=== PATIENT | male | born 1980 | race Caucasian/White ===

== ENCOUNTER 2024-10-19 21:30 | Emergency (ER) | payer MEDICAID, SELFPAY ==
[2024-10-19 21:37] VITALS: BP 158/98; PULSE 104; O2SAT 99
[2024-10-19 21:48] VITALS: BP 138/67; PULSE 105; RESP 17; TEMP 37.3; O2SAT 97
[2024-10-19 21:50] VITALS: BMI 42.7
--- NOTE | 2024-10-19 22:14 | ED.SKABFB ---
HPI - Skin/Abscess/Foreign Bdy General Chief complaint: Skin/Abscess/Foreign Body Stated complaint: POSSIBLE INFECTION S/P OPERATION PER EMS Time Seen by Provider: 10/19/24 21:46 Source: patient Mode of arrival: EMS Limitations: no limitations History of Present Illness ED Provider: HPI narrative: Patient is diabetic with peripheral vascular disease status post left leg vascular surgery on 09/23 today was seen in the clinic and they removed the guerline when he came home was sitting in the toilet and the wound in the calf area opened up Related Data Previous Rx's ?Medication ?Instructions ?Recorded cephalexin 500 mg capsule 500 mg PO QID 10 days #40 caps 10/19/24 doxycycline hyclate 100 mg tablet 100 mg PO BID #20 tabs 10/19/24 Allergies Allergy/AdvReac Type Severity Reaction Status Date / Time No Known Allergies Allergy Verified 10/19/24 21:58 Review of Systems Review of Systems: Yes all other systems are reviewed and are negative [facility] Past Medical History Medical History Peripheral vascular disease Hyperlipidemia Diabetic neuropathy Hypertension Diabetes mellitus type 2 in obese Physical Exam Vital Signs: Vital Signs: Last Vital Signs Temp 99.2 F 10/19/24 21:48 Pulse 105 H 10/19/24 21:48 Resp 17 10/19/24 21:48 BP 138/67 10/19/24 21:48 Pulse Ox 97 10/19/24 21:48 O2 Del Method Room Air 10/19/24 21:48 BMI result Body Mass Index 42.7 Appearance: Alert. Oriented X3. No acute distress. ENT: Pharynx normal. Oral Mucosa moist Neck: Normal inspection. Neck supple. CVS: Normal heart rate and rhythm. Pulses normal. Respiratory: No respiratory distress. Equal air entry bilateral, no wheezing/rales/rhonchi Skin: Skin warm and dry. Normal skin color. Normal skin turgor. Extremities: No lower extremity edema left leg with surgical scar for thrombectomy left leg wound in the calf area opened up with purulent base Neuro: Oriented X 3. Medical Decision Making Medical Decision Making MDM Narrative: Patient with infected surgical wound in the left leg which was cleaned using peroxide Steri-Strips over the applied will give doxycycline and cephalexin advised to follow with wound clinic Discharge Plan Discharge Clinical Impression: Infected surgical wound Patient Disposition: Home, Self-Care Instructions: Wound Infection (ED) Additional Instructions: Local care as advised Take antibiotics as prescribed Follow up with wound clinic Prescriptions: New cephalexin 500 mg capsule 500 mg PO QID 10 Days Qty: 40 0RF doxycycline hyclate 100 mg tablet 100 mg PO BID Qty: 20 0RF Referrals: Jonah Quintanilla MD [Physician] - 3 days
[2024-10-19] MEDS: Doxycycline Monohydrate 100 MG CAPSULE PO (22:40)
[2024-10-19] MEDS: cephALEXin 500 MG CAPSULE PO (22:40)
[2024-10-19 22:50] VITALS: BP 144/86; PULSE 97; RESP 18; TEMP 36.8; O2SAT 97
== END 2024-10-19 23:00 | disposition home or self-care (01) ==
PROVIDERS: Emergency Provider Internal Medicine
DX: L03.116 Cellulitis of left lower limb (principal)
CPT/HCPCS: 99283

== ENCOUNTER 2025-02-25 13:42 | Emergency (ER) | payer MEDICAID, SELFPAY ==
[2025-02-25 13:55] VITALS: BP 168/58; PULSE 86; RESP 16; TEMP 36.4; O2SAT 95; BMI 46.1
--- NOTE | 2025-02-25 13:57 | ED.GENADULT ---
HPI - General Adult General Chief complaint: Recheck/Abnormal Lab/Rx Stated complaint: Blood infect? DR said Time Seen by Provider: 02/25/25 14:41 History of Present Illness ED Provider: Pilar GORDON narrative: The patient is a 45-year-old male with a history of type 2 diabetes. He recently moved to this area from [place], [place]. Six months ago he had vascular surgery on his left leg at [facility] in [place]. On 09/23/2024 he had a left fem-pop bypass. He subsequently developed Dehiscence from the surgical site on the upper portion of his medial left prince which has been very slow in healing. He was hospitalized for a wound infection at [facility] in [place] 3 or 4 weeks ago. he was admitted on January 27 and discharged on February 03. At discharge he was prescribed 6 days of additional antibiotics. Since then he has relocated to this area so he can stay with his sister who was helping care for him. He had had a primary care doctor in [place] but has no local primary care doctor. Yesterday he had an appointment with the drill bit sharpener at [facility]. At the office he was found to have a blood sugar of 620. He says that the drill bit sharpener called an ambulance and he was sent to the emergency room at [facility] but after a 9 hour wait in the emergency room he left and had a sister pick him up. He comes to the hospital here today because of ongoing high blood sugars although his blood sugars are not so high today. The patient says that the wound has been doing reasonably well. He has been getting assistance from the [facility] visiting nurses. They come 3 times a week. The visiting nurses came this morning. They applied Silvadene and a dressing as that usually do. They did not seem to think that there was any worsening of the wound. The patient has had no fevers, sweats, chills. The patient had also had a postoperative DVT for which he completed 6 months of anticoagulation. Related Data Previous Rx's ?Medication ?Instructions ?Recorded cephalexin 500 mg capsule 500 mg PO QID 10 days #40 caps 10/19/24 doxycycline hyclate 100 mg tablet 100 mg PO BID #20 tabs 10/19/24 Allergies Allergy/AdvReac Type Severity Reaction Status Date / Time No Known Allergies Allergy Verified 05/02/25 14:04 Review of Systems Review of Systems: Yes all other systems are reviewed and are negative [facility] Past Medical History Medical History Peripheral vascular disease Hyperlipidemia Diabetic neuropathy Hypertension Diabetes mellitus type 2 in obese Social History Social History Smoked in Last 30 Days: No Advance Directives: Yes Advance Directives Information Provided: Yes Advance Directives on File: No Physical Exam ED Vital Signs: Vital Signs - 24 hr 02/25/25 13:55 02/25/25 18:19 Temperature 97.5 F 98.2 F Pulse Rate 86 87 Respiratory Rate 16 16 Blood Pressure 168/58 H 149/77 H Pulse Oximetry 95 98 Oxygen Delivery Method Room Air Room Air BMI result Body Mass Index 46.1 Const Other: the patient is a an obese 45-year-old male who looks somewhat chronically ill but not obviously acutely ill. He does not seem in pain or respiratory distress. He does not seem toxic. He is pleasant and cooperative. HENMT Other: Face is symmetrical, mucous membranes moist. Eyes General: appearance normal, both eyes and all related structures Neck Neck: Yes normal visual inspection and Yes full ROM Resp Effort & Inspection: normal respiratory effort Auscultation: clear to auscultation bilaterally Cardio Rate: regular rate Rhythm: regular rhythm Heart sounds: S1 normal heart sound present and S2 normal heart sound present GI Other: The abdomen is soft nontender Skin Other: the patient has a large wound on the medial aspect of the proximal left lower leg. Please see the picture in the extremity portion. There is no erythema at the wound edges. There seems to be granulation tissue. Otherwise the skin is unremarkable. Neuro Other: The patient is awake and alert with normal mental status. Normal cranial nerves. Moves extremities normally. He has a cane. He walks steadily with a cane. Extrem Other: The patient has a wound on the medial aspect of the proximal left lower leg. The patient has the dorsalis P is pulse on the left foot. There is no ankle swelling. There is no calf swelling or tenderness. He moves the joints of the leg well. No purulence at the wound. Course Course Course Narrative: This is an RME performed by Artemio Casanova CNP: Additional HPI, ROS, PE not included below will be deferred to primary provider. Patient is a 45-year-old male who presents emergency department for evaluation. He recently resided in [place], after a surgery in September he moved to the local area with a his sister. He had a routine follow-up appointment with his drill bit sharpener yesterday in [place]. Evidently his point of care glucose in office was 620. He was transported by EMS to [facility] ER, evidently had blood work done in triage but ultimately waited for 9 hours and left without being seen due to the wait time. He ended up going home. Today he received a call from his drill bit sharpener who advised him that he should go back to the emergency department as there was concern that he may have a ? Blood infection , causing the hyperglycemia. He admits to a recent surgical procedure of the left lower extremity in September of 2024 due to a clot in the leg, and was hospitalized at [facility] 3 weeks ago due to an infection in the left leg/genitalia. Currently not on antibiotics, no PICC line. Plan: Serum labs, will attempt to obtain records from [facility] Medications Administered Discontinued Medications Generic Name Dose Route Start Last Admin Trade Name Freq PRN Reason Stop Dose Admin Lactated Ringer's 1,000 mls @ 999 mls/hr 02/25/25 15:00 02/25/25 17:22 Lr IV 02/25/25 16:00 Infused .Q1H1M MAURICIO Infusion Sodium Chloride 1,000 mls @ 999 mls/hr 02/25/25 17:45 02/25/25 17:50 Ns IV 02/25/25 18:45 999 mls/hr .Q1H1M MAURICIO Administration Insulin Human Lispro 10 unit 02/25/25 17:50 02/25/25 17:54 Insulin Lispro 100 Unit/Ml 3 Ml Vial SUBCUT 02/25/25 17:51 10 unit ONCE ONE Administration Silver Sulfadiazine 1 appl 02/25/25 15:00 02/25/25 15:05 Silver Sulfadiazine 1 % Cream 20 Gm Tube TOPICAL 02/25/25 15:01 1 appl ONCE ONE Administration Medical Decision Making Medical Decision Making [facility] Narrative: The patient is a 45-year-old male who is a type 2 diabetic who is 6 months status post femoral popliteal bypass surgery of the left leg which was complicated by wound dehiscence and infection in the proximal portion of the left lower leg. He has been off antibiotics for about 2 weeks. He has had no fevers. Yesterday he had a very high blood sugar of 620 when he was at an drill bit sharpener appointment in [place], [place]. He was sent to the emergency room by ambulance yesterday but left the waiting room after a 9 hour wait. Today his blood sugars in the 400. the patient does not seem to feel ill are inked described symptoms of infection. He was given IV fluids. His blood sugar came down to the 300s. His labs are unremarkable including a normal white count and normal differential. Patient has Treligy, lispro and Lantus at home. He says he has also been prescribed a new medication for his diabetes he says which she can olive picker at the pharmacy tomorrow. I do not think the patient looks ill enough that he requires hospitalization and I do not think his hyperglycemia is indicative of a new infection. I think he may be discharged to continue to manage his diabetes at home. He needs to get a local doctor if he is relocating to this area. He was given contact information for local PCP offices. Lab Data 02/25/25 14:36 02/25/25 14:36 Labs: Lab Results 02/25/25 02/25/25 02/25/25 Range/Units 14:35 14:36 14:41 WBC 9.9 (4.8-10.8) X10*3/uL RBC 4.73 (4.60-5.80) X10*6/uL Hgb 13.2 L (14.0-18.0) g/dl Hct 39.0 L (42.0-52.0) % MCV 82.5 (80.0-98.0) fL MCH 27.9 (27.0-33.0) pg MCHC 33.8 (31.0-36.0) g/dl RDW 14.2 (11.0-16.0) % Plt Count 296 (160-400) X10*3/uL MPV 9.8 (9.4-12.4) fL Immature Gran % (Auto) 1.0 H (0.0-0.4) % Neut % (Auto) 64.0 (45-73) % Lymph % (Auto) 25.4 (20-40) % Ashe % (Auto) 5.1 (2-11) % Eos % (Auto) 3.8 (0-4) % Baso % (Auto) 0.7 (0-2) % Lymph # (Auto) 2.5 (1.2-4.9) X10*3/uL Ashe # (Auto) 0.5 (0.1-1.2) X10*3/uL Eos # (Auto) 0.4 (0.0-0.4) X10*3/uL Baso # (Auto) 0.1 (0.0-0.2) X10*3/uL Abs Immat Gran (auto) 0.10 H (0.00-0.03) X10*3/uL Absolute Neuts (auto) 6.3 (2.0-8.3) x10*3/uL Absolute Nucleated RBC 0.000 (0.0-0.012) X10*3/uL Nucleated RBC % (auto) 0.0 (0.0-0.2) /100WBC VBG pH 7.35 (7.32-7.43) VBG pCO2 60 mmHg VBG pO2 35 mmHg VBG HCO3 33 H (22-26) mmol/L VBG O2 Saturation 57.0 % VBG Base Excess 6.3 mmol/L Sodium 135 (135-145) mmol/L Potassium 4.8 (3.3-5.1) mmol/L Chloride 98 (96-108) mmol/L Carbon Dioxide 29 (22-29) mmol/L Anion Gap 13 (12-20) BUN 37 H (9-16) mg/dL Creatinine 1.39 (0.5-1.4) mg/dL Estim Creat Clear Calc 82.7 Estimated GFR 55 POC Glucose (60-115) mg/dL Random Glucose 423 H* (60-115) mg/dL Lactic Acid 1.7 (0.5-2.0) mmol/L Calcium 9.4 (8.4-10.2) mg/dL Magnesium 2.4 (1.6-2.6) mg/dL Total Bilirubin 0.3 (0.0-1.0) mg/dL AST 26 (5-37) U/L ALT 21 (0-40) U/L Alkaline Phosphatase 133 H (39-117) U/L Total Protein 7.7 (6.5-8.0) g/dL Albumin 3.6 (3.5-5.0) g/dL Lipase 41 (8-78) U/L Beta-Hydroxybutyrate 0.18 (0.02-0.27) mmol/L Urine Color Urine Appearance Urine pH (5.0-9.0) Ur Specific Macclenny (1.005-1.025) Urine Protein (Neg-Trace) mg/dL Urine Glucose (UA) (Negative) mg/dL Urine Ketones (Negative) mg/dL Urine Blood (Negative) Urine Nitrite (Negative) Ur Leukocyte Esterase (Negative) Urine RBC (0-2) /HPF Urine WBC (0-5) /HPF Ur Squamous Epith Cells (0-2) /HPF Urine Bacteria (None Seen) Hyaline Casts (0-2) /LPF 02/25/25 02/25/25 02/25/25 Range/Units 17:23 18:33 19:40 WBC (4.8-10.8) X10*3/uL RBC (4.60-5.80) X10*6/uL Hgb (14.0-18.0) g/dl Hct (42.0-52.0) % MCV (80.0-98.0) fL MCH (27.0-33.0) pg MCHC (31.0-36.0) g/dl RDW (11.0-16.0) % Plt Count (160-400) X10*3/uL MPV (9.4-12.4) fL Immature Gran % (Auto) (0.0-0.4) % Neut % (Auto) (45-73) % Lymph % (Auto) (20-40) % Ashe % (Auto) (2-11) % Eos % (Auto) (0-4) % Baso % (Auto) (0-2) % Lymph # (Auto) (1.2-4.9) X10*3/uL Ashe # (Auto) (0.1-1.2) X10*3/uL Eos # (Auto) (0.0-0.4) X10*3/uL Baso # (Auto) (0.0-0.2) X10*3/uL Abs Immat Gran (auto) (0.00-0.03) X10*3/uL Absolute Neuts (auto) (2.0-8.3) x10*3/uL Absolute Nucleated RBC (0.0-0.012) X10*3/uL Nucleated RBC % (auto) (0.0-0.2) /100WBC VBG pH (7.32-7.43) VBG pCO2 mmHg VBG pO2 mmHg VBG HCO3 (22-26) mmol/L VBG O2 Saturation % VBG Base Excess mmol/L Sodium (135-145) mmol/L Potassium (3.3-5.1) mmol/L Chloride (96-108) mmol/L Carbon Dioxide (22-29) mmol/L Anion Gap (12-20) BUN (9-16) mg/dL Creatinine (0.5-1.4) mg/dL Estim Creat Clear Calc Estimated GFR POC Glucose 321 H 351 H* (60-115) mg/dL Random Glucose (60-115) mg/dL Lactic Acid (0.5-2.0) mmol/L Calcium (8.4-10.2) mg/dL Magnesium (1.6-2.6) mg/dL Total Bilirubin (0.0-1.0) mg/dL AST (5-37) U/L ALT (0-40) U/L Alkaline Phosphatase (39-117) U/L Total Protein (6.5-8.0) g/dL Albumin (3.5-5.0) g/dL Lipase (8-78) U/L Beta-Hydroxybutyrate (0.02-0.27) mmol/L Urine Color Yellow Urine Appearance Clear Urine pH 6.5 (5.0-9.0) Ur Specific Macclenny 1.015 (1.005-1.025) Urine Protein 300 (3+) H (Neg-Trace) mg/dL Urine Glucose (UA) >=1000 H (Negative) mg/dL Urine Ketones Negative (Negative) mg/dL Urine Blood Trace H (Negative) Urine Nitrite Negative (Negative) Ur Leukocyte Esterase Negative (Negative) Urine RBC 0-2 (0-2) /HPF Urine WBC 0-5 (0-5) /HPF Ur Squamous Epith Cells 0-2 (0-2) /HPF Urine Bacteria None Seen (None Seen) Hyaline Casts 0-2 (0-2) /LPF Discharge Plan Discharge Clinical Impression: Hyperglycemia, Type 2 diabetes mellitus Patient Disposition: Home, Self-Care Additional Instructions: Please continue your current medications and start the new medications your regular doctor prescribed for you when you pick it up from the pharmacy tomorrow. If you are going to be living in his area you should try to get a new primary care doctor. I have given you the contact information for to local primary care practices which may be taking new patients. Please call these offices on Friday. In the meantime please stay in touch with your drill bit sharpener at [facility]. Return to the emergency room if you feel significantly worse. Prescriptions: No Action cephalexin 500 mg capsule 500 mg PO QID 10 Days Qty: 40 0RF doxycycline hyclate 100 mg tablet 100 mg PO BID Qty: 20 0RF Referrals: [facility] Primary Care, [place] [Provider Group] Mel Vick MD [Physician] - Discharge Date/Time: 02/25/25 20:00 Print Language: Tunisian
[2025-02-25 14:41] LABS: MANUAL DIFF FLAG NO
--- OUTSIDE RECORDS SUMMARY | 2025-02-25 14:42 | XMS_ITS | Encounter Summary ---
Author Organization [facility] Address [address] [place] [address] Care Team Providers Care [employer] Name Role Phone Geovanna Abbasi MAC DEVELOPER Primary Care Provider [phone] Reason for Visit * Reason Onset Date Comments PAC Appt Request - New 01/26/2025 Encounter Details Date Type Department Care Team (Late st Contact Info) Description 01/26/2025 Telephone [facility] Plastic Cosmetic Surgery [address], [place] [id number] Dry Wall Finisher: Maribell Hazel PAC Appt Request - New Social History Tobacco Use Types Packs/Day Years Used Date Smoking Tobacco: Former Cigarettes Smokeless Tobacco: Never Comments:QUIT DAY OF SURGERY Alcohol Use Standard Drinks/Week Comments Never 0 (1 standard drink = 0.6 oz pur e alcohol) [facility] Utilities Answer Date Recorded In the past 12 months has e electric, gas, oil, or water company threatened to shut off services in your home? No 11/26/2024 Hunger Vital Sign Answer Date Recorded Within the past 12 months, y ou worried that your food would run out before you got the money to buy more. Never true 11/26/19 25 Within the past 12 months, t he food you bought just didn't last and you didn't have money to get more. Never true 11/26/2024 Transportation Answer Date Recorded In the past 12 months, has l ack of reliable transportation kept you from medical appointments, meetings, work or from getting things needed for daily living? No 11/26/2024 Housing Answer Date Recorded Housing Risk Low 2 11/26/2024 Housing Risk Medium Not on file 11/26/2024 Housing Risk High Not on file 11/26/2024 What is your living situation today? [facility]AD[facility] 11/26/2024 Sex and Gender Information Value Date Recorded Sex Assigned at Male 03/08/2024 11:09 AM EDT Legal Sex Male 5:33 PM EST Gender Identity Not on file Sexual Orientation Not on file documented as of this encounter Miscellaneous Notes * Telephone Encounter - Maribell Levi - 01/26/2025 7:49 AM EDT New patient Referred by vascular to Dr Wakefield Dx:skin graft consult/ wound leg Pls call sister [phone] documented in this encounter Plan of Treatment Upcoming Encounters Date Type Department Care Team (Late st Contact Info) Description 02/28/2025 10:00 AM EDT Nutrition [facility] [address] [place] [id number] [place] [phone] 03/24/2025 1:40 PM EDT Office Visit [facility] [address] [facility] [address] [place] [address] Geovanna Abbasi NP [address] [place] [address] 04/07/2025 8:00 AM EDT Office Visit [facility] [address] [place] [id number] Dry Wall Finisher: ChrystalTatiana Hernandez NP [address] [place] [address] 04/26/2025 10:40 AM EDT Follow-Up [facility] [address] [place] [address] Dry Wall Finisher: Kojo Tracey MD [address] [place] [address] 05/05/2025 2:30 PM EDT Office Visit [facility] [address] [place] [address] Dry Wall Finisher: Tatiana Phillip NP [address] [place] [phone] 05/19/2025 1:30 PM EDT Office Visit [facility] [address] [facility] [address] [place] [address] DiGHenrique gusman, PharmD [address] [place] [address] 07/15/2025 1:00 PM EDT Appointment [facility] [address] [place] [id number] 07/15/2025 1:45 PM EDT Appointment [facility] [address] [place] [address] 07/15/2025 3:00 PM EDT Follow-Up [facility] Vascular Surgery [address] [place] [phone] Dry Wall Finisher: Mitul Starr NP [address] [place] [phone] documented as of this encounter Visit Diagnoses Not on filedocumented in this encounter Care Teams [employer] Relationship Specialty Start Date End Date Geovanna Abbasi NP [address] [place] [id number] PCP - General 11/09/20 documented as of this encounter
--- OUTSIDE RECORDS SUMMARY | 2025-02-25 14:42 | XMS_ITS | Encounter Summary ---
Author Organization [facility] Address [address] [place] [address] Care Team Providers Care Instructional Supervisor Name Role Phone Geovanna Abbasi EARTHMOVING PLANT OPERATOR Primary Care Provider [phone] Encounter Details Date Type Department Care Team (Late st Contact Info) Description 02/21/2025 11:30 AM EDT Follow-Up [facility] [address] [place] [address] Litigation Legal Secretary: Akash Delgado PA [address] [place] [address] [phone] Leg wound, left, initial encounter (Primary Dx) Social History Tobacco Use Types Packs/Day Years Used Date Smoking Tobacco: Former Cigarettes Smokeless Tobacco: Never Tobacco Cessation:Counseling Given: Not Answered Comments:QUIT DAY OF SURGERY Alcohol Use Standard Drinks/Week Comments Never 0 (1 standard drink = 0.6 oz pur e alcohol) [facility] Utilities Answer Date Recorded In the [...] on file documented as of this encounter Progress Notes * REECE Ambriz - 02/21/2025 11:30 AM EDT Images from the original note were not included. [facility] [address] [place] [phone] NAME:Miguel Foley DATE OF :1980 DATE OF SERVICE:02/21/25 ATTENDING: Dr. Alfredo Wakefield DATE OF SURGERY: left femoral popliteal bypass with ipsilateral Great Saphenous Vein (iGSV), 09/23/2024, Dr. Lewis CHIEF COMPLAINT: wound vac HISTORY OF PRESENT ILLNESS: Miguel Foley is a 45 y.o. male with history of left femoral popliteal bypass with ipsilateral Great Saphenous Vein (iGSV) on 09/23/[address] Lewis followed by left medial calf Incision and drainage with negative pressure vac placement on 11/27/[address] Miller comes to clinic for a wound check. Patient has VNA 3x a week changing wound vac on left calf with i mprovement. He was hospitalized for left lower extremity cellulitis/sepsis from 01/27/2025 to 02/03/2025, which has improved with IV antibiotics. Pain is under control. Current treatment is negative pressure wound vac. VNA changes wound vac 3 time a week. He notes slight irritation around wound due to the tape. He has been eating more red meats and eggs for wound healing. He does note that his left knee is more stiff, but he also says that he does not move it for long periods of time. Diabetes is well controlled, patient states he is doinghis best with managing diabetes but it is difficult. The patient has no other complaints. The patient denies fevers, chills, chest pain, shortness of breath, nausea, vomiting, lightheadedness. Is currently on Eliquis. Smokes marijuana. With . Translation services used: [place], [id number] Past Medical History: Diagnosis Date Acquired absence of other organs 01/17/2021 Acute deep vein thrombosis (DVT) of lower extremity ([facility]) 08/27/2024 Seen ed 08/03 Claudication of both lower extremities ([facility]) 01/11/2021 Hypertension Type 2 diabetes mellitus ([facility]) Current Outpatient Medications Medication Sig Dispense Refill acetaminophen (TYLENOL) 325 mg tablet Take 650 mg by mouth every 6 hours as needed for pain. alcohol swabs (Alcohol Prep Pads) pads, medicated Use prior to checking blood sugar 100 each 11 amLODIPine (NORVASC) 5 mg tablet Take 1 tablet (5 mg total) by mouth once a day. 90 tablet 1 aspirin 81 mg EC tablet Take 1 tablet (81 mg total) by mouth once a day. blood glucose diagnostic (FreeStyle Precision Ethan Strips) test strip Use to test 3 times daily. 50 strip 2 blood pressure test kit-medium kit For blood pressure monitoring 1-2 times weekly 1 each 0 blood-glucose sensor (FreeStyle Geo 3 Plus Sensor) device Change sensor every 15 days. 2 each 3 dulaglutide (TRULICITY) 1.5 mg/0.5 mL injection dose Inject 0.5 mL (1.5 mg total) under the skin every 7 days. 6 mL 0 ergocalciferol (VITAMIN D2) 1,250 mcg (50,000 unit) capsule Take 1 capsule (50,000 Units total) by mouth every 7 days. 4 capsule 0 flash glucose sensor (FreeStyle Geo 2 Sensor) kit Change sensor every 14 days. 1 kit 2 furosemide (LASIX) 20 mg tablet Take 2 tablets (40 mg total) by mouth once a day. 60 tablet 2 gabapentin (NEURONTIN) 300 mg capsule TAKE 1 CAPSULE(300 MG) BY MOUTH TWICE DAILY 60 capsule 0 hydrOXYzine HCL (ATARAX) 25 mg tablet Take 1-2 pills by mouth at night for anxiety and insomnia. 90tablet 1 insulin glargine (LANTUS SOLOSTAR) 100 unit/mL insulin pen Inject 38 Units under the skin nightly. 30 mL 1 insulin lispro injection 100 units/mL vial Inject 2-10 Units under the skin 3 times a day with meals. insulin lispro injection 100 units/mL vial Inject 2-10 Units under the skin nightly. insulin lispro injection 100 units/mL vial Inject 10 Units under the skin 3 times a day with meals.9 mL 2 lisinopriL (PRINIVIL,ZESTRIL) 30 mg tablet Take 1 tablet (30 mg total) by mouth once a day. 90 tablet 3 rosuvastatin (CRESTOR) 20 mg tablet Take 20 mg by mouth once a day. tamsulosin (FLOMAX) 0.4 mg capsule Take 1 capsule (0.4 mg total) by mouth once a day. 30 capsule 11 No current facility-administered medications for this visit. No Known Allergies REVIEW OF SYSTEMS: Denies any fever, sweats, chills, nausea, vomiting or shortness of breath OBJECTIVE: GENERAL: Alert and oriented x 3, pleasant mood and affect HEENT: Mucous membranes moist, extra occular movements intact RESPIRATORY: normal respiratory effort SKIN: Location/measurements: Wound located on the left calf measures 8.5 cm x 2 cm x 0.3 cm. Erythema: There are no signs of infection. Odor: There is no odor appreciated. Drainage: Drainage is moderate and clear in color. Appearance: The wound base has red granulation tissue. Edema: Edema is non-existant. Debridement: Debridement was not required today. The dressings will autolytically debride the wound. Stage: Full thickness EXTREMITY: Well perfused ASSESSMENT AND PLAN: ICD-9-CM ICD-10-CM 1. Leg wound, left, initial encounter 894.0 S81.802A This is a 45 y.o. year old male with history of left femoral popliteal bypass with ipsilateral Great Saphenous Vein (iGSV) on 09/23/[address] Lewis followed by left medial calf Incision and drainage with negative pressure vac placement on 11/27/[address] Miller. Here for wound check. Vascular note mentioned possible skin graft, so case was discussed with Bella Alan PA-C. Discussed with patient the risks and benefits of skin graft, as well as possible timeline of healing graft. Decision was made to discontinue wound vac and start simple silvadene dressings. He has used Silvadene previously for a burn and denies any negative reaction. Stand up showers are OK, as longas wound are last area cleansed. Advised that wounds are still too deep to leave to air. Wound care instructions sent to [facility]. Sent Silvadene prescription. Follow up in 1 week. Wound care: Daily cleanse with soap and water, pat dry. Apply Silvadene to gauze, then apply to wound. Secure with gauze roll. Plan 1. Continue wound care instructions as above. 2. Follow up in 1 week 3. Return to clinic or ED if new or worsening symptoms. Patient in agreement with plan. Akash Marley PA-C Portions of this note were done using voice recognition software and may contain inadvertent errors. documented in this encounter Plan of Treatment Upcoming Encounters Date Type Department Care Team (Late st Contact Info) Description 02/28/2025 10:00 AM EDT Nutrition [facility] Nutrition Clinic [address] [place] [address] [place] [phone] 03/24/2025 1:40 PM EDT Office Visit [facility] [address] [address] [place] [address] Geovanna Abbasi NP [address] [place] [address] 04/07/2025 8:00 AM EDT Office Visit [facility] Diabetes Clinic [address] [place] [address] Litigation Legal Secretary: Tatiana Phillip NP [address] [place] [address] 04/26/2025 10:40 AM EDT Follow-Up [facility] Renal [address] [place] [address] Litigation Legal Secretary: Kojo Tracey MD [address] [place] [address] 05/05/2025 2:30 PM EDT Office Visit [facility] Diabetes Clinic [address] [place] [address] Litigation Legal Secretary: Tatiana Phillip NP [address] [place] [address] 05/19/2025 1:30 PM EDT Office Visit [facility] [address] [facility] [address] [place] [address] Henrique Banegas, PharmD [address] [place] [address] 07/15/2025 1:00 PM EDT Appointment [facility] Vascular Lab [address] [place] [address] 07/15/2025 1:45 PM EDT Appointment [facility] Vascular Lab [address] [place] [address] 07/15/2025 3:00 PM EDT Follow-Up [facility] Vascular Surgery [address] [place] [address] Litigation Legal Secretary: Mitul Starr NP [address] [place] [address] documented as of this encounter Visit Diagnoses Diagnosis Leg wound, left, initial encounter- Primary documented in this encounter Care Teams Instructional Supervisor Relationship Specialty Start Date End Date Geovanna Abbasi NP [address] [place] [address] PCP - General 11/09/20 documented as of this encounter
--- OUTSIDE RECORDS SUMMARY | 2025-02-25 14:42 | XMS_ITS | Encounter Summary ---
Author Organization [facility] Address [address] [place] [address] Care Team Providers Care Instructor Trainer Canine Service Name Role Phone Geovanna Abbasi BAKERY WORKER CONVEYOR LINE Primary Care Provider [phone] Encounter Details Date Type Department Care Team (Late st Contact Info) Description 02/25/2025 Orders Only [facility] Endocrinology Clinic [address] [place] [address] Photo Tech: Catherine Cha MD [address] [place] [address] Social History Tobacco Use Types Packs/Day Years Used Date Smoking Tobacco: Former Cigarettes Smokeless Tobacco: Never Comments:QUIT DAY OF SURGERY Alcohol Use Standard Drinks/Week Comments Never 0 (1 standard drink = 0.6 oz pur e alcohol) [facility] Utilities Answer Date Recorded In the [...] on file documented as of this encounter Plan of Treatment Upcoming Encounters Date Type Department Care Team (Late st Contact Info) Description 02/28/2025 10:00 AM EDT Nutrition [facility] Nutrition Clinic [address] [place] [address] [place] [phone] 03/24/2025 1:40 PM EDT Office Visit [address] [facility] [address] [place] [address] Geovanna Abbasi NP [address] [place] [address] 04/07/2025 8:00 AM EDT Office Visit [facility] ACC Building Diabetes Clinic [address] [place] [address] Photo Tech: Tatiaan Phillip NP [address] [place] [address] 04/26/2025 10:40 AM EDT Follow-Up [facility] Renal [address] [place] [address] Photo Tech: Kojo Tracey MD [address] [place] [address] 05/05/2025 2:30 PM EDT Office Visit [facility] Diabetes Clinic [address] [place] [address] Photo Tech: Tatiana Phillip NP [address] [place] [address] 05/19/2025 1:30 PM EDT Office Visit [facility] [address] [facility] [address] [place] [address] DiGeroHenrique lewis, PharmD [address] [place] [address] 07/15/2025 1:00 PM EDT Appointment [facility] ACC Vascular Lab [address] [place] [address] 07/15/2025 1:45 PM EDT Appointment [facility] Vascular Lab [address] [place] [address] 07/15/2025 3:00 PM EDT Follow-Up [facility] Vascular Surgery [address] [place] [address] Photo Tech: Mitul Starr NP [address] [place] [address] documented as of this encounter Visit Diagnoses Not on filedocumented in this encounter Care Teams Instructor Trainer Canine Service Relationship Specialty Start Date End Date Geovanna Abbasi NP [address] [place] [address] PCP - General 11/09/20 documented as of this encounter
--- OUTSIDE RECORDS SUMMARY | 2025-02-25 14:42 | XMS_ITS | Encounter Summary ---
Author Organization [facility] Address [address] [place] [address] Care Team Providers Care Plastic And Reconstructive Surgeon Name Role Phone Ayleen Geovanna DIE CUTTER DIAMOND Primary Care Provider [phone] Reason for Visit * Reason Onset Date Comments Prior Authorization 02/25/2025 (MSOT) - OZE MPIC (1MG/DOSE)4MG/3ML PEN-INJ.#01/21 Encounter Details Date Type Department Care Team (Late st Contact Info) Description 02/25/2025 Telephone [facility] Endocrinology Clinic [address] [place] [address] [phone] Upper Tier: Titus Parikh Prior Authorization ((MSOT) - OZEMPIC (1MG/DOSE)4MG/3ML PEN-INJ.#01/21) Social History Tobacco Use Types Packs/Day Years Used Date Smoking Tobacco: Former Cigarettes Smokeless Tobacco: Never Comments:QUIT DAY OF SURGERY Alcohol Use Standard Drinks/Week Comments Never 0 (1 standard drink = 0.6 oz pur e alcohol) [facility] Utilities Answer Date Recorded In the past [...] encounter Miscellaneous Notes * Telephone Encounter - Titus Levy - 02/25/2025 1:59 PM EDT Filled out [email or web address] PA form for Ozempic (1mg/dose)4mg/3ml pen-inj., faxed it to plan fax #[phone] for PA determination. documented in this encounter Plan of Treatment Upcoming Encounters Date Type Department Care Team (Late st Contact Info) Description 02/28/2025 10:00 AM EDT Nutrition [facility] Nutrition Clinic [address] [place] [address] [place] [phone] 03/24/2025 1:40 PM EDT Office Visit [facility] [address] [facility] [address] [place] [address] Geovanna Abbasi NP [address] [place] [address] 04/07/2025 8:00 AM EDT Office Visit [facility] Diabetes Clinic [address] [place] [address] Upper Tier: Tatiana Phillip NP [address] [place] [address] 04/26/2025 10:40 AM EDT Follow-Up [facility] Renal [address] [place] [address] Upper Tier: Kojo Tracey MD [address] [place] [address] 05/05/2025 2:30 PM EDT Office Visit [facility] Diabetes Clinic [address] [place] [address] Upper Tier: Tatiana Phillip NP [address] [place] [address] 05/19/2025 1:30 PM EDT Office Visit [facility] [address] [facility] [address] [place] [address] DiGHenrique gusman, PharmD [address] [place] [address] 07/15/2025 1:00 PM EDT Appointment [facility] ACC Vascular Lab [address] [place] [address] 07/15/2025 1:45 PM EDT Appointment [facility] ACC Vascular Lab [address] [place] [address] 07/15/2025 3:00 PM EDT Follow-Up [facility] Vascular Surgery [address] [place] [address] Upper Tier: Mitul Starr NP [address] [place] [address] documented as of this encounter Visit Diagnoses Not on filedocumented in this encounter Care Teams Plastic And Reconstructive Surgeon Relationship Specialty Start Date End Date Geovanna Abbasi NP [address] [place] [address] PCP - General 11/09/20 documented as of this encounter
--- OUTSIDE RECORDS SUMMARY | 2025-02-25 14:42 | XMS_ITS | Encounter Summary ---
Author Organization [facility] Address [address] [place] [address] Care Team Providers Care Wire Communications Engineer Name Role Phone Geovanna Abbasi CONTROL DIRECTOR Primary Care Provider [phone] Encounter Details Date Type Department Care Team (Late st Contact Info) Description 01/03/2023 Orders Only [facility] [address] [facility] [address] [place], [place] [phone] Geovanna Abbasi NP [address] [place], [place] [phone] Social History Tobacco Use Types Packs/Day Years Used Date Smoking Tobacco: Every Day Cigarettes Smokeless Tobacco: Never Alcohol Use Standard Drinks/Week Comments Never 0 (1 standard drink = 0.6 oz pur e alcohol) Sex and Gender Information Value Date Recorded Sex Assigned at Male 03/08/2024 11:09 AM EDT Legal Sex Male 5:33 PM EST Gender Identity Not on file Sexual Orientation Not on file documented as of this encounter Plan of Treatment Upcoming Encounters Date Type Department Care Team (Late st Contact Info) Description 02/28/2025 10:00 AM EDT Nutrition [facility] Nutrition Clinic [address] [place] [address] [phone] Raysa Mnedez, RD [address] [place] [phone] 03/24/2025 1:40 PM EDT Office Visit [facility] [address] [facility] [address] [place] [address] Geovanna Abbasi NP [address] [place] [address] 04/07/2025 8:00 AM EDT Office Visit [facility] Diabetes Clinic [address] [place] [address] Soil Science Teacher: Tatiana Phillip NP [address] [place] [address] 04/26/2025 10:40 AM EDT Follow-Up [facility] Renal [address] [place] [address] Soil Science Teacher: Kojo Tracey MD [address] [place] [address] 05/05/2025 2:30 PM EDT Office Visit [facility] Diabetes Clinic [address] [place] [address] Soil Science Teacher: Tatiana Phillip NP [address] [place] [address] 05/19/2025 1:30 PM EDT Office Visit [place] [address] [facility] [address] [place] [address] DiGeroHenrique lewis, PharmD [address] [place] [address] 07/15/2025 1:00 PM EDT Appointment [facility] ACC Vascular Lab [address] [place] [address] 07/15/2025 1:45 PM EDT Appointment [facility] ACC Vascular Lab [address] [place] [address] 07/15/2025 3:00 PM EDT Follow-Up [facility] ACC Building Vascular Surgery [address] [place] [address] Soil Science Teacher: Mitul Starr NP [address] [place] [address] documented as of this encounter Visit Diagnoses Not on filedocumented in this encounter Additional Health Concerns Infection Onset Date Last Indicated Resolved Time R/O Respiratory Virus Infection 09/23/2024 09/23/2024 3:28 AM EST R/O Influenza 09/23/2024 09/23/2024 09/23/2024 3:2 8 AM EST COVID-19 - Suspected infection 09/23/2024 09/23/2024 09/23/2024 3:28 AM EST documented as of this encounter Care Teams Wire Communications Engineer Relationship Specialty Start Date End Date Geovanna Abbasi NP [address] [place] [address] PCP - General 11/09/20 documented as of this encounter
--- OUTSIDE RECORDS SUMMARY | 2025-02-25 14:43 | XMS_ITS | Encounter Summary ---
Author Organization [facility] Address [address] [place] [address] Care Team Providers Care Manager Of Revenue Name Role Phone Geovanna Abbasi BATTERY CHARGER CONVEYOR LINE Primary Care Provider [phone] Encounter Details Date Type Department Care Team (Late st Contact Info) Description 02/25/2025 Orders Only [facility] Endocrinology Clinic [address] [place] [address] Hand Ornament Maker: Catherine Cha MD [address] [place] [address] Social History Tobacco Use Types Packs/Day Years Used Date Smoking Tobacco: Former Cigarettes Smokeless Tobacco: Never Comments:QUIT DAY OF SURGERY Alcohol Use Standard Drinks/Week Comments Never 0 (1 standard drink = 0.6 oz pur e alcohol) [facility] Utilities Answer Date Recorded In the past [...] as of this encounter Progress Notes * Catherine Dinh MD - 02/25/2025 12:28 PM EDT Ozempic [address] of Mounjaro 5 mg weekly since not covered. documented in this encounter Plan of Treatment Upcoming Encounters Date Type Department Care Team (Late st Contact Info) Description 02/28/2025 10:00 AM EDT Nutrition [facility] Nutrition Clinic [address] [place] [address] [place] [phone] 03/24/2025 1:40 PM EDT Office Visit [facility] [address] [facility] [address] [place] [address] Geovanna Abbasi NP [address] [place] [address] 04/07/2025 8:00 AM EDT Office Visit [facility] Diabetes Clinic [address] [place] [address] Hand Ornament Maker: Tatiana Phillip NP [address] [place] [address] 04/26/2025 10:40 AM EDT Follow-Up [facility] Renal [address] [place] [address] Hand Ornament Maker: Kojo Tracey MD [address] [place] [address] 05/05/2025 2:30 PM EDT Office Visit [facility] Diabetes Clinic [address] [place] [address] Hand Ornament Maker: Tatiana Phillip NP [address] [place] [address] 05/19/2025 1:30 PM EDT Office Visit [facility] [address] [facility] [address] [place] [address] Henrique Banegas, PharmD [address] [place] [address] 07/15/2025 1:00 PM EDT Appointment [facility] ACC Vascular Lab [address] [place] [address] 07/15/2025 1:45 PM EDT Appointment [facility] ACC Vascular Lab [address] [place] [address] 07/15/2025 3:00 PM EDT Follow-Up [facility] Vascular Surgery [address] [place] [address] Hand Ornament Maker: Mitul Starr NP [address] [place] [address] documented as of this encounter Visit Diagnoses Not on filedocumented in this encounter Care Teams Manager Of Revenue Relationship Specialty Start Date End Date Geovanna Abbasi NP [address] [place] [address] PCP - General 11/09/20 documented as of this encounter
--- OUTSIDE RECORDS SUMMARY | 2025-02-25 14:43 | XMS_ITS | Clinical Summary ---
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 10/01/20 24 Active blood glucose diagnostic (FreeStyle Precision Ethan Strips) test strip Use to test 3 times daily. 50 strip 2 10/29/19 25 Active amLODIPine (NORVASC) 5 mg tablet Take 1 tablet (5 mg total) by mouth once a day. 90 tablet 1 11/09/19 25 2024 Active ergocalciferol (VITAMIN D2) 1,250 mcg (50,000 unit) capsule Take 1 capsule (50,000 Units total) by mouth every 7 days. 4 capsule 11/10/19 25 Active blood pressure test kit-medium kit For blood pressure monitoring 1-2 times weekly 1 each 11/10/19 25 Active tamsulosin (FLOMAX) 0.4 mg capsule Take 1 capsule (0.4 mg total) by mouth once a day. 30 capsule 11 11/26/19 25 Active hydrOXYzine HCL (ATARAX) 25 mg tablet Take 1-2 pills by mouth at night for anxiety and insomnia. 90 tablet 1 12/17/19 25 Active furosemide (LASIX) 20 mg tablet Take 2 tablets (40 mg total) by mouth once a day. 60 tablet 2 12/22/19 25 2024 Active rosuvastatin (CRESTOR) 20 mg tablet Take 20 mg by mouth once a day. Active acetaminophen (TYLENOL) 325 mg tablet Take 650 mg by mouth every 6 hours as needed for pain. Active gabapentin (NEURONTIN) 300 mg capsule TAKE 1 CAPSULE(300 MG) BY MOUTH TWICE DAILY 60 capsule 01/26/20 25 Active silver sulfadiazine (SILVADENE) 1% creamIndications :Leg wound, left, initial encounter Apply topically to the affected area once a day. 50 g 2 02/22/20 25 Active cholecalciferol (VITAMIN D3) 1,250 mcg (50,000 unit) capsule Take 1 capsule (50,000 Units total) by mouth once a week for 8 doses. 8 capsule 02/29/20 25 2024 Active lisinopriL (PRINIVIL,ZESTRI L) 10 mg tablet Take 4 tablets (40 mg total) by mouth once a day. 120 tablet 2 02/24/20 25 2024 Active alcohol swabs (Alcohol Pads) pads, medicated Use up to 8 times daily with meter checks 200 each 02/25/20 25 Active insulin lispro 100 unit/mL insulin pen Inject 10 Units under the skin 3 times a day with meals. Adjust as instructed, MDD 60. 15 mL 02/25/20 25 Active blood-glucose sensor (FreeStyle Merly 3 Plus Sensor) device Change sensor every 15 days. 2 each 3 02/25/20 25 Active insulin glargine (LANTUS SOLOSTAR) 100 unit/mL insulin pen Inject 38 Units under the skin nightly. 30 mL 5 02/25/20 25 Active pen needle (BD Ultra-Fine Lizbeth) 4 mm x 32 g Use 4 times daily with insulin 200 each 02/25/20 25 Active Freestyle lancets 28 gauge Use to test 4 times daily.E11.9(T 2) 200 each 02/26/20 25 Active Freestyle Lite test strips Use to test 4 times daily.E11.9(T 2) 200 strip 11 02/26/20 Active FreeStyle Lite Meter meter Use to test blood sugars as directed.E11. 9(T2) 1 each 02/26/20 Active semaglutide (Ozempic) 1 mg/dose (4 mg/3 mL) pen injector Inject 0.75 mL (1 mg total) under the skin every 7 days. 3 mL 11 02/26/20 Active insulin lispro injection 100 units/mL vial Inject 2-10 Units under the skin 3 times a day with meals. 10/02/20 24 2024 Discontinued insulin lispro injection 100 units/mL vial Inject 2-10 Units under the skin nightly. 10/01/20 24 2024 Discontinued apixaban (ELIQUIS) 5 mg tablet Take 1 tablet (5 mg total) by mouth every 12 hours. 180 tablet 11/17/19 25 2024 Discontinued(S top Taking at Discharge) clotrimazole-bet amethasone (LOTRISONE) cream Apply topically to the affected area 2 times a day. 45 g 1 11/26/19 25 2024 Discontinued(S top Taking at Discharge) insulin lispro injection 100 units/mL vial Inject 10 Units under the skin 3 times a day with meals. 9 mL 2 12/17/19 25 2024 Discontinued lisinopriL (PRINIVIL,ZESTRI L) 20 mg tablet Take 20 mg by mouth once a day. Taking with 30 mg. tablet 2024 Discontinued(S top Taking at Discharge) ibuprofen (MOTRIN) 200 mg tablet Take 200 mg by mouth every 6 hours as needed for pain. 2024 Discontinued(S top Taking at Discharge) dulaglutide (TRULICITY) 1.5 mg/0.5 mL injection dose Inject 0.5 mL (1.5 mg total) under the skin every 7 days. 6 mL 01/08/20 25 2024 Discontinued flash glucose sensor (FreeStyle Merly 2 Sensor) kitIndications:U ncontrolled type 2 diabetes mellitus with hyperglycemia (HCC) Change sensor every 14 days. 1 kit 2 01/08/20 25 2024 Discontinued lisinopriL (PRINIVIL,ZESTRI L) 30 mg tablet Take 1 tablet (30 mg total) by mouth once a day. 90 tablet 3 02/24/20 25 2024 Discontinued tirzepatide (Mounjaro) 5 mg/0.5 mL pen injector Inject 0.5 mL (5 mg total) under the skin every 7 days. After completing 2.5 mg weekly x 4 weeks 2 mL 11 02/25/20 25 2024 Discontinued FreeStyle Lite Meter meter Use to test blood sugars as directed.E11. 9(T2) 1 each 02/26/20 25 2024 Discontinued Hospital, Clinic, or Other Facility Administered Medication Ordered Dose Route Frequency Start Date End Date Status insulin lispro (ADMELOG/HumaLOG - 100 units/mL) injection 20 Units 20 Units subcutaneo Once 02/24/2025 02/24/2025 Ended Active Problems Problem Noted Date Diagnosed Date Leg wound, left, initial encounter 02/21/2025 Aftercare following surgery of the circulatory s ystem 02/11/2025 Insulin dependent type 2 diabetes mellitus 01/27 Assessment & Plan (02/02/2025 11:04 AM EDT): Home medications: Trulicity 1.5 mg weekly, gabapentin 300 mg twice daily, glargine 38 units nightly, lispro medium dose sliding scale Patient presented with blood sugar in the 400s, which down-trended. Likely elevated in setting of infection and patient having missed some home doses of insulin as he had not been feeling well. Diabetes consulted, appreciate recs Increased home glargine 40 units nightly Insulin lispro 8 units with breakfast, 10 units with lunch, and 10 units with dinner - hold if not eating MDRYAN ACHS Carb consistent diet HOLDING home Trulicity Permanently discontinue Jardiance Reduce home gabapentin dose to 300 nightly iso CHELA Assessment & Plan (02/01/2025 2:31 PM EDT): Home medications: Trulicity 1.5 mg weekly, gabapentin 300 mg twice daily, glargine 38 units nightly, lispro medium dose sliding scale Patient presented with blood sugar in the 400s, which down-trended. Likely elevated in setting of infection and patient having missed some home doses of insulin as he had not been feeling well. Diabetes consulted, appreciate recs Increased home glargine 40 units nightly Insulin lispro 8 units with breakfast, 10 units with lunch, and 10 units with dinner - hold if not eating LISBET ACHS Carb consistent diet HOLDING home Trulicity Permanently discontinue Jardiance Reduce home gabapentin dose to 300 nightly iso CHELA Assessment & Plan (01/31/2025 5:08 PM EDT): Home medications: Trulicity 1.5 mg weekly, gabapentin 300 mg twice daily, glargine 38 units nightly, lispro medium dose sliding scale Patient presented with blood sugar in the 400s, which down-trended. Likely elevated in setting of infection and patient having missed some home doses of insulin as he had not been feeling well. Diabetes consulted, appreciate recs Increased home glargine 40 units nightly Lispro medium dose sliding scale Increased lispro 8 unit(s) at meals Carb consistent diet HOLDING home Trulicity Reduce home gabapentin dose to 300 nightly iso CHELA Assessment & Plan (01/30/2025 10:35 PM EDT): Home medications: Trulicity 1.5 mg weekly, gabapentin 300 mg twice daily, glargine 38 units nightly, lispro medium dose sliding scale Patient presented with blood sugar in the 400s, now downtrending. Likely elevated in setting of infection and patient having missed some home doses of insulin as he has not been feeling well. - Diabetes consulted 01/28 - Increase home glargine 40 units nightly - Lispro medium dose sliding scale - Continue lispro 6 unit(s) at meals per diabetes recs - Carb consistent diet - Reduce home gabapentin dose to 300 nightly iso CHELA - Do not administer Trulicity Assessment & Plan (01/29/2025 9:16 AM EDT): Home medications: Trulicity 1.5 mg weekly, gabapentin 300 mg twice daily, glargine 38 units nightly, lispro medium dose sliding scale Patient presented with blood sugar in the 400s, now downtrending. Likely elevated in setting of infection and patient having missed some home doses of insulin as he has not been feeling well. - Diabetes consulted 01/28 - Increase home glargine 40 units nightly - Lispro medium dose sliding scale - Added lispro 6 unit(s) at meals per diabetes recs - Carb consistent diet - Reduce home gabapentin dose to 300 nightly iso CHELA - Do not administer Trulicity Assessment & Plan (01/28/2025 4:21 PM EDT): Home medications: Trulicity 1.5 mg weekly, gabapentin 300 mg twice daily, glargine 38 units nightly, lispro medium dose sliding scale Patient presented with blood sugar in the 400s, now downtrending. Likely elevated in setting of infection and patient having missed some home doses of insulin as he has not been feeling well. - Diabetes consulted 01/28 - Increase home glargine 40 units nightly - Lispro medium dose sliding scale - Added lispro 6 unit(s) at meals per diabetes recs - Carb consistent diet - Reduce home gabapentin dose to 300 nightly iso CHELA - Do not administer Trulicity Assessment & Plan (01/27/2025 6:39 PM EDT): Home medications: Trulicity 1.5 mg weekly, gabapentin 300 mg twice daily, glargine 38 units nightly, lispro medium dose sliding scale Patient presented with blood sugar in the 400s, now downtrending. Likely elevated in setting of infection and patient having missed some home doses of insulin as he has not been feeling well. -Continue home glargine 38 units nightly - Lispro medium dose sliding scale - Carb consistent diet - Reduce home gabapentin dose to 300 nightly iso CHELA - Do not administer Trulicity History of DVT (deep vein thrombosis) 01/27/2025 Assessment & Plan (02/02/2025 11:04 AM EDT): Home medication: Eliquis 5 mg twice daily Per vascular surgery, he completed his treatment for DVT and no longer needs Eliquis. Discontinued 01/28. Assessment & Plan (02/01/2025 7:41 AM EDT): Home medication: Eliquis 5 mg twice daily Per vascular surgery, he completed his treatment for DVT and no longer needs Eliquis. Discontinued 01/28. Assessment & Plan (01/31/2025 5:08 PM EDT): Home medication: Eliquis 5 mg twice daily Per vascular surgery, he completed his treatment for DVT and no longer needs Eliquis. Discontinued 01/28. Assessment & Plan (01/30/2025 10:35 PM EDT): Home medication: Eliquis 5 mg twice daily Per vascular surgery, he completed his treatment for DVT and no longer needs Eliquis. Discontinued 01/28. - Continue DVT ppx with heparin subcutaneous Assessment & Plan (01/29/2025 9:16 AM EDT): Home medication: Eliquis 5 mg twice daily Per vascular surgery, he completed his treatment for DVT and no longer needs Eliquis. Discontinued 01/28. Assessment & Plan (01/28/2025 4:21 PM EDT): Home medication: Eliquis 5 mg twice daily Per vascular surgery, he completed his treatment for DVT and no longer needs Eliquis. Discontinued 01/28. Assessment & Plan (01/27/2025 6:38 PM EDT): Home medication: Eliquis 5 mg twice daily - Continue home medication as no surgical interventions planned BPH (benign prostatic hyperplasia) 01/27/2025 Assessment & Plan (02/02/2025 11:04 AM EDT): Home med: Flomax 0.4 mg daily. Continue home Flomax Assessment & Plan (02/01/2025 7:41 AM EDT): Home med: Flomax 0.4 mg daily. Continue home Flomax Assessment & Plan (01/31/2025 5:08 PM EDT): Home med: Flomax 0.4 mg daily. Continue home Flomax Assessment & Plan (01/30/2025 10:35 PM EDT): Continue home Flomax 0.4 mg daily. Assessment & Plan (01/29/2025 9:16 AM EDT): Continue home Flomax 0.4 mg daily. Assessment & Plan (01/28/2025 10:17 AM EDT): Continue home Flomax 0.4 mg daily. Assessment & Plan (01/27/2025 6:40 PM EDT): Continue home Flomax 0.4 mg daily. Left leg pain 01/25/2025 Wound dehiscence 11/26/2024 Surgical wound infection 11/26/2024 Primary insomnia 10/29/2024 Assessment & Plan (02/02/2025 11:04 AM EDT): Nightly Trazodone 50mg Melatonin 6mg nightly PRN Assessment & Plan (02/01/2025 7:41 AM EDT): Nightly Trazodone 50mg Melatonin 6mg nightly PRN Assessment & Plan (01/31/2025 5:08 PM EDT): Nightly Trazodone 50mg Melatonin 6mg nightly PRN Assessment & Plan (12/17/2024 3:38 PM EST): Pt reports improvements with hydroxyzine 25mg -50mg nightly prn anxiety and insomnia. In regards to medications we reviewed SSRIs. He declines at this time but agrees to let me know if he changes his mind. Pt denies SI or self harm. He agrees to seek emergency services if those thoughts occur. All quetsions answered to pt satisfaction. He is in agreement with POC. Assessment & Plan (10/29/2024 9:00 PM EST): Pt reports difficulty managing anxiety, depression and insomnia sx since hospital stay. Emotional support provided, reinforced positive coping mechanisms. Reviewed tx options including therapy and or medications. He is very intersted in therapy. Provided list from qunb from therapist in [place] as pt is living there with his sister. In regards to medications we reviewed SSRIs. He declines at this time but is interested in medication for sleep. Add hydroxyzine 25-50mg nightly for insomnia and anxiety. Reviewed SE including drowsiness. Pt denies SI or self harm. He agrees to seek emergency services if those thoughts occur. All quetsions answered to pt satisfaction. He is in agreement with POC. Anxiety 10/29/2024 Assessment & Plan (02/02/2025 11:04 AM EDT): Home med: hydroxyzine 25 mg BID PRN. Continue home hydroxyzine Assessment & Plan (02/01/2025 7:41 AM EDT): Home med: hydroxyzine 25 mg BID PRN. Continue home hydroxyzine Assessment & Plan (01/31/2025 5:08 PM EDT): Home med: hydroxyzine 25 mg BID PRN. Continue home hydroxyzine Assessment & Plan (01/30/2025 10:35 PM EDT): Continue home hydroxyzine 25 mg BID PRN. Assessment & Plan (01/29/2025 9:16 AM EDT): Continue home hydroxyzine 25 mg BID PRN. Assessment & Plan (01/28/2025 10:17 AM EDT): Continue home hydroxyzine 25 mg BID PRN. Assessment & Plan (01/27/2025 6:42 PM EDT): Continue home hydroxyzine 25 mg BID PRN. Assessment & Plan (01/07/2025 10:19 PM EDT): PHQ-9: 3 JASON-7: 4 Emotional support provided, reinforced positive coping mechanisms Pt is engaged in outside therapy with improvements On hydroxyzine prn for panic and sleep, continue. He is not interested in preventative medication such as SSRI but agrees to let me know if he changes his mind. Ischemia of left lower extremity 09/23/2024 Assessment & Plan (02/02/2025 11:04 AM EDT): Home med: Aspirin 81 mg Continue Aspirin Assessment & Plan (02/01/2025 7:41 AM EDT): Home med: Aspirin 81 mg Continue Aspirin Assessment & Plan (01/31/2025 5:08 PM EDT): Home med: Aspirin 81 mg Continue Aspirin Assessment & Plan (01/30/2025 10:35 PM EDT): Home med: Aspirin 81 mg - Continue Aspirin Assessment & Plan (01/29/2025 9:16 AM EDT): Home med: Aspirin 81 mg - Continue Aspirin Assessment & Plan (01/28/2025 10:17 AM EDT): Home med: Aspirin 81 mg - Continue Aspirin Assessment & Plan (01/27/2025 6:40 PM EDT): Home med: Aspirin 81 mg - Continue Aspirin Thrombosis of left femoral artery 09/23/2024 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 PAD ?intermittent claudication Risk factors include tobacco dependence. Counseling below Referred to vascular as well Tobacco dependence 08/10/2024 Assessment & Plan (08/10/2024 5:15 PM EDT): We have spent 4 minutes today discussing the health risks of tobacco use and the health benefits of quitting. I have strongly advised tobacco cessation. We have discussed a variety of strategies to help with quitting. After discussion, our plan for today is prescription for varenicline (Chantix) and continue with current efforts to cut down on tobacco use. Discussed medication MOA and SE. Pt denies depression or anxiety sx. He agrees to RTC if those sx occur. Diabetic ulcer of toe associ ated with type 2 diabetes mellitus 03/08/2024 Tobacco dependence due to cigarettes 02/06/2024 Severe obesity (BMI >= 40) 09/03/2023 Assessment & Plan (01/07/2025 10:18 PM EDT): -The [place] Department of Health and Human Services recommends that adults 18 years or older engage in at least 150 minutes of moderate-intensity or 75 minutes of vigorous-intensity aerobic physical activity per week in addition to engaging in strengthening activities at least twice per week. -Dietary counseling to promote a healthy diet focuses on increasing consumption of fruits, vegetables, whole grains, fat-free or low-fat dairy, lean proteins, and oils and decreasing consumption of foods with high sodium levels, saturated or trans fats, and added sugars, as recommended by the [place] Department of Agriculture and the [place] Food and Drug Administration Assessment & Plan (09/03/2023 9:51 AM EST): -The [place] Department of Health and Human Services recommends that adults 18 years or older engage in at least 150 minutes of moderate-intensity or 75 minutes of vigorous-intensity aerobic physical activity per week in addition to engaging in strengthening activities at least twice per week. -Dietary counseling to promote a healthy diet focuses on increasing consumption of fruits, vegetables, whole grains, fat-free or low-fat dairy, lean proteins, and oils and decreasing consumption of foods with high sodium levels, saturated or trans fats, and added sugars, as recommended by the [place] Department of Agriculture and the [place] Food and Drug Administration Pt has been considering bariatric surgery, missed appts. He wants to think about it. He has number to call if he changes his mind. Uncontrolled type 2 diabetes mellitus with hyper glycemia 09/02/2023 Assessment & Plan (01/07/2025 10:18 PM EDT): Uncontrolled. A1C 9.3% on 11/29/24; did improve from 13.0% 08/10/24. Reviewed importance to control T2DM and risk of uncontrolled T2DM including diabetic neuropathy, diabetic retinopathy, diabetic nephropathy, increased risk of stroke, MD and even . Pt expressed understanding PLAN- Continue lantus 38 units nightly, lispro 10 units 3 times a day, jardiance 25mg daily, increase to Trulicity 1.5mg subcutaneous weekly Reinforced diabetic diet, provided severe examples. Reinforced importance of glycemic control especially for wound healing On ACEi, on statin Eye exam- severe diabetic retinopathy. Follows with Elan Encouraged to inspect feet daily for cuts and s/s of infection Pt believes he has endocrine appt next week @ [facility], goal for endocrine to manage uncontrolled T2DM. Follow up 4 weeks insulin titration if he is not able to follow up with endocrine Pt in agreement with POC. Questions answered to pt satisfaction Assessment & Plan (12/17/2024 3:36 PM EST): Uncontrolled. A1C 9.3% on 11/29/24; did improve from 13.0% 08/10/24. Reviewed importance to control T2DM and risk of uncontrolled T2DM including diabetic neuropathy, diabetic retinopathy, diabetic nephropathy, increased risk of stroke, MD and even . Pt expressed understanding .Pt reports adherence with lantus 38 units nightly, lispro 10 units 3 times a day with meals jardiance 10mg and Trulicity 0.75mg subcutaneous weekly has had 2 doses of Trulicity. Fasting 115-135mg/dL 2 hr post prandial 150mg/dL PLAN- Continue lantus 38 units nightly, lispro 10 units 3 times a day, Trulicity 0.75mg subcutaneous weekly, increase Jardiance to 25mg daily. Reinforced diabetic diet, provided severe examples. Reinforced importance of glycemic control especially for wound healing On ACEi, on statin Eye exam- severe diabetic retinopathy. Follows with Elan Encouraged to inspect feet daily for cuts and s/s of infection Pt requesting endocrine referral @ [facility]. Referral placed Follow up 4 weeks insulin titration if he is not able to follow up with endocrine Pt in agreement with POC. Questions answered to pt satisfaction Assessment & Plan (12/03/2024 9:50 PM EST): Uncontrolled. A1C 9.3% on 11/29/24; did improve from 13.0% 08/10/24. Reviewed importance to control T2DM and risk of uncontrolled T2DM including diabetic neuropathy, diabetic retinopathy, diabetic nephropathy, increased risk of stroke, MD and even . Pt expressed understanding .Pt reports adherence with lantus 38 units nightly, lispro 10 units 3 times a day with meals. Just started Trulicity 0.75mg subcutaneous Friday. He has rx to continue outpatient. Fasting is above goal however he just added Trulicity Continue this regimen Reinforced diabetic diet, provided severe examples. Reinforced importance of glycemic control especially for wound healing Diabetes clinic follow up 02/24/25. He was supposed to see endocrine on 10/06 foor T2DM it says it was canceled d/t provider emergency/illness. He is not rescheduled to see them until 02/24/25. Our staff called endocrine office and they called pt but he did not answer.provided pt with number to call and schedule On ACEi, on statin Eye exam- severe diabetic retinopathy. Follows with Elan Encouraged to inspect feet daily for cuts and s/s of infection Follow up 2 weeks for further titration Pt will also bring FMLA forms to office, agreed to complete. Assessment & Plan (11/19/2024 10:30 PM EST): Uncontrolled. A1C 13.0% 08/10/24. Reviewed importance to control T2DM and risk of uncontrolled T2DM including diabetic neuropathy, diabetic retinopathy, diabetic nephropathy, increased risk of stroke, MD and even . Pt expressed understanding FSBS: 107 today, 2hr post prandial 180mg/dL. Pt reports adherence with lantus 38 units nightly, lispro 10 units 3 times a day with meals. Continue this regimen Reinforced diabetic diet, provided severe examples. Reinforced importance of glycemic control especially for wound healing Diabetes clinic follow up 02/24/25. He was supposed to see endocrine on 10/06 foor T2DM it says it was canceled d/t provider emergency/illness. He is not rescheduled to see them until 02/24/25. Our staff called endocrine office and they called pt but he did not answer.provided pt with number to call and schedule On ACEi, on statin Eye exam- severe diabetic retinopathy. Follows with Elan Encouraged to inspect feet daily for cuts and s/s of infection Assessment & Plan (11/12/2024 12:59 PM EST): Uncontrolled. A1C 13.0% 08/10/24. Reviewed importance to control T2DM and risk of uncontrolled T2DM including diabetic neuropathy, diabetic retinopathy, diabetic nephropathy, increased risk of stroke, MD and even . Pt expressed understanding FSBS: fasting >200 per pt Meds: Increase lantus to 38 units nightly. Continue lispro 10 units 3 times a day with meals Reinforced diabetic diet, provided severe examples. Reinforced importance of glycemic control especially for wound healing Sent another message to case management for assistance. Diabetes clinic follow up 02/24/25. He was supposed to see endocrine on 10/06 foor T2DM it says it was canceled d/t provider emergency/illness. He is not rescheduled to see them until 02/24/25. Hoping case management can assist with a sooner appt as well. On ACEi, on statin Eye exam- severe diabetic retinopathy. Follows with Elan Encouraged to inspect feet daily for cuts and s/s of infection Follow up telehealth for insulin titration 11/16 pt is able to teach back information Questions answered to pt satisfaction. He is in agreement with POC. Assessment & Plan (11/09/2024 10:15 PM EST): Uncontrolled. A1C 13.0% 08/10/24. Reviewed importance to control T2DM and risk of uncontrolled T2DM including diabetic neuropathy, diabetic retinopathy, diabetic nephropathy, increased risk of stroke, MD and even . Pt expressed understanding FSBS: fasting >200 per pt Meds: Increase lantus to 38 units nightly. Continue lispro 10 units 3 times a day with meals Reinforced diabetic diet, provided severe examples. Reinforced importance of glycemic control especially for wound healing Sent another message to case management for assistance. Diabetes clinic follow up 02/24/25. He was supposed to see endocrine on 10/06 foor T2DM it says it was canceled d/t provider emergency/illness. He is not rescheduled to see them until 02/24/25. Hoping case management can assist with a sooner appt as well. On ACEi, on statin Eye exam- severe diabetic retinopathy. Follows with Elan Encouraged to inspect feet daily for cuts and s/s of infection Follow up telehealth for insulin titration 11/12 @ 9AM. Pt agrees. Questions answered to pt satisfaction. He is in agreement with POC. Assessment & Plan (10/29/2024 8:57 PM EST): Uncontrolled. A1C 13.0% today 08/10/24. Long discussion about uncontrolled T2DM, Reviewed importance to control T2DM and risk of uncontrolled T2DM including diabetic neuropathy, diabetic retinopathy, diabetic nephropathy, increased risk of stroke, MD and even . Pt expressed understanding Meds: Pt reports he is taking insulin glargine 20 units daily (discharge paperwork notes 35 units) and lispro 8 units with meals. He unfortunately is not checking his blood sugar, states his glucometer broke in recent move. Reinforced importance of glycemic control especially for wound healing and I am unable to titrate insulin without blood sugar readings. Resent glucometer. Sent message to case management for assistance. Diabetes clinic follow up 02/24/25. He was supposed to see endocrine on 10/06 foor T2DM it says it was canceled d/t provider emergency/illness. He is not rescheduled to see them until 02/24/25. Hoping case management can assist with a sooner appt as well. On ACEi, on statin Eye exam- severe diabetic retinopathy. Follows with Elan Encouraged to inspect feet daily for cuts and s/s of infection Plan to follow up within 1 week via telehealth and pt has glucometer for insulin titration. Reinforced diabetic diet. Assessment & Plan (08/10/2024 5:14 PM EDT): Uncontrolled. A1C 13.0% today 08/10/24. Long discussion about uncontrolled T2DM, Reviewed importance to control T2DM and risk of uncontrolled T2DM including diabetic neuropathy, diabetic retinopathy, diabetic nephropathy, increased risk of stroke, MD and even . Pt expressed understanding Meds:Continue Lantus 20units nighty, rapid acting insulin per sliding scale and metformin. Sent message to clinical pharmacist for assistance. Referred to endocrine, missed apt 07/26. Provided number to call and r/s Glucometer: CGM reorered per pt never got Reviewed lifestyle modifications, nutrition recommendations at length. Recommended nutrition appt, he declines. On ACEi, on statin Eye exam- severe diabetic retinopathy. Follows with Elan Encouraged to inspect feet daily for cuts and s/s of infection Pt does report difficulty maintaining appts d/t work scheduled. Agreed to complete FMLA for intermittent leave or appts. Pt will bring paperwork to supervisor front. All questions answered to pt satisfaction. He is in agreement with POC Assessment & Plan (09/03/2023 9:49 AM EST): Uncontrolled. A1C 12.0% today 09/02/23. Long discussion about uncontrolled T2DM, Reviewed importance to control T2DM and risk of uncontrolled T2DM including diabetic neuropathy, diabetic retinopathy, diabetic nephropathy, increased risk of stroke, MD and even . Pt expressed understanding Meds: Metformin 1000mg BID, Jardiance 25mg daily and Trulicity to 3mg weekly. Restart Lantus 10 units nightly, pt is able to teach steps to administer and declines nursing visit to reeducate Lantus. Glucometer: ordered [employer] mer[employer] 2 for improved glycemic control and education. Pt agrees for nurse visit for education Reviewed lifestyle modifications, nutrition recommendations at length. Recommended nutrition appt, he declines. Endocrine referral placed for uncontrolled T2DM. On ACEi, on statin Eye exam- severe diabetic retinopathy. Follows with Elan Encouraged to inspect feet daily for cuts and s/s of infection He agrees to restart checking FSBS for education. FSBS log provided Follow up 2 wk nursing and 1 month with this provider. Questions answered to pt satisfaction, he is in agreement with plan of care. 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 A1C 12.0% 09/02/23 Reviewed importance to control T2DM and risk of uncontrolled T2DM including diabetic neuropathy, diabetic retinopathy, diabetic nephropathy, increased risk of stroke, MD and even . Pt expressed understanding Meds: Continue Metformin 1000mg BID, Jardiance 25mg daily, Trulicity 3mg weekly. Fasting FSBS remain above goal therefore increase Lantus to 15 units nightly. Reviewed lifestyle modifications, nutrition recommendations at length. On ACEi, on statin Eye exam- severe diabetic retinopathy. Follows with Blayne Encouraged to inspect feet daily for cuts and s/s of infection He agrees to restart checking FSBS for education. FSBS log provided Pt has CGM but unclear if using correctly, schedule nurse visit for re- education. Also discussed with clinical pharmacist, if sensor will not stay on can consider switch to Dexcom that has a cover over sensor. Follow up 1 wk nursing and 1 month with provider. Referred to endocrine last visit, approved. Provided number for him to call and schedule. Questions answered to pt satisfaction, he is in agreement with plan of care. Assessment & Plan (03/14/2023 1:12 PM EDT): Uncontrolled. A1C 10.1% today 03/14/23. Long discussion about uncontrolled T2DM Reviewed importance to control T2DM and risk of uncontrolled T2DM including diabetic neuropathy, diabetic retinopathy, diabetic nephropathy, increased risk of stroke, MD and even . Pt expressed understanding Meds: Metformin 1000mg BID, Jardiance 25mg daily and Trulicity to 3mg weekly. Strongly recommended to start long acting insulin. Pt agrees. Start Lantus 10 units nightly. Schedule nurse visit for education. Reviewed lifestyle modifications, nutrition recommendations at length. He is also interested in weight loss surgery, updated referral placed. On ACEi, on statin Eye exam- severe diabetic retinopathy. Follows with Blayne Encouraged to inspect feet daily for cuts and s/s of infection He agrees to restart checking FSBS for education. FSBS log provided Follow up 1 wk nursing and 1 month with this provider. Questions answered to pt satisfaction, he is in agreement with plan of care. Assessment & Plan (02/25/2023 3:50 PM EDT): Uncontrolled. A1C 9.4% 12/03/22. FSBS near 400 today. Reviewed importance to control T2DM and risk of uncontrolled T2DM including diabetic neuropathy, diabetic retinopathy, diabetic nephropathy, increased risk of stroke, MD and even . Pt expressed understanding He declines to start nighttime insulin. Meds: Metformin 1000mg BID, Jardiance 25mg daily and Trulicity to 3mg weekly. Pt has been without Trulicity not sure why as 3 refills were sent. Message sent to nursing for assistance. Reviewed lifestyle modifications, nutrition recommendations at length. He is also interested in weight loss surgery, printed letter with approved referral and number to call. On ACEi, on statin Eye exam- severe diabetic retinopathy. Follows with Blayne Encouraged to inspect feet daily for cuts and s/s of infection He agrees to restart checking FSBS for education. FSBS log provided Follow up 2wk for accountability and review FSBS log.resent glucometer he knows how to use Assessment & Plan (12/04/2022 1:11 PM EST): Uncontrolled. A1C 9.4% today from 8% in August. Pt has been without Jardiance. He is adherent with metformin 1000mg BID and Trulicity 1.5mg weekly. Reviewed importance to control T2DM and risk of uncontrolled T2DM including diabetic neuropathy, diabetic retinopathy, diabetic nephropathy, increased risk of stroke, MD and even . Pt expressed understanding He declines to start nighttime insulin. Pt prefers to resume Jardiance and increase Trulicity. Meds: Metformin 1000mg BID, restart Jardiance 25mg daily and increase Trulicity to 3mg weekly Confirmed with pharmacy all medications are there for black pickler. Reviewed lifestyle modifications, nutrition recommendations at length. He is also interested in weight loss surgery, printed letter with approved referral and number to call. On ACEi, on statin Eye exam- severe diabetic retinopathy. Follows with Blayne Encouraged to inspect feet daily for cuts and s/s of infection He agrees to restart checking FSBS for education. FSBS log provided Follow up 1 Month for accountability and review FSBS log. Assessment & Plan (08/28/2022 4:07 PM EDT): A1C 8% today, did improve from 9.9% in April. Congratualted on improvement. Encouraged to continue lifestyle modifications and medication adherence. Reviewed goal <7% Increase Trulicity to 1.5weekly, continue Jardiance and metformin Reviewed lifestyle modifications On ACEi, on statin Eye exam- severe diabetic retinopathy. Follows with Blayne Encouraged to inspect feet daily for cuts and s/s of infection Follow up 3 months for chronic care 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 05/22/2022 Diabetic neuropathy 09/28/2020 Assessment & Plan (02/25/2023 3:51 PM EDT): - reviewed etiology with pt. Stressed importance of controlling T2DM - continue gabapentin 300mg BID. Reviewed SE including drowsiness Assessment & Plan (08/28/2022 4:05 PM EDT): - reviewed etiology with pt. Stressed importance of controlling T2DM - increase gabapentin 300mg BID. Reviewed SE including drowsiness Assessment & Plan (05/22/2022 10:45 AM EDT): - reviewed etiology with pt. Stressed importance of controlling T2DM - add gabapentin 300mg nightly. Reviewed SE including drowsiness - follow up 1month for chronic care Essential hypertension 09/28/2020 Assessment & Plan (02/02/2025 11:04 AM EDT): Home medications: Amlodipine 5 mg, lisinopril 30 mg Increased amlodipine to 10mg Restart home lisinopril 30 mg with improving CHELA Assessment & Plan (02/01/2025 7:41 AM EDT): Home medications: Amlodipine 5 mg, lisinopril 30 mg Increased amlodipine to 10mg HOLDING home lisinopril in light of CHELA Assessment & Plan (01/31/2025 5:08 PM EDT): Home medications: Amlodipine 5 mg, lisinopril 30 mg Increased amlodipine to 10mg HOLDING home lisinopril in light of CHELA Assessment & Plan (01/30/2025 10:35 PM EDT): Home medications: Amlodipine 5 mg, lisinopril 30 mg -Continue home amlodipine - Hold home lisinopril in light of kidney injury Assessment & Plan (01/29/2025 9:16 AM EDT): Home medications: Amlodipine 5 mg, lisinopril 30 mg -Continue home amlodipine - Hold home lisinopril in light of kidney injury Assessment & Plan (01/28/2025 10:17 AM EDT): Home medications: Amlodipine 5 mg, lisinopril 30 mg -Continue home amlodipine - Hold home lisinopril in light of kidney injury Assessment & Plan (01/27/2025 6:38 PM EDT): Home medications: Amlodipine 5 mg, lisinopril 30 mg -Continue home amlodipine - Hold home lisinopril in light of kidney injury Assessment & Plan (01/07/2025 10:18 PM EDT): BP controlled with amlodipine 5mg daily, hydrochlorothiazide 25mg daily and lisinopril 30mg daily, Reinforced importance of med adherence DASH diet reinforced Assessment & Plan (12/17/2024 3:34 PM EST): BP controlled with amlodipine 5mg daily, hydrochlorothiazide 25mg daily and lisinopril 30mg daily, lisinopril at nephrology appt this week Reinforced importance of med adherence DASH diet reinforced Assessment & Plan (11/12/2024 12:57 PM EST): BP controlled with amlodipine 5mg daily, hydrochlorothiazide 25mg daily and lisinopril 30mg daily, lisinopril at nephrology appt this week Reinforced importance of med adherence DASH diet reinforced Assessment & Plan (11/09/2024 10:13 PM EST): BP controlled with amlodipine 5mg daily, hydrochlorothiazide 25mg daily and lisinopril 20mg daily Reinforced importance of med adherence DASH diet reinforced Assessment & Plan (10/29/2024 8:53 PM EST): BP controlled with amlodipine 5mg daily, hydrochlorothiazide 25mg daily and lisinopril 20mg daily Reinforced importance of med adherence DASH diet reinforced Assessment & Plan (08/10/2024 5:12 PM EDT): Continue current regimen DASH diet reinforced Assessment & Plan (10/06/2023 5:11 PM EST): Continue lisinopril, amlodipine and hydrochlorothiazide 12.5mg. DASH diet reinforced Assessment & Plan (09/03/2023 9:50 AM EST): Continue lisinopril, amlodipine and hydrochlorothiazide 12.5mg. if BP continues to be >130/90 will increase to hydrochlorothiazide 25mg daily DASH diet reinforced Assessment & Plan (03/14/2023 1:13 PM EDT): Improved but systolic still slightly elevated. Pt is frustrated with diabetes control. Continue lisinopril, amlodipine and hydrochlorothiazide 12.5mg. if BP continues to be >130/90 will increase to hydrochlorothiazide 25mg daily DASH diet reinforced Assessment & Plan (02/25/2023 3:51 PM EDT): Uncontrolled. Continue lisinopril and amlodipine add hydrochlorothiazide 12.5mg. is overdue for labs, he agrees to go to lab today to assess renal function Close follow up 2 weeks Assessment & Plan (12/04/2022 1:12 PM EST): BP above goal, did not take meds today. Continue lisinopril and amlodipine previously controlled. Close follow up1 month Assessment & Plan (08/28/2022 4:04 PM EDT): BP at goal. Continue lisinopril and amlodipine Mixed hyperlipidemia 09/28/2020 Assessment & Plan (02/02/2025 11:04 AM EDT): Home medication: Rosuvastatin 20 mg Continue home medication Assessment & Plan (02/01/2025 7:41 AM EDT): Home medication: Atorvastatin 20 mg Reduced dose to 5 mg atorvastatin in light of kidney injury Assessment & Plan (01/31/2025 5:08 PM EDT): Home medication: Atorvastatin 20 mg Reduced dose to 5 mg atorvastatin in light of kidney injury Assessment & Plan (01/30/2025 10:35 PM EDT): Home medication: Atorvastatin 20 mg - Reduce dose to 5 mg atorvastatin in light of kidney injury Assessment & Plan (01/29/2025 9:16 AM EDT): Home medication: Atorvastatin 20 mg - Reduce dose to 5 mg atorvastatin in light of kidney injury Assessment & Plan (01/28/2025 10:17 AM EDT): Home medication: Atorvastatin 20 mg - Reduce dose to 5 mg atorvastatin in light of kidney injury Assessment & Plan (01/27/2025 6:38 PM EDT): Home medication: Atorvastatin 20 mg - Reduce dose to 5 mg atorvastatin in light of kidney injury Assessment & Plan (01/07/2025 10:18 PM EDT): Continue rosuvastatin Assessment & Plan (11/09/2024 10:13 PM EST): Continue rosuvastatin Assessment & Plan (10/29/2024 8:54 PM EST): Continue rosuvastatin Assessment & Plan (08/10/2024 5:12 PM EDT): Continue atorvastatin 80mg daily. Assessment & Plan (10/06/2023 5:11 PM EST): Labs 08/2023: total 189, triglycerides 155, HDL 56, LDL 106 Increase to atorvastatin 80mg daily. Assessment & Plan (09/03/2023 9:51 AM EST): Labs 02/2023 total 234, triglycerides 265, HDL 53, LDL 134 Increase to atorvastatin 40mg daily Repeat fasting lipids ordered. Assessment & Plan (03/14/2023 1:13 PM EDT): atorvastatin 20mg daily- reports adherence 02/2023 total 234, triglycerides 265, HDL 53, LDL 134 Increase to atorvastatin 40mg daily Assessment & Plan (02/25/2023 3:51 PM EDT): Last labs controlled. Continue atorvastatin. Repeat labs 6months Assessment & Plan (12/04/2022 1:13 PM EST): Last labs controlled. Continue atorvastatin. Repeat labs 6months Assessment & Plan (08/28/2022 4:04 PM EDT): Last labs controlled. Continue atorvastatin. Repeat labs 6months Assessment & Plan (05/22/2022 10:32 AM EDT): Last labs controlled. Continue atorvastatin. Repeat labs in 1 year Resolved Problems Problem Noted Date Diagnosed Date Resolved Date Sepsis 01/27/2025 02/03/2025 Assessment & Plan (02/02/2025 11:04 AM EDT): SIRS Criteria Patient met the following SIRS Criteria: Temp > 38.3 degrees celsius and WBC >12 Sepsis Criteria Sepsis was present on admission. Source of infection is Cellulitis. Blood cultures were drawn prior to antibiotics given. Initial lactic acid was drawn and value was greater than or equal to 2 and repeat was ordered. Patient was ordered the following Antibiotics: Vancomycin, Zosyn, and Clindamycin Full Sepsis bolus given. Patient received 3 Liters of fluid bolus. Goal: 4 Liters (30ml/kg). Sepsis secondary to cellulitis of the left leg. Got 3 L fluids in ED, lactate downtrended to 2.6 with repeat WNL. Evaluated by vascular surgery who recommended no acute intervention. Started on broad-spectrum antibiotics with wound and blood cultures NGTD. ID consulted 01/28 and recommended switching to Daptomycin and cefepime. Re-engaged 01/31 and agreed for a full week of treatment given poor perfusion to affected area. Clindamycin (01/27 -01/28 ) Vancomycin (01/27-01/28) Zosyn (01/27-01/28) Cefepime (01/28 - 02/03) Daptomycin (01/28 - 02/03) ID consulted, appreciate recs Recommended 1 week duration of IV abx Vascular consulted, appreciate recs No indication for inpatient intervention Assessment & Plan (02/01/2025 12:10 PM EDT): SIRS Criteria Patient met the following SIRS Criteria: Temp > 38.3 degrees celsius and WBC >12 Sepsis Criteria Sepsis was present on admission. Source of infection is Cellulitis. Blood cultures were drawn prior to antibiotics given. Initial lactic acid was drawn and value was greater than or equal to 2 and repeat was ordered. Patient was ordered the following Antibiotics: Vancomycin, Zosyn, and Clindamycin Full Sepsis bolus given. Patient received 3 Liters of fluid bolus. Goal: 4 Liters (30ml/kg). Sepsis secondary to cellulitis of the left leg. Got 3 L fluids in ED, lactate downtrended to 2.6 with repeat WNL. Evaluated by vascular surgery who recommended no acute intervention. Started on broad-spectrum antibiotics with wound and blood cultures NGTD. ID consulted 01/28 and recommended switching to Daptomycin and cefepime. Re-engaged 01/31 and agreed for a full week of treatment given poor perfusion to affected area. Clindamycin (01/27 -01/28 ) Vancomycin (01/27-01/28) Zosyn (01/27-01/28) Cefepime (01/28 - 02/03) Daptomycin (01/28 - 02/03) ID consulted, appreciate recs Recommended 1 week duration of IV abx Vascular consulted, appreciate recs No indication for inpatient intervention Assessment & Plan (01/31/2025 5:08 PM EDT): SIRS Criteria Patient met the following SIRS Criteria: Temp > 38.3 degrees celsius and WBC >12 Sepsis Criteria Sepsis was present on admission. Source of infection is Cellulitis. Blood cultures were drawn prior to antibiotics given. Initial lactic acid was drawn and value was greater than or equal to 2 and repeat was ordered. Patient was ordered the following Antibiotics: Vancomycin, Zosyn, and Clindamycin Full Sepsis bolus given. Patient received 3 Liters of fluid bolus. Goal: 4 Liters (30ml/kg). Sepsis secondary to cellulitis of the left leg. Got 3 L fluids in ED, lactate downtrended to 2.6 with repeat WNL. Evaluated by vascular surgery who recommended no acute intervention. Started on broad-spectrum antibiotics with wound and blood cultures NGTD. ID consulted 01/28 and recommended switching to Daptomycin and cefepime. Re-engaged 01/31 and agreed for a full week of treatment given poor perfusion to affected area. Clindamycin (01/27 -01/28 ) Vancomycin (01/27-01/28) Zosyn (01/27-01/28) Cefepime (01/28 - 02/04) Daptomycin (01/28 - 02/04) Daily CBC ID consulted, appreciate recs Recommended 1 week duration of IV abx Vascular consulted, appreciate recs No indication for inpatient intervention Assessment & Plan (01/30/2025 10:35 PM EDT): SIRS Criteria Patient met the following SIRS Criteria: Temp > 38.3 degrees celsius and WBC >12 Sepsis Criteria Sepsis was present on admission. Source of infection is Cellulitis. Blood cultures were drawn prior to antibiotics given. Initial lactic acid was drawn and value was greater than or equal to 2 and repeat was ordered. Patient was ordered the following Antibiotics: Vancomycin, Zosyn, and Clindamycin Full Sepsis bolus given. Patient received 3 Liters of fluid bolus. Goal: 4 Liters (30ml/kg). Sepsis secondary to cellulitis of the left leg. Got 3 L fluids in ED, lactate downtrended to 2.6 with repeat pending. Evaluated by vascular surgery who recommended no acute intervention, will continue to follow. Started on broad-spectrum antibiotics with wound and blood cultures NGTD. ID consulted 01/28. - Vascular (01/27): following, no acute intervention, broad spectrum abx - Leg Cx: Group B strep and Staph aureus, susceptibilities pending - Blood Cx: NGTD - Clindamycin (01/27 -01/28 ) - Vancomycin (01/27-01/28) - Zosyn (01/27-01/28) - Daptomycin (01/28- ) - ID (01/28), following Assessment & Plan (01/29/2025 1:50 PM EDT): SIRS Criteria Patient met the following SIRS Criteria: Temp > 38.3 degrees celsius and WBC >12 Sepsis Criteria Sepsis was present on admission. Source of infection is Cellulitis. Blood cultures were drawn prior to antibiotics given. Initial lactic acid was drawn and value was greater than or equal to 2 and repeat was ordered. Patient was ordered the following Antibiotics: Vancomycin, Zosyn, and Clindamycin Full Sepsis bolus given. Patient received 3 Liters of fluid bolus. Goal: 4 Liters (30ml/kg). Sepsis secondary to cellulitis of the left leg. Got 3 L fluids in ED, lactate downtrended to 2.6 with repeat pending. Evaluated by vascular surgery who recommended no acute intervention, will continue to follow. Started on broad-spectrum antibiotics with wound and blood cultures NGTD. ID consulted 01/28. - Vascular (01/27): following, no acute intervention, broad spectrum abx - Leg Cx: Group B strep and Staph aureus, susceptibilities pending - Blood Cx: NGTD - Clindamycin (01/27 -01/28 ) - Vancomycin (01/27-01/28) - Zosyn (01/27-01/28) - Daptomycin (01/28- ) - ID (01/28), following Assessment & Plan (01/28/2025 4:21 PM EDT): SIRS Criteria Patient met the following SIRS Criteria: Temp > 38.3 degrees celsius and WBC >12 Sepsis Criteria Sepsis was present on admission. Source of infection is Cellulitis. Blood cultures were drawn prior to antibiotics given. Initial lactic acid was drawn and value was greater than or equal to 2 and repeat was ordered. Patient was ordered the following Antibiotics: Vancomycin, Zosyn, and Clindamycin Full Sepsis bolus given. Patient received 3 Liters of fluid bolus. Goal: 4 Liters (30ml/kg). Sepsis secondary to cellulitis of the left leg. Got 3 L fluids in ED, lactate downtrended to 2.6 with repeat pending. Evaluated by vascular surgery who recommended no acute intervention, will continue to follow. Started on broad-spectrum antibiotics with wound and blood cultures NGTD. ID consulted 01/28. - Vascular (01/27): following, no acute intervention, broad spectrum abx - Leg Cx: NGTD - Blood Cx: NGTD - Clindamycin (01/27 -01/28 ) - Vancomycin (01/27-01/28) - Zosyn (01/27-01/28) - Daptomycin (01/28- ) - ID (01/28), following Assessment & Plan (01/28/2025 7:14 AM EDT): SIRS Criteria Patient met the following SIRS Criteria: Temp > 38.3 degrees celsius and WBC >12 Sepsis Criteria Sepsis was present on admission. Source of infection is Cellulitis. Blood cultures were drawn prior to antibiotics given. Initial lactic acid was drawn and value was greater than or equal to 2 and repeat was ordered. Patient was ordered the following Antibiotics: Vancomycin, Zosyn, and Clindamycin Full Sepsis bolus given. Patient received 3 Liters of fluid bolus. Goal: 4 Liters (30ml/kg). Sepsis secondary to cellulitis of the left leg. Got 3 L fluids in ED, lactate downtrended to 2.6 with repeat pending. Held off on additional fluid in light of patient wanting to take PO and the ongoing fluid shortage. Evaluated by vascular surgery who recommended no acute intervention, will continue to follow. Started on broad-spectrum antibiotics with wound and blood cultures pending. - Vascular (01/27): following, no acute intervention, broad spectrum abx - Leg Cx: NGTD - Blood Cx: NGTD - Clindamycin (01/27 - ) - Vancomycin (01/27-) - Zosyn (01/27-) - FU repeat lactic acid Acute kidney injury 01/27/2025 02/04/20 25 Assessment & Plan (02/02/2025 11:04 AM EDT): Presenting creatinine 1.72 (baseline 1.05-1.30). Likely pre renal secondary to sepsis and poor PO intake, N/V/D prior to admission. Increased to 2.87 on 01/29. Improving 1.89 on 01/30. Upon chart review, eGFR and creatinine have been elevated for a few months, concerning for undiagnosed CKD. Improving. S/p Maintenance fluids LR Monitor BMP Avoiding nephrotoxic agents, renally dosed meds as elsewhere in plan Assessment & Plan (02/01/2025 7:41 AM EDT): Presenting creatinine 1.72 (baseline 1.05-1.30). Likely pre renal secondary to sepsis and poor PO intake, N/V/D prior to admission. Increased to 2.87 on 01/29. Improving 1.89 on 01/30. Upon chart review, eGFR and creatinine have been elevated for a few months, concerning for undiagnosed CKD. S/p Maintenance fluids LR Monitor BMP Avoiding nephrotoxic agents, renally dosed meds as elsewhere in plan Assessment & Plan (01/31/2025 5:08 PM EDT): Presenting creatinine 1.72 (baseline 1.05-1.30). Likely pre renal secondary to sepsis and poor PO intake, N/V/D prior to admission. Increased to 2.87 on 01/29. Improving 1.89 on 01/30. Upon chart review, eGFR and creatinine have been elevated for a few months, concerning for undiagnosed CKD. S/p Maintenance fluids LR Daily BMP Avoiding nephrotoxic agents, renally dosed meds as elsewhere in plan Assessment & Plan (01/30/2025 10:35 PM EDT): Presenting creatinine 1.72 (baseline 1.05-1.30). Likely pre renal secondary to sepsis and poor PO intake, N/V/D prior to admission. Increased to 2.87 on 01/29. Improving 1.89 on 01/30 - s/p Maintenance fluids LR - Daily BMP - Avoiding nephrotoxic agents - Holding home Lasix, lisinopril; reducing home gabapentin and Rosuvastatin Assessment & Plan (01/29/2025 1:50 PM EDT): Presenting creatinine 1.72 (baseline 1.05-1.30). Likely pre renal secondary to sepsis and poor PO intake, N/V/D prior to admission. Increased to 2.87 on 01/28. - Maintenance fluids LR 100 cc/h - Daily BMP - Avoiding nephrotoxic agents - Holding home Lasix, lisinopril; reducing home gabapentin and atorvastatin Assessment & Plan (01/28/2025 4:21 PM EDT): Presenting creatinine 1.72 (baseline 1.05-1.30). Likely pre renal secondary to sepsis and poor PO intake, N/V/D prior to admission. Increased to 2.26 on 01/28. - Maintenance fluids LR 100 cc/h - Daily BMP - Avoiding nephrotoxic agents - Holding home Lasix, lisinopril; reducing home gabapentin and atorvastatin Assessment & Plan (01/27/2025 6:39 PM EDT): Presenting creatinine 1.72 (baseline 1.05-1.30). Likely secondary to sepsis. - Daily BMP - Avoiding nephrotoxic agents - Holding home Lasix, lisinopril; reducing home gabapentin and atorvastatin Cellulitis of left leg 01/27/202502/03 Assessment & Plan (02/02/2025 11:04 AM EDT): See sepsis problem. Assessment & Plan (02/01/2025 9:09 AM EDT): See sepsis problem. Assessment & Plan (01/31/2025 5:08 PM EDT): See sepsis problem. Assessment & Plan (01/30/2025 10:35 PM EDT): See sepsis problem Assessment & Plan (01/29/2025 9:16 AM EDT): See sepsis problem Assessment & Plan (01/28/2025 10:17 AM EDT): See sepsis problem Assessment & Plan (01/27/2025 6:38 PM EDT): See sepsis problem Acute lower extremity ischemia 09/23/2024 10/01/2024 Acute deep vein thrombosis ( DVT) of lower extremity 08/27/2024 10/15/2024 Overview (10/15/2024): Seen ed 08/03 Hyponatremia 03/08/2024 10/15/2024 Diabetic foot infection 03/08/202409/27 Class 2 severe obesity due t o excess calories with serious comorbidity and body mass index (BMI) of 39.0 to 39.9 in adult 08/28/2022 Acquired absence of other organs 01/17/2021 10/15/2024 Claudication of both lower extremities 01/11/2021 10/15/2024 Encounters Date Type Department Care Team Description 02/25/2025 Telephone [facility] [address] [place] [address] Career Resource Technician: Titus Parikh Prior Authorization ((MSOT) - OZEMPIC (1MG/DOSE)4MG/3ML PEN-INJ.#3/28) 02/25/2025 Orders Only [facility] [address] [place] [address] Career Resource Technician: Catherine Cha MD 02/25/2025 Telephone [facility] Emergency Department [address] [place] [phone] Rosa Gillespie, NITESH Results; Left Without Being Seen 02/25/2025 Orders Only [facility] [address] [place] [address] Career Resource Technician: Catherine Cha MD 02/25/2025 Orders Only [facility] [address] [place] [address] Career Resource Technician: Catherine Cha MD 02/25/2025 Telephone [facility] Emergency Department [address] [place] [address] Rosa Gillespie, RN Left Without Being Seen; Results 02/25/2025 Telephone [facility] [address] [place] [address]361 Career Resource Technician: Catherine Cha MD Prior Authorization (tirzepatide (Mounjaro) 5 mg/0.5 mL pen injector) 02/24/2025 1:21 PM EDT - 02/25/2025 12:33 AM EDT Emergency [facility] Emergency Department [address] [place] [address] Discharge Disposition: Left Without Being Seen (07) 02/24/2025 11:30 AM EDT Office Visit [facility] [address] [place] [address] Career Resource Technician: Catherine Cha MD Type 2 diabetes mellitus with both eyes affected by severe nonproliferative retinopathy and macular edema, with long-term current use of insulin (HCC) (Primary Dx); Essential hypertension; Mixed hyperlipidemia; Class 3 obesity; Acute lower extremity ischemia 02/24/2025 9:50 AM EDT Lab [facility] Draw Site [address] [place] [address] CKD (chronic kidney disease) stage 2, GFR 60-89 ml/min 02/24/2025 Telephone [facility] [address] [place] [address]703 Career Resource Technician: Miriam Mathews CPhT 02/24/2025 Documentation [facility] Renal Dialysis [address] [place] [address] Michelle Ling NP 02/23/2025 9:00 AM EDT Telehealth [facility] Renal [address] [place] [address] Career Resource Technician: Michelle Anthony NP CKD (chronic kidney disease) stage 2, GFR 60-89 ml/min (Primary Dx) 02/22/2025 10:30 AM EDT Office Visit [address] [facility] [address] [place] [address] Juan David Winters PA Wound of left lower extremity, initial encounter (Primary Dx); Hospital discharge follow-up 02/21/2025 11:30 AM EDT Follow-Up [facility] W[facility] [address] [place] [phone] Career Resource Technician: Akash Delgado PA Leg wound, left, initial encounter (Primary Dx) 02/11/2025 3:00 PM EDT Follow-Up [facility] Vascular Surgery [address] [place] [address] Career Resource Technician: Mitul Starr NP Aftercare following surgery of the circulatory system (Primary Dx) 02/04/2025 Telephone [facility] [address] [facility] [address] [place] [address] [place], NITESH [facility] Other 01/27/2025 10:49 AM EDT - 02/03/2025 6:32 PM EDT Hospital Encounter [facility] [address] [place] [address] Bertha Quintana MD Nordberg, MD Christian Avendano Yichao, MD PhD Maribel Chavez, MD Hay Turcios Gayathri, MD Cellulitis of left lower extremity (Primary Dx) Discharge Disposition: Home with Services () 01/26/2025 Telephone [facility] Podiatry [address] [place] [address] Career Resource Technician: Mitul Mccormack NP 01/26/2025 Telephone [facility] Plastic Cosmetic Surgery [address] [place] [address] Career Resource Technician: Maribell Hazel PAC Appt Request - New 01/25/2025 1:29 PM EDT - 01/25/2025 11:59 PM EDT Hospital Encounter [facility] Vascular Lab [address] [place] [address] Left leg pain Discharge Disposition: Home or Self Care () 01/25/2025 1:00 PM EDT Follow-Up [facility] Surgery [address] [place] [address] Career Resource Technician: Mitul Starr NP Left leg pain (Primary Dx) 01/24/2025 Refill [facility] [address] [facility] [address] [place] [address] Geovanna Abbasi NP 01/19/2025 Telephone [facility] [address] [facility] [address] [place] [address] Geovanna Abbasi NP 01/10/2025 Telephone [facility] [address] [place] [address] Geovanna Abbasi NP insurance /referral 01/07/2025 3:20 PM EDT Follow-Up [facility] [address] [facility] [address] [place] [address] Geovanna Abbasi NP Routine general medical examination at a health care facility (Primary Dx); Other abnormal glucose; Encounter for screening for depression; Encounter for tobacco use screening [Z01.89]; BMI 45.0-49.9, adult (HCC) [Z68.42]; Severe obesity (BMI >= 40); Anxiety and depression; Mixed hyperlipidemia; Uncontrolled type 2 diabetes mellitus with hyperglycemia; Impaired mobility and ADLs; Essential hypertension 01/05/2025 Orders Only [facility] Renal Dialysis [address] [place] [address] Michelle Ling NP Acute kidney injury superimposed on stage 2 chronic kidney disease (Primary Dx) 01/04/2025 3:20 PM EDT Follow-Up [facility] Vascular Surgery [address] [place] [address] Career Resource Technician: Camacho Russell MD Wound dehiscence (Primary Dx) 01/04/2025 1:11 PM EDT - 01/04/2025 11:59 PM EDT Hospital Encounter [facility] Vascular Lab [address] [place] [address] Lucie Miller MD PAD (peripheral artery disease) Discharge Disposition: Home or Self Care (01) 01/04/2025 1:10 PM EDT Hospital Encounter [facility] Vascular Lab [address] [place] [address] Lucie Miller MD PAD (peripheral artery disease) Discharge Disposition: Home or Self Care () 12/31/2024 12:03 PM EST - 12/31/2024 11:59 PM EST Hospital Encounter [facility] Ul[facility]ound [address] [place] [address] Difficulty urinating Discharge Disposition: Home or Self Care () 12/27/2024 Telephone [facility] Renal Dialysis [address] [place] [address] Michelle Ling NP 12/22/2024 11:00 AM EST Follow-Up [facility] Renal [address] [place] [address] Career Resource Technician: Michelle Anthony NP CKD (chronic kidney disease) stage 2, GFR 60-89 ml/min (Primary Dx); CKD stage 2 due to type 2 diabetes mellitus; Albuminuria; Persistent proteinuria; Vitamin D deficiency; Acute kidney injury superimposed on stage 2 chronic kidney disease 12/22/[address] [facility] [address] [place], [place] [address] [address] Geovanna Abbasi NP [facility] Other 12/21/2024 Telephone [place] [address] [facility] [address] [place], [place] [address] [address] Geovanna Abbasi NP refax 12/20/2024 1:00 PM EST Follow-Up [facility] V[facility] Surgery [address] [place] [address] Career Resource Technician: Surekha Bartlett NP Surgical wound infection (Primary Dx); Wound dehiscence 12/20/2024 Telephone [facility] [address] [facility] [address] [place], [place] [address] [address] Geovanna Abbasi NP 12/17/2024 3:20 PM EST Telehealth [address] [facility] [address] [place] [address] [place] [address] Geovanna Abbasi NP Uncontrolled type 2 diabetes mellitus with hyperglycemia (Primary Dx); Essential hypertension; Anxiety and depression; Primary insomnia 12/17/2024 Telephone [facility] [address] [facility] [address] [place] [address] Geovanna Abbasi NP [facility] Medication Refill 12/17/2024 Refill [facility] [address] [facility] [address] [place] [address] Geovanna Abbasi NP 12/15/2024 Telephone [facility] V[facility] Surgery [address] [place] [address] Career Resource Technician: Lucie Sepulveda MD 12/14/2024 Telephone [facility] [address] [facility] [address] [place] [address] Geovanna Abbasi NP [facility] Paperwork 12/10/2024 Telephone [facility] [address] [facility] [address] [place] [address] Geovanna Abbasi NP [facility] Other 12/10/2024 Refill [facility] [address] [facility] [address] [place] [address] Geovanna Abbasi NP 12/07/2024 Telephone [facility] V[facility] Surgery [address] [place] [address] Career Resource Technician: Manjula Rabago NP 12/06/2024 8:30 AM EST Follow-Up [facility] Surgery [address] [place] [address] Career Resource Technician: Manjula Rabago NP Surgical wound infection (Primary Dx) 12/03/2024 4:00 PM EST Telehealth [facility] [address] [facility] [address] [place] [address] Geovanna Abbasi NP Uncontrolled type 2 diabetes mellitus with hyperglycemia (Primary Dx); Impaired mobility 12/03/2024 2:40 PM EST Follow-Up 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 Vascular Surgery [address] [place] [address] Career Resource Technician: Lucie Sepulveda MD Post-op Call 11/29/2024 Orders Only [facility] V[facility] Surgery [address] [place] [address] Career Resource Technician: Lucius Parker MD PAD (peripheral artery disease) (Primary Dx) 11/26/2024 4:58 PM EST - 11/29/2024 5:25 PM EST Hospital Encounter 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, limited to breakdown of skin Discharge Disposition: Home with Services (06) from Last 3 Months Immunizations Immunization Administration Dates Next Due Covid-19 Monovalent Vaccine, Moderna, mRNA, PF 03/28/2021,02/28/2021 INFLUENZA, SPLIT VIRUS, TRIVALENT, PF 10/29/2024 Influenza, Injectable, Quadr ivalent, Preservative Free 10/06/2023,08/27/2022,09/25/2021 PPD Test 08/29/2022 Pneumococcal conjugate PCV20 ,polysaccharide ALV273 conjugate, adjuvant, PF (Prevnar 20) 10/06/2023 Tetanus Toxoid, Reduced Diph theria Toxoid, and Acellular Pertussis Vaccine, Adsorbed 08/31/2020 Tetanus and Diphtheria Toxoi ds, Adsorbed, Preservative Free (2 Lf of Tetanus Toxoid and 2 Lf of Diphtheria Toxoid) 04/20/2020 Family History Medical History Relation Name Comments Esophageal cancer Father Liver cancer Mother Pancreatic cancer Other 1 moms cousin Breast cancer Neg Hx Colon cancer Neg Hx Relation Name Status Comments Father Mother Other 1 moms cousin Other 2 Alive Social History Tobacco Use Types Packs/Day Years Used Date Smoking Tobacco: Former Cigarettes Smokeless Tobacco: Never Tobacco Cessation:Counseling Given: Not Answered Comments:QUIT DAY OF SURGERY Alcohol Use Standard Drinks/Week Comments Never 0 (1 standard drink = 0.6 oz pur e alcohol) [facility] Utilities Answer Date Recorded In the past 12 months has th e electric, gas, oil, or water company [...] on file Sexual Orientation Not on file Last Filed Vital Signs Vital Sign Reading Time Taken Comments Blood Pressure 166/98 02/24/2025 7:45 PM EDT Pulse 108 02/24/2025 7:45 PM EDT Temperature 36.8 ??C (98.2 ??F) 02/24/2025 7:45 PM ED T Respiratory Rate 19 02/24/2025 7:45 PM EDT Oxygen Saturation 98% 02/24/2025 7:45 PM EDT Inhaled Oxygen Concentration - - Weight 125 kg (275 lb 9.2 oz) 02/24/2025 11:07 A M EDT Height 165.1 cm (5' 5 ) 02/11/2025 2:41 PM EDT Body Mass Index 45.86 02/11/2025 2:41 PM EDT Plan of Treatment Upcoming Encounters Date Type Department Care Team (Late st Contact Info) Description 02/28/2025 10:00 AM EDT Nutrition [facility] [address] [place] [address] [place] [phone] 03/24/2025 1:40 PM EDT Office Visit [facility] [address] [facility] [address] [place] [address] Geovanna Abbasi NP [address] [place] [address] 04/07/2025 8:00 AM EDT Office Visit [facility] [address] [place] [address] Career Resource Technician: Tatiana Phillip NP [address] [place] [address] 04/26/2025 10:40 AM EDT Follow-Up [facility] Renal [address] [place] [address] Career Resource Technician: Kojo Tracey MD [address] [place] [address] 05/05/2025 2:30 PM EDT Office Visit [facility] [address] [place] [address] Career Resource Technician: Tatiana Phillip, KHURRAM [address] [place] [address] 05/19/2025 1:30 PM EDT Office Visit [facility] [address] [facility] [address] [place] [address] DiGHenrique gusman, PharmD [address] [place] [address] 07/15/2025 1:00 PM EDT Appointment [facility] [address] [place] [address] 07/15/2025 1:45 PM EDT Appointment [facility]ascular Lab [address] [place] [address] 07/15/2025 3:00 PM EDT Follow-Up [facility] Surgery [address] [place] [address] Career Resource Technician: Mitul Starr, KHURRAM [address] [place] [address] Health Maintenance Due Date Last Done Comments Cologuard 1980 Colon Cancer Screening 1980 Colonoscopy 1980 FOBT / Fit Test 1980 Sigmoidoscopy 1980 Ophthalmology Exam 07/29/2023 07/29/2022, 05/09/2022 COVID-19 Vaccine (2023-2 5 season) 2024 03/28/2021, 02/28/2021 Hemoglobin A1C 04/30/2025 01/29/2025, 04/2025, 11/27/2024, Additional history exists Basic Metabolic Panel 08/27/2025 02/24/2025 , 02/24/2025, 02/03/2025, Additional history exists Depression Screening and Follow-Up 01/07/2026 01/07/2025 Foot Exam 02/24/2026 02/24/2025 Urine Microalbumin 02/24/2026 02/24/2025, 0 12/22/2024, 11/10/2024, Additional history exists DTaP,Tdap,and Td Vaccines (2 - Td or Tdap) 08/31/2030 08/31/2020, 04/20/2020 RSV Vaccine (60+ years old a nd patients) (1 - 1-dose 75+ series) 02/14/2055 Pneumococcal Vaccine: Pediat poppy (0-5 Years) and At-Risk Patients (6-50 Years) Completed 10/06/2023 Hepatitis C Screening Completed 09/22/2024 HIV Screening Completed 10/29/2024 Influenza Vaccine Completed 10/29/2024, , 08/27/2022, Additional history exists Alcohol/Substance Use Screening Completed Oral Health Screening Completed 11/09/2024 CKD: Referral to Nephrology Completed 12/22/2024 Abdominal Aortic Aneurysm (A AA) Screening Completed 01/27/2025, 11/26/2024, 09/22/2024, Additional history exists Hepatitis B Vaccines Discontinued Varicella Vaccines Discontinued Procedures * Due to [place] state law, this organization might not be sharing negative HIV tests. Procedure Name Priority Date/Time Associated Diagnosis Comments POCT GLUCOSE Routine 02/24/2025 7:49 PM EDT COMPREHENSIVE METABOLIC PANEL STAT 02/24/2025 1:56 PM EDT POCT GLUCOSE Routine 02/24/2025 1:32 PM EDT POCT GLUCOSE Routine 02/24/2025 11:07 AM EDT POCT GLUCOSE Routine 02/24/2025 11:06 AM EDT YELLOW TOP Routine 02/24/2025 10:34 AM EDT CKD (chronic kidney disease) stage 2, GFR 60-89 ml/min YELLOW TOP Routine 02/24/2025 10:34 AM EDT CKD (chronic kidney disease) stage 2, GFR 60-89 ml/min EXTRA TUBES Routine 02/24/2025 10:34 AM EDT CKD (chronic kidney disease) stage 2, GFR 60-89 ml/min PROTEIN, RANDOM URINE WITH CREATININE Routine 02/24/2025 10:07 AM EDT CKD (chronic kidney disease) stage 2, GFR 60-89 ml/min MICROALBUMIN, RANDOM URINE WITH CREATININE Routine 02/24/2025 10:07 AM EDT CKD (chronic kidney disease) stage 2, GFR 60-89 ml/min RENAL FUNCTION PANEL Routine 02/24/2025 9:56 AM EDT CKD (chronic kidney disease) stage 2, GFR 60-89 ml/min VITAMIN D, 25-HYDROXY, TOTAL, IMMUNOASSAY Routine 02/24/2025 9:56 AM EDT CKD (chronic kidney disease) stage 2, GFR 60-89 ml/min POCT GLUCOSE Routine 02/03/2025 5:11 PM EDT POCT GLUCOSE Routine 02/03/2025 11:53 AM EDT POCT GLUCOSE Routine 02/03/2025 7:49 AM EDT CBC AUTO DIFFERENTIAL Routine 02/03/2025 6:03 AM EDT CK Timed 02/03/2025 6:02 AM EDT PHOSPHORUS Routine 02/03/2025 6:02 AM EDT MAGNESIUM Routine 02/03/2025 6:02 AM EDT BASIC METABOLIC PANEL Routine 02/03/2025 6:02 AM EDT POCT GLUCOSE Routine 02/02/2025 8:37 PM EDT POCT GLUCOSE Routine 02/02/2025 5:47 PM EDT POCT GLUCOSE Routine 02/02/2025 12:53 PM EDT POCT GLUCOSE Routine 02/02/2025 8:52 AM EDT POCT GLUCOSE Routine 02/02/2025 7:44 AM EDT PHOSPHORUS Routine 02/02/2025 5:51 AM EDT MAGNESIUM Routine 02/02/2025 5:51 AM EDT BASIC METABOLIC PANEL Routine 02/02/2025 5:51 AM EDT CBC AUTO DIFFERENTIAL Routine 02/02/2025 5:51 AM EDT POCT GLUCOSE Routine 02/01/2025 8:41 PM EDT POCT GLUCOSE Routine 02/01/2025 5:15 PM EDT POCT GLUCOSE Routine 02/01/2025 12:38 PM EDT POCT GLUCOSE Routine 02/01/2025 8:49 AM EDT MANUAL DIFFERENTIAL Routine 02/01/2025 6 :23 AM EDT PHOSPHORUS Routine 02/01/2025 6:23 AM EDT MAGNESIUM Routine 02/01/2025 6:23 AM EDT BASIC METABOLIC PANEL Routine 02/01/2025 6:23 AM EDT CBC AUTO DIFFERENTIAL Routine 02/01/2025 6:23 AM EDT POCT GLUCOSE Routine 01/31/2025 10:39 PM EDT POCT GLUCOSE Routine 01/31/2025 9:17 PM EDT POCT GLUCOSE Routine 01/31/2025 4:47 PM EDT POCT GLUCOSE Routine 01/31/2025 12:30 PM EDT POCT GLUCOSE Routine 01/31/2025 8:10 AM EDT PHOSPHORUS Routine 01/31/2025 7:01 AM EDT MAGNESIUM Routine 01/31/2025 7:01 AM EDT BASIC METABOLIC PANEL Routine 01/31/2025 7:01 AM EDT CBC AUTO DIFFERENTIAL Routine 01/31/2025 7:01 AM EDT POCT GLUCOSE Routine 01/30/2025 8:47 PM EDT POCT GLUCOSE Routine 01/30/2025 5:05 PM EDT MAGNESIUM Add-On 01/30/2025 1:41 PM EDT BASIC METABOLIC PANEL Add-On 01/30/2025 1:41 PM EDT C-REACTIVE PROTEIN STAT 01/30/2025 1: 41 PM EDT POCT GLUCOSE Routine 01/30/2025 12:19 PM EDT SMEAR REVIEW Routine 01/30/2025 12:01 PM EDT CBC Add-On 01/30/2025 12:01 PM EDT SEDIMENTATION RATE, AUTOMATED Timed 01/30/2025 12:01 PM EDT XR KNEE 4+ VW LEFT STAT 01/30/2025 11 :37 AM EDT POCT GLUCOSE Routine 01/30/2025 9:27 AM EDT POCT GLUCOSE Routine 01/30/2025 9:10 AM EDT POCT GLUCOSE Routine 01/29/2025 8:19 PM EDT POCT GLUCOSE Routine 01/29/2025 5:21 PM EDT POCT GLUCOSE Routine 01/29/2025 12:17 PM EDT POCT GLUCOSE Routine 01/29/2025 7:54 AM EDT MANUAL DIFFERENTIAL Routine 01/29/2025 6 :56 AM EDT C-REACTIVE PROTEIN Add-On 01/29/2025 6: 56 AM EDT HEMOGLOBIN A1C Routine 01/29/2025 6:56 AM EDT PHOSPHORUS Routine 01/29/2025 6:56 AM EDT MAGNESIUM Routine 01/29/2025 6:56 AM EDT BASIC METABOLIC PANEL Routine 01/29/2025 6:56 AM EDT CBC AUTO DIFFERENTIAL Routine 01/29/2025 6:56 AM EDT POCT GLUCOSE Routine 01/28/2025 8:58 PM EDT PTT Timed 01/28/2025 7:56 PM EDT POCT GLUCOSE Routine 01/28/2025 5:17 PM EDT POCT GLUCOSE Routine 01/28/2025 12:00 PM EDT POCT GLUCOSE Routine 01/28/2025 7:58 AM EDT MANUAL DIFFERENTIAL Routine 01/28/2025 5 :54 AM EDT PHOSPHORUS Routine 01/28/2025 5:54 AM EDT MAGNESIUM Routine 01/28/2025 5:54 AM EDT BASIC METABOLIC PANEL Routine 01/28/2025 5:54 AM EDT CBC AUTO DIFFERENTIAL Routine 01/28/2025 5:54 AM EDT TROPONIN T HIGH SENSITIVITY Timed 01/27/2025 11:56 PM EDT VANCOMYCIN, RANDOM Timed 01/27/2025 11 :56 PM EDT ECG 12-LEAD STAT 01/27/2025 9:39 PM EDT TROPONIN T HIGH SENSITIVITY STAT 01/27/2025 9:21 PM EDT POCT GLUCOSE Routine 01/27/2025 8:05 PM EDT LACTIC ACID, PLASMA Timed 01/27/2025 6 :57 PM EDT POCT GLUCOSE Routine 01/27/2025 5:10 PM EDT POCT GLUCOSE Routine 01/27/2025 3:11 PM EDT LACTIC ACID, PLASMA REPEATED Timed 01/27/2025 2:28 PM EDT POCT GLUCOSE Routine 01/27/2025 1:[address] LOWER EXTREMITY LEFT W CONTRAST STAT 01/27/2025 12:[address] ABDOMEN PELVIS W CONTRAST STAT 01/27/2025 12:24 PM EDT POCT I-STAT LACTATE W/VBG Routine 01/27/2025 11:58 AM EDT (DO NOT ORDER) ANAEROBIC CULTURE-QML Routine 01/27/2025 11:58 AM EDT AEROBIC CULTURE W/GRAM STAIN Routine 01/27/2025 11:58 AM EDT AEROBIC AND ANAEROBIC CULTURE W/GRAM STAIN Routine 01/27/2025 11:58 AM EDT POCT I-STAT LACTATE W/VBG Routine 01/27/2025 11:49 AM EDT MRSA/S AUREUS PCR, NASAL STAT 01/27/2025 11:38 AM EDT CK STAT 01/27/2025 11:38 AM EDT LIPASE STAT 01/27/2025 11:38 AM EDT COMPREHENSIVE METABOLIC PANEL STAT 01/27/2025 11:38 AM EDT LACTIC ACID, PLASMA W/ REPEAT STAT 01/27/2025 11:38 AM EDT CBC AUTO DIFFERENTIAL STAT 01/27/2025 11:38 AM EDT BLOOD CULTURE STAT 01/27/2025 11:38 AM EDT BLOOD CULTURE STAT 01/27/2025 11:38 AM EDT ECG 12-LEAD STAT 01/27/2025 11:19 AM EDT HEART & VASCULAR - SCANNED 01/27/2025 HEART & VASCULAR - SCANNED 01/27/2025 LOWER LIMB VENOUS DUPLEX: UNILATERAL, LEFT Routine 01/25/2025 2:13 PM EDT Left leg pain POCT GLUCOSE BLOOD, CMG, NON-INTERFACED Routine 01/07/2025 3:07 PM EDT Other abnormal glucose LOWER LIMB ARTERIAL DUPLEX, LEFT Routine 01/04/2025 2:46 PM EDT PAD (peripheral artery disease) ANKLE/BRACHIAL INDEX AND ARTERIAL WAVEFORM ANALYSIS Routine 01/04/2025 2:42 PM EDT PAD (peripheral artery disease) US KIDNEY AND BLADDER COMPLETE Routine 12/31/2024 12:36 PM EST Difficulty urinating URINALYSIS W/MICROSCOPIC Routine 12/31/2024 10:32 AM EST Acute kidney injury superimposed on stage 2 chronic kidney disease HEMOGLOBIN A1C Routine 12/31/2024 10:21 AM EST CKD (chronic kidney disease) stage 2, GFR 60-89 ml/min KAPPA & LAMBDA, FREE W/RATIO Routine 12/31/2024 10:21 AM EST Albuminuria Persistent proteinuria PROTEIN ELECTROPHORESIS W/REFLEX TO IMMUNOFIXATION, SERUM Routine 12/31/2024 10:21 AM EST Albuminuria Persistent proteinuria ANCA SCREEN W/REFLEX TO ANCA TITER Routine 12/31/2024 10:21 AM EST Acute kidney injury superimposed on stage 2 chronic kidney disease CYSTATIN C WITH GLOMERULAR FILTRATION RATE, ESTIMATED (EGFR)-[id number] Routine 12/31/2024 10:21 AM EST Acute kidney injury superimposed on stage 2 chronic kidney disease COMPLEMENT C4 Routine 12/31/2024 10:21 AM EST Acute kidney injury superimposed on stage 2 chronic kidney disease COMPLEMENT C3 Routine 12/31/2024 10:21 AM EST Acute kidney injury superimposed on stage 2 chronic kidney disease PHOSPHOLIPASE A2 RECEPTOR ANTIBODIES, [id number] Routine 12/31/2024 10:21 AM EST Acute kidney injury superimposed on stage 2 chronic kidney disease VITAMIN D, 25-HYDROXY, TOTAL, IMMUNOASSAY Routine 12/31/2024 10:21 AM EST Vitamin D deficiency RENAL FUNCTION PANEL Routine 12/31/2024 10:21 AM EST CKD stage 2 due to type 2 diabetes mellitus PROTEIN, RANDOM URINE WITH CREATININE Routine 12/22/2024 1:17 PM EST MICROALBUMIN, RANDOM URINE WITH CREATININE Routine 12/22/2024 1:17 PM EST Albuminuria POCT GLUCOSE Routine 11/29/2024 12:08 PM EST POCT GLUCOSE Routine 11/29/2024 8:07 AM EST PHOSPHORUS Routine 11/29/2024 6:14 AM EST MAGNESIUM Routine 11/29/2024 6:14 AM EST BASIC METABOLIC PANEL Routine 11/29/2024 6:14 AM EST CBC Routine 11/29/2024 6:14 AM EST POCT GLUCOSE Routine 11/28/2024 9:06 PM EST POCT GLUCOSE Routine 11/28/2024 5:09 PM EST VANCOMYCIN, RANDOM STAT 11/28/2024 12 :51 PM EST POCT GLUCOSE Routine 11/28/2024 12:40 PM EST POCT GLUCOSE Routine 11/28/2024 9:05 AM EST SMEAR REVIEW Routine 11/28/2024 6:40 AM EST PHOSPHORUS Routine 11/28/2024 6:40 AM EST MAGNESIUM Routine 11/28/2024 6:40 AM EST BASIC METABOLIC PANEL Routine 11/28/2024 6:40 AM EST CBC Routine 11/28/2024 6:40 AM EST HIV AB/P24 AG WITH REFLEX - LCP - [id number] Routine 10/29/2024 2:27 PM EST Encounter for screening for HIV HEPATITIS C ANTIBODY W/REFLEX TO HCV RNA, QUANTITATIVE PCR STAT 09/22/2024 5:47 PM EST from Last 3 Months or Most Recently Relevant to Health Maintenance Results * Due to [place] state law, this organization might not be sharing negative HIV tests. * (ABNORMAL) POCT Glucose, interfaced (02/24/2025 7:49 PM EDT) Only the most recent of44 resultswithin the time period is included. Glucose, POCT 423(H) 70 - 99 mg/dL 02/24/2025 7:50 PM EDT [facility] Comment: The digital cartographic technician has not determined the efficacy of this test in Critically ill patients. ??[facility] defines Critically ill patients for the purpose of blood glucose monitoring (BGM) by glucometer, as patients meeting one or more of the following criteria: Hypotension- non-ICU patients (systolic blood pressure Less than 90 mmHg) due to shock Hypotension -ICU patients ??(Mean Arterial Pressure (MAP) <60 mmHg or systolic blood pressure < 90 mmHg due to shock Patients receiving Vasopressors (phenylephrine, vasopressin or norepinephrine) Anasarca In all locations, BGM test results should not be relied upon in the above situations, unless these results confirmed with lab-based glucose values. Blood 02/24/2025 7:49 PM EDT 02/24/2025 7:50 PM EDT us Doctor Unknown LAB POCT ORDERABLES - DEVICE Fin al Result [facility] [address] [place] [address], * (ABNORMAL) Comprehensive Metabolic Panel (02/24/2025 1:56 PM EDT) Only the most recent of2 resultswithin the time period is included. NA 132(L) 135 - 145 mmol/L 02/24/2025 2:36 PM EDT [facility] K 4.7 3.5 - 5.3 mmol/L 02/24/2025 2:36 PM EDT [facility] Cl 93(L) 98 - 107 mmol/L 02/24/2025 2:36 PM EDT [facility] CO2 26 22 - 32 mmol/L 02/24/2025 2:36 PM EDT [facility] Anion Gap 13 5 - 15 02/24/2025 2:36 PM EDT [facility] Glucose 496(H) 65 - 99 mg/dL 02/24/2025 2:36 PM EDT [facility] Creatinine 1.46(H) 0.60 - 1.30 mg/dL 02/24/2025 2:36 PM EDT [facility] Calcium 9.5 8.6 - 10.5 mg/dL 02/24/2025 2:36 PM EDT [facility] Total Protein 8.0 6.0 - 8.0 g/dL 02/24/2025 2:36 PM EDT [facility] Albumin 3.8 3.5 - 5.2 g/dL 02/24/2025 2:36 PM EDT [facility] Bilirubin, Total 0.2 0.2 - 1.2 mg/dL 02/24/2025 2:36 PM EDT [facility] Alkaline Phosphatase 135(H) 35 - 129 U/L 02/24/2025 2:36 PM EDT [facility] AST 15 10 - 40 U/L 02/24/2025 2:36 PM EDT [facility] ALT 18 10 - 40 U/L 02/24/2025 2:36 PM EDT [facility] BUN 33(H) 7 - 23 mg/dL 02/24/2025 2:36 PM EDT [facility] eGFR 60 >=60 mL/min/1 .73m2 02/24/2025 2:36 PM EDT [facility] Comment:The estimated glomer ular filtration rate (eGFR) is calculated using a new formula developed by the NKF-ASN task force to eliminate race-based correction factors. The new formula uses serum/plasma creatinine, age, and gender to determine eGFR. A value below 60mls/min might indicate kidney disease and will be flagged. For additional information, see Shu et al, Am J Kidney Dis. 2021;79(2):268- 288, A Unifying Approach for GFR estimation: Recommendations of the NKF-ASN Task Force on Reassessing the Inclusion of Race in Diagnosing Kidney Disease . Globulin, Total 4.2 2.1 - 4.2 g/dL 02/24/2025 2:36 PM EDT [facility] A/G Ratio 0.9(L) 1.5 - 3.0 02/24/2025 2:36 PM EDT [facility] Blood Structure of peripheral vein / Unknown Venipuncture / Unknown 02/24/2025 1:56 PM EDT 02/24/2025 1:56 PM EDT us Protocol Unv Adult Treatment MD LAB BLOOD ORDERA BLES Final Result [facility] [address] [place] [address], * Yellow Top (02/24/2025 10:34 AM EDT) Only the most recent of2 resultswithin the time period is included. Extra Tube Hold for add-ons. 02/24/2025 3:05 PM EDT [facility] Comment:Auto resulted. Urine Urine specimen collection, clean catch / Unknown 02/24/2025 10:34 AM EDT 02/24/2025 10:34 AM EDT Michelle Ling WATERWORKS CHIEF ENGINEER LAB BLOOD ORDERABLES Final Res ult Performing Organization Address [facility] Co de Phone Number [facility] [address] [place] [address], * (ABNORMAL) Microalbumin/Creatinine Urine Ratio, Random (02/24/2025 10:07 AM EDT) Only the most recent of2 resultswithin the time period is included. Microalbumin, Urine 177.0 mg/dL 02/24/2025 11:29 AM EDT [facility] Creatinine, Urine 52 22 - 328 mg/dL 02/24/2025 11:29 AM EDT [facility] Microalb/Creat Ratio, Random Urine 3,403.8(H ) <30.0 mcg/mgCr 02/24/2025 11:29 AM EDT [facility] Comment: Microalbumin Reference Range: Normal ? <30 mcg/mg Creatinine Microalbuminuria ? 30-300 mcg/mg Creatinine Clinical Albuminuria >300 mcg/mg Creatinine Reference: ADA Guideline. Diabetes Care. 2004;27 (suppl 1) Urine Voided urine specimen / Unknown Non-Blood Collection / Unknown 02/24/2025 10:07 AM EDT 02/24/2025 10:18 AM EDT Michelle Ling WATERWORKS CHIEF ENGINEER LAB URINE ORDERABLES Final Res ult Performing Organization Address [facility]/ZIP Co de Phone Number [facility] [address] [place] [phone], * (ABNORMAL) Protein, Random Urine with Creatinine (02/24/2025 10:07 AM EDT) Only the most recent of2 resultswithin the time period is included. Protein, Urine 266 mg/dL 02/24/2025 11:29 AM EDT [facility] Creatinine, Urine 52 22 - 328 mg/dL 02/24/2025 11:29 AM EDT [facility] Protein/Creat inine, Urine Ratio 5,115(H) <200 mg/gmCr 02/24/2025 11:29 AM EDT [facility] Urine Voided urine specimen / Unknown Non-Blood Collection / Unknown 02/24/2025 10:07 AM EDT 02/24/2025 10:18 AM EDT us Michelle Ling NP LAB URINE ORDERABLES Final Res ult [facility] [address] [place] [address], * (ABNORMAL) Vitamin D 25 hydroxy (02/24/2025 9:56 AM EDT) Only the most recent of2 resultswithin the time period is included. Calcidiol+ercalc idiol 17(L) 30 - 100 ng/mL 02/24/2025 8:44 PM EDT [employer] [facility] Comment: Vitamin D Status ? 25-OH Vitamin D: Deficiency: ?<20 ng/mL Insufficiency: ? 20 - 29 ng/mL Optimal: ? > or = 30 ng/mL For 25-OH Vitamin D testing on patients on D2-supplementation and patients for whom quantitation of D2 and D3 fractions is required, the tok tok tokAssureD(TM) 25-OH VIT D, (D2,D3), LC/MS/MS is recommended: order code 90357 (patients >2yrs). See Note 1 Note 1 For additional information, please refer to http://education.SMCpros/faq/YNG266 (This link is being provided for informational/ educational purposes only.) Blood Structure of peripheral vein / Unknown Venipuncture / Unknown 02/24/2025 9:56 AM EDT 02/24/2025 10:10 AM EDT Narrative [facility] - 02/24/2025 8:44 PM EDT [facility] Received Date: Michelle Ling NP LAB BLOOD ORDERABLES Final Res ult [facility] [address], [place] [address], [place] [phone] [employer] [facility] [address], [place] [address], [place] [phone] * (ABNORMAL) Renal Function Panel (02/24/2025 9:56 AM EDT) Only the most recent of2 resultswithin the time period is included. NA 128(L) 135 - 145 mmol/L 02/24/2025 10:51 AM EDT [facility] K 4.9 3.5 - 5.3 mmol/L 02/24/2025 10:51 AM EDT [facility] Cl 92(L) 98 - 107 mmol/L 02/24/2025 10:51 AM EDT [facility] CO2 23 22 - 32 mmol/L 02/24/2025 10:51 AM EDT [facility] Anion Gap 13 5 - 15 02/24/2025 10:51 AM EDT [facility] Glucose 657(HH) 65 - 99 mg/dL 02/24/2025 10:51 AM EDT [facility] BUN 33(H) 7 - 23 mg/dL 02/24/2025 10:51 AM EDT [facility] Creatinine 1.54(H) 0.60 - 1.30 mg/dL 02/24/2025 10:51 AM EDT [facility] Calcium 9.1 8.6 - 10.5 mg/dL 02/24/2025 10:51 AM EDT [facility] Phosphorus 3.7 2.5 - 4.5 mg/dL 02/24/2025 10:51 AM EDT [facility] Albumin 3.6 3.5 - 5.2 g/dL 02/24/2025 10:51 AM EDT [facility] eGFR 56(L) >=60 mL/min/1 .73m2 02/24/2025 10:51 AM EDT [facility] Comment:The estimated glomer ular filtration rate (eGFR) is calculated using a new formula developed by the NKF-ASN task force to eliminate race-based correction factors. The new formula uses serum/plasma creatinine, age, and gender to determine eGFR. A value below 60mls/min might indicate kidney disease and will be flagged. For additional information, see Shu et al, Am J Kidney Dis. 2021;79(2):268- 288, A Unifying Approach for GFR estimation: Recommendations of the NKF-ASN Task Force on Reassessing the Inclusion of Race in Diagnosing Kidney Disease . Blood Structure of peripheral vein / Unknown Venipuncture / Unknown 02/24/2025 9:56 AM EDT 02/24/2025 10:14 AM EDT Michelel Ling NP LAB BLOOD ORDERABLES Final Res ult [facility] [address] [place] [address], [place] * (ABNORMAL) CBC Auto Differential (02/03/2025 6:03 AM EDT) Only the most recent of7 resultswithin the time period is included. WBC 11.7(H) 3.8 - 10.8 10*3/uL 02/03/2025 7:05 AM EDT [facility] RBC 4.08(L) 4.20 - 5.80 10*6/uL 02/03/2025 7:05 AM EDT [facility] Hemoglobin 11.1(L) 13.2 - 17.1 g/dL 02/03/2025 7:05 AM EDT [facility] Hematocrit 34.2(L) 38.5 - 50.0 % 02/03/2025 7:05 AM EDT [facility] MCV 83.8 80.0 - 100.0 fL 02/03/2025 7:05 AM EDT [facility] MCH 27.2 27.0 - 33.0 pg 02/03/2025 7:05 AM EDT [facility] MCHC 32.5 32.0 - 36.0 g/dL 02/03/2025 7:05 AM EDT [facility] RDW 13.8 11.0 - 15.0 % 02/03/2025 7:05 AM EDT [facility] Platelets 482(H) 140 - 400 10*3/uL 02/03/2025 7:05 AM EDT [facility] MPV 8.9 7.5 - 12.5 fL 02/03/2025 7:05 AM EDT [facility] Neutrophil % 66.2 % 02/03/2025 7:05 AM EDT [facility] Immature Grans % 5.4(H) 0.0 - 0.9 % 02/03/2025 7:05 AM EDT [facility] Lymphocyte % 18.4 % 02/03/2025 7:05 AM EDT [facility] Monocyte % 5.1 % 02/03/2025 7:05 AM EDT [facility] Eosinophil % 4.0 % 02/03/2025 7:05 AM EDT [facility] Basophil % 0.9 % 02/03/2025 7:05 AM EDT [facility] Neutrophil # 7.76 1.50 - 7.80 10*3/uL 02/03/2025 7:05 AM EDT [facility] Immature Grans # 0.63(H) <=0.03 10*3/uL 02/03/2025 7:05 AM EDT [facility] Lymphocyte # 2.20 0.85 - 3.90 10*3/uL 02/03/2025 7:05 AM EDT [facility] Monocyte # 0.60 0.20 - 0.95 10*3/uL 02/03/2025 7:05 AM EDT [facility] Eosinophil # 0.50 0.02 - 0.50 10*3/uL 02/03/2025 7:05 AM EDT [facility] Basophil # 0.10 0.00 - 0.20 10*3/uL 02/03/2025 7:05 AM EDT [facility] nRBC % 0.0 /100 WBCs 02/03/2025 7:05 AM EDT [facility] nRBC # <0.01 <0.01 10*3/uL 02/03/2025 7:05 AM EDT [facility] Blood Structure of peripheral vein / Unknown Venipuncture / Unknown 02/03/2025 6:03 AM EDT 02/03/2025 6:58 AM EDT us Sherlyn Chavez MD LAB BLOOD ORDERABLES Final Result [facility] [address] [place] [address], * Phosphorus (02/03/2025 6:02 AM EDT) Only the most recent of8 resultswithin the time period is included. Phosphorus 4.1 2.5 - 4.5 mg/dL 02/03/2025 7:30 AM EDT [facility] Blood Structure of peripheral vein / Unknown Venipuncture / Unknown 02/03/2025 6:02 AM EDT 02/03/2025 6:57 AM EDT Sherlyn Chavez MD LAB BLOOD ORDERABLES Final Result Performing Organization Address City/[facility]/ZIP Co de Phone Number [facility]Station[facility] CorporationOH[facility] [address] [place] [address], [place] * Magnesium (02/03/2025 6:02 AM EDT) Only the most recent of9 resultswithin the time period is included. MG 2.1 1.6 - 2.4 mg/dL 02/03/2025 7:30 AM EDT [facility] Blood Structure of peripheral vein / Unknown Venipuncture / Unknown 02/03/2025 6:02 AM EDT 02/03/2025 6:57 AM EDT Sherlyn Chavez MD LAB BLOOD ORDERABLES Final Result Performing Organization Address [facility] Co de Phone Number [facility] [address] [place] [address], [place] * Creatine Kinase (02/03/2025 6:02 AM EDT) Only the most recent of2 resultswithin the time period is included. CK 73 49 - 348 U/L 02/03/2025 7:30 AM EDT [facility] Blood Structure of peripheral vein / Unknown Venipuncture / Unknown 02/03/2025 6:02 AM EDT 02/03/2025 6:57 AM EDT us Carmen Guido MD LAB BLOOD ORDERABLES Final Result Performing Organization Address City/[facility]/ZIP Co de Phone Number [facility] [address] [place] [address], [place] * (ABNORMAL) Basic Metabolic Panel (02/03/2025 6:02 AM EDT) Only the most recent of9 resultswithin the time period is included. NA 141 135 - 145 mmol/L 02/03/2025 7:30 AM EDT [facility] K 5.0 3.5 - 5.3 mmol/L 02/03/2025 7:30 AM EDT [facility] Cl 105 98 - 107 mmol/L 02/03/2025 7:30 AM EDT [facility] CO2 27 22 - 32 mmol/L 02/03/2025 7:30 AM EDT [facility] BUN 21 7 - 23 mg/dL 02/03/2025 7:30 AM EDT [facility] Creatinine 1.12 0.60 - 1.30 mg/dL 02/03/2025 7:30 AM ED [facility] Glucose 102(H) 65 - 99 mg/dL 02/03/2025 7:30 AM EDT [facility] Calcium 8.8 8.6 - 10.5 mg/dL 02/03/2025 7:30 AM EDT [facility] Anion Gap 9 5 - 15 02/03/2025 7:30 AM EDT [facility] eGFR 83 >=60 mL/min/1. 73m2 02/03/2025 7:30 AM ED [facility] Comment:The estimated glomer ular filtration rate (eGFR) is calculated using a new formula developed by the NKF-ASN task force to eliminate race-based correction factors. The new formula uses serum/plasma creatinine, age, and gender to determine eGFR. A value below 60mls/min might indicate kidney disease and will be flagged. For additional information, see Shu et al, Am J Kidney Dis. 2021;79(2):268- 288, A Unifying Approach for GFR estimation: Recommendations of the NKF-ASN Task Force on Reassessing the Inclusion of Race in Diagnosing Kidney Disease . Blood Structure of peripheral vein / Unknown Venipuncture / Unknown 02/03/2025 6:02 AM EDT 02/03/2025 6:57 AM EDT us Sherlyn Chavez MD LAB BLOOD ORDERABLES Final Result [facility] [address] [place] [address], [place] * (ABNORMAL) Manual Differential (02/01/2025 6:23 AM EDT) Only the most recent of3 resultswithin the time period is included. Neutrophil %, Manual 66 % 02/01/2025 7:51 AM EDT [facility] Lymphocyte %, Manual 13 % 02/01/2025 7:51 AM EDT [facility] Monocyte %, Manual 1 % 02/01/2025 7:51 AM EDT [facility] Eosinophil %, Manual 8 % 02/01/2025 7:51 AM EDT [facility] Basophil %, Manual 2 % 02/01/2025 7:51 AM EDT [facility] Myelocytes % 2 % 02/01/2025 7:51 AM EDT [facility] Reactive Lymphocyte % 8(H) 0 - 6 % 02/01/2025 7:51 AM EDT [facility] Total Neutrophil #, Manual 6.80 1.50 - 7.80 10*3/uL 02/01/2025 7:51 AM EDT [facility] Total Lymph #, Manual 2.16 0.85 - 3.90 10*3/uL 02/01/2025 7:51 AM EDT [facility] Monocyte #, Manual 0.10(L) 0.20 - 0.95 10*3/uL 02/01/2025 7:51 AM EDT [facility] Eosinophil #, Manual 0.82(H) 0.02 - 0.50 10*3/uL 02/01/2025 7:51 AM EDT [facility] Basophil #, Manual 0.21(H) 0.00 - 0.20 10*3/uL 02/01/2025 7:51 AM EDT [facility] Myelocyte # 0.21(H) 0.00 10*3/uL 02/01/2025 7:51 AM EDT [facility] Reactive Lymphocytes # 0.82 10*3/uL 02/01/2025 7:51 AM EDT [facility] Platelet Estimate Adequate Adequate 02/01/2025 7:51 AM EDT [facility] RBC Morphology Normal Normal, No clinically significant RBC morphology present (ICSH guidelines, 2015). 02/01/2025 7:51 AM EDT [facility] Total Cells Counted 116 02/01/2025 7:51 AM EDT [facility] Blood Structure of peripheral vein / Unknown Venipuncture / Unknown 02/01/2025 6:23 AM EDT 02/01/2025 6:38 AM EDT us Sherlyn Chavez MD LAB BLOOD ORDERABLES Final Result [facility] [address] [place] [address], [place] * (ABNORMAL) C-reactive protein (01/30/2025 1:41 PM EDT) Only the most recent of2 resultswithin the time period is included. C Reactive Protein 172.0(H) <=9.9 mg/L 01/30/2025 2:19 PM EDT [facility] Blood Structure of peripheral vein / Unknown Venipuncture / Unknown 01/30/2025 1:41 PM EDT 01/30/2025 1:50 PM EDT us Sherlyn Chavez MD LAB BLOOD ORDERABLES Final Result Performing Organization Address City/[facility]/ZIP Co de Phone Number [facility] [address] [place] [id number], [place] * Smear Review (01/30/2025 12:01 PM EDT) Only the most recent of2 resultswithin the time period is included. Pathologist [facility] [place] Platelet Estimate Adequate Adequate 01/30/2025 4:25 PM EDT [facility] RBC Morphology Normal Normal, No clinically significant RBC morphology present (ICSH guidelines, 2015). 01/30/2025 4:25 PM EDT [facility] Blood Structure of peripheral vein / Unknown Venipuncture / Unknown 01/30/2025 12:01 PM EDT 01/30/2025 12:08 PM EDT us Sherlyn Chavez MD LAB BLOOD ORDERABLES Final Result Performing Organization Address [facility]/ZIP Co de Phone Number [facility] [address] [place] [phone], [place] * (ABNORMAL) Sedimentation Rate (01/30/2025 12:01 PM EDT) Pathologist [facility] [place] Sed Rate 99(H) <15 mm/Hr mm/Hr 01/30/2025 1:18 PM EDT [facility]Station[facility] CorporationOH[facility] Blood Structure of peripheral vein / Unknown Venipuncture / Unknown 01/30/2025 12:01 PM EDT 01/30/2025 12:08 PM EDT us Sherlyn Chavez MD LAB BLOOD ORDERABLES Final Result Performing Organization Address City/[facility]/ZIP Co de Phone Number [facility] [address] [place] [phone], [place] * (ABNORMAL) CBC (01/30/2025 12:01 PM EDT) Only the most recent of3 resultswithin the time period is included. Pathologist [facility] [place] WBC 11.7(H) 3.8 - 10.8 10*3/uL 01/30/2025 4:25 PM EDT [facility] RBC 3.76(L) 4.20 - 5.80 10*6/uL 01/30/2025 4:25 PM EDT [facility] Hemoglobin 10.4(L) 13.2 - 17.1 g/dL 01/30/2025 4:25 PM EDT [facility] Hematocrit 32.0(L) 38.5 - 50.0 % 01/30/2025 4:25 PM EDT [facility] MCV 85.1 80.0 - 100.0 fL 01/30/2025 4:25 PM EDT [facility] MCH 27.7 27.0 - 33.0 pg 01/30/2025 4:25 PM EDT [facility] MCHC 32.5 32.0 - 36.0 g/dL 01/30/2025 4:25 PM EDT [facility] RDW 14.2 11.0 - 15.0 % 01/30/2025 4:25 PM EDT [facility] Platelets 321 140 - 400 10*3/uL 01/30/2025 4:25 PM EDT [facility] MPV 11.1 7.5 - 12.5 fL 01/30/2025 4:25 PM EDT [facility] Comment:A smear review has b een added. Clinician review and interpretation will be needed once the report is final. Blood Structure of peripheral vein / Unknown Venipuncture / Unknown 01/30/2025 12:01 PM EDT 01/30/2025 12:08 PM EDT us Sherlyn Chavez MD LAB BLOOD ORDERABLES Final Result [facility] [address] [place] [address], [place] * X-Ray Knee Left 4+ Views (01/30/2025 11:37 AM EDT) Anatomical Region Laterality Modality Lower Extremities, Knee Left Computed Radiography 01/30/2025 11:4 8 AM EDT Impressions 01/30/2025 11:49 AM EDT FINDINGS/IMPRESSION: No radiographic evidence of acute fracture or dislocation. ??Mild tricompartment osteoarthritis. ??Mild proximal tibiofibular osteoarthritis. ??No discrete osseous erosions. ??No substantial joint effusion. ??There is a vascular stent graft projecting posterior to the distal femur. ??Multiple surgical clips project over the posterior medial aspect of the knee. If this radiology report contains a blank impression section, it is an incomplete radiology report. ??Please contact the interpreting radiologist or applicable radiology division as soon as possible to obtain the completed interpretation. ? Workstation ID: [id number] Narrative 01/30/2025 11:49 AM EDT COMPARISON: There are no prior studies available for comparison at this time. Resulting Agency Comment [id number] Procedure Note Mikhail Tony MD - 01/30/2025 COMPARISON: There are no prior studies available for comparison at thistime. IMPRESSION: FINDINGS/IMPRESSION: No radiographic evidence of acute fracture or dislocation. Mildtricompartment osteoarthritis. Mild proximal tibiofibular osteoarthritis.No discrete osseous erosions. No substantial joint effusion. There is avascular stent graft projecting posterior to the distal femur. Multiplesurgical clips project over the posterior medial aspect of the knee. If this radiology report contains a blank impression section, it is anincomplete radiology report. Please contact the interpreting radiologistor applicable radiology division as soon as possible to obtain thecompleted interpretation. Workstation ID: [id number] us Sherlyn Chavez MD IMG XR PROCEDURES Fi nal Result * (ABNORMAL) Hemoglobin A1c (01/29/2025 6:56 AM EDT) Only the most recent of2 resultswithin the time period is included. Hemoglobin A1C 12.5(H) <5.7 % of total Hgb 01/29/2025 3:05 PM EDT [facility] Comment: For someone without known diabetes, a hemoglobin A1c value of 6.5% or greater indicates that they may have diabetes and this should be confirmed with a follow-up test. For someone with known diabetes, a value <7% indicates that their diabetes is well controlled and a value greater than or equal to 7% indicates suboptimal control. A1c targets should be individualized based on duration of diabetes, age, comorbid conditions, and other considerations. Currently, no consensus exists regarding use of hemoglobin A1c for diagnosis of diabetes for children. ?? eAG (MG/DL) 312 mg/dL 01/29/2025 3:05 PM EDT [facility] eAG (MMOL/L) 17.3 mmol/L 01/29/2025 3:05 PM EDT [facility] Blood Structure of peripheral vein / Unknown Venipuncture / Unknown 01/29/2025 6:56 AM EDT 01/29/2025 7:07 AM EDT Narrative [facility] - 01/29/2025 3:05 PM EDT [facility] Received Date: us Sherlyn Chavez MD LAB BLOOD ORDERABLES Final Result [facility] [address], [place] [address], [place] [phone] [facility] [address], [place] [address], [place] [phone] * (ABNORMAL) PTT (01/28/2025 7:56 PM EDT) aPTT 34.2(H) 23.0 - 32.0 Seconds 01/28/2025 8:30 PM EDT [facility] Comment: Current PTT reagent is not sensitive to detect all Lupus Anticoagulant (LA) Inhibitor Cases. ?? If a LA is suspected, please order a Lupus Anticoagulation w/ Reflex Test which is performed at [facility] in [place], [place]. Blood Structure of peripheral vein / Unknown Venipuncture / Unknown 01/28/2025 7:56 PM EDT 01/28/2025 8:03 PM EDT us Sherlyn Chavez MD LAB BLOOD ORDERABLES Final Result [facility] [address] [place] [address], [place] * (ABNORMAL) Troponin T, High Sensitivity (01/27/2025 11:56 PM EDT) Only the most recent of2 resultswithin the time period is included. Troponin T High Sensitivity 31(H) <=21 ng/L 01/28/2025 12:36 AM EDT [facility] Comment: Jx-Renhqpep-P level of 52 ng/L or higher at 0-hour at presentation is recommended by the ESC 0/1-hour algorithm for identifying patients at high risk for ruling in acute myocardial infarction (AMI) in the appropriate clinical context. Repeat troponin testing 1-3 hours after the initial sample may be helpful in assessing for ongoing myocardial injury. Troponin elevations can be seen in several other non-infarct conditions, and the change (delta) should be evaluated in line with the 4th Dudley Definition of AMI. Troponin baseline and serial elevation for a significant delta should be interpreted with clinical presentation, history, signs and symptoms, ECG, and biomarker concentrations. For inpatient setting: Value <12ng/L is considered negative for all genders. 0-1hr: A delta change of <3 will be considered negative/flat if chest pain onset >3 hours 0-3hr: A delta change of <7 will be considered negative/flat Blood Structure of peripheral vein / Unknown Venipuncture / Unknown 01/27/2025 11:56 PM EDT 01/28/2025 12:08 AM EDT us Sherlyn Chavez MD LAB BLOOD ORDERABLES Final Result Performing Organization Address [facility] Co de Phone Number [facility]ITALStationDigital CorporationOH[facility] STATE [facility] [employer] [facility] [address] [place] [address], [place] * Vancomycin, Random (01/27/2025 11:56 PM EDT) Only the most recent of2 resultswithin the time period is included. Vancomycin Random 12.2 10.0 - 40.0 ug/mL 01/28/2025 1:00 AM EDT [facility] Comment: Before interpreting a drug level, check the time the dose was given in the MAR to ensure the level was drawn appropriately. Target troughs: 10-15 ug/mL: Empiric/Mild infections 15-20 ug/mL Severe MRSA infection (pneumonia, meningitis, endocarditis) Peak Drawn 1-2 hours post infusion: 25-40 ug/mL Blood Structure of peripheral vein / Unknown Venipuncture / Unknown 01/27/2025 11:56 PM EDT 01/28/2025 12:05 AM EDT Sherlyn Chavez MD LAB BLOOD ORDERABLES Final Result Performing Organization Address [facility] de Phone Number [facility] [address] [place] [phone], [place] * ECG 12 lead (01/27/2025 9:39 PM EDT) Only the most recent of2 resultswithin the time period is included. Ventricular Rate EKG 99 BPM MUSE EKG Atrial Rate 99 BPM MUSE EKG NM Interval 164 ms MUSE EKG QRS Interval 92 ms MUSE EKG QT Interval 340 ms MUSE EKG QTC Interval 436 ms MUSE EKG P Lagrange 62 degrees MUSE EKG R Lagrange 56 degrees MUSE EKG T Wave Lagrange 31 degrees MUSE EKG 01/27/2025 9:39 PM EDT 01/28/2025 4:43 PM EDT Impressions MUSE EKG - 01/28/2025 4:43 PM EDT NORMAL SINUS RHYTHM NORMAL ECG WHEN COMPARED WITH ECG OF 27-JAN-2025 11:19, (UNCONFIRMED) NO SIGNIFICANT CHANGE WAS FOUND Confirmed by Thong Rosario ([id number]) on 01/28/2025 4:43:45 PM us Sherlyn Chavez MD ECG ORDERABLES Rain l Result Performing Organization Address City/[facility]/ZIP Co de Phone Number MUSE EKG * Lactic Acid, Plasma (01/27/2025 6:57 PM EDT) Lactic Acid 1.6 0.5 - 1.9 mmol/L 01/27/2025 7:35 PM EDT [facility] Comment: Sepsis Screening: Initial Lactate Level >2.0 mmol/L - Repeat Lactate Level within 3 hours. Initial Lactate Level >4.0 mmol/L - Repeat Lactate Level within 3 hours, Initiate Septic Shock Protocol. Blood Structure of peripheral vein / Unknown Venipuncture / Unknown 01/27/2025 6:57 PM EDT 01/27/2025 7:03 PM EDT us Sherlyn Chavez MD LAB BLOOD ORDERABLES Final Result Performing Organization Address [facility] Co de Phone Number [facility] [address] [place] [phone], * (ABNORMAL) Lactic Acid, Plasma (01/27/2025 2:28 PM EDT) Lactic Acid 2.4(H) 0.5 - 1.9 mmol/L 01/27/2025 3:12 PM EDT [facility] Blood Structure of peripheral vein / Unknown Venipuncture / Unknown 01/27/2025 2:28 PM EDT 01/27/2025 2:44 PM EDT Bertha Quintana MD LAB BLOOD ORDERABLES Final Result [facility] [address] [place] [address], [place] * CT Lower Extremity Left W Contrast (01/27/2025 12:24 PM EDT) Anatomical Region Laterality Modality Lower Extremities, Femur Left Compute d Tomography 01/27/2025 12:5 6 PM EDT Impressions 01/27/2025 1:21 PM EDT 1. ??Nonspecific left lower extremity subcutaneous edema extending to the upper thigh. ??No subcutaneous emphysema or fluid collection. The majority of the perineum is imaged and appears unremarkable, small portions of the right aspect of the perineum are outside of the field of view. 2. ??Postsurgical changes status post left common femoral to left popliteal artery bypass graft which is suboptimally due to phase of contrast enhancement on this nonangiogram exam. I, Robert Gallegos, have reviewed the examination and concur with the findings as reported or so edited. Trainee: ??Luis Tejada If this radiology report contains a blank impression section, it is an incomplete radiology report. ??Please contact the interpreting radiologist or applicable radiology division as soon as possible to obtain the completed interpretation. ? Workstation ID: [id number] Narrative 01/27/2025 1:21 PM EDT EXAMINATION: CT ABDOMEN PELVIS W CONTRAST, CT LOWER EXTREMITY LEFT W CONTRAST INDICATION: Concern for necrotizing soft tissue infection. 44 year old male history of peripheral vascular disease s/p L fem-pop bypass with ipsilateral GSV on 09/23/[address] Lewis, complicated by left BK popliteal incisional dehiscence, HTN, poorly controlled T2DM, and DVT, presents with increased leg pain. Left side, associated redness, swelling, febrile to 102. Chills nausea and vomiting. TECHNIQUE: Images of the abdomen and pelvis were obtained with intravenous contrast. Coronal and sagittal reformats were generated. COMPARISON: CT abdomen pelvis 11/09/2019 ?? FINDINGS: LOWER THORAX: Left lower lobe solid pulmonary nodule measuring 9 mm is unchanged from 2020. HEPATOBILIARY: No focal hepatic lesions. Patent portal and hepatic veins. Normal gallbladder. No biliary ductal dilatation. SPLEEN: No splenomegaly. PANCREAS: No focal masses or ductal dilatation. ADRENAL GLANDS: Unchanged bilateral adrenal myelolipomas. KIDNEYS/URETERS: Ectopic left kidney located in the left lower quadrant. No hydronephrosis, calculi, or solid mass lesions. GI TRACT: No distention or wall thickening. Small right lateral ventral hernia containing loop of nondilated small bowel. ??Normal appendix. PERITONEUM/RETROPERITONEUM: No ascites or free air. LYMPH NODES: Unchanged enlarged, morphologically normal right external iliac nodes measuring 1 cm short axis and left inguinal nodes. VESSELS: Mild aortoiliac calcified atherosclerosis. SFA stent is not well evaluated due to phase of contrast though was noted to be previously completely occluded 11/26/2024. Postsurgical changes status post left common femoral to left popliteal artery bypass graft which is suboptimally due to phase of contrast enhancement on this nonangiogram exam. PELVIC ORGANS/BLADDER: Mildly distended urinary bladder. BONES AND SOFT TISSUES: The perineum is mostly imaged. Nonspecific diffuse left lower extremity subcutaneous edema and extending to the upper thigh. No subcutaneous air collection. Subcutaneous soft tissue changes related to prior femoral to left popliteal artery bypass. Unchanged lower leg subcutaneous calcifications. Multilevel degenerative changes of the included spine. No acute osseous abnormality. Resulting Agency Comment [id number] Procedure Note Robert Gallegos MD - 01/27/2025 EXAMINATION: CT ABDOMEN PELVIS W CONTRAST, CT LOWER EXTREMITY LEFT WCONTRAST INDICATION: Concern for necrotizing soft tissue infection. 44 year oldmale history of peripheral vascular disease s/p L fem-pop bypass withipsilateral GSV on 09/23/[address] Lewis, complicated by left BKpopliteal incisional dehiscence, HTN, poorly controlled T2DM, and DVT,presents with increased leg pain. Left side, associated redness, swelling,febrile to 102. Chills nausea and vomiting. TECHNIQUE: Images of the abdomen and pelvis were obtained with intravenouscontrast. Coronal and sagittal reformats were generated. COMPARISON: CT abdomen pelvis 11/09/2019 FINDINGS: LOWER THORAX: Left lower lobe solid pulmonary nodule measuring 9 mm isunchanged from 2020. HEPATOBILIARY: No focal hepatic lesions. Patent portal and hepatic veins.Normal gallbladder. No biliary ductal dilatation. SPLEEN: No splenomegaly. PANCREAS: No focal masses or ductal dilatation. ADRENAL GLANDS: Unchanged bilateral adrenal myelolipomas. KIDNEYS/URETERS: Ectopic left kidney located in the left lower quadrant.No hydronephrosis, calculi, or solid mass lesions. GI TRACT: No distention or wall thickening. Small right lateral ventralhernia containing loop of nondilated small bowel. Normal appendix. PERITONEUM/RETROPERITONEUM: No ascites or free air. LYMPH NODES: Unchanged enlarged, morphologically normal right externaliliac nodes measuring 1 cm short axis and left inguinal nodes. VESSELS: Mild aortoiliac calcified atherosclerosis. SFA stent is not wellevaluated due to phase of contrast though was noted to be previouslycompletely occluded 11/26/2024. Postsurgical changes status post leftcommon femoral to left popliteal artery bypass graft which is suboptimallydue to phase of contrast enhancement on this nonangiogram exam. PELVIC ORGANS/BLADDER: Mildly distended urinary bladder. BONES AND SOFT TISSUES: The perineum is mostly imaged. Nonspecific diffuseleft lower extremity subcutaneous edema and extending to the upper thigh.No subcutaneous air collection. Subcutaneous soft tissue changes relatedto prior femoral to left popliteal artery bypass. Unchanged lower legsubcutaneous calcifications. Multilevel degenerative changes of theincluded spine. No acute osseous abnormality. IMPRESSION: 1. Nonspecific left lower extremity subcutaneous edema extending to theupper thigh. No subcutaneous emphysema or fluid collection. The majorityof the perineum is imaged and appears unremarkable, small portions of theright aspect of the perineum are outside of the field of view. 2. Postsurgical changes status post left common femoral to left poplitealartery bypass graft which is suboptimally due to phase of contrastenhancement on this nonangiogram exam. IRobert, have reviewed the examination and concur with the findings asreported or so edited. Trainee: Luis Tejada If this radiology report contains a blank impression section, it is anincomplete radiology report. Please contact the interpreting radiologistor applicable radiology division as soon as possible to obtain thecompleted interpretation. Workstation ID: [id number] us Bertha Quintana MD IMDavid CT PROCEDURES Final Res ult * CT Abdomen Pelvis with Contrast (01/27/2025 12:24 PM EDT) Anatomical Region Laterality Modality Body Computed Tomogra phy 01/27/2025 12:5 6 PM EDT Impressions 01/27/2025 1:21 PM EDT 1. ??Nonspecific left lower extremity subcutaneous edema extending to the upper thigh. ??No subcutaneous emphysema or fluid collection. The majority of the perineum is imaged and appears unremarkable, small portions of the right aspect of the perineum are outside of the field of view. 2. ??Postsurgical changes status post left common femoral to left popliteal artery bypass graft which is suboptimally due to phase of contrast enhancement on this nonangiogram exam. I, Robert Gallegos, have reviewed the examination and concur with the findings as reported or so edited. Trainee: ??Luis Tejada If this radiology report contains a blank impression section, it is an incomplete radiology report. ??Please contact the interpreting radiologist or applicable radiology division as soon as possible to obtain the completed interpretation. ? Workstation ID: [id number] Narrative 01/27/2025 1:21 PM EDT EXAMINATION: CT ABDOMEN PELVIS W CONTRAST, CT LOWER EXTREMITY LEFT W CONTRAST INDICATION: Concern for necrotizing soft tissue infection. 44 year old male history of peripheral vascular disease s/p L fem-pop bypass with ipsilateral GSV on 09/23/[address] Lewis, complicated by left BK popliteal incisional dehiscence, HTN, poorly controlled T2DM, and DVT, presents with increased leg pain. Left side, associated redness, swelling, febrile to 102. Chills nausea and vomiting. TECHNIQUE: Images of the abdomen and pelvis were obtained with intravenous contrast. Coronal and sagittal reformats were generated. COMPARISON: CT abdomen pelvis 11/09/2019 ?? FINDINGS: LOWER THORAX: Left lower lobe solid pulmonary nodule measuring 9 mm is unchanged from 2020. HEPATOBILIARY: No focal hepatic lesions. Patent portal and hepatic veins. Normal gallbladder. No biliary ductal dilatation. SPLEEN: No splenomegaly. PANCREAS: No focal masses or ductal dilatation. ADRENAL GLANDS: Unchanged bilateral adrenal myelolipomas. KIDNEYS/URETERS: Ectopic left kidney located in the left lower quadrant. No hydronephrosis, calculi, or solid mass lesions. GI TRACT: No distention or wall thickening. Small right lateral ventral hernia containing loop of nondilated small bowel. ??Normal appendix. PERITONEUM/RETROPERITONEUM: No ascites or free air. LYMPH NODES: Unchanged enlarged, morphologically normal right external iliac nodes measuring 1 cm short axis and left inguinal nodes. VESSELS: Mild aortoiliac calcified atherosclerosis. SFA stent is not well evaluated due to phase of contrast though was noted to be previously completely occluded 11/26/2024. Postsurgical changes status post left common femoral to left popliteal artery bypass graft which is suboptimally due to phase of contrast enhancement on this nonangiogram exam. PELVIC ORGANS/BLADDER: Mildly distended urinary bladder. BONES AND SOFT TISSUES: The perineum is mostly imaged. Nonspecific diffuse left lower extremity subcutaneous edema and extending to the upper thigh. No subcutaneous air collection. Subcutaneous soft tissue changes related to prior femoral to left popliteal artery bypass. Unchanged lower leg subcutaneous calcifications. Multilevel degenerative changes of the included spine. No acute osseous abnormality. Resulting Agency Comment [id number] Procedure Note Robert Gallegos MD - 01/27/2025 EXAMINATION: CT ABDOMEN PELVIS W CONTRAST, CT LOWER EXTREMITY LEFT WCONTRAST INDICATION: Concern for necrotizing soft tissue infection. 44 year oldmale history of peripheral vascular disease s/p L fem-pop bypass withipsilateral GSV on 09/23/[address] Lewis, complicated by left BKpopliteal incisional dehiscence, HTN, poorly controlled T2DM, and DVT,presents with increased leg pain. Left side, associated redness, swelling,febrile to 102. Chills nausea and vomiting. TECHNIQUE: Images of the abdomen and pelvis were obtained with intravenouscontrast. Coronal and sagittal reformats were generated. COMPARISON: CT abdomen pelvis 11/09/2019 FINDINGS: LOWER THORAX: Left lower lobe solid pulmonary nodule measuring 9 mm isunchanged from 2020. HEPATOBILIARY: No focal hepatic lesions. Patent portal and hepatic veins.Normal gallbladder. No biliary ductal dilatation. SPLEEN: No splenomegaly. PANCREAS: No focal masses or ductal dilatation. ADRENAL GLANDS: Unchanged bilateral adrenal myelolipomas. KIDNEYS/URETERS: Ectopic left kidney located in the left lower quadrant.No hydronephrosis, calculi, or solid mass lesions. GI TRACT: No distention or wall thickening. Small right lateral ventralhernia containing loop of nondilated small bowel. Normal appendix. PERITONEUM/RETROPERITONEUM: No ascites or free air. LYMPH NODES: Unchanged enlarged, morphologically normal right externaliliac nodes measuring 1 cm short axis and left inguinal nodes. VESSELS: Mild aortoiliac calcified atherosclerosis. SFA stent is not wellevaluated due to phase of contrast though was noted to be previouslycompletely occluded 11/26/2024. Postsurgical changes status post leftcommon femoral to left popliteal artery bypass graft which is suboptimallydue to phase of contrast enhancement on this nonangiogram exam. PELVIC ORGANS/BLADDER: Mildly distended urinary bladder. BONES AND SOFT TISSUES: The perineum is mostly imaged. Nonspecific diffuseleft lower extremity subcutaneous edema and extending to the upper thigh.No subcutaneous air collection. Subcutaneous soft tissue changes relatedto prior femoral to left popliteal artery bypass. Unchanged lower legsubcutaneous calcifications. Multilevel degenerative changes of theincluded spine. No acute osseous abnormality. IMPRESSION: 1. Nonspecific left lower extremity subcutaneous edema extending to theupper thigh. No subcutaneous emphysema or fluid collection. The majorityof the perineum is imaged and appears unremarkable, small portions of theright aspect of the perineum are outside of the field of view. 2. Postsurgical changes status post left common femoral to left poplitealartery bypass graft which is suboptimally due to phase of contrastenhancement on this nonangiogram exam. IRobert, have reviewed the examination and concur with the findings asreported or so edited. Trainee: Luis Tejada If this radiology report contains a blank impression section, it is anincomplete radiology report. Please contact the interpreting radiologistor applicable radiology division as soon as possible to obtain thecompleted interpretation. Workstation ID: [id number] us Bertha Quintana MD IM CT PROCEDURES Final Res ult * Anaerobic Culture (01/27/2025 11:58 AM EDT) Culture A mix of non-predominatin g organisms of questionable significance was recovered on culture and not further identified. 02/01/2025 4:17 PM EDT [employer] [facility] Swab Structure of left lower leg / Unknown Non-Blood Collection / Unknown 01/27/2025 11:58 AM EDT 01/27/2025 12:55 PM EDT Janine OLIVA ANGIER - 02/01/2025 4:17 PM EDT [facility] Received Date:[id number] MICRO NUMBER: [id number] SPECIMEN QUALITY: Adequate SOURCE: SWAB LEG, LEFT STATUS: FINAL Note: Growth does not include B.fragilis group or C. perfringens. Bertha Quintana MD LAB MICROBIOLOGY - GENERAL ORDERABLES Final Result [facility] [address] [facility] [address], [place] [address], [employer] [address] [facility] [address], [place] [address], * (ABNORMAL) Aerobic Culture w/Gram Stain (01/27/2025 11:58 AM EDT) Culture Additional organisms of questionable significance were isolated that normally do not warrant identification and susceptibilities . 01/31/2025 2:05 PM EDT [employer] Culture Group G Streptococcus(A) 01/31/2025 2:05 PM EDT [employer] Comment: Beta-hemolytic streptococci are predictably susceptible to Penicillin and other beta-lactams. Susceptibility testing not routinely performed. Please contact the laboratory within 3 days if susceptibility testing is desired. Heavy growth of Group G Streptococcus Culture Group B Streptococcus isolated(A) 01/31/2025 2:05 PM EDT [employer] Comment: Beta-hemolytic streptococci are predictably susceptible to Penicillin and other beta-lactams. Susceptibility testing not routinely performed. Please contact the laboratory within 3 days if susceptibility testing is desired. Heavy growth of Group B Streptococcus isolated Culture Staphylococcus aureus(A) 01/31/2025 2:05 PM EDT [employer] Comment:Heavy growth of Stap hylococcus aureus Gram Stain Few White Blood Cells Seen 01/31/2025 2:05 PM EDT [facility] Gram Stain No epithelial cells seen 01/31/2025 2:05 PM EDT [facility] Gram Stain Many Gram Positive Cocci 01/31/2025 2:05 PM EDT [facility] Gram Stain Few Gram Positive Bacilli 01/31/2025 2:05 PM EDT [facility] Gram Stain Few Gram Negative Bacilli 01/31/2025 2:05 PM EDT [employer] Swab Structure of left lower leg / Unknown Non-Blood Collection / Unknown 01/27/2025 11:58 AM EDT 01/27/2025 12:55 PM EDT Narrative [facility] - 01/31/2025 2:05 PM EDT [facility] Received Date:[id number] MICRO NUMBER: [id number] SPECIMEN QUALITY: Adequate SOURCE: SWAB LEG, LEFT STATUS: FINAL Please contact the laboratory within three days if identification and susceptibilities are clinically indicated. Organism Antibiotic Method Susceptibility Staphylococcus aureus Vancomycin 1: Susceptible Staphylococcus aureus Ciprofloxacin <=0.5: Susceptible Staphylococcus aureus Clindamycin >=8: Resistant Staphylococcus aureus Levofloxacin <=0.12: Susceptible Staphylococcus aureus Erythromycin >=8: Resistant Staphylococcus aureus Gentamicin <=0.5: Susceptible Staphylococcus aureus Oxacillin 0.5: Susceptible Comment: Oxacillin susceptible staphylococci are susceptible to other penicillinase-stable penicillins (e.g., methicillin, nafcillin), beta- lactam/beta-lactamase inhibitor combinations, and cephems with staphylococcal indications, including cefazolin. Staphylococcus aureus Tetracycline >=16: Resistant Staphylococcus aureus Trimethoprim + Sulfamethoxazole <=10: Susceptible Staphylococcus aureus Moxifloxacin <=0.25: Susceptible Comment: Legend: S = Susceptible ??I = Intermediate R = Resistant ??NS = Not susceptible SDD = Susceptible Dose Dependent * = Not Tested ??NR = Not Reported NN = See Therapy Comments Bertha Quintana MD LAB MICROBIOLOGY - GENERAL ORDERABLES Final Result [facility] [address] [facility] [address], [place] [address], [place] [phone] [employer] [facility] [address] [address], [place] [address], [place] [phone] * (ABNORMAL) POCT I-STAT Lactate W/VBG, interfaced (01/27/2025 11:58 AM EDT) Only the most recent of2 resultswithin the time period is included. [facility] Sample Type, POCT Venous 01/27/2025 12:03 PM EDT [facility] Lactate, POCT 2.22(H) 0.9 - 1.7 mmol/L 01/27/2025 12:03 PM EDT [facility] pH, POCT 7.42(H) 7.31 - 7.41 pH 01/27/2025 12:03 PM EDT [facility] pCO2, POCT 38.9(L) 41 - 51 mm Hg 01/27/2025 12:03 PM EDT [facility] pO2, POCT 21(L) 35 - 40 mm Hg 01/27/2025 12:03 PM EDT [facility] Base Excess, POCT 1 0 - 3 mmol/L 01/27/2025 12:03 PM EDT [facility] HCO3, POCT 25.2 23 - 28 mmol/L 01/27/2025 12:03 PM EDT [facility] TCO2, POCT 26 24 - 29 mmol/L 01/27/2025 12:03 PM EDT [facility] Saturated O2, POCT 35(L) 70 - 75 % 01/27/2025 12:03 PM EDT [facility] Richard's Test, POCT N/A 01/27/2025 12:03 PM EDT [facility] Blood 01/27/2025 11:5 8 AM EDT 01/27/2025 12:03 PM EDT us Bertha Quintana MD LAB POCT ORDERABLES - DEVIC E Final Result [facility] [address] [place] [address], * (ABNORMAL) Lactic Acid, Plasma (w/Reflex if >2) (01/27/2025 11:38 AM EDT) Lactic Acid 3.1(H) 0.5 - 1.9 mmol/L 01/27/2025 12:35 PM EDT [facility] Blood Structure of peripheral vein / Unknown Venipuncture / Unknown 01/27/2025 11:38 AM EDT 01/27/2025 11:59 AM EDT Bertha Quintana MD LAB BLOOD ORDERABLES Final Result [facility] [address] [place] [address], * MRSA/S aureus PCR, Nasal (01/27/2025 11:38 AM EDT) MRSA PCR, Nasal NOT DETECTED NOT DETECTED 01/28/2025 6:59 AM EDT [employer] [facility] S. aureus PCR, Nasal NOT DETECTED NOT DETECTED 01/28/2025 6:59 AM EDT [employer] [facility] Swab Nasal structure / Unknown Non-Blood Collection / Unknown 01/27/2025 11:38 AM EDT 01/27/2025 12:55 PM EDT Narrative [employer] - 01/28/2025 6:59 AM EDT [facility] Received Date:[id number] Bertha Quintana MD LAB BODY FLUIDS AND STOOLS ORDERABLES Final Result [facility] [address] [facility] [address], [place] [address], [employer] [facility] [address], [place] [address], [place] [phone] * Blood Culture x 2 (2nd draw) (01/27/2025 11:38 AM EDT) Only the most recent of2 resultswithin the time period is included. Culture No growth after 5 days 02/01/2025 5:36 PM EDT [employer] [facility] Blood Structure of peripheral vein / Unknown Venipuncture / Unknown 01/27/2025 11:38 AM EDT 01/27/2025 11:53 AM EDT Narrative [facility] - 02/01/2025 5:36 PM EDT [facility] Received Date: MICRO NUMBER: [id number] SPECIMEN QUALITY: Suboptimal SOURCE: BLOOD VENOUS, PERIPHERAL STATUS: FINAL COMMENT: Aerobic and anaerobic bottle received. Inspection of blood culture bottles indicates that an inadequate volume of blood may have been collected for the detection of sepsis. Bertha Quintana MD LAB MICROBIOLOGY - GENERAL ORDERABLES Final Result Performing Organization Address City/[facility]/ZIP Co de Phone Number [facility] [address] [facility] [address], [place] [address], [employer] [facility] [address], [place] [address], * Lipase (01/27/2025 11:38 AM EDT) Lipase 37 13 - 60 U/L 01/27/2025 12:54 PM EDT [facility] Blood Structure of peripheral vein / Unknown Venipuncture / Unknown 01/27/2025 11:38 AM EDT 01/27/2025 11:59 AM EDT Bertha Quintana MD LAB BLOOD ORDERABLES Final Result Performing Organization Address City/[facility]/ZIP Co de Phone Number [facility] [address] [place] [address], [place] * HEART & VASCULAR - SCANNED (01/27/2025) Only the most recent of2 resultswithin the time period is included. Anatomical Region Laterality Modality Other us Onbase Scan Swetha SCANNED PROCEDURES Final Resu lt * LOWER LIMB VENOUS DUPLEX: UNILATERAL, LEFT (01/25/2025 2:13 PM EDT) Anatomical Region Laterality Modality Lower Extremities Ultrasound Narrative 01/25/2025 4:04 PM EDT ?Within limitations, the left common femoral vein, proximal profunda femoris vein, femoral vein, popliteal vein, posterior tibial veins, peroneal veins, and proximal great saphenous vein appeared patent and without thrombosis by color doppler. This was an extremely limited and challenging exam due to edema and the patient's inability to tolerate any compression. Tech Comments Signifiant Left medial thigh pain and swelling L fem - BK Pop A BPG 09/23/2024 L medial calf wound vac Hx occluded L SFA stent, Pop A, and RANDELL Lower Venous - Duplex Left Left Proximal Common Femoral: patent; normal phasicity Left Distal Common Femoral: patent Left Proximal Profunda Femoral: patent Left Proximal Femoral: patent Left Mid Femoral: patent Left Distal Femoral: patent Left Popliteal: patent Left Posterior Tibials: patent Left Peroneals: patent Left Great Saphenous - Saphenofemoral Junction: patent Left Great Saphenous - Proximal Thigh: patent Left Small Saphenous - Proximal: patent; fully compressible Contralateral (Right) Proximal Common Femoral: normal phasicity Mitul Linn NP CV VASCULAR PROCEDURES Final Re sult * (ABNORMAL) POCT Glucose Blood, Non-Interfaced (01/07/2025 3:07 PM EDT) [facility] POCT Glucose 387(A) 70 - 99 mg/dL Blood Capillary blood specimen / Unknown 01/07/2025 3:07 PM EDT Geovanna Abbasi NP POINT OF CARE TEST ORDERABLES Final Result * LOWER LIMB ARTERIAL DUPLEX, LEFT (01/04/2025 2:46 PM EDT) Pathologist [facility] PSV Popliteal Distal Arterial Left 123 cm/s EDV Popliteal Distal Arterial Left 28.1 cm/s PSV Common Carotid Proximal Arterial Right 268 cm/s EDV Common Carotid Proximal Arterial Right 43.2 cm/s PSV Left Graft Proximal Thigh 173.00 cm/s EDV Left Graft Proximal Thigh 37.30 cm/s PSV Lower Extremity Distal Anastomosis Graft Left 109.00 cm/s EDV Lower Extremity Distal Anastomosis Graft Left 22 cm/s PSV Lower Extremity Proximal Anastomosis Graft Left 180 cm/s EDV Lower Extremity Proximal Anastomosis Graft Left 31.6 cm/s PSV Left Graft Knee 109 cm/s EDV Left Graft Knee 28.7 cm/s PSV Left Graft Middle Thigh 125.00 cm/s EDV Left Graft Middle Thigh 18.00 cm/s PSV Left Graft Distal Thigh 113 cm/s EDV Left Graft Distal Thigh 32.7 cm/s PSV Common Femoral Distal Arterial Left 263.00 cm/s EDV Common Femoral Distal Arterial Left 47.30 cm/s Anatomical Region Laterality Modality Lower Extremities Ultrasound Narrative 01/04/2025 4:28 PM EDT ?A duplex ultrasound evaluation was performed of the left lower extremity distal common femoral artery - distal popliteal artery bypass graft. ?A <50% stenosis was identified in the left lower extremity bypass graft at the proximal thigh. ?Flow was demonstrated throughout the remainder of the left lower extremity distal common femoral artery - distal popliteal artery bypass graft without evidence of hemodynamically significant stenosis. ?The left distal anastomosis and graft outflow were not adequately due to exam limitations. This was a technically difficult exam due to body habitus, graft depth, and wound vac placement at knee/proximal calf region. When compared to the study dated 10/19/2024, the 50-75% stenosis seen in the bypass graft at the level of the proximal thigh appears to have reclassified to <50%. The incidental left groin fluid collection was no longer visualized. Lower Arterial Left Left Common Femoral Artery, Distal: patent Lower Arterial Left Graft Graft Inflow: Left Distal Common Femoral Artery Graft outflow: Left Distal Popliteal Artery Left Proximal Anastomosis: patent Left Proximal Thigh: patent; <50% stenosis Left Mid Thigh: patent Left Distal Thigh: patent Left Knee: patent Left Distal Anastomosis: patent Tech Comments Hx lt fem pop bpg us Lucie Miller MD CV VASCULAR PROCEDURES Rain l Result * Ankle/Brachial Index and Arterial Waveform Analysis (Vasc Lab) (01/04/2025 2:42 PM EDT) Pressure Brachial Right 166 mmHg Pressure Posterior Tibial Arterial Right 255 mmHg Index Posterior Tibial Arterial Right 1.45 Pressure Dorsalis Pedis Arterial Right 216 mmHg Index Dorsalis Pedis Arterial Right 1.23 Pressure Toe 1 Right 94 mmHg Index Toe 1 Right 0.53 Pressure Brachial Left 176 mmHg Pressure Posterior Tibial Arterial Left 103 mmHg Index Posterior Tibial Arterial Left 0.59 Pressure Dorsalis Pedis Arterial Left 123 mmHg Index Dorsalis Pedis Arterial Left 0.70 Pressure 1 Toe Left 69 mmHg Index Toe 1 Left 0.39 Pressure Brachial all 176.00 mmHg Anatomical Region Laterality Modality Vascular Ultrasound Narrative 01/04/2025 4:28 PM EDT ?The right ankle/brachial index was not diagnostic due to non-compressible arteries. ?The right toe/brachial index and absolute toe pressure were consistent with peripheral arterial disease when correlated with relevant clinical symptoms. ?The left ankle/brachial index and abnormal Doppler waveforms indicated moderate arterial insufficiency at rest. ?The left toe/brachial index and absolute toe pressure were consistent with peripheral arterial disease when correlated with relevant clinical symptoms. When compared to the study dated 10/19/2024, the right ankle/brachial index has not changed. The right toe pressure has increased from 71 mmHg (TBI 0.48) to 94 mmHg (TBI 0.53). The left ankle/brachial index has decreased from 0.73 to 0.70. The left toe pressure has increased from 63 mmHg (TBI 0.43) to 69 mmHg (TBI 0.39). EDUARDO Right Lower Extremity: Doppler waveform: normal Severity of Arterial Insufficiency by EDUARDO: non-compressible EDUARDO/indeterminate Left Lower Extremity: Doppler waveform: abnormal Severity of Arterial Insufficiency by EDUARDO: moderate Tech Comments Hx left fem-pop bpg us Lucie Miller MD CV VASCULAR PROCEDURES Rain l Result * US Kidney Complete and Bladder (12/31/2024 12:36 PM EST) Anatomical Region Laterality Modality Body N/A Ultrasound 12/31/2024 1:14 PM EST Impressions 12/31/2024 2:07 PM EST 1. No evidence of urinary retention. Post void urinary bladder residual volume 13 mL. 2. Ectopic left kidney. 3. No evidence of hydronephrosis bilaterally. IGlenn, have reviewed the examination and concur with the findings as reported or so edited. Trainee: ??Feli Edmond If this radiology report contains a blank impression section, it is an incomplete radiology report. ??Please contact the interpreting radiologist or applicable radiology division as soon as possible to obtain the completed interpretation. ? Workstation ID: [id number] Narrative 12/31/2024 2:07 PM EST EXAMINATION: Ultrasound kidneys and bladder. INDICATION: History of urinary retention TECHNIQUE: Ultrasound evaluation of the kidneys and bladder. Multiple grayscale and color Doppler images were obtained. COMPARISON: CT abdomen and pelvis 11/09/2020 FINDINGS: RIGHT KIDNEY: Evaluation limited by overlying soft tissues. The right kidney measures 11.6 cm. The parenchyma is within normal limits. There is no hydronephrosis. No sonographically evident solid mass or gross nephrolithiasis. 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 It measures 11.1 cm. The parenchyma is within normal limits. There is no hydronephrosis. No sonographically evident nephrolithiasis or solid mass. BLADDER: The bladder is unremarkable in sonographic appearance. Bilateral ureteral jets visualized. Prevoid, bladder volume is 377 mL. Post void residual bladder volume is 13 mL. Prostate gland not well visualized due to prominent overlying soft tissues. OTHER: Small amount of fluid seen anterior to the bladder, nonspecific. Resulting Agency Comment [id number] Procedure Note Glenn Guillaume MD - 12/31/2024 EXAMINATION: Ultrasound kidneys and bladder. INDICATION: History of urinary retention TECHNIQUE: Ultrasound evaluation of the kidneys and bladder. Multiplegrayscale and color Doppler images were obtained. COMPARISON: CT abdomen and pelvis 11/09/2020 FINDINGS: RIGHT KIDNEY: Evaluation limited by overlying soft tissues. The rightkidney measures 11.6 cm. The parenchyma is within normal limits. There isno hydronephrosis. No sonographically evident solid mass or grossnephrolithiasis. 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 It measures 11.1 cm. Theparenchyma is within normal limits. There is no hydronephrosis. Nosonographically evident nephrolithiasis or solid mass. BLADDER: The bladder is unremarkable in sonographic appearance. Bilateralureteral jets visualized. Prevoid, bladder volume is 377 mL. Post voidresidual bladder volume is 13 mL. Prostate gland not well visualized dueto prominent overlying soft tissues. OTHER: Small amount of fluid seen anterior to the bladder, nonspecific. IMPRESSION: 1. No evidence of urinary retention. Post void urinary bladder residualvolume 13 mL. 2. Ectopic left kidney. 3. No evidence of hydronephrosis bilaterally. I, Glenn Guillaume, have reviewed the examination and concur with thefindings as reported or so edited. Trainee: Feli Edmond If this radiology report contains a blank impression section, it is anincomplete radiology report. Please contact the interpreting radiologistor applicable radiology division as soon as possible to obtain thecompleted interpretation. Workstation ID: [id number] us Alexa Perea NP IMG US PROCEDURES Rain l Result * (ABNORMAL) Urinalysis With Microscopic (No Culture)-[facility] ONLY (12/31/2024 10:32 AM EST) Color, Urine Light Yellow Colorless, Light Yellow, Yellow, Dark Yellow 12/31/2024 11:14 AM EST [facility] Clarity, Urine Slightly Cloudy(A) Clear 12/31/2024 11:14 AM EST [facility] Specific Sharon, Urine 1.016 1.005 - 1.030 12/31/2024 11:14 AM EST [facility] pH, Urine 6.0 4.6 - 8.0 12/31/2024 11:14 AM EST [facility] Protein, Urine 3+(A) Negative 12/31/2024 11:14 AM EST [facility] Glucose, Urine 3+(A) Negative 12/31/2024 11:14 AM EST [facility] Ketones, Urine Negative Negative 12/31/2024 11:14 AM EST [facility] Bilirubin, Urine Negative Negative 12/31/2024 11:14 AM EST [facility] Blood, Urine Negative Negative 12/31/2024 11:14 AM EST [facility] Nitrite, Urine Negative Negative 12/31/2024 11:14 AM EST [facility] Urobilinogen, Urine Normal Normal 12/31/2024 11:14 AM EST [facility] Leukocyte Esterase, Urine Negative Negative 12/31/2024 11:14 AM EST [facility] WBC, Urine 2 0 - 2 /HPF 12/31/2024 11:14 AM EST [facility] RBC, Urine 2 0 - 2 /HPF 12/31/2024 11:14 AM EST [facility] Hyaline Casts, Urine 1 0 - 2 /LPF 12/31/2024 11:14 AM EST [facility] Bacteria, Urine None None /HPF /HPF 12/31/2024 11:14 AM EST [facility] Squamous Epithelial Cells, Urine 5 /HPF 12/31/2024 11:14 AM EST [facility] Urine Urine specimen collection, clean catch / Unknown Non-Blood Collection / Unknown 12/31/2024 10:32 AM EST 12/31/2024 10:50 AM EST us Michelle Ling NP LAB URINE ORDERABLES Final Res ult [facility] [address] [place] [address], * (ABNORMAL) Cystatin C with Glomerular Filtration Rate, Estimated (eGFR) (12/31/2024 10:21 AM EST) Cystatin C 2.12(H) 0.52 - 1.27 mg/L 01/02/2025 11:56 AM EDT [facility] ([facility] eGFR Non- 31(L) >=60 NA 01/02/2025 11:56 AM EDT [facility] Comment: ?REFERENCE RANGE:>=60 mL/min/1.73mE2 ? Blood Structure of peripheral vein / Unknown Venipuncture / Unknown 12/31/2024 10:21 AM EST 12/31/2024 10:50 AM EST [facility] - 01/02/2025 11:56 AM EDT [facility] Received Date:[id number] Michelle Ling [employer] LAB BLOOD ORDERABLES Final Res ult [facility] ([facility] [address] [place] [address], [place] * Phospholipase A2 Receptor Antibodies, Serum (12/31/2024 10:21 AM EST) Phospholipase A2 Receptor (PLA2R) Ab, JULIUS <4 RU/mL 01/04/2025 11:28 PM EDT [facility] Comment: Reference Range: ? <14: NEGATIVE ?? 14-19: BORDERLINE ? >19: POSITIVE Phospholipase A2 Receptor (PLA2R) Ab, IFA NEGATIVE NEGATIVE 01/04/2025 11:28 PM EDT [facility] [place] Blood Structure of peripheral vein / Unknown Venipuncture / Unknown 12/31/2024 10:21 AM EST 12/31/2024 10:50 AM EST Janine [facility] - 01/04/2025 11:28 PM EDT [facility] Received Date:[id number] Michelle Ling NP LAB BLOOD ORDERABLES Final Res ult [facility] [address] [facility] [address], [place] [address], [place] [phone] [facility] [place] [address] [place] [address], [place] [phone] * (ABNORMAL) Burdett & Lambda, Free w/Ratio (12/31/2024 10:21 AM EST) Pathologist [facility] Burdett Light Chain, Free, Serum 28.7(H) 3.3 - 19.4 mg/L 01/03/2025 10:47 AM EDT [employer] [facility] Lambda Light Chain, Free, Serum 31.0(H) 5.7 - 26.3 mg/L 01/03/2025 10:47 AM EDT [employer] [facility] Burdett/Lambda Light Chains Free With Ratio 0.93 0.26 - 1.65 01/03/2025 10:47 AM EDT [employer] [facility] Comment: Free kappa/lambda ratio in serum of normal individuals is 0.26-1.65. Excess production of free kappa or lambda chains can alter this ratio. Monoclonal free light chains are found in serum of patients with multiple myeloma, Waldenstrom's macroglobulinemia, mu-heavy chain disease, primary amyloidosis, light chain deposition disease, monoclonal gammopathy of undetermined significance, and lymphoproliferative disorders. Measurement of free light chain concentration in serum is useful for diagnosis, prognosis, monitoring disease activity and following response to therapy of these disorders. Blood Structure of peripheral vein / Unknown Venipuncture / Unknown 12/31/2024 10:21 AM EST 12/31/2024 10:50 AM EST Narrative [facility] - 01/03/2025 10:47 AM [employer] Received Date: Michelle Ling NP LAB BLOOD ORDERABLES Final Res ult [facility] [address] [facility] [address], [place] [address], [place] [phone] [employer] [facility] [address], [place] [address], [place] [phone] * (ABNORMAL) SPEP (Protein Electrophoresis w/Reflex to Immunofixation) (12/31/2024 10:21 AM EST) [facility] Protein, Total 6.1 6.1 - 8.1 g/dL 01/04/2025 10:00 AM EDT [employer] [facility] Albumin 3.2(L) 3.8 - 4.8 g/dL 01/04/2025 10:00 AM EDT [facility] [employer] [facility] Alpha 1 Globulin 0.3 0.2 - 0.3 g/dL 01/04/2025 10:00 AM EDT [employer] [facility] Alpha 2 Globulin 1.1(H) 0.5 - 0.9 g/dL 01/04/2025 10:00 AM EDT [employer] [facility] Beta 1 Globulin 0.4 0.4 - 0.6 g/dL 01/04/2025 10:00 AM EDT [facility] Beta 2 Globulin 0.3 0.2 - 0.5 g/dL 01/04/2025 10:00 AM [employer] [facility] Gamma Globulin 0.8 0.8 - 1.7 g/dL 01/04/2025 10:00 AM [employer] [facility] Interpretation See Comments 01/04/2025 10:00 AM EDWolf [employer] [facility] Comment: Suggestive of acute inflammation pattern with elevation of acute phase proteins Blood Structure of peripheral vein / Unknown Venipuncture / Unknown 12/31/2024 10:21 AM EST 12/31/2024 10:50 AM EST Narrative [facility] - 01/04/2025 10:00 AM [employer] Received Date: Michelle Ling NP LAB BLOOD ORDERABLES Final Res ult [facility]GI[facility] [address] [facility] 3rd Floor, [place] [address], [facility] 200 [facility] 3rd Floor, [place] [address], * ANCA Screen w/Reflex to ANCA Titer (12/31/2024 10:21 AM EST) ANCA Screen NEGATIVE NEGATIVE 01/04/2025 1:06 PM EDT [employer] Comment: ANCA screen uses indirect immunofluorescence to detect antibodies to neutrophil cytoplasmic antigens. A positive screen reflexes to titer and pattern. Patterns include cytoplasmic (c-ANCA) and perinuclear (p-ANCA) both of which are associated with vasculitis, and atypical p-ANCA which is associated with inflammatory bowel disease and other disorders. Blood Structure of peripheral vein / Unknown Venipuncture / Unknown 12/31/2024 10:21 AM EST 12/31/2024 10:50 AM EST Narrative PJ POSEY - 01/04/2025 1:06 PM EDT [facility] Received Date:[id number] us Michelle Ling WATERWORKS CHIEF ENGINEER LAB BLOOD ORDERABLES Final Res ult Performing Organization Address City/[facility]/ZIP Co de Phone Number [facility] [address] [facility] 3rd [facility], [place] [address], [place] [phone] [employer] [facility] [address], [place] [address], [place] [phone] * (ABNORMAL) C3 complement (12/31/2024 10:21 AM EST) Complement Component C3C 197(H) 82 - 185 mg/dL 01/01/2025 3:55 PM EST [facility] Blood Structure of peripheral vein / Unknown Venipuncture / Unknown 12/31/2024 10:21 AM EST 12/31/2024 10:50 AM EST Narrative PJ POSEY - 01/01/2025 3:55 PM EST [facility] Received Date:[id number] us Michelle Ling WATERWORKS CHIEF ENGINEER LAB BLOOD ORDERABLES Final Res ult Performing Organization Address City/[facility]/ZIP Co de Phone Number PJ ANGI[facility] [address], [place] [address], [place] [phone] [employer] [facility] [address], [place] [address], [place] [phone] * C4 complement (12/31/2024 10:21 AM EST) Complement Component C4C 30 15 - 53 mg/dL 01/01/2025 3:55 PM EST [facility] Blood Structure of peripheral vein / Unknown Venipuncture / Unknown 12/31/2024 10:21 AM EST 12/31/2024 10:50 AM EST Narrative [facility] - 01/01/2025 3:55 PM EST [facility] Received Date:[id number] Michelle Ling WATERWORKS CHIEF ENGINEER LAB BLOOD ORDERABLES Final Res ult [facility] ANGI[facility] [address] [facility] 3rd Floor, [place] [address], [place] [phone] [employer] [facility] [address] [facility] 3rd Floor, [place] [address], [place] [phone] * HIV Ab/p24 Ag with Reflex (10/29/2024 2:27 PM EST) HIV Scr 4th Gen Non Reactive Non Reactive [facility] Comment: HIV-1/HIV-2 antibodies and HIV-1 p24 antigen were NOT detected. There is no laboratory evidence of HIV infection. HIV Negative Blood Structure of peripheral vein / Unknown 10/29/2024 2:27 PM EST 10/29/2024 Narrative [facility] - 10/30/2024 5:05 AM EST Performed at: ??01 - [facility] [address] ??[id number] Hat Lacer: Marilu Banks MD, Phone: ??[phone] Juliet Bell WATERWORKS CHIEF ENGINEER AMB [facility] ORDERABLES Final Result [facility] * Hepatitis C Antibody w/Reflex to HCV RNA, Quantitative PCR (09/22/2024 5:47 PM EST) Hepatitis C Antibody Interpretation Nonreactive Nonreactive 09/23/2024 10:[address] [facility] Blood Structure of peripheral vein / Unknown Venipuncture / Unknown 09/22/2024 5:47 PM EST 09/22/2024 5:51 PM EST Alexa Rodriguez MD LAB BLOOD ORDERABLES Rain sprague Result [facility] [address] [place] [address], from Last 3 Months or Most Recently Relevant to Health Maintenance [facility] Advance Directives Documents on File Type Date Recorded Patient Group Home Counselor Expl anation Health Care Proxy 09/30/2024 12:43 PM 11-2 Health Care Proxy 09/24/2024 11:17 AM Clark Stoll 09-24-2024 * Full Code (Latest Code Status on File) Date Activated Date Inactivated Comments 01/27/2025 4:09 PM 02/03/2025 8:37 PM * Full Code Date Activated Date Inactivated Comments 11/27/2024 12:47 PM 11/29/2024 7:30 PM * Full Code Date Activated Date Inactivated Comments 09/23/2024 3:43 PM 10/01/2024 10:08 PM * Full Code Date Activated Date Inactivated Comments 09/23/2024 1:45 AM 09/23/2024 3:43 PM * Full Code Date Activated Date Inactivated Comments 03/08/2024 4:08 PM 03/09/2024 8:09 PM Healthcare Agents on File Name Relationship Healthcare Agent Relationship Communication Clark Arce Friend [facility] Health Care Agen t [facility] Health Care Agent Care Teams Door Cutter Relationship Specialty Start Date End Date Geovanna Abbasi NP [address] [place] [address] PCP - General 11/09/20
--- OUTSIDE RECORDS SUMMARY | 2025-02-25 14:43 | XMS_ITS | Encounter Summary ---
Author Organization [facility] Address [address] [place] [address] Care Team Providers Care Plant Changer Name Role Phone Geovanna Abbasi FURNITURE UPHOLSTERER APPRENTICE Primary Care Provider [phone] Reason for Visit * Consultation (Routine) - Pending Review Specialty Diagnoses / Procedures Referred By Mandi avila Referred To Contact Nephrology Diagnoses Tucker f/u for CHELA and hyperkalemia Procedures FOLLOW UP Geovanna Abbasi NP [address] [place] [address] Phone: tel: fax: [facility] [address] [place] [address] Phone: tel: fax: Referral ID Status Reason Start Date Expiration Date V isits Requested Visits Authorized [id number] Pending Review 11/10/2024 05/12/2026 6 6 Encounter Details Date Type Department Care Team (Late st Contact Info) Description 02/23/2025 9:00 AM EDT Telehealth [facility] [address] [place] [address] Semiconductor Development Technician: Michelle Anthony, KHURRAM [address] [place] [address] CKD (chronic kidney disease) stage 2, GFR 60-89 ml/min (Primary Dx) Social History Tobacco Use Types Packs/Day Years Used Date Smoking Tobacco: Former Cigarettes Smokeless Tobacco: Never Comments:QUIT DAY OF SURGERY Alcohol Use Standard Drinks/Week Comments Never 0 (1 standard drink = 0.6 oz pur e alcohol) [facility] Utilities Answer Date Recorded In the past 12 months has th e [employer], gas, oil, or water [employer] threatened to shut off services in your [...] as of this encounter Progress Notes * Michelle Ling NP - 02/23/2025 9:00 AM EDT Images from the original note were not included. NEPHROLOGY OFFICE NOTE Subjective REASON FOR VISIT: CKD HPI: Miguel Foley is a 45 y.o. male seen in follow-up in the [facility] Nephrology office for previousAKI follow up now s/p CHELA on CKD stage II/III 2/2 to DM and ectopic/mal rotated left kidney that patient attributes to a fall from a horse when he was 16 years old. Pt has been following up in renal clinic since his [place] discharge in September 2024. [facility] admission (09/22-10/01/24) where he had undergone a left femoropopliteal bypass on September 23 and had subsequent urinary retention, UTI and cellulitis. Treated with vancomycin and zosyn. Cr on day of DC from [facility] was 1.44 (10/01/24). pt was discharged on ACEI/HCTZ. Vancomycin was continued as well. During his [place] admission he was noted for CHELA with cr 4, GFR down to 17%. His vanco level was 34.8. Initial cr at [place] on 10/02 was 2.57 (10/02/24). CHELA was thought to be multifactorial possible 2/2ATN 2/2 infection and vancomycin toxicity in the setting of urinary retention (ham placed). He was treated with IVFs and started on phos binder for hyperphosphatemia. He was given a few doses of kayexalate for high potassium. Discharged on lasix 20mg daily and amlodipine 5mg daily. His cr treateddown from 4.3 to 1.2 on DC. His ACEI /hydrochlorothiazide were held at that time. His renal function improved in Oct to Nov of this year, then he suffered another CHELA in the settingof infection and pre renal etiology. He was hospitalized 01/27- 02/03, treated for sepsis 2/2 left leg cellulitis and was also given IVFs, 3L in the ED. His Jardiance was discontinued by endocrinology. His renval function returned to baseline on DC. I performed this visit using telephone between my office in [place] and the patient's location (their home). The patient requested/scheduled this visit. Telehealthparticipants: interpreter translator services for Nepalese . Prior to beginning the telehealth visit, the patient's informed verbal consent toperform this visit using telehealth tools was obtained. I am comfortable that this visit could be performed effectively using telehealth tools. The patient's history and medical records were reviewed. I have informed the patient that in the case they felt that they needed to be seen in person, that an in person visit could be arranged. Audio Only (Telephone) Total time spent on the same day 15 minutes. # [id number] interpreter translator services used for this telehealth visit Pt unable to make his appointment in person. Pt endorses feeling ok today. Good appetite and reports ok sleep. He recently had a hospitalization (see above). He has been checking his blood pressure at home. States his bp is around 140 to 150 systolic. States his edema has improved some. He continues to take Lisinopril 30mg, amlo 5 mg, lasix 20mg daily as well states he is taking Turlicity in addit ion to this home insuline regimen. He states his blood sugars have been around 150-170mg/dl (morning sugars). Home BP today: 148/82 We discussed plan for medication changes and reviewed labs over the phone. All questions answered. Review of Systems All other systems reviewed and are negative. Current Outpatient Medications Medication Instructions acetaminophen (TYLENOL) 650 mg, Every 6 hours PRN alcohol swabs (Alcohol Prep Pads) pads, medicated Use prior to checking blood sugar amLODIPine (NORVASC) 5 mg, oral, Daily aspirin 81 mg, oral, Daily blood glucose diagnostic (FreeStyle Precision Ethan Strips) test strip Use to test 3 times daily. blood pressure test kit-medium kit For blood pressure monitoring 1-2 times weekly blood-glucose sensor (FreeStyle Geo 3 Plus Sensor) device Change sensor every 15 days. dulaglutide (TRULICITY) 1.5 mg, subcutaneous, Every 7 days ergocalciferol (VITAMIN D2) 50,000 Units, oral, Every 7 days flash glucose sensor (FreeStyle Geo 2 Sensor) kit Change sensor every 14 days. furosemide (LASIX) 40 mg, oral, Daily gabapentin (NEURONTIN) 300 mg capsule TAKE 1 CAPSULE(300 MG) BY MOUTH TWICE DAILY hydrOXYzine HCL (ATARAX) 25 mg tablet Take 1-2 pills by mouth at night for anxiety and insomnia. insulin glargine (SEMGLEE/LANTUS - 100 UNITS/ML) 38 Units, subcutaneous, Nightly insulin lispro (ADMELOG/HUMALOG - 100 UNITS/ML) 2-10 Units, subcutaneous, 3 times daily with meals insulin lispro (ADMELOG/HUMALOG - 100 UNITS/ML) 2-10 Units, subcutaneous, Nightly insulin lispro (ADMELOG/HUMALOG - 100 UNITS/ML) 10 Units, subcutaneous, 3 times daily with meals lisinopriL (PRINIVIL,ZESTRIL) 30 mg, oral, Daily rosuvastatin (CRESTOR) 20 mg, Daily silver sulfadiazine (SILVADENE) 1% cream topical, Daily tamsulosin (FLOMAX) 0.4 mg, oral, Daily There were no vitals filed for this visit. There is no height or weight on file to calculate BMI. Objective Physical Exam TELE VISIT LABS/STUDIES: Lab Results Component Value Date NA 141 02/03/2025 K 5.0 02/03/2025 CL 105 02/03/2025 CO2 27 02/03/2025 BUN 21 02/03/2025 CREATININE 1.12 02/03/2025 EGFR 83 02/03/2025 GLUCOSE 102 (H) 02/03/2025 CALCIUM 8.8 02/03/2025 ALBUMIN 3.1 (L) 01/27/2025 PHOS 4.1 02/03/2025 PTHINTACT 130.0 (H) 10/05/2024 Lab Results Component Value Date HGB 11.1 (L) 02/03/2025 Lab Results Component Value Date SPECGRAVU 1.016 12/31/2024 PROTEINU 3+ (A) 12/31/2024 BLOODU Negative 12/31/2024 No results found for: MICROALBCREA , PROTCREATRUR Lab Results Component Value Date HGB 11.1 (L) 02/03/2025 Lab Results Component Value Date SPECGRAVU 1.016 12/31/2024 CASSNADRA 6.0 12/31/2024 PROTEINU 3+ (A) 12/31/2024 BLOODU Negative 12/31/2024 Reading Physician Reading Date Result Priority Glenn Guillaume MD [phone] 12/31/2024 Feli Edmond MD [phone] 12/31/2024 Narrative & Impression EXAMINATION: Ultrasound kidneys and bladder. INDICATION: History [...] unremarkable in sonographic appearance. Bilateral ureteral jets visualized.Prevoid, bladder volume is 377 mL. Post void [...] findings as reported or so edited. Trainee: Feli Edmond If this radiology report contains a blank impression section, it is an incomplete radiology report.Please contact the interpreting radiologist or applicable radiology division as soon as possible toobtain the completed interpretation. Workstation ID: [id number] Exam Ended: 12/31/24 12:36 Last Resulted: 12/31/24 14:07 Latest Reference Range & Units 12/31/24 10:21 Alpha 2 Globulin 0.5 - 0.9 g/dL 1.1 (H) Alpha 1 Globulin 0.2 - 0.3 g/dL 0.3 Beta 1 Globulin 0.4 - 0.6 g/dL 0.4 Gamma Globulin 0.8 - 1.7 g/dL 0.8 Lambda Light Chain, Free, Serum 5.7 - 26.3 mg/L 31.0 (H) Beta 2 Globulin 0.2 - 0.5 g/dL 0.3 Interpretation See Comments (H): Data is abnormally high Suggestive of acute inflammation pattern with elevation of acute phase proteins Latest Reference Range & Units 12/31/24 10:21 ANCA Screen NEGATIVE NEGATIVE Complement C3 82 - 185 mg/dL 197 (H) Complement C4 15 - 53 mg/dL 30 Lambda Light Chain, Free, Serum 5.7 - 26.3 mg/L 31.0 (H) Riva Light Chain, Free, Serum 3.3 - 19.4 mg/L 28.7 (H) Riva/Lambda Light Chains Free With Ratio 0.26 - 1.65 0.93 (H): Data is abnormally high ASSESSMENT/PLAN: CKD stage IIIa/b 2/2 uncontrolled 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 His renal function improved but he was noted for increased lower extremity edema. His diuretic was increased. Noted his immunology labs neg for any glomerular process, SPEP showed acute inflammation pattern at that time. He then he suffered an CHELA 4/3 with cr increase to 1.72 with max cr around 2.8. Improved with IV abx and IVFs. His cr on DC from [facility] was 1.1 with GFR back to baseline around 80. Likely his cr GFR is overstated as his cystatin C GFR is noted for a 30/40 point difference, therefore he is likely around CKD stage IIIa/b baseline. We will recheck his labs including RFP and cystatine C. Currenlty he is on ACEI and a GLP-1. - RFP (future) - UACR/UPCR (future) - cystatin C (future) Vitamin D def - PTH was elevated at 130 with elevated phos and vitamin D was very low at 6.04 during his [facility], he was started on ergocalciferol 50k unit weekly for 12 weeks which I believe he has completed. We will recheck his Vitamin D level. His phos has been normal off renvela. - vitamin D 25OH HTN His bp is improving but still above goal of 120/80. Currently on amlodipine 5mg daily, lisinopril 30mg daily, and lasix 20mg daily. We will continue his lasix to 20mg daily. We will increase his lisinopril to 40mg daily. He is encouraged to follow a low sodium diet. Dietary referral also placed. - continue lasix to 20mg daily and amlodipine 5mg - increase lisinopril to 40mg RTC for follow up with Dr. Cristobal Tony in April Thank you for allowing me to participate in the care of this patient, please do not hesitate to contact me. Michelle Ling NP I spent a total of 15 minutes on the date of encounter, which included: ?? Preparing to see the patient (e.g., review of test results) ?? Obtaining and/or reviewing separately obtained history ?? Counseling and educating the patient/family/caregiver ?? Ordering medications, tests, procedures ?? Documenting clinical information in the health record ?? Independently interpreting results (not separately reported) and communicating results to the patient/family/caregiver documented in this encounter Plan of Treatment Upcoming Encounters Date Type Department Care Team (Late st Contact Info) Description 02/28/2025 10:00 AM EDT Nutrition [facility] [address] [place] [address] [place] [phone] 03/24/2025 1:40 PM EDT Office Visit [address] [facility] [address] [place] [address] Geovanna Abbasi NP [address] [place] [address] 04/07/2025 8:00 AM EDT Office Visit [facility] [address] [place] [address] Semiconductor Development Technician: Tatiana Phillip NP [address] [place] [address] 04/26/2025 10:40 AM EDT Follow-Up [facility] [address] [place] [address] Semiconductor Development Technician: Kojo Tracey MD [address] [place] [address] 05/05/2025 2:30 PM EDT Office Visit [facility] [address] [place] [address] Semiconductor Development Technician: Tatiana Phillip NP [address] [place] [address] 05/19/2025 1:30 PM EDT Office Visit [facility] [address] [facility] [address] [place] [address] DiGeroHenrique lewis, PharmD [address] [place] [address] 07/15/2025 1:00 PM EDT Appointment [facility] [address] [place] [address] 07/15/2025 1:45 PM EDT Appointment [facility] [address] [place] [address] 07/15/2025 3:00 PM EDT Follow-Up [facility] Vascular Surgery [address] [place] [address] Semiconductor Development Technician: Mitul Starr NP [address] [place] [address] Pending Results Name Type Priority Associated Diagnoses Date /Time Cystatin C with Glomerular Filtration Rate, Estimated (eGFR) Lab Routine CKD (chronic kidney disease) stage 2, GFR 60-89 ml/min 02/24/2025 9:56 AM EDT Scheduled Orders Name Type Priority Associated Diagnoses Orde r Schedule Cystatin C with Glomerular Filtration Rate, Estimated (eGFR) Lab Routine CKD (chronic kidney disease) stage 2, GFR 60-89 ml/min Expected: 02/23/2025, Expires: 02/23/2026 documented as of this encounter Results * Due to [place] state law, this organization might not be sharing negative HIV tests. * (ABNORMAL) Microalbumin/Creatinine Urine Ratio, Random (02/24/2025 10:07 AM EDT) Microalbumin, Urine 177.0 mg/dL 02/24/2025 11:29 AM EDT [facility] [employer] [facility] Creatinine, Urine 52 22 - 328 mg/dL 02/24/2025 11:29 AM EDT [facility] [employer] CLINICAL PATHOLOGY LABORATORY Microalb/Creat Ratio, Random Urine 3,403.8(H ) <30.0 mcg/mgCr 02/24/2025 11:29 AM EDT [facility] [employer] CL[facility]ICAL PATHOLOGY LABORATORY Comment: Microalbumin Reference Range: Normal ? <30 mcg/mg Creatinine Microalbuminuria ? 30-300 mcg/mg Creatinine Clinical Albuminuria >300 mcg/mg Creatinine Reference: ADA Guideline. Diabetes Care. 2004;27 (suppl 1) Urine Voided urine specimen / Unknown Non-Blood Collection / Unknown 02/24/2025 10:07 AM EDT 02/24/2025 10:18 AM EDT us Michelle Ling FURNITURE UPHOLSTERER APPRENTICE LAB URINE ORDERABLES Final Res ult [facility] [employer] CLINICAL PATHOLOGY LABORATORY [address] [place] [address], * (ABNORMAL) Vitamin D 25 hydroxy (02/24/2025 9:56 AM EDT) Calcidiol+ercalc idiol 17(L) 30 - 100 ng/mL 02/24/2025 8:44 PM EDT [employer] [facility] Comment: Vitamin D Status ? 25-OH Vitamin D: Deficiency: ?<20 ng/mL Insufficiency: ? 20 - 29 ng/mL Optimal: ? > or = 30 ng/mL For 25-OH Vitamin D testing on patients on D2-supplementation and patients for whom quantitation of D2 and D3 fractions is required, the QuestAssureD() 25-OH VIT D, (D2,D3), LC/MS/MS is recommended: order code 93263 (patients >2yrs). See Note 1 Note 1 For additional information, please refer to http://education.[employer]el[employer]/faq/IAP043 (This link is being provided for informational/ educational purposes only.) Blood Structure of peripheral vein / Unknown Venipuncture / Unknown 02/24/2025 9:56 AM EDT 02/24/2025 10:10 AM EDT Narrative [facility] - 02/24/2025 8:44 PM EDT [facility] Received Date: Michelle Ling FURNITURE UPHOLSTERER APPRENTICE LAB BLOOD ORDERABLES Final Res ult [facility] [address] [facility] 3rd Floor, [place] [address], [employer] [facility] [address], [place] [address], * (ABNORMAL) Renal Function Panel (02/24/2025 9:56 AM EDT) NA 128(L) 135 - 145 mmol/L 02/24/2025 10:51 AM EDT [facility] LABORAT[facility] K 4.9 3.5 - 5.3 mmol/L 02/24/2025 10:51 AM EDT [facility] LAB[facility] Cl 92(L) 98 - 107 mmol/L 02/24/2025 10:51 AM EDT [facility] CO2 23 22 - 32 mmol/L 02/24/2025 10:51 AM EDT [facility] LAB[facility] Anion Gap 13 5 - 15 02/24/2025 10:51 AM EDT [facility] Glucose 657(HH) 65 - 99 mg/dL 02/24/2025 10:51 AM EDT [facility] BUN 33(H) 7 - 23 mg/dL 02/24/2025 10:51 AM EDT [facility] Creatinine 1.54(H) 0.60 - 1.30 mg/dL 02/24/2025 10:51 AM EDT [facility] Calcium 9.1 8.6 - 10.5 mg/dL 02/24/2025 10:51 AM EDT [facility] Phosphorus 3.7 2.5 - 4.5 mg/dL 02/24/2025 10:51 AM EDT [facility] Albumin 3.6 3.5 - 5.2 g/dL 02/24/2025 10:51 AM EDT [facility] eGFR 56(L) >=60 mL/min/1 .73m2 02/24/2025 10:51 AM EDT [facility] Comment:The estimated glomer ular filtration rate (eGFR) is calculated using a new formula developed by the NKF-ASN task force to eliminate race-based correction factors. The new formula uses serum/plasma creatinine, age, and gender to determine eGFR. A value below 60mls/min might indicate kidney disease and will be flagged. For additional information, see Ireland et al, Am J Kidney Dis. 2021;79(2):268- 288, A Unifying Approach for GFR estimation: Recommendations of the NKF-ASN Task Force on Reassessing the Inclusion of Race in Diagnosing Kidney Disease . Blood Structure of peripheral vein / Unknown Venipuncture / Unknown 02/24/2025 9:56 AM EDT 02/24/2025 10:14 AM EDT us Michelle Ling NP LAB BLOOD ORDERABLES Final Res ult [facility] [address] documented in this encounter Visit Diagnoses Diagnosis CKD (chronic kidney disease) stage 2, GFR 60-89 ml/min- Primary Chronic kidney disease, Stage II (mild) documented in this encounter Care Teams Plant Changer Relationship Specialty Start Date End Date Geovanna Abbasi NP [address] [place] [address] PCP - General 11/09/20 documented as of this encounter
--- OUTSIDE RECORDS SUMMARY | 2025-02-25 14:43 | XMS_ITS | Referral Summary ---
Author Organization [facility] Address [address] [place] [address] Care Team Providers Care Collar Feller Name Role Phone Geovanna Abbasi ANTIQUE CLOCK REPAIRER Primary Care Provider [phone] Encounters Date Type Department Care Team Description 02/25/2025 Telephone [facility] [address] [place], [place] [phone] Retail Sales Lead: Titus Parikh Prior Authorization ((MSOT) - OZEMPIC (1MG/DOSE)4MG/3ML PEN-INJ.#3/28) 02/25/2025 Orders Only [facility] [address] [place] [address] Retail Sales Lead: Catherine Cha MD 02/25/2025 Telephone [facility] Emergency Department [address] [place] [address] Rosa Gillespie RN Results; Left Without Being Seen 02/25/2025 Orders Only [facility] Building Endocrinology Clinic [address] [place] [address] Retail Sales Lead: ChrystalCatherine Felix MD 02/25/2025 Orders Only [facility] Diabetes [facility] [address] [place] [address] Retail Sales Lead: Catherine Cha MD 02/25/2025 Telephone [facility] Emergency Department [address] [place] [address] Rosa Gillespie RN Left Without Being Seen; Results 02/25/2025 Telephone [facility] [address] [place] [address] Retail Sales Lead: Catherine Cha MD Prior Authorization (tirzepatide (Mounjaro) 5 mg/0.5 mL pen injector) 02/24/2025 1:21 PM EDT - 02/25/2025 12:33 AM EDT Emergency [facility] Emergency Department [address] [place] [address] Discharge Disposition: Left Without Being Seen (07) 02/24/2025 Telephone [facility] [address] [place] [address] Retail Sales Lead: Miriam Mathews CPhT 02/24/2025 Documentation [facility] Renal Dialysis [address] [place] [address] Michelle Ling NP 02/24/2025 9:50 AM EDT Lab [facility] [place] Lab Draw Site [address] [place] [address] CKD (chronic kidney disease) stage 2, GFR 60-89 ml/min 02/24/2025 11:30 AM EDT Office Visit [facility] [address] [place] [address] Retail Sales Lead: Catherine Cha MD Type 2 diabetes mellitus with both eyes affected by severe nonproliferative retinopathy and macular edema, with long-term current use of insulin (HCC) (Primary Dx); Essential hypertension; Mixed hyperlipidemia; Class 3 obesity; Acute lower extremity ischemia 02/23/2025 9:00 AM EDT Telehealth [facility] Renal [address] [place] [address] Retail Sales Lead: Michelle Anthony NP CKD (chronic kidney disease) stage 2, GFR 60-89 ml/min (Primary Dx) 02/22/2025 10:30 AM EDT Office Visit [facility] 130 [facility] [address] [place] [address] Juan David Winters PA Wound of left lower extremity, initial encounter (Primary Dx); Hospital discharge follow-up 02/21/2025 11:30 AM EDT Follow-Up [facility] Wound Center [address] [place] [address] Retail Sales Lead: Akash Delgado PA Leg wound, left, initial encounter (Primary Dx) 02/11/2025 3:00 PM EDT Follow-Up [facility] Vascular Surgery [address] [place] [address] Retail Sales Lead: Mitul Starr NP Aftercare following surgery of the circulatory system (Primary Dx) 02/04/2025 Telephone [facility] [address] [facility] [address] [place] [address] Bell Oro RN [facility] Other 01/27/2025 10:49 AM EDT - 02/03/2025 6:32 PM EDT Hospital Encounter [facility] [address] [place] [address] Bertha Quintana MD Nordberg, Alexandra M., MD Wu, Yichao, MD PhD Maribel Chavez, MD Hay Turcios Gayathri, MD Cellulitis of left lower extremity (Primary Dx) Discharge Disposition: Home with Services (06) 01/26/2025 Telephone [facility] Podiatry [address] [place] [address] Retail Sales Lead: Mitul Mccormack NP 01/26/2025 Telephone [facility] Plastic Cosmetic Surgery [address] [place] [address] Retail Sales Lead: Maribell Hazel PAC Appt Request - New 01/25/2025 1:29 PM EDT - 01/25/2025 11:59 PM EDT Hospital Encounter [facility] Vascular Lab [address] [place] [address] Left leg pain Discharge Disposition: Home or Self Care () 01/25/2025 1:00 PM EDT Follow-Up [facility] Building Vascular Surgery [address] [place] [address] Retail Sales Lead: Mitul Starr NP Left leg pain (Primary Dx) 01/24/2025 Refill [facility] [address] [facility] [address] [place], [place] [address] [address] Geovanna Abbasi NP 01/19/2025 Telephone [place] [address] [facility] [place] [address] Geovanna Abbasi NP 01/10/[address] [facility] [place] [address] Geovanna Abbasi NP insurance /referral 01/07/2025 3:20 PM EDT Follow-Up [address] [facility] [address] [place] [address] [place] [address] Geovanna Abbasi NP Routine general medical examination at a health care facility (Primary Dx); Other abnormal glucose; Encounter for screening for depression; Encounter for tobacco use screening [Z01.89]; BMI 45.0-49.9, adult (HCC) [Z68.42]; Severe obesity (BMI >= 40); Anxiety and depression; Mixed hyperlipidemia; Uncontrolled type 2 diabetes mellitus with hyperglycemia; Impaired mobility and ADLs; Essential hypertension 01/05/2025 Orders Only [facility] Renal Dialysis [address] [place] [address] Michelle Ling NP Acute kidney injury superimposed on stage 2 chronic kidney disease (Primary Dx) 01/04/2025 3:20 PM EDT Follow-Up [facility] Building Vascular Surgery [address] [place] [address] Retail Sales Lead: Camacho Russell MD Wound dehiscence (Primary Dx) 01/04/2025 1:11 PM EDT - 01/04/2025 11:59 PM EDT Hospital Encounter [facility] Vascular Lab [address] [place] [address] Lucie Miller MD PAD (peripheral artery disease) Discharge Disposition: Home or Self Care () 01/04/2025 1:10 PM EDT Hospital Encounter [facility] Vascular Lab [address] [place] [address] Lucie Miller MD PAD (peripheral artery disease) Discharge Disposition: Home or Self Care () 12/31/2024 12:03 PM EST - 12/31/2024 11:59 PM EST Hospital Encounter [facility] [address] [place] [address] Difficulty urinating Discharge Disposition: Home or Self Care () 12/27/2024 Telephone [facility] Renal Dialysis [address] [place] [address] Michelle Ling NP 12/22/2024 Telephone [facility] [address] [facility] [address] [place] [address] Geovanna Abbasi NP [facility] Other 12/22/2024 11:00 AM EST Follow-Up [facility] Renal [address] [place] [address] Retail Sales Lead: Michelle Anthony NP CKD (chronic kidney disease) stage 2, GFR 60-89 ml/min (Primary Dx); CKD stage 2 due to type 2 diabetes mellitus; Albuminuria; Persistent proteinuria; Vitamin D deficiency; Acute kidney injury superimposed on stage 2 chronic kidney disease 12/21/2024 Telephone [facility] 326 [facility] [address] [place] [address] Geovanna Abbasi NP refax 12/20/2024 Telephone [facility] 326 [facility] [address] [place] [address] Geovanna Abbasi NP 12/20/2024 1:00 PM EST Follow-Up [facility] Vascular Surgery [address] [place] [address] Retail Sales Lead: Surekha Bartlett NP Surgical wound infection (Primary Dx); Wound dehiscence 12/17/2024 Telephone [facility] 326 [facility] [address] [place] [address] Geovanna Abbasi NP [facility] Medication Refill 12/17/2024 Refill [facility] 326 [facility] [address] [place] [address] Geovanna Abbasi NP 12/17/2024 3:20 PM EST Telehealth [facility] 326 [facility] [address] [place] [address] Geovanna Abbasi NP Uncontrolled type 2 diabetes mellitus with hyperglycemia (Primary Dx); Essential hypertension; Anxiety and depression; Primary insomnia 12/15/2024 Telephone [facility] Vascular Surgery [address] [place] [address] Retail Sales Lead: Lucie Sepulveda MD 12/14/2024 Telephone [facility] 326 [facility] [address] [place] [address] Geovanna Abbasi NP [facility] Paperwork 12/10/[address] [facility] [address] [place] [address] Geovanna Abbasi NP [facility] Other 12/10/[address] [facility] [address] [place] [address] [facility] [place] [address] Geovanna Abbasi NP 12/07/2024 Telephone [facility] Vascular Surgery [address] [place] [address] Retail Sales Lead: Manjula Rabago NP 12/06/2024 8:30 AM EST Follow-Up [facility] Vascular Surgery [address] [place] [address] Retail Sales Lead: Manjula Rabago NP Surgical wound infection (Primary Dx) 12/03/[address] [place] [address] Geovanna Abbasi NP 12/03/2024 2:40 PM EST Follow-Up [facility] Podiatry [address] [place] [address] Retail Sales Lead: Chantale Vasques, Mitul Garcia NP Diabetic ulcer of left heel associated with diabetes mellitus due to underlying condition, limited to breakdown of skin (Primary Dx); Diabetic ulcer of left ankle associated with diabetes mellitus due to underlying condition; Other diabetic neurological complication associated with type 2 diabetes mellitus; Left foot pain 12/03/2024 4:00 PM EST Telehealth [address] [facility] [address] [place] [address] Geovanna Abbasi NP Uncontrolled type 2 diabetes mellitus with hyperglycemia (Primary Dx); Impaired mobility 12/01/2024 Telephone [facility] Vascular Surgery [address] [place] [address] Retail Sales Lead: Lucie Sepulveda MD Post-op Call 11/29/2024 Orders Only [facility] Vascular Surgery [address] [place] [address] Retail Sales Lead: Lucius Parker MD PAD (peripheral artery disease) (Primary Dx) 11/26/2024 4:58 PM EST - 11/29/2024 5:25 PM EST Hospital Encounter [facility] [address] [address] Lucei Miller MD Surgical site infection (Primary Dx); Wound dehiscence; 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 9(T2) 1 each 02/26/20 25 Active semaglutide (Ozempic) 1 mg/dose (4 mg/3 mL) pen injector Inject 0.75 mL (1 mg total) under the skin every 7 days. 3 mL 11 02/26/20 25 Active insulin lispro injection 100 units/mL vial Inject 2-10 Units under the skin 3 times a day with meals. 12/07/2024 Discontinued insulin lispro injection 100 units/mL vial [...] a day with meals. 9 mL 2 12/17/192024 Discontinued lisinopriL (PRINIVIL,ZESTRI L) 20 mg tablet [...] the skin every 7 days. 6 mL 01/08/202024 Discontinued flash glucose sensor (FreeStyle Merly 2 [...] with dinner - hold [facility] not [facility] consistent diet HOLDING home Trulicity [...] with dinner - hold if not eating [facility] Carb consistent diet HOLDING home Trulicity [...] not been feeling well. - Diabetes consulted / - Increase home glargine 40 units nightly [...] very intersted in therapy. Provided list from [facility] from therapist in [place] as pt is living there with his [...] left leg with ulceration 09/23/2024 Atherosclerosis of ione ar teries of right leg with ulceration [...] retinopathy, diabetic nephropathy, increased risk of stroke, MO and even . Pt expressed understanding PLAN- [...] he has endocrine appt next week @ [facility], goal for endocrine to manage uncontrolled T2DM. [...] retinopathy, diabetic nephropathy, increased risk of stroke, MO and even . Pt expressed understanding .Pt [...] of infection Pt requesting endocrine referral @ [facility]. Referral placed Follow up 4 weeks insulin [...] retinopathy, diabetic nephropathy, increased risk of stroke, MO and even . Pt expressed understanding .Pt [...] retinopathy, diabetic nephropathy, increased risk of stroke, MO and even . Pt expressed understanding FSBS: [...] retinopathy, diabetic nephropathy, increased risk of stroke, MO and even . Pt expressed understanding FSBS: [...] retinopathy, diabetic nephropathy, increased risk of stroke, MO and even . Pt expressed understanding FSBS: [...] retinopathy, diabetic nephropathy, increased risk of stroke, MO and even . Pt expressed understanding Meds: [...] retinopathy, diabetic nephropathy, increased risk of stroke, MO and even . Pt expressed understanding Meds:Continue [...] or appts. Pt will bring paperwork to front counter clerk. All questions answered to pt satisfaction. He is in agreement with POC Assessment & Plan (09/03/2023 9:49 AM EST): Uncontrolled. A1C 12.0% today 09/02/23. Long discussion about uncontrolled T2DM, Reviewed importance to control T2DM and risk of uncontrolled T2DM including diabetic neuropathy, diabetic retinopathy, diabetic nephropathy, increased risk of stroke, MO and even . Pt expressed understanding Meds: Metformin 1000mg BID, Jardiance 25mg daily and Trulicity to 3mg weekly. Restart Lantus 10 units nightly, pt is able to teach steps to administer and declines nursing visit to reeducate Lantus. Glucometer: ordered freestyle merly 2 for improved glycemic control and [...] retinopathy, diabetic nephropathy, increased risk of stroke, MO and even . Pt expressed understanding Meds: [...] retinopathy, diabetic nephropathy, increased risk of stroke, MO and even . Pt expressed understanding Meds: [...] retinopathy, diabetic nephropathy, increased risk of stroke, MO and even . Pt expressed understanding He [...] retinopathy, diabetic nephropathy, increased risk of stroke, MO and even . Pt expressed understanding He declines to start nighttime insulin. Pt prefers to resume Jardiance and increase Trulicity. Meds: Metformin 1000mg BID, restart Jardiance 25mg daily and increase Trulicity to 3mg weekly Confirmed with pharmacy all medications are there for fern picker. Reviewed lifestyle modifications, nutrition recommendations at length. [...] Claudication of both lower extremities 01/11/2021 10/15/2024 Immunizations Immunization Administration Dates Next Due Covid-19 Monovalent Vaccine, Moderna, mRNA, PF 03/28/2021,02/28/2021 INFLUENZA, SPLIT VIRUS, TRIVALENT, PF 10/29/2024 Influenza, Injectable, Quadr ivalent, Preservative Free 10/06/2023,08/27/2022,09/25/2021 PPD Test 08/29/2022 Pneumococcal conjugate PCV20 ,polysaccharide XVA004 conjugate, adjuvant, PF (Prevnar 20) 10/06/2023 Tetanus Toxoid, Reduced Diph theria Toxoid, and Acellular Pertussis Vaccine, Adsorbed 08/31/2020 Tetanus and Diphtheria Toxoi ds, Adsorbed, Preservative Free (2 Lf of Tetanus Toxoid and 2 Lf of Diphtheria Toxoid) 04/20/2020 Social History Tobacco Use Types Packs/Day Years Used Date Smoking Tobacco: Former Cigarettes Smokeless Tobacco: Never Tobacco Cessation:Counseling Given: Not Answered Comments:QUIT DAY OF SURGERY Alcohol Use Standard Drinks/Week Comments Never 0 (1 standard drink = 0.6 oz pur e alcohol) [facility] Utilities Answer Date Recorded In the past 12 months has th e [employer], gas, oil, or water [employer] threatened to shut off services in your [...] Description 02/28/2025 10:00 AM EDT Nutrition [facility] [address] [place] [address] [place] [id number] 03/24/2025 1:40 PM EDT Office Visit [facility] [address] [facility] [address] [place] [address] Geovanna Abbasi NP [address] [place] [address] 04/07/2025 8:00 AM EDT Office Visit [facility] [address] [place] [address] Retail Sales Lead: Tatiana Phillip NP [address] [place] [address] 04/26/2025 10:40 AM EDT Follow-Up [facility] Renal [address] [place] [address] Retail Sales Lead: Kojo Tracey MD [address] [place] [address] 05/05/2025 2:30 PM EDT Office Visit [facility] [address] [place] [address] Retail Sales Lead: Tatiana Phillip ANTIQUE CLOCK REPAIRER [address] [place] [address] 05/19/2025 1:30 PM EDT Office Visit [facility] [address] [facility] [address] [place] [address] Henrique Banegas, PharmD [address] [place] [address] 07/15/2025 1:00 PM EDT Appointment [facility] Vascular Lab [address] [place] [address] 07/15/2025 1:45 PM EDT Appointment [facility] Lab [address] [place] [address] 07/15/2025 3:00 PM EDT Follow-Up [facility] Building Vascular Surgery [address] [place] [address] Retail Sales Lead: Mitul Starr NP [address] [place] [address] Procedures * Due to [place] state law, this organization might not be [...] CYSTATIN C WITH GLOMERULAR FILTRATION RATE, ESTIMATED (EGFR)-[id number] Routine 12/31/2024 10:21 AM EST Acute kidney injury superimposed on stage 2 chronic kidney disease COMPLEMENT C4 Routine 12/31/2024 10:21 AM EST Acute kidney injury superimposed on stage 2 chronic kidney disease COMPLEMENT C3 Routine 12/31/2024 10:21 AM EST Acute kidney injury superimposed on stage 2 chronic kidney disease PHOSPHOLIPASE A2 RECEPTOR ANTIBODIES, [id number] Routine 12/31/2024 10:21 AM EST Acute kidney [...] AB/P24 AG WITH REFLEX - LCP - [id number] Routine 10/29/2024 2:27 PM EST Encounter for screening for HIV HEPATITIS C ANTIBODY W/REFLEX TO HCV RNA, QUANTITATIVE PCR STAT 09/22/2024 5:47 PM EST from Last 3 Months or Most Recently Relevant to Health Maintenance Results * Due to [place] state law, this organization might not be sharing negative HIV tests. * (ABNORMAL) POCT Glucose, interfaced (02/24/2025 7:49 PM EDT) Only the most recent of44 resultswithin the time period is included. Glucose, POCT 423(H) 70 - 99 mg/dL 02/24/2025 7:50 PM EDT [facility] Comment: The partnership manager has not determined the efficacy of this test in Critically ill patients. ??[facility] defines Critically ill patients for the purpose [...] POCT ORDERABLES - DEVICE Fin al Result [facility] [address] [place] [address], [place] * (ABNORMAL) Comprehensive Metabolic Panel (02/24/2025 1:56 PM EDT) Only the most recent of2 resultswithin the time period is included. [facility] Signature NA 132(L) 135 - 145 mmol/L 02/24/2025 2:36 PM EDT [facility] K 4.7 3.5 - 5.3 mmol/L 02/24/2025 2:36 PM EDT [facility] Cl 93(L) 98 - 107 mmol/L 02/24/2025 2:36 PM EDT [facility] CO2 26 22 - 32 mmol/L 02/24/2025 2:36 PM EDT [facility] Anion Gap 13 5 - 15 02/24/2025 2:36 PM EDT [facility] Glucose 496(H) 65 - 99 mg/dL 02/24/2025 2:36 PM EDT [facility] Creatinine 1.46(H) 0.60 - 1.30 mg/dL 02/24/2025 2:36 PM EDT [facility] Calcium 9.5 8.6 - 10.5 mg/dL 02/24/2025 2:36 PM EDT [facility] Total Protein 8.0 6.0 - 8.0 g/dL 02/24/2025 2:36 PM EDT [facility] Albumin 3.8 3.5 - 5.2 g/dL 02/24/2025 2:36 PM EDT [facility] Bilirubin, Total 0.2 0.2 - 1.2 mg/dL 02/24/2025 2:36 PM EDT [facility] Alkaline Phosphatase 135(H) 35 - 129 U/L 02/24/2025 2:36 PM EDT [facility] AST 15 10 - 40 U/L 02/24/2025 2:36 PM EDT [facility] ALT 18 10 - 40 U/L 02/24/2025 2:36 PM EDT [facility] BUN 33(H) 7 - 23 mg/dL 02/24/2025 2:36 PM EDT [facility] eGFR 60 >=60 mL/min/1 .73m2 02/24/2025 2:36 PM EDT [facility] Comment:The estimated glomer ular [...] - 4.2 g/dL 02/24/2025 2:36 PM EDT [facility] A/G Ratio 0.9(L) 1.5 - 3.0 02/24/2025 2:36 PM EDT [facility] Blood Structure of peripheral vein / Unknown Venipuncture / Unknown 02/24/2025 1:56 PM EDT 02/24/2025 1:56 PM EDT us Protocol Unv Adult Treatment LAB BLOOD ORDERA BLES Final Result [facility] [address] [place] [address], * Yellow Top (02/24/2025 10:34 AM EDT) Only the most recent of2 resultswithin the time period is included. Extra Tube Hold for add-ons. 02/24/2025 3:05 PM EDT [facility] Comment:Auto resulted. Urine Urine specimen collection, clean catch / Unknown 02/24/2025 10:34 AM EDT 02/24/2025 10:34 AM EDT Michelle Ling ANTIQUE CLOCK REPAIRER LAB BLOOD ORDERABLES Final Res ult Performing Organization Address [facility] Co de Phone Number [facility] [address] [place] [address], * (ABNORMAL) Microalbumin/Creatinine Urine Ratio, Random (02/24/2025 10:07 AM EDT) Only the most recent of2 resultswithin the time period is included. Microalbumin, Urine 177.0 mg/dL 02/24/2025 11:29 AM EDT [facility] Creatinine, Urine 52 22 - 328 mg/dL 02/24/2025 11:29 AM EDT [facility] Microalb/Creat Ratio, Random Urine 3,403.8(H ) <30.0 mcg/mgCr 02/24/2025 11:29 AM EDT [facility] Comment: Microalbumin Reference Range: Normal ? <30 mcg/mg Creatinine Microalbuminuria ? 30-300 mcg/mg Creatinine Clinical Albuminuria >300 mcg/mg Creatinine Reference: ADA Guideline. Diabetes Care. 2004;27 (suppl 1) Urine Voided urine specimen / Unknown Non-Blood Collection / Unknown 02/24/2025 10:07 AM EDT 02/24/2025 10:18 AM EDT Michelle Ling ANTIQUE CLOCK REPAIRER LAB URINE ORDERABLES Final Res ult Performing Organization Address [facility]/ZIP Co de Phone Number [facility] [address] [place] [address], * (ABNORMAL) Protein, Random Urine with Creatinine (02/24/2025 10:07 AM EDT) Only the most recent of2 resultswithin the time period is included. Protein, Urine 266 mg/dL 02/24/2025 11:29 AM EDT [facility] Creatinine, Urine 52 22 - 328 mg/dL 02/24/2025 11:29 AM EDT [facility] Protein/Creat inine, Urine Ratio 5,115(H) <200 mg/gmCr 02/24/2025 11:29 AM EDT [facility] Urine Voided urine specimen / Unknown Non-Blood Collection / Unknown 02/24/2025 10:07 AM EDT 02/24/2025 10:18 AM EDT us Michelle Ling ANTIQUE CLOCK REPAIRER LAB URINE ORDERABLES Final Res ult [facility] [employer] [facility] [address] [place] [address], * (ABNORMAL) Vitamin D 25 hydroxy (02/24/2025 9:56 AM EDT) Only the most recent of2 resultswithin the time period is included. Calcidiol+ercalc idiol 17(L) 30 - 100 ng/mL 02/24/2025 8:44 PM EDT [employer] Comment: Vitamin D Status ? 25-OH Vitamin D: Deficiency: ?<20 ng/mL Insufficiency: ? 20 - 29 ng/mL Optimal: ? > or = 30 ng/mL For 25-OH Vitamin D testing on patients on D2-supplementation and patients for whom quantitation of D2 and D3 fractions is required, the QuestAssureD(TM) 25-OH VIT D, (D2,D3), LC/MS/MS is recommended: order code 19455 (patients >2yrs). See Note 1 Note 1 For additional information, please refer to http://education.[employer]/faq/RSZ237 (This link is being provided for informational/ educational purposes only.) Blood Structure of peripheral vein / Unknown Venipuncture / Unknown 02/24/2025 9:56 AM EDT 02/24/2025 10:10 AM EDT Narrative [facility] - 02/24/2025 8:44 PM EDT [facility] Received Date: Michelle Ling ANTIQUE CLOCK REPAIRER LAB BLOOD ORDERABLES Final Res ult [facility] [address] [facility] 3rd Floor, [place] [address], [place] [phone] Yola [facility] [address] [facility] 3rd Floor, [place] [address], [place] [phone] * (ABNORMAL) Renal Function Panel (02/24/2025 9:56 AM EDT) Only the most recent of2 resultswithin the time period is included. NA 128(L) 135 - 145 mmol/L 02/24/2025 10:51 AM EDT [facility] K 4.9 3.5 - 5.3 mmol/L 02/24/2025 10:51 AM EDT [facility] Cl 92(L) 98 - 107 mmol/L 02/24/2025 10:51 AM EDT [facility] CO2 23 22 - 32 mmol/L 02/24/2025 10:51 AM EDT [facility] Anion Gap 13 5 - 15 02/24/2025 10:51 AM EDT [facility] Glucose 657(HH) 65 - 99 mg/dL 02/24/2025 10:51 AM EDT [facility] BUN 33(H) 7 - 23 mg/dL 02/24/2025 10:51 AM EDT [facility] Creatinine 1.54(H) 0.60 - 1.30 mg/dL 02/24/2025 10:51 AM EDT [facility] Calcium 9.1 8.6 - 10.5 mg/dL 02/24/2025 10:51 AM EDT [facility] Phosphorus 3.7 2.5 - 4.5 mg/dL 02/24/2025 10:51 AM EDT [facility] Albumin 3.6 3.5 - 5.2 g/dL 02/24/2025 10:51 AM EDT [facility] eGFR 56(L) >=60 mL/min/1 .73m2 02/24/2025 10:51 AM EDT [facility] Comment:The estimated glomer ular [...] 9:56 AM EDT 02/24/2025 10:14 AM EDT Michelle Ling NP LAB BLOOD ORDERABLES Final Res ult [facility] [address] [place] [id number], * (ABNORMAL) CBC Auto Differential (02/03/2025 6:03 AM EDT) Only the most recent of7 resultswithin the time period is included. WBC 11.7(H) 3.8 - 10.8 10*3/uL 02/03/2025 7:05 AM EDT [facility] RBC 4.08(L) 4.20 - 5.80 10*6/uL 02/03/2025 7:05 AM EDT [facility] Hemoglobin 11.1(L) 13.2 - 17.1 g/dL 02/03/2025 7:05 AM EDT [facility] Hematocrit 34.2(L) 38.5 - 50.0 % 02/03/2025 7:05 AM EDT [facility] MCV 83.8 80.0 - 100.0 fL 02/03/2025 7:05 AM EDT [facility] MCH 27.2 27.0 - 33.0 pg 02/03/2025 7:05 AM EDT [facility] MCHC 32.5 32.0 - 36.0 g/dL 02/03/2025 7:05 AM EDT [facility] RDW 13.8 11.0 - 15.0 % 02/03/2025 7:05 AM EDT [facility] Platelets 482(H) 140 - 400 10*3/uL 02/03/2025 7:05 AM EDT [facility] MPV 8.9 7.5 - 12.5 fL 02/03/2025 7:05 AM EDT [facility] Neutrophil % 66.2 % 02/03/2025 7:05 AM EDT [facility] Immature Grans % 5.4(H) 0.0 - 0.9 % 02/03/2025 7:05 AM EDT [facility] Lymphocyte % 18.4 % 02/03/2025 7:05 AM EDT [facility] Monocyte % 5.1 % 02/03/2025 7:05 AM EDT [facility] Eosinophil % 4.0 % 02/03/2025 7:05 AM EDT [facility] Basophil % 0.9 % 02/03/2025 7:05 AM EDT [facility] Neutrophil # 7.76 1.50 - 7.80 10*3/uL 02/03/2025 7:05 AM EDT [facility] [employer] [facility] Immature Grans # 0.63(H) <=0.03 10*3/uL 02/03/2025 7:05 AM EDT [facility] Lymphocyte # 2.20 0.85 - 3.90 10*3/uL 02/03/2025 7:05 AM EDT [facility] Monocyte # 0.60 0.20 - 0.95 10*3/uL 02/03/2025 7:05 AM EDT [facility] [facility] Eosinophil # 0.50 0.02 - 0.50 10*3/uL 02/03/2025 7:05 AM EDT [facility] Basophil # 0.10 0.00 - 0.20 10*3/uL 02/03/2025 7:05 AM EDT [facility] nRBC % 0.0 /100 WBCs 02/03/2025 7:05 AM EDT [facility] nRBC # <0.01 <0.01 10*3/uL 02/03/2025 7:05 AM EDT [facility] [facility] Blood Structure of peripheral vein / Unknown Venipuncture / Unknown 02/03/2025 6:03 AM EDT 02/03/2025 6:58 AM EDT Sherlyn Chavez MD LAB BLOOD ORDERABLES Final Result [facility] [address] [place] [address], [place] * Phosphorus (02/03/2025 6:02 AM EDT) Only the most recent of8 resultswithin the time period is included. Phosphorus 4.1 2.5 - 4.5 mg/dL 02/03/2025 7:30 AM EDT [facility] [employer] [facility] Blood Structure of peripheral vein / Unknown Venipuncture / Unknown 02/03/2025 6:02 AM EDT 02/03/2025 6:57 AM EDT Sherlyn Chavez MD LAB BLOOD ORDERABLES Final Result Performing Organization Address City/[facility]/ZIP Co de Phone Number [facility] [address] [place] [address], * Magnesium (02/03/2025 6:02 AM EDT) Only the most recent of9 resultswithin the time period is included. MG 2.1 1.6 - 2.4 mg/dL 02/03/2025 7:30 AM EDT [facility] Blood Structure of peripheral vein / Unknown Venipuncture / Unknown 02/03/2025 6:02 AM EDT 02/03/2025 6:57 AM EDT Sherlyn Chavez MD LAB BLOOD ORDERABLES Final Result Performing Organization Address [facility] Co de Phone Number [facility] [address] [place] [address], [place] * Creatine Kinase (02/03/2025 6:02 AM EDT) Only the most recent of2 resultswithin the time period is included. CK 73 49 - 348 U/L 02/03/2025 7:30 AM EDT [facility] Blood Structure of peripheral vein / Unknown Venipuncture / Unknown 02/03/2025 6:02 AM EDT 02/03/2025 6:57 AM EDT us Carmen Guido MD LAB BLOOD ORDERABLES Final Result Performing Organization Address City/[facility]/ZIP Co de Phone Number [facility] [address] [place] [address], * (ABNORMAL) Basic Metabolic Panel (02/03/2025 6:02 AM EDT) Only the most recent of9 resultswithin the time period is included. NA 141 135 - 145 mmol/L 02/03/2025 7:30 AM EDT [facility] K 5.0 3.5 - 5.3 mmol/L 02/03/2025 7:30 AM EDIDAHO [facility]ALLS [facility] HOSPITALIronCurtain EntertainmentMS [employer] [facility] Cl 105 98 - 107 mmol/L 02/03/2025 7:30 AM EDT [employer] [facility] CO2 27 22 - 32 mmol/L 02/03/2025 7:30 AM EDT [employer] [employer] [facility] BUN 21 7 - 23 mg/dL 02/03/2025 7:30 AM EDT [facility]archTR[facility] [employer] [facility] Creatinine 1.12 0.60 - 1.30 mg/dL 02/03/2025 7:30 AM [facility]Curt[facility] EntertainmentMS [employer] [facility] Glucose 102(H) 65 - 99 mg/dL 02/03/2025 7:30 AM EDT [facility] Calcium 8.8 8.6 - 10.5 mg/dL 02/03/2025 7:30 AM ED [facility] Anion Gap 9 5 - 15 02/03/2025 7:30 AM T [employer] [facility] eGFR 83 >=60 mL/min/1. 73m2 02/03/2025 7:30 AM [facility] Comment:The estimated glomer ular [...] Chavez MD LAB BLOOD ORDERABLES Final Result [facility] [address] [place] [address], [place] * (ABNORMAL) Manual Differential (02/01/2025 6:23 AM EDT) Only the most recent of3 resultswithin the time period is included. Neutrophil %, Manual 66 % 02/01/2025 7:51 AM EDT [facility] Lymphocyte %, Manual 13 % 02/01/2025 7:51 AM EDT [facility] Monocyte %, Manual 1 % 02/01/2025 7:51 AM EDT [facility] Eosinophil %, Manual 8 % 02/01/2025 7:51 AM EDT [facility] Basophil %, Manual 2 % 02/01/2025 7:51 AM EDT [facility] Myelocytes % 2 % 02/01/2025 7:51 AM EDT [facility] Reactive Lymphocyte % 8(H) 0 - 6 % 02/01/2025 7:51 AM EDT [facility] Total Neutrophil #, Manual 6.80 1.50 - 7.80 10*3/uL 02/01/2025 7:51 AM EDT [facility] Total Lymph #, Manual 2.16 0.85 - 3.90 10*3/uL 02/01/2025 7:51 AM EDT [facility] Monocyte #, Manual 0.10(L) 0.20 - 0.95 10*3/uL 02/01/2025 7:51 AM EDT [facility] Eosinophil #, Manual 0.82(H) 0.02 - 0.50 10*3/uL 02/01/2025 7:51 AM EDT [facility] Basophil #, Manual 0.21(H) 0.00 - 0.20 10*3/uL 02/01/2025 7:51 AM EDT [facility] Myelocyte # 0.21(H) 0.00 10*3/uL 02/01/2025 7:51 AM EDT [facility] Reactive Lymphocytes # 0.82 10*3/uL 02/01/2025 7:51 AM EDT [facility] Platelet Estimate Adequate Adequate 02/01/2025 7:51 AM EDT [facility] RBC Morphology Normal Normal, No clinically significant RBC morphology present ([facility] guidelines, 2015). 02/01/2025 7:51 AM EDT [facility] Total Cells Counted 116 02/01/2025 7:51 AM EDT [facility] Blood Structure of peripheral vein / Unknown Venipuncture / Unknown 02/01/2025 6:23 AM EDT 02/01/2025 6:38 AM EDT us Sherlyn Chavez MD LAB BLOOD ORDERABLES Final Result [facility] [address] [place] [address], * (ABNORMAL) C-reactive protein (01/30/2025 1:41 PM EDT) Only the most recent of2 resultswithin the time period is included. C Reactive Protein 172.0(H) <=9.9 mg/L 01/30/2025 2:19 PM EDT [facility] [employer] [facility] Blood Structure of peripheral vein / Unknown Venipuncture / Unknown 01/30/2025 1:41 PM EDT 01/30/2025 1:50 PM EDT us Sherlyn Chavez MD LAB BLOOD ORDERABLES Final Result [facility] [employer] [facility] [address] [place] [id number], [place] * Smear Review (01/30/2025 12:01 PM EDT) Only the most recent of2 resultswithin the time period is included. Platelet Estimate Adequate Adequate 01/30/2025 4:25 PM EDT [facility] [employer] [facility] RBC Morphology Normal Normal, No clinically significant RBC morphology present ([facility] guidelines, 2015). 01/30/2025 4:25 PM EDT [facility] [employer] [facility] Blood Structure of peripheral vein / Unknown Venipuncture / Unknown 01/30/2025 12:01 PM EDT 01/30/2025 12:08 PM EDT us Sherlyn Chavez MD LAB BLOOD ORDERABLES Final Result Performing Organization Address City/[facility]/ZIP Co de Phone Number [facility] [employer] [facility] [address] [place] [address], [place] * (ABNORMAL) Sedimentation Rate (01/30/2025 12:01 PM EDT) Sed Rate 99(H) <15 mm/Hr mm/Hr 01/30/2025 1:18 PM EDT [facility] [employer] [facility] Blood Structure of peripheral vein / Unknown Venipuncture / Unknown 01/30/2025 12:01 PM EDT 01/30/2025 12:08 PM EDT us Sherlyn Chavez MD LAB BLOOD ORDERABLES Final Result [facility] [employer] [facility] [address] [place] [address], [place] * (ABNORMAL) CBC (01/30/2025 12:01 PM EDT) Only the most recent of3 resultswithin the time period is included. WBC 11.7(H) 3.8 - 10.8 10*3/uL 01/30/2025 4:25 PM EDT [facility] PlumbCOInxeroMS [employer] [facility] RBC 3.76(L) 4.20 - 5.80 10*6/uL 01/30/2025 4:25 PM EDT [facility] [employer] [facility] Hemoglobin 10.4(L) 13.2 - 17.1 g/dL 01/30/2025 4:25 PM EDT [facility] PlumbCOInxeroMS [employer] [facility] Hematocrit 32.0(L) 38.5 - 50.0 % 01/30/2025 4:25 PM EDT [facility] [employer] [facility] MCV 85.1 80.0 - 100.0 fL 01/30/2025 4:25 PM EDT Victoria PlumbCOInxeroMS [employer] [facility] MCH 27.7 27.0 - 33.0 pg 01/30/2025 4:25 PM EDT [facility]umbCO[facility]MS [employer] [facility] MCHC 32.5 32.0 - 36.0 g/dL 01/30/2025 4:25 PM EDT [facility]CO[facility]MS [employer] [facility] RDW 14.2 11.0 - 15.0 % 01/30/2025 4:25 PM EDT [facility] [facility] Platelets 321 140 - 400 10*3/uL 01/30/2025 4:25 PM EDT [facility] PlumbCOInxeroMS [employer] [facility] MPV 11.1 7.5 - 12.5 fL 01/30/2025 4:25 PM EDT [facility] [employer] [facility] Comment:A smear review has b een added. Clinician review and interpretation will be needed once the report is final. Blood Structure of peripheral vein / Unknown Venipuncture / Unknown 01/30/2025 12:01 PM EDT 01/30/2025 12:08 PM EDT us Sherlyn Chavez MD LAB BLOOD ORDERABLES Final Result [facility] [address] [place] [address], [place] * X-Ray Knee Left 4+ Views [...] obtain the completed interpretation. ? Workstation ID: [id number] Narrative 01/30/2025 11:49 AM EDT COMPARISON: There are no prior studies available for comparison at this time. Resulting Agency Comment [id number] Procedure Note Mikhail Tony MD - 01/30/2025 [...] possible to obtain thecompleted interpretation. Workstation ID: [id number] us Sherlyn Chavez MD IMG XR PROCEDURES Fi nal Result * (ABNORMAL) Hemoglobin A1c (01/29/2025 6:56 AM EDT) Only the most recent of2 resultswithin the time period is included. Hemoglobin A1C 12.5(H) <5.7 % of total Hgb 01/29/2025 3:05 PM EDT [facility] Comment: For someone without known diabetes, a [...] (MG/DL) 312 mg/dL 01/29/2025 3:05 PM EDT [facility] eAG (MMOL/L) 17.3 mmol/L 01/29/2025 3:05 PM EDT [facility] Blood Structure of peripheral vein / Unknown Venipuncture / Unknown 01/29/2025 6:56 AM EDT 01/29/2025 7:07 AM EDT Narrative [facility] - 01/29/2025 3:05 PM EDT [facility] Received Date: us Sherlyn Chavez MD LAB BLOOD ORDERABLES Final Result [facility] [address] [facility] 3rd Floor, [place] [address], [place] [phone] [facility] [address] [facility] 3rd Floor, [place] [address], [place] [phone] * (ABNORMAL) PTT (01/28/2025 7:56 PM EDT) aPTT 34.2(H) 23.0 - 32.0 Seconds 01/28/2025 8:30 PM EDT [facility] Comment: Current PTT reagent is not sensitive to detect all Lupus Anticoagulant (LA) Inhibitor Cases. ?? If a LA is suspected, please order a Lupus Anticoagulation w/ Reflex Test which is performed at [facility] in [place], [place]. Blood Structure of peripheral vein / Unknown Venipuncture / Unknown 01/28/2025 7:56 PM EDT 01/28/2025 8:03 PM EDT us Sherlyn Chavez MD LAB BLOOD ORDERABLES Final Result [facility] [address] [place] [address], * (ABNORMAL) Troponin T, High Sensitivity (01/27/2025 11:56 PM EDT) Only the most recent of2 resultswithin the time period is included. Troponin T High Sensitivity 31(H) <=21 ng/L 01/28/2025 12:36 AM EDT [facility] Comment: Tz-Boegrgnt-I level of 52 ng/L or higher at [...] be evaluated in line with the 4th [place] Definition of AMI. Troponin baseline and serial [...] 11:56 PM EDT 01/28/2025 12:08 AM EDT Sherlyn Chavez MD LAB BLOOD ORDERABLES Final Result Performing Organization Address [facility] Co de Phone Number [facility] [address] [place] [address], * Vancomycin, Random (01/27/2025 11:56 PM EDT) Only the most recent of2 resultswithin the time period is included. Vancomycin Random 12.2 10.0 - 40.0 ug/mL 01/28/2025 1:00 AM EDT [facility] Comment: Before interpreting a [...] BLOOD ORDERABLES Final Result Performing Organization Address [facility] de Phone Number [facility] [address] [place] [id number], [place] * ECG 12 lead (01/27/2025 9:39 PM EDT) Only the most recent of2 resultswithin the time period is included. Ventricular Rate EKG 99 BPM MUSE EKG Atrial Rate 99 BPM MUSE EKG AR Interval 164 ms MUSE EKG QRS Interval 92 ms MUSE EKG QT Interval 340 ms MUSE EKG QTC Interval 436 ms MUSE EKG P [place] 62 degrees MUSE EKG R [place] 56 degrees MUSE EKG T Wave [place] 31 degrees MUSE EKG 01/27/2025 9:39 PM EDT 01/28/2025 4:43 PM EDT Impressions [facility]USE EKG - 01/28/2025 4:43 PM EDT NORMAL SINUS RHYTHM NORMAL ECG WHEN COMPARED WITH ECG OF 27-JAN-2025 11:19, (UNCONFIRMED) NO SIGNIFICANT CHANGE WAS FOUND Confirmed by Thong Rosario ([id number]) on 01/28/2025 4:43:45 PM Sherlyn Chavez MD ECG ORDERABLES Rain l Result Performing Organization Address City/[facility]/ZIP Co de Phone Number MUSE EKG * Lactic Acid, Plasma (01/27/2025 6:57 PM EDT) Lactic Acid 1.6 0.5 - 1.9 mmol/L 01/27/2025 7:35 PM EDT [facility] Comment: Sepsis Screening: Initial Lactate Level >2.0 mmol/L - Repeat Lactate Level within 3 hours. Initial Lactate Level >4.0 mmol/L - Repeat Lactate Level within 3 hours, Initiate Septic Shock Protocol. Blood Structure of peripheral vein / Unknown Venipuncture / Unknown 01/27/2025 6:57 PM EDT 01/27/2025 7:03 PM EDT Sherlyn Chavez MD LAB BLOOD ORDERABLES Final Result Performing Organization Address [facility] Co de Phone Number [facility] [address] [place] [address], * (ABNORMAL) Lactic Acid, Plasma (01/27/2025 2:28 PM EDT) Lactic Acid 2.4(H) 0.5 - 1.9 mmol/L 01/27/2025 3:12 PM EDT [facility] Blood Structure of peripheral vein / Unknown Venipuncture / Unknown 01/27/2025 2:28 PM EDT 01/27/2025 2:44 PM EDT Bertha Quintana MD LAB BLOOD ORDERABLES Final Result [facility] [address] [place] [address], [place] * CT Lower Extremity Left W [...] obtain the completed interpretation. ? Workstation ID: [id number] Narrative 01/27/2025 1:21 PM EDT EXAMINATION: CT [...] No acute osseous abnormality. Resulting Agency Comment [id number] Procedure Note Robert Gallegos MD - 01/27/2025 [...] possible to obtain thecompleted interpretation. Workstation ID: [id number] us Bertha Quintana MD IMG CT PROCEDURES Final Res ult * CT [...] obtain the completed interpretation. ? Workstation ID: [id number] Narrative 01/27/2025 1:21 PM EDT EXAMINATION: CT [...] No acute osseous abnormality. Resulting Agency Comment [id number] Procedure Note Robert Gallegos MD - 01/27/2025 [...] possible to obtain thecompleted interpretation. Workstation ID: [id number] us Bertha Quintana MD IM CT PROCEDURES Final Res ult * Anaerobic Culture (01/27/2025 11:58 AM EDT) Culture A mix of non-predominatin g organisms of questionable significance was recovered on culture and not further identified. 02/01/2025 4:17 PM EDT [facility] Swab Structure of left lower leg / Unknown Non-Blood Collection / Unknown 01/27/2025 11:58 AM EDT 01/27/2025 12:55 PM EDT [facility] - 02/01/2025 4:17 PM EDT [facility] Received Date:[id number] MICRO NUMBER: [id number] SPECIMEN QUALITY: Adequate SOURCE: SWAB LEG, LEFT STATUS: FINAL Note: Growth does not include B.fragilis group or C. perfringens. Bertha Quintana MD LAB MICROBIOLOGY - GENERAL ORDERABLES Final Result [facility] [address] [facility] [address]rd Floor, [place] [address], [facility] [address] [facility] 3rd Floor, [place] [address], * (ABNORMAL) Aerobic Culture w/Gram Stain (01/27/2025 11:58 AM EDT) Culture Additional organisms of questionable significance were isolated that normally do not warrant identification and susceptibilities . 01/31/2025 2:05 PM EDT [facility] Culture Group G Streptococcus(A) 01/31/2025 2:05 PM EDT [facility] Comment: Beta-hemolytic streptococci are predictably susceptible to Penicillin and other beta-lactams. Susceptibility testing not routinely performed. Please contact the laboratory within 3 days if susceptibility testing is desired. Heavy growth of Group G Streptococcus Culture Group B Streptococcus isolated(A) 01/31/2025 2:05 PM EDT [facility] Comment: Beta-hemolytic streptococci are predictably susceptible to Penicillin and other beta-lactams. Susceptibility testing not routinely performed. Please contact the laboratory within 3 days if susceptibility testing is desired. Heavy growth of Group B Streptococcus isolated Culture Staphylococcus aureus(A) 01/31/2025 2:05 PM EDT [facility] Comment:Heavy growth of Stap hylococcus aureus Gram Stain Few White Blood Cells Seen 01/31/2025 2:05 PM EDT [email or web address] Gram Stain No epithelial cells seen 01/31/2025 2:05 PM EDT [employer] Gram Stain Many Gram Positive Cocci 01/31/2025 2:05 PM EDT [email or web address] Gram Stain Few Gram Positive Bacilli 01/31/2025 2:05 PM EDT [email or web address] Gram Stain Few Gram Negative Bacilli 01/31/2025 2:05 PM EDT [employer] Swab Structure of left lower leg / Unknown Non-Blood Collection / Unknown 01/27/2025 11:58 AM EDT 01/27/2025 12:55 PM EDT Narrative [facility] - 01/31/2025 2:05 PM EDT Pj Received Date:[id number] MICRO NUMBER: [id number] SPECIMEN QUALITY: Adequate SOURCE: SWAB LEG, LEFT [...] Not Reported NN = See Therapy Comments us Bertha Quintana MD LAB MICROBIOLOGY - GENERAL ORDERABLES Final Result [facility] [address] [facility] 3rd Floor, [place] [address], [place] [phone] Y[facility] [address] [facility] 3rd Floor, [place] [address], [place] [phone] * (ABNORMAL) POCT I-STAT Lactate W/VBG, interfaced (01/27/2025 11:58 AM EDT) Only the most recent of2 resultswithin the time period is included. [facility] Sample Type, POCT Venous 01/27/2025 12:03 PM EDT [facility], POC Lactate, POCT 2.22(H) 0.9 - 1.7 mmol/L 01/27/2025 12:03 PM EDT [facility], [facility] pH, POCT 7.42(H) 7.31 - 7.41 pH 01/27/2025 12:03 PM EDT [facility], [facility] pCO2, POCT 38.9(L) 41 - 51 mm Hg 01/27/2025 12:03 PM EDT [facility] pO2, POCT 21(L) 35 - 40 mm Hg 01/27/2025 12:03 PM EDT [facility] Base Excess, POCT 1 0 - 3 mmol/L 01/27/2025 12:03 PM EDT [facility], [facility] HCO3, POCT 25.2 23 - 28 mmol/L 01/27/2025 12:03 PM EDT [facility], [facility] TCO2, POCT 26 24 - 29 mmol/L 01/27/2025 12:03 PM EDT [facility] Saturated O2, POCT 35(L) 70 - 75 % 01/27/2025 12:03 PM EDT [facility] Richard's Test, POCT N/A 01/27/2025 12:03 PM EDT [facility] Blood 01/27/2025 11:5 8 AM EDT 01/27/2025 12:03 PM EDT us Bertha Quintana MD LAB POCT ORDERABLES - DEVIC E Final Result [facility] [address] [place] [address], * (ABNORMAL) Lactic Acid, Plasma (w/Reflex if >2) (01/27/2025 11:38 AM EDT) Lactic Acid 3.1(H) 0.5 - 1.9 mmol/L 01/27/2025 12:35 PM EDT [facility] Blood Structure of peripheral vein / Unknown Venipuncture / Unknown 01/27/2025 11:38 AM EDT 01/27/2025 11:59 AM EDT Bertha Quintana MD LAB BLOOD ORDERABLES Final Result [facility] [address] [place] [address], * MRSA/S aureus PCR, Nasal (01/27/2025 11:38 AM EDT) MRSA PCR, Nasal NOT DETECTED NOT DETECTED 01/28/2025 6:59 AM EDT [facility] S. aureus PCR, Nasal NOT DETECTED NOT DETECTED 01/28/2025 6:59 AM EDT [facility] Swab Nasal structure / Unknown Non-Blood Collection / Unknown 01/27/2025 11:38 AM EDT 01/27/2025 12:55 PM EDT Narrative [facility] - 01/28/2025 6:59 AM EDT [facility] Received Date:[id number] Bertha Quintana MD LAB BODY FLUIDS AND STOOLS ORDERABLES Final Result [facility] [address] [facility] 3rd Floor, [place] [address], [facility] [address] [facility] 3rd Floor, [place] [address], * Blood Culture x 2 (2nd draw) (01/27/2025 11:38 AM EDT) Only the most recent of2 resultswithin the time period is included. Culture No growth after 5 days 02/01/2025 5:36 PM EDT [facility] Blood Structure of peripheral vein / Unknown Venipuncture / Unknown 01/27/2025 11:38 AM EDT 01/27/2025 11:53 AM EDT Narrative [facility] - 02/01/2025 5:36 PM EDT [facility] Received Date:[id number] MICRO NUMBER: [id number] SPECIMEN QUALITY: Suboptimal SOURCE: BLOOD VENOUS, PERIPHERAL STATUS: FINAL COMMENT: Aerobic and anaerobic bottle received. Inspection of blood culture bottles indicates that an inadequate volume of blood may have been collected for the detection of sepsis. Bertha Quintana MD LAB MICROBIOLOGY - GENERAL ORDERABLES Final Result [facility] [address] [facility] 3rd Floor, [place] [address], [place] [phone] [facility] [address] [facility] 3rd Floor, [place] [address], [place] [phone] * Lipase (01/27/2025 11:38 AM EDT) Lipase 37 13 - 60 U/L 01/27/2025 12:54 PM EDT [facility] Blood Structure of peripheral vein / Unknown Venipuncture / Unknown 01/27/2025 11:38 AM EDT 01/27/2025 11:59 AM EDT Bertha Quintana MD LAB BLOOD ORDERABLES Final Result Performing Organization Address City/[facility]/ZIP Co de Phone Number [facility] [address] [place] [address], [place] * HEART & VASCULAR - SCANNED [...] Glucose Blood, Non-Interfaced (01/07/2025 3:07 PM EDT) [facility] POCT Glucose 387(A) 70 - 99 mg/dL Blood Capillary blood specimen / Unknown 01/07/2025 3:07 PM EDT us Geovanna Abbasi NP POINT OF CARE TEST [...] Lucie Miller MD CV VASCULAR PROCEDURES Rain celestine Result * Ankle/Brachial Index and Arterial Waveform [...] obtain the completed interpretation. ? Workstation ID: [id number] Narrative 12/31/2024 2:07 PM EST EXAMINATION: Ultrasound [...] to the bladder, nonspecific. Resulting Agency Comment [id number] Procedure Note Glenn Guillaume MD - 12/31/2024 [...] possible to obtain thecompleted interpretation. Workstation ID: [id number] us Alexa Perea NP IMG US PROCEDURES Rain l Result * (ABNORMAL) Urinalysis With Microscopic (No Culture)-[place] ONLY (12/31/2024 10:32 AM EST) Color, Urine Light Yellow Colorless, Light Yellow, Yellow, Dark Yellow 12/31/2024 11:14 AM EST [facility] Clarity, Urine Slightly Cloudy(A) Clear 12/31/2024 11:14 AM EST [facility] Specific [place], Urine 1.016 1.005 - 1.030 12/31/2024 11:14 AM EST [facility] pH, Urine 6.0 4.6 - 8.0 12/31/2024 11:14 AM EST [facility] Protein, Urine 3+(A) Negative 12/31/2024 11:14 AM EST [facility] Glucose, Urine 3+(A) Negative 12/31/2024 11:14 AM EST [facility] Ketones, Urine Negative Negative 12/31/2024 11:14 AM EST [facility] Bilirubin, Urine Negative Negative 12/31/2024 11:14 AM EST [facility] Blood, Urine Negative Negative 12/31/2024 11:14 AM EST [facility] Nitrite, Urine Negative Negative 12/31/2024 11:14 AM EST [facility] Urobilinogen, Urine Normal Normal 12/31/2024 11:14 AM EST [facility] Leukocyte Esterase, Urine Negative Negative 12/31/2024 11:14 AM EST [facility] WBC, Urine 2 0 - 2 /HPF 12/31/2024 11:14 AM EST [facility] RBC, Urine 2 0 - 2 /HPF 12/31/2024 11:14 AM EST [facility] Hyaline Casts, Urine 1 0 - 2 /LPF 12/31/2024 11:14 AM EST [facility] Bacteria, Urine None None /HPF /HPF 12/31/2024 11:14 AM EST [facility] Squamous Epithelial Cells, Urine 5 /HPF 12/31/2024 11:14 AM EST [facility] Urine Urine specimen collection, clean catch / Unknown Non-Blood Collection / Unknown 12/31/2024 10:32 AM EST 12/31/2024 10:50 AM EST us Michelle Ling ANTIQUE CLOCK REPAIRER LAB URINE ORDERABLES Final Res ult Performing Organization Address City/State/[facility] Co de Phone Number [facility] [address] [place] [address] * (ABNORMAL) Cystatin C with Glomerular Filtration Rate, Estimated (eGFR) (12/31/2024 10:21 AM EST) Cystatin C 2.12(H) 0.52 - 1.27 mg/L 01/02/2025 11:56 AM EDT [facility] eGFR Non- 31(L) >=60 NA 01/02/2025 11:56 AM EDT [facility] Comment: ?REFERENCE RANGE:>=60 mL/min/1.73mE2 ? Blood Structure of peripheral vein / Unknown Venipuncture / Unknown 12/31/2024 10:21 AM EST 12/31/2024 10:50 AM EST Narrative [facility] - 01/02/2025 11:56 AM EDT [facility] Received Date:[id number] Michelle Ling ANTIQUE CLOCK REPAIRER LAB BLOOD ORDERABLES Final Res ult [facility] [address] [place] [address], [place] * Phospholipase A2 Receptor Antibodies, Serum (12/31/2024 10:21 AM EST) Phospholipase A2 Receptor (PLA2R) Ab, JULIUS <4 RU/mL 01/04/2025 11:28 PM EDT [facility] BE[facility]ENISE [place] [place] Comment: Reference Range: ? <14: NEGATIVE ?? 14-19: BORDERLINE ? >19: POSITIVE Phospholipase A2 Receptor (PLA2R) Ab, IFA NEGATIVE NEGATIVE 01/04/2025 11:28 PM EDT [facility] DIOGO [facility] [place] Blood Structure of peripheral vein / Unknown Venipuncture / Unknown 12/31/2024 10:21 AM EST 12/31/2024 10:50 AM EST Jan[facility] - 01/04/2025 11:28 PM EDT [facility] Received Date:[id number] Michelle Ling ANTIQUE CLOCK REPAIRER LAB BLOOD ORDERABLES Final Res ult [facility] [address] [place] [address] 3rd Floor, [place] [address], [place] [phone] [facility]/ISLAS [place] [address] [place] [address], [place] [phone] * (ABNORMAL) Lancaster & Lambda, Free w/Ratio (12/31/2024 10:21 AM EST) [place] Light Chain, Free, Serum 28.7(H) 3.3 - 19.4 mg/L 01/03/2025 10:47 AM EDT [facility] Lambda Light Chain, Free, Serum 31.0(H) 5.7 - 26.3 mg/L 01/03/2025 10:47 AM EDT [facility] Lancaster/Lambda Light Chains Free With Ratio 0.93 0.26 - 1.65 01/03/2025 10:47 AM EDT [facility] Comment: Free kappa/lambda ratio in serum of [...] Narrative [facility] - 01/03/2025 10:47 AM [employer] Received Date:[id number] Michelle Ling NP LAB BLOOD ORDERABLES Final Res ult [facility] [address] [facility] 3rd Floor, [place] [address], [place] [phone] [facility] [address] [facility] 3rd Floor, [place] [address], [place] [phone] * (ABNORMAL) SPEP (Protein Electrophoresis w/Reflex to Immunofixation) (12/31/2024 10:21 AM EST) Pathologist [facility] Protein, Total 6.1 6.1 - 8.1 g/dL 01/04/2025 10:00 AM EDT [facility] Albumin 3.2(L) 3.8 - 4.8 g/dL 01/04/2025 10:00 AM [employer] [facility] Alpha 1 Globulin 0.3 0.2 - 0.3 g/dL 01/04/2025 10:00 AM [employer] [facility] Alpha 2 Globulin 1.1(H) 0.5 - 0.9 g/dL 01/04/2025 10:00 AM [employer] [facility] Beta 1 Globulin 0.4 0.4 - 0.6 g/dL 01/04/2025 10:00 AM [employer] [facility] Beta 2 Globulin 0.3 0.2 - 0.5 g/dL 01/04/2025 10:00 AM [employer] [facility] Gamma Globulin 0.8 0.8 - 1.7 g/dL 01/04/2025 10:00 AM [employer] [facility] Interpretation See Comments 01/04/2025 10:00 AM [employer] [facility] Comment: Suggestive of acute inflammation pattern with elevation of acute phase proteins Blood Structure of peripheral vein / Unknown Venipuncture / Unknown 12/31/2024 10:21 AM EST 12/31/2024 10:50 AM EST Narrative [facility] - 01/04/2025 10:00 AM [employer] Received Date: Michelle Ling NP LAB BLOOD ORDERABLES Final Res ult [facility] [address] [facility] 3rd Floor, [place] [address], [place] [phone] [facility] [address] [facility] 3rd Floor, [place] [address], [place] [phone] * ANCA Screen w/Reflex to ANCA Titer (12/31/2024 10:21 AM EST) [facility] ANCA Screen NEGATIVE NEGATIVE 01/04/2025 1:06 PM EDT [facility] Comment: ANCA screen uses indirect immunofluorescence to [...] - 01/04/2025 1:06 PM EDT [facility] Received Date:[id number] us Michelle Ling ANTIQUE CLOCK REPAIRER LAB BLOOD ORDERABLES Final Res ult Performing Organization Address City/[facility]/ZIP Co de Phone Number [facility] [address], [place] [address], [place] [phone] [facility] [address], [place] [address], [place] [phone] * (ABNORMAL) C3 complement (12/31/2024 10:21 AM EST) Complement Component C3C 197(H) 82 - 185 mg/dL 01/01/2025 3:55 PM EST [facility] Blood Structure of peripheral vein / Unknown Venipuncture / Unknown 12/31/2024 10:21 AM EST 12/31/2024 10:50 AM EST Narrative [facility] - 01/01/2025 3:55 PM EST [facility] Received Date:[id number] us Michelle Ling ANTIQUE CLOCK REPAIRER LAB BLOOD ORDERABLES Final Res ult Performing Organization Address City/[facility]/ZIP Co de Phone Number [facility] [address], [place] [address], [place] [phone] [facility] [address], [place] [address], [place] [phone] * C4 complement (12/31/2024 10:21 AM EST) Complement Component C4C 30 15 - 53 mg/dL 01/01/2025 3:55 PM EST [facility] Blood Structure of peripheral vein / Unknown Venipuncture / Unknown 12/31/2024 10:21 AM EST 12/31/2024 10:50 AM EST Narrative [facility] - 01/01/2025 3:55 PM EST [facility] Received Date:[id number] Michelle Ling ANTIQUE CLOCK REPAIRER LAB BLOOD ORDERABLES Final Res ult Performing Organization Address City/[facility]/ZIP Co de Phone Number [facility] [address] [facility] 3rd Floor, [place] [address], [place] [phone] [facility] [address] [facility] 3rd Floor, [place] [address], [place] [phone] * HIV Ab/p24 Ag with Reflex (10/29/2024 2:27 PM EST) HIV Scr 4th Gen Non Reactive Non Reactive [facility] Comment: HIV-1/HIV-2 antibodies and HIV-1 p24 antigen were NOT detected. There is no laboratory evidence of HIV infection. HIV Negative Blood Structure of peripheral vein / Unknown 10/29/2024 2:27 PM EST 10/29/2024 Narrative [facility] - 10/30/2024 5:05 AM EST Performed at: ??01 - [facility] [address] ??[id number] Permit Specialist: Marilu Banks MD, Phone: ??[phone] Juliet Bell ANTIQUE CLOCK REPAIRER AMB [facility] ORDERABLES Final Result [facility] * Hepatitis C Antibody w/Reflex to HCV RNA, Quantitative PCR (09/22/2024 5:47 PM EST) Hepatitis C Antibody Interpretation Nonreactive Nonreactive 09/23/2024 10:48 AM EST [facility] Blood Structure of peripheral vein / Unknown Venipuncture / Unknown 09/22/2024 5:47 PM EST 09/22/2024 5:51 PM EST Alexa Rodriguez MD LAB BLOOD ORDERABLES Rain celestine Result [facility] [address] [place] [address], from Last 3 Months or Most Recently Relevant to Health Maintenance [facility] Advance Directives Documents on File Type Date Recorded Patient Rn Anesthesiology Expl anation Health Care Proxy 09/30/2024 12:43 [...] Healthcare Agent Relationship Communication Clark Arce Friend [facility] Health Care Agen t Larissa Jerman [facility] Health Care Agent Care Teams Collar Feller Relationship Specialty Start Date End Date Geovanna Abbasi NP [address] [place] [address] PCP - General 11/09/20
--- OUTSIDE RECORDS SUMMARY | 2025-02-25 14:43 | XMS_ITS | Encounter Summary ---
Author Organization [facility] Address [address] [place] [address] Care Team Providers Care Director Consumer Name Role Phone AyleenGeovanna HOGSHEAD COOPER Primary Care Provider [phone] Reason for Visit * Reason Comments Results Left Without Being Seen Encounter Details Date Type Department Care Team (Late st Contact Info) Description 02/25/2025 Telephone [facility] Emergency Department [address] [place] [address] Rosa Gillespie, RN Results; Left Without Being Seen Social History Tobacco Use Types Packs/Day Years Used Date Smoking Tobacco: Former Cigarettes Smokeless Tobacco: Never Comments:QUIT DAY OF SURGERY Alcohol Use Standard Drinks/Week Comments Never 0 (1 standard drink = 0.6 oz pur e alcohol) [facility] Utilities Answer Date Recorded In the [...] on file documented as of this encounter ED Notes * Rosa Gillespie RN - 02/25/2025 1:17 PM EDT Spoke with the Pt / we reviewed His LWBS results and I read him HOGSHEAD COOPER Marcio's recommendation note as written / The Pt lives in [facility] and is 1 hour and 50 minutes away from [facility] / asked if he can go to the ER that is 8 minutes from his house / told him that would be fine , but to make sure he tells the ER Dr that the Diabetes dr was concerned he may have some sort of infection causing is FSBS to be high and difficult to control at this time, and that he needs to be worked up to look for any type of infection / He verbalized good understanding and had no further questions states he will go to the ER today / has my number in his VM will call if he needs any further info while at the ER Rosa Gillespie RN 02/25/25 3591 documented in this encounter Plan of Treatment Upcoming Encounters Date Type Department Care Team (Late st Contact Info) Description 02/28/2025 10:00 AM EDT Nutrition [facility] [address] [place] [address] Raysa Mendez, RD [address] [place] [phone] 03/24/2025 1:40 PM EDT Office Visit [facility] [address] [facility] [address] [place] [address] Geovanna Abbasi NP [address] [place] [address] 04/07/2025 8:00 AM EDT Office Visit [facility] Building Diabetes Clinic [address] [place] [address] Detective Homicide Squad: Tatiana Phillip NP [address] [place] [address] 04/26/2025 10:40 AM EDT Follow-Up [facility] Renal [address] [place] [address] Detective Homicide Squad: Kojo Tracey MD [address] [place] [address] 05/05/2025 2:30 PM EDT Office Visit [facility] Diabetes Clinic [address] [place] [address] Detective Homicide Squad: Tatiana Phillip NP [address] [place] [address] 05/19/2025 1:30 PM EDT Office Visit [place] [address] [facility] [address] [place] [address] Henrique Banegas, PharmD [address] [place] [address] 07/15/2025 1:00 PM EDT Appointment [facility] ACC Vascular Lab [address] [place] [address] 07/15/2025 1:45 PM EDT Appointment [facility] Vascular Lab [address] [place] [address] 07/15/2025 3:00 PM EDT Follow-Up [facility] Building Vascular Surgery [address] [place] [address] Detective Homicide Squad: Mitul Starr NP [address] [place] [address] documented as of this encounter Visit Diagnoses Not on filedocumented in this encounter Care Teams Director Consumer Relationship Specialty Start Date End Date Geovanna Abbasi NP [address] [place] [address] PCP - General 11/09/20 documented as of this encounter
[2025-02-25 14:44] LABS: Basophils Absolute Auto 0.1 X10*3/uL (0.0-0.2); Basophils Percent Auto 0.7 % (0-2); Eosinophils Absolute Auto 0.4 X10*3/uL (0.0-0.4); Eosinophils Percent Auto 3.8 % (0-4); Hemoglobin 13.2 g/dl (14.0-18.0); Lymphocytes Absolute Auto 2.5 X10*3/uL (1.2-4.9); Lymphocytes Percent Auto 25.4 % (20-40); Mean Corpuscular HGB Conc 33.8 g/dl (31.0-36.0); Mean Corpuscular Hemoglobin 27.9 pg (27.0-33.0); Mean Corpuscular Volume 82.5 fL (80.0-98.0); Mean Platelet Volume 9.8 fL (9.4-12.4); Monocytes Absolute Auto 0.5 X10*3/uL (0.1-1.2); Monocytes Percent Auto 5.1 % (2-11); Neutrophils Absolute Auto 6.3 x10*3/uL (2.0-8.3); Platelet Count 296 X10*3/uL (160-400); Red Blood Count 4.73 X10*6/uL (4.60-5.80); Red Cell Distribution Width 14.2 % (11.0-16.0); White Blood Count 9.9 X10*3/uL (4.8-10.8)
--- OUTSIDE RECORDS SUMMARY | 2025-02-25 14:44 | XMS_ITS | Encounter Summary ---
Author Organization [facility] Address [address] [place] [address] Care Team Providers Care Manager Food Name Role Phone Geovanna Abbasi TREASURY ACCOUNTANT Primary Care Provider [phone] Encounter Details Date Type Department Care Team (Late st Contact Info) Description 02/25/2025 Orders Only [facility] Diabetes Clinic [address] [place] [address] Footwear Factory Worker: Catherine Cha MD [address] [place] [address] Social History Tobacco Use Types Packs/Day Years Used Date Smoking Tobacco: Former Cigarettes Smokeless Tobacco: Never Comments:QUIT DAY OF SURGERY Alcohol Use Standard Drinks/Week Comments Never 0 (1 standard drink = 0.6 oz pur e alcohol) [facility] Utilities Answer Date Recorded In the [...] Notes * Catherine Dinh MD - 02/25/2025 11:38 AM EDT Called patient as left ED without being seen last evening. Donor Floor Technician Donor Floor Technician Used: Yes Type of Donor Floor Technician Used: Telephone Donor Floor Technician Donor Floor Technician Name/Number: [id number]/veronica Lambert [id number]/Larry Patient was in ED until 9 pm last evening and left without being seen. Labs drawn with CHELA and hyperglycemia, though improving. Patient does not have glucometer or CGM at home to test sugar. Glucometer sent to home pharmacy; confirmed in stock. Reviewed with patient that he should remain hydrated and get a glucometer today so we can adjust insulin, otherwise he should return to ED or go to urgentcare. If obtains glucometer, is able to monitor, and is still high today, would increase glargine to 45 units nightly and lispro to 15 units with meals with close monitoring. Catherine Dinh MD PGY-5 Endocrinology Fellow documented in this encounter Plan of Treatment Upcoming Encounters Date Type Department Care Team (Late st Contact Info) Description 02/28/2025 10:00 AM EDT Nutrition [facility] Nutrition Clinic [address] [place] [address] Raysa Mendez, RD [address] [place] [address] 03/24/2025 1:40 PM EDT Office Visit [facility] [address] [facility] [address] [place] [address] Geovanna Abbasi NP [address] [place] [address] 04/07/2025 8:00 AM EDT Office Visit [facility] Diabetes Clinic [address] [place] [address] Footwear Factory Worker: Tatiana Phillip NP [address] [place] [address] 04/26/2025 10:40 AM EDT Follow-Up [facility] Renal [address] [place] [address] Footwear Factory Worker: Kojo Tracey MD [address] [place] [address] 05/05/2025 2:30 PM EDT Office Visit [facility] Diabetes Clinic [address] [place] [address] Footwear Factory Worker: Tatiana Phillip NP [address] [place] [address] 05/19/2025 1:30 PM EDT Office Visit [place] [address] [facility] [address] [place] [address] Henrique Banegas, PharmD [address] [place] [address] 07/15/2025 1:00 PM EDT Appointment [facility] Vascular Lab [address] [place] [address] 07/15/2025 1:45 PM EDT Appointment [facility] ACC Vascular Lab [address] [place] [address] 07/15/2025 3:00 PM EDT Follow-Up [facility] ACC Building Vascular Surgery [address] [place] [address] Footwear Factory Worker: Mitul Starr NP [address] [place] [address] documented as of this encounter Visit Diagnoses Not on filedocumented in this encounter Care Teams Manager Food Relationship Specialty Start Date End Date Geovanna Abbasi NP [address] [place] [address] PCP - General 11/09/20 documented as of this encounter
--- OUTSIDE RECORDS SUMMARY | 2025-02-25 14:44 | XMS_ITS | Encounter Summary ---
Author Organization [facility] Address [address] [place] [address] Care Team Providers Care Van Driver Helper Name Role Phone Ayleen Geovanna ECONOMIC GEOGRAPHER Primary Care Provider [phone] Reason for Visit * Reason Comments Hyperglycemia Encounter Details Date Type Department Care Team (Late st Contact Info) Description 02/24/2025 1:21 PM EDT - 02/25/2025 12:33 AM EDT Emergency [facility] Emergency Department [address] [place] [address] Discharge Disposition: Left Without Being Seen (07) Social History Tobacco Use Types Packs/Day Years Used Date Smoking Tobacco: Former Cigarettes Smokeless Tobacco: Never Comments:QUIT DAY OF SURGERY Alcohol Use Standard Drinks/Week Comments Never 0 (1 standard drink = 0.6 oz pur e alcohol) [facility] Utilities Answer Date Recorded In the [...] on file documented as of this encounter Last Filed Vital Signs Vital Sign Reading Time Taken Comments Blood Pressure 166/98 02/24/2025 7:45 PM EDT Pulse 108 02/24/2025 7:45 PM EDT Temperature 36.8 ??C (98.2 ??F) 02/24/2025 7:45 PM ED T Respiratory Rate 19 02/24/2025 7:45 PM EDT Oxygen Saturation 98% 02/24/2025 7:45 PM EDT Inhaled Oxygen Concentration - - Weight - - Height - - Body Mass Index - - documented in this encounter Medications at Time of Discharge acetaminophen (TYLENOL) 325 mg tablet Take 650 mg by mouth every 6 hours as needed for pain. alcohol swabs (Alcohol Pads) pads, medicated Use up to 8 times daily with meter checks 200 each 02/24/2025 alcohol swabs (Alcohol Prep Pads) pads, medicated Use prior to checking blood sugar 100 each 11 09/03/2023 amLODIPine (NORVASC) 5 mg tablet Take 1 tablet (5 mg total) by mouth once a day. 90 tablet 1 11/09/2024 aspirin 81 mg EC tablet Take 1 tablet (81 mg total) by mouth once a day. 10/01/2024 blood glucose diagnostic (FreeStyle Precision Ethan Strips) test strip Use to test 3 times daily. 50 strip 2 10/29/2024 blood pressure test kit-medium kit For blood pressure monitoring 1-2 times weekly 1 each 11/10/2024 blood-glucose sensor (FreeStyle Geo 3 Plus Sensor) device Change sensor every 15 days. 2 each 3 02/24/2025 cholecalciferol (VITAMIN D3) 1,250 mcg (50,000 unit) capsule Take 1 capsule (50,000 Units total) by mouth once a week for 8 doses. 8 capsule 02/28/2025 5 ergocalciferol (VITAMIN D2) 1,250 mcg (50,000 unit) capsule Take 1 capsule (50,000 Units total) by mouth every 7 days. 4 capsule 11/10/2024 Freestyle lancets 28 gauge Use to test 4 times daily.E11.9(T2) 200 each 11 02/25/2025 furosemide (LASIX) 20 mg tablet Take 2 tablets (40 mg total) by mouth once a day. 60 tablet 2 12/22/2024 gabapentin (NEURONTIN) 300 mg capsule TAKE 1 CAPSULE(300 MG) BY MOUTH TWICE DAILY 60 capsule 01/25/2025 hydrOXYzine HCL (ATARAX) 25 mg tablet Take 1-2 pills by mouth at night for anxiety and insomnia. 90 tablet 1 12/17/2024 insulin glargine (LANTUS SOLOSTAR) 100 unit/mL insulin pen Inject 38 Units under the skin nightly. 30 mL 5 02/24/2025 insulin lispro 100 unit/mL insulin pen Inject 10 Units under the skin 3 times a day with meals. Adjust as instructed, MDD 60. 15 mL 02/24/2025 lisinopriL (PRINIVIL,ZESTRIL) 10 mg tablet Take 4 tablets (40 mg total) by mouth once a day. 120 tablet 2 02/23/2025 5 pen needle (BD Ultra-Fine Lizbeth) 4 mm x 32 g Use 4 times daily with insulin 200 each 02/24/2025 rosuvastatin (CRESTOR) 20 mg tablet Take 20 mg by mouth once a day. silver sulfadiazine (SILVADENE) 1% creamIndications:L eg wound, left, initial encounter Apply topically to the affected area once a day. 50 g 2 02/21/2025 tamsulosin (FLOMAX) 0.4 mg capsule Take 1 capsule (0.4 mg total) by mouth once a day. 30 capsule 11 11/26/2024 documented as of this encounter Plan of Treatment Upcoming Encounters Date Type Department Care Team (Late st Contact Info) Description 02/28/2025 10:00 AM EDT [facility] Nutrition [facility] [address] [place] [address] [place] [address] 03/24/2025 1:40 PM EDT Office Visit [place] [address] [facility] [address] [place] [address] Geovanna Abbasi NP [address] [place] [address] 04/07/2025 8:00 AM EDT Office Visit [facility] [address] [place] [address] Supervisor Green End Department: Tatiana Phillip NP [address] [place] [address] 04/26/2025 10:40 AM EDT Follow-Up [facility] Renal [address] [place] [address] Supervisor [place] Department: Kojo Tracey MD [address] [place] [address] 05/05/2025 2:30 PM EDT Office Visit [facility] [address] [place] [address] Supervisor [place] End Department: Tatiana Phillip NP [address] [place] [address] 05/19/2025 1:30 PM EDT Office Visit [facility] [address] [facility] [address] [place] [address] Henrique Banegas, PharmD [address] [place] [address] 07/15/2025 1:00 PM EDT Appointment [facility] ACC Vascular Lab [address] [place] [address] 07/15/2025 1:45 PM EDT Appointment [facility] ACC Vascular Lab [address] [place] [address] 07/15/2025 3:00 PM EDT Follow-Up [facility] ACC Building Vascular Surgery [address] [place] [address] Supervisor [place] End Department: Mitul Starr NP [address] [place] [address] documented as of this encounter Procedures * Due to [place] myBarrister law, this organization might not be sharing negative HIV tests. Procedure Name Priority Date/Time Associated Diagnosis Comments POCT GLUCOSE Routine 02/24/2025 7:49 PM EDT COMPREHENSIVE METABOLIC PANEL STAT 02/24/2025 1:56 PM EDT POCT GLUCOSE Routine 02/24/2025 1:32 PM EDT documented in this encounter Results * Due to [place] myBarrister law, this organization might not be sharing negative HIV tests. * (ABNORMAL) POCT Glucose, interfaced (02/24/2025 7:49 PM EDT) [facility] Signature Glucose, POCT 423(H) 70 - 99 mg/dL 02/24/2025 7:50 PM EDT [facility] Comment: The industrial tractor driver has not determined the efficacy of this test in Critically ill patients. ??[facility] defines Critically ill patients for [...] POCT ORDERABLES - DEVICE Fin al Result [facility] [address] [place] [address], * (ABNORMAL) Comprehensive Metabolic Panel (02/24/2025 1:56 PM EDT) NA 132(L) 135 - 145 mmol/L 02/24/2025 2:36 PM EDT [facility] K 4.7 3.5 - 5.3 mmol/L 02/24/2025 2:36 PM EDT [facility] Cl 93(L) 98 - 107 mmol/L 02/24/2025 2:36 PM EDT [facility] CO2 26 22 - 32 mmol/L 02/24/2025 2:36 PM EDT [facility] Anion Gap 13 5 - 15 02/24/2025 2:36 PM EDT [facility] Glucose 496(H) 65 - 99 mg/dL 02/24/2025 2:36 PM EDT [facility] Creatinine 1.46(H) 0.60 - 1.30 mg/dL 02/24/2025 2:36 PM EDT [facility] Calcium 9.5 8.6 - 10.5 mg/dL 02/24/2025 2:36 PM EDT [facility] Total Protein 8.0 6.0 - 8.0 g/dL 02/24/2025 2:36 PM EDT [facility] Albumin 3.8 3.5 - 5.2 g/dL 02/24/2025 2:36 PM EDT [facility] Bilirubin, Total 0.2 0.2 - 1.2 mg/dL 02/24/2025 2:36 PM EDT [facility] Alkaline Phosphatase 135(H) 35 - 129 U/L 02/24/2025 2:36 PM EDT [facility] AST 15 10 - 40 U/L 02/24/2025 2:36 PM EDT [facility] ALT 18 10 - 40 U/L 02/24/2025 2:36 PM EDT [facility] BUN 33(H) 7 - 23 mg/dL 02/24/2025 2:36 PM EDT [facility] eGFR 60 >=60 mL/min/1 .73m2 02/24/2025 2:36 PM EDT [facility] [place] [facility] Comment:The estimated glomer ular [...] 2.1 - 4.2 g/dL 02/24/2025 2:36 PM T [facility]ENTER[facility] A/G Ratio 0.9(L) 1.5 - 3.0 02/24/2025 2:36 PM T [employer]NF[employer]KY [facility] Blood Structure of peripheral vein / Unknown Venipuncture / Unknown 02/24/2025 1:56 PM EDT 02/24/2025 1:56 PM EDT us Protocol Unv Adult Treatment MD LAB BLOOD ORDERA BLES Final Result Performing Organization Address [facility] Co de Phone Number EDGAR [employer] [facility] LAB[facility]ORY [address] [place] [address], [place] * (ABNORMAL) POCT Glucose, interfaced (02/24/2025 1:32 PM EDT) Glucose, POCT 510(HH) 70 - 99 mg/dL 02/24/2025 1:33 PM EDT [facility] Comment: The industrial tractor driver has not determined the efficacy of this test in Critically ill patients. ??[facility] defines Critically ill patients for [...] confirmed with lab-based glucose values. Blood 02/24/2025 1:32 PM EDT 02/24/2025 1:33 PM EDT us Doctor Unknown LAB POCT ORDERABLES - DEVICE Fin al Result Performing Organization Address City/[facility]/ZIP Co de Phone Number [facility] [address] [place] [address], [place] documented in this encounter Visit Diagnoses Not on filedocumented in this encounter Care Teams Van Driver Helper Relationship Specialty Start Date End Date Geovanna Abbasi NP [address] [place] [address] PCP - General 11/09/20 documented as of this encounter
--- OUTSIDE RECORDS SUMMARY | 2025-02-25 14:44 | XMS_ITS | Encounter Summary ---
Author Organization [facility] Address [address] [place] [address] Care Team Providers Care Cross Tie Tram Loader Name Role Phone Ayleen Geovanna HONEYCOMB BLANKET MAKER Primary Care Provider [phone] Encounter Details Date Type Department Care Team (Late st Contact Info) Description 03/10/2024 Telephone [facility] Scheduling Department [address] [place] [address] Caty Hall CCC-SYSTEMS TEST TECHNICIAN Social History Tobacco Use Types Packs/Day Years Used Date Smoking Tobacco: Every Day Cigarettes Smokeless Tobacco: Never Alcohol Use Standard Drinks/Week Comments Never 0 (1 standard drink = 0.6 oz pur e alcohol) Transportation Answer Date Recorded Please karishma the areas for ich the patient would like information or assistance: None Apply 04/14/2023 Lack of Transportation (Medical) Not on file 04/14/2023 Housing Stability Answer Date Recorded Please karishma the areas for ich the patient would like information or assistance: None Apply 04/14/2023 Unable to Pay for Housing in the Last Year Not o n file 04/14/2023 Last EPDS Total Score Not on file 04/14/2023 Unstable Housing in the Last Year Not on file 04/14/2023 Sex and Gender Information Value Date Recorded Sex Assigned at Male 03/08/2024 11:09 AM EDT Legal Sex Male 5:33 PM EST Gender Identity Not on file Sexual Orientation Not on file documented as of this encounter Miscellaneous Notes * Telephone Encounter - Kirsten Linn - 03/10/2024 3:18 PM EDT Kirsten spoke with patient confirmed no services, he is going t o work on Friday, will follow up with MD He stated he is doing much better. Will follow up with us if he needs to documented in this encounter Plan of Treatment Upcoming Encounters Date Type Department Care Team (Late st Contact Info) Description 02/28/2025 10:00 AM EDT Nutrition [facility] Nutrition Clinic [address] [place] [address] [place] [address] 03/24/2025 1:40 PM EDT Office Visit [facility] [address] [facility] [address] [place] [address] Geovanna Abbasi NP [address] [place] [address] 04/07/2025 8:00 AM EDT Office Visit [facility] Building Diabetes Clinic [address] [place] [address] Vp Of Customer Experience Strategy: Tatiana Phillip NP [address] [place] [address] 04/26/2025 10:40 AM EDT Follow-Up [facility] Renal [address] [place] [address] Vp Of Customer Experience Strategy: Kojo Tracey MD [address] [place] [address] 05/05/2025 2:30 PM EDT Office Visit [facility] Diabetes Clinic [address] [place] [address] Vp Of Customer Experience Strategy: Tatiana Phillip NP [address] [place] [address] 05/19/2025 1:30 PM EDT Office Visit [facility] [address] [facility] [address] [place] [address] DiGHenrique gusman, PharmD [address] [place] [address] 07/15/2025 1:00 PM EDT Appointment [facility] Vascular Lab [address] [place] [address] 07/15/2025 1:45 PM EDT Appointment [facility] Vascular Lab [address] [place] [address] 07/15/2025 3:00 PM EDT Follow-Up [facility] Vascular Surgery [address] [place] [address] Vp Of Customer Experience Strategy: Mitul Starr NP [address] [place] [address] documented as of this encounter Visit Diagnoses Not on filedocumented in this encounter Additional Health Concerns Infection Onset Date Last Indicated Resolved Time R/O Respiratory Virus Infection 09/23/2024 09/23/2024 3:28 AM EST R/O Influenza 09/23/2024 09/23/2024 09/23/2024 3:2 8 AM EST COVID-19 - Suspected infection 09/23/2024 09/23/2024 09/23/2024 3:28 AM EST documented as of this encounter Care Teams Cross Tie Tram Loader Relationship Specialty Start Date End Date Geovanna Abbasi NP [address] [place] [address] PCP - General 11/09/20 documented as of this encounter
--- OUTSIDE RECORDS SUMMARY | 2025-02-25 14:44 | XMS_ITS | Encounter Summary ---
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) Procedures ECG 12 lead J Carlos Tao MD MPH [address] [place] [address] Phone: tel: fax: Referral ID Status Reason Start Date Expiration Date Visits Re quested Visits Authorized [id number] Closed 09/06/2024 03/08/2026 1 1 Encounter Details Date Type Department Care Team (Late st Contact Info) Description 09/06/2024 Orders Only [facility] Lab [address] [place], [place] [id number] J Carlos Tao MD MPH [address] [place] [address] Pre-operative cardiovascular examination (Primary Dx); Atherosclerosis of [place] artery of left lower extremity with ulceration of heel Social History Tobacco Use Types Packs/Day Years Used Date Smoking Tobacco: Every Day Cigarettes Smokeless Tobacco: Never Alcohol Use Standard Drinks/Week Comments Never 0 (1 standard drink = 0.6 oz pur e alcohol) Transportation Answer Date Recorded Please karishma the areas for wh ich the patient would like information or assistance: None Apply 04/14/2023 Lack of Transportation (Medical) Not on file 04/14/2023 Housing Stability Answer Date Recorded Please karishma the areas for wh ich the patient would like information or [...] Info) Description 02/28/2025 10:00 AM EDT Nutrition [facility] Nutrition Clinic [address] [place] [address] [place] [address] 03/24/2025 1:40 PM EDT Office Visit [facility] [address] [facility] [address] [place] [address] Geovanna Abbasi NP [address] [place] [address] 04/07/2025 8:00 AM EDT Office Visit [facility] Building Diabetes Clinic [address] [place] [address] Thermal Cutting Tracer Machine Operator: Tatiana Phillip NP [address] [place] [address] 04/26/2025 10:40 AM EDT Follow-Up [facility] Renal [address] [place] [address] Thermal Cutting Tracer Machine Operator: Kojo Tracey MD [address] [place] [address] 05/05/2025 2:30 PM EDT Office Visit [facility] Diabetes Clinic [address] [place] [address] Thermal Cutting Tracer Machine Operator: Tatiana Phillip NP [address] [place] [address] 05/19/2025 1:30 PM EDT Office Visit [facility] 326 [facility] [address] [place] [address] Henrique Banegas, PharmD [address] [place] [address] 07/15/2025 1:00 PM EDT Appointment [facility] ACC Vascular Lab [address] [place] [address] 07/15/2025 1:45 PM EDT Appointment [facility] ACC Vascular Lab [address] [place] [address] 07/15/2025 3:00 PM EDT Follow-Up [facility] Vascular Surgery [address] [place] [address] Thermal Cutting Tracer Machine Operator: Mitul Starr NP [address] [place] [address] documented as of this encounter Results * Due to [place] state law, this organization might not be sharing negative HIV tests. * ECG 12 lead (09/08/2024 5:04 PM EST) Ventricular Rate EKG 73 BPM MUSE EKG Atrial Rate 73 BPM MUSE EKG TN Interval 164 ms MUSE EKG QRS Interval 88 ms MUSE EKG QT Interval 396 ms MUSE EKG QTC Interval 436 ms MUSE EKG P Clyde 64 degrees MUSE EKG R Clyde 41 degrees MUSE EKG T Wave Clyde 20 degrees MUSE EKG 09/08/2024 5:04 PM EST 09/08/2024 4:45 PM EST Impressions MUSE EKG - 09/08/2024 4:45 PM EST Normal sinus rhythm Normal ECG When compared with ECG of 12-DEC-2021 15:17, No significant change was found Confirmed by Thong Rosario ([id number]) on 09/08/2024 4:45:51 PM J Carlos Tao MD MPH ECG ORDERABLES Final R esult Performing Organization Address City[facility] Co de Phone Number MUSE EKG * Protime-INR (09/08/2024 4:01 PM EST) PT 10.2 9.7 - 11.9 Seconds 09/08/2024 5:03 PM EST [facility] INR 1.0 0.9 - 1.1 09/08/2024 5:03 PM EST [facility] Comment:The optimal therapeu tic INR range for patients treated with Vitamin K antagonists (VKAS, e.g., Warfarin) is 2.0 to 3.5. Discuss the desired range with your doctor/care team. Blood Structure of peripheral vein / Unknown Venipuncture / Unknown 09/08/2024 4:01 PM EST 09/08/2024 4:01 PM EST J Carlos Tao MD MPH LAB BLOOD ORDERABLES Fi nal Result [facility] [address] [place] [address], * (ABNORMAL) CBC (09/08/2024 4:01 PM EST) WBC 13.4(H) 3.8 - 10.8 10*3/uL 09/08/2024 4:48 PM EST [facility] RBC 4.47 4.20 - 5.80 10*6/uL 09/08/2024 4:48 PM EST [facility] Hemoglobin 13.2 13.2 - 17.1 g/dL 09/08/2024 4:48 PM EST [facility] Hematocrit 40.0 38.5 - 50.0 % 09/08/2024 4:48 PM EST [facility] MCV 89.5 80.0 - 100.0 fL 09/08/2024 4:48 PM EST [facility] MCH 29.5 27.0 - 33.0 pg 09/08/2024 4:48 PM EST [facility] MCHC 33.0 32.0 - 36.0 g/dL 09/08/2024 4:48 PM EST [facility] RDW 12.9 11.0 - 15.0 % 09/08/2024 4:48 PM EST [facility] Platelets 252 140 - 400 10*3/uL 09/08/2024 4:48 PM EST [facility] MPV 10.1 7.5 - 12.5 fL 09/08/2024 4:48 PM EST [facility] Blood Structure of peripheral vein / Unknown Venipuncture / Unknown 09/08/2024 4:01 PM EST 09/08/2024 4:01 PM EST us J Carlos Tao MD MPH LAB BLOOD ORDERABLES Fi nal Result [facility] [address] [place] [address], [place] * (ABNORMAL) Basic Metabolic Panel (09/08/2024 4:01 PM EST) NA 139 135 - 145 mmol/L 09/08/2024 5:15 PM EST [facility] K 4.7 3.5 - 5.3 mmol/L 09/08/2024 5:15 PM EST [facility] Cl 104 98 - 107 mmol/L 09/08/2024 5:15 PM EST [facility] CO2 27 22 - 32 mmol/L 09/08/2024 5:15 PM EST [facility] BUN 30(H) 7 - 23 mg/dL 09/08/2024 5:15 PM EST [facility] Creatinine 1.17 0.60 - 1.30 mg/dL 09/08/2024 5:15 PM EST [facility] Glucose 175(H) 65 - 99 mg/dL 09/08/2024 5:15 PM EST [facility] Calcium 8.9 8.6 - 10.5 mg/dL 09/08/2024 5:15 PM EST [facility] Anion Gap 8 5 - 15 09/08/2024 5:15 PM EST [facility] eGFR 79 >=60 mL/min/1 .73m2 09/08/2024 5:15 PM EST [facility] Comment:The estimated glomer ular filtration rate [...] peripheral vein / Unknown Venipuncture / Unknown 09/08/2024 4:01 PM EST 09/08/2024 4:01 PM EST us J Carlos Tao MD MPH LAB BLOOD ORDERABLES Fi nal Result [facility] [address] [place] [address], documented in this encounter Visit Diagnoses Diagnosis Pre-operative cardiovascular examination- Primary 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
--- OUTSIDE RECORDS SUMMARY | 2025-02-25 14:44 | XMS_ITS | Encounter Summary ---
Author Organization [facility] Address [address] [place] [address] Care Team Providers Care Tests Superintendent Name Role Phone Geovanna Abbasi FRUIT [employer]NER Primary Care Provider [phone] Encounter Details Date Type Department Care Team (Late st Contact Info) Description 10/01/2024 Lab Requisition [facility] Lab [address] [place] [address] Unknown, Doctor Unknown Unknown, [place] Social History Tobacco Use Types Packs/Day Years [...] Info) Description 02/28/2025 10:00 AM EDT Nutrition [facility] [address] [place] [address] [place] [address] 03/24/2025 1:40 PM EDT Office Visit [facility] [address] [facility] [address] [place] [address] Geovanna Abbasi NP [address] [place] [address] 04/07/2025 8:00 AM EDT Office Visit [facility] [address] [place] [address] Hooking Machine Operator: Tatiana Phillip NP [address] [place] [address] 04/26/2025 10:40 AM EDT Follow-Up [facility] Renal [address] [place] [address] Hooking Machine Operator: Kojo Tracey MD [address] [place] [address] 05/05/2025 2:30 PM EDT Office Visit [facility] [address] [place] [address] Hooking Machine Operator: Tatiana Phillip NP [address] [place] [address] 05/19/2025 1:30 PM EDT Office Visit [facility] [address] [facility] [address] [place] [address] Henrique Banegas, PharmD [address] [place] [address] 07/15/2025 1:00 PM EDT Appointment [facility] Vascular [facility] [address] [place] [address] 07/15/2025 1:45 PM EDT Appointment [facility] [address] [place] [address] 07/15/2025 3:00 PM EDT Follow-Up [facility] Building Vascular Surgery [address] [place] [address] Hooking Machine Operator: Mitul Starr NP [address] [place] [address] documented as of this encounter Procedures * Due to [place] state law, this organization might not be sharing negative HIV tests. Procedure Name Priority Date/Time Associated Diagnosis Comments BASIC METABOLIC PANEL Routine 10/13/2024 6:05 AM EST BASIC METABOLIC PANEL Routine 10/12/2024 6:20 AM EST BASIC METABOLIC PANEL STAT 10/11/2024 12:30 PM EST CBC AUTO DIFFERENTIAL Routine 10/11/2024 7:23 AM EST RENAL FUNCTION PANEL Routine 10/11/2024 7:23 AM EST CBC AUTO DIFFERENTIAL Routine 10/07/2024 7:29 AM EST BASIC METABOLIC PANEL Routine 10/07/2024 7:29 AM EST CREATININE, RANDOM URINE Routine 10/06/2024 6:49 AM EST URINALYSIS W/REFLEX TO MICROSCOPIC & CULTURE Routine 10/06/2024 6:48 AM EST ORTIZ TOP, URN Routine 10/06/2024 6:48 AM EST MICROSCOPIC URINALYSIS ONLY Routine 10/06/2024 6:48 AM EST UA/CULTURE REFLEX Routine 10/06/2024 6:4 8 AM EST UREA NITROGEN, URINE RANDOM - PARK ONLY Routine 10/06/2024 6:47 AM EST SODIUM, URINE RANDOM - PARK ONLY Routine 10/06/2024 6:47 AM EST CBC AUTO DIFFERENTIAL Routine 10/06/2024 6:16 AM EST TRIGLYCERIDES Routine 10/06/2024 6:16 AM EST COMPREHENSIVE METABOLIC PANEL Routine 10/06/2024 6:16 AM EST VITAMIN D, 25-HYDROXY, TOTAL, IMMUNOASSAY Routine 10/05/2024 1:28 PM EST PHOSPHORUS Routine 10/05/2024 1:28 PM EST CBC AUTO DIFFERENTIAL Routine 10/05/2024 6:45 AM EST COMPREHENSIVE METABOLIC PANEL Routine 10/05/2024 6:45 AM EST URINALYSIS W/REFLEX TO MICROSCOPIC & CULTURE Routine 10/05/2024 5:00 AM EST ORTIZ TOP, URN Routine 10/05/2024 5:00 AM EST UREA NITROGEN, URINE RANDOM - PARK ONLY Routine 10/05/2024 5:00 AM EST SODIUM, URINE RANDOM - PARK ONLY Routine 10/05/2024 5:00 AM EST MICROSCOPIC URINALYSIS ONLY Routine 10/05/2024 5:00 AM EST UA/CULTURE REFLEX Routine 10/05/2024 5:0 0 AM EST CREATININE, RANDOM URINE Routine 10/05/2024 5:00 AM EST TRIGLYCERIDES STAT 10/05/2024 5:00 AM EST PTH, INTACT (WITHOUT CALCIUM) Routine 10/05/2024 5:00 AM EST CK STAT 10/05/2024 5:00 AM EST VANCOMYCIN, TROUGH Routine 10/05/2024 5: 00 AM EST BLOOD CULTURE STAT 10/04/2024 1:15 PM EST BLOOD CULTURE STAT 10/04/2024 1:10 PM EST CBC AUTO DIFFERENTIAL Routine 10/04/2024 7:18 AM EST VANCOMYCIN, TROUGH Today 10/04/2024 7: 18 AM EST COMPREHENSIVE METABOLIC PANEL Routine 10/04/2024 7:18 AM EST AEROBIC CULTURE W/GRAM STAIN Routine 10/03/2024 11:39 PM EST VANCOMYCIN, TROUGH Today 10/03/2024 7: 41 AM EST BASIC METABOLIC PANEL Routine 10/03/2024 7:41 AM EST CBC AUTO DIFFERENTIAL Routine 10/03/2024 5:00 AM EST CBC AUTO DIFFERENTIAL Routine 10/02/2024 7:40 AM EST PREALBUMIN Routine 10/02/2024 7:35 AM EST ALBUMIN Routine 10/02/2024 7:35 AM EST BASIC METABOLIC PANEL Routine 10/02/2024 7:35 AM EST documented in this encounter Results * Due to [place] state law, this organization might not be sharing negative HIV tests. * (ABNORMAL) Basic Metabolic Panel (10/13/2024 6:05 AM EST) NA 138 136 - 145 mmol/L 10/13/2024 9:15 AM EST [facility] K 5.7(H) 3.5 - 5.1 mmol/L 10/13/2024 9:15 AM EST [facility] Cl 104 98 - 109 mmol/L 10/13/2024 9:15 AM EST [facility] CO2 25 22 - 32 mmol/L 10/13/2024 9:15 AM EST [facility] BUN 28(H) 6 - 20 mg/dL 10/13/2024 9:15 AM EST [facility] Creatinine 1.24(H) 0.50 - 1.12 mg/dL 10/13/2024 9:15 AM EST [facility] Glucose 139(H) 60 - 99 mg/dL 10/13/2024 9:15 AM EST [facility] Calcium 8.7 8.4 - 10.4 mg/dL 10/13/2024 9:15 AM EST [facility] Anion Gap 15 >=0 10/13/2024 9:15 AM EST [facility] eGFR 74 >=60 mL/min/1. 73m2 10/13/2024 9:15 AM EST [facility] Comment:The estimated glomer ular filtration rate (eGFR) is calculated using a new formula developed by the NKF-ASN task force to eliminate race-based correction factors. The new formula uses serum/plasma creatinine, age, and gender to determine eGFR. A value below 60mls/min might indicate kidney disease and will be flagged. For additional information, see Shu steward al, Am J Kidney Dis. 2021;79(2):268- 288, A Unifying Approach for GFR estimation: Recommendations of the NKF-ASN Task Force on Reassessing the Inclusion of Race in Diagnosing Kidney Disease . Blood Structure of peripheral vein / Unknown Venipuncture / Unknown 10/13/2024 6:05 AM EST 10/13/2024 6:49 AM EST Narrative [facility] - 10/13/2024 9:15 AM EST NUR1\S\115\S\B\S\0156\S\S\BED\S\0156 Tatiana Cantu FRUIT CANNER LAB BLOOD ORDERABLES Final Result [facility] [address] [place] [address] [address] [place] [address], [place] [phone] * (ABNORMAL) Basic Metabolic Panel (10/12/2024 6:20 AM EST) NA 139 136 - 145 mmol/L 10/12/2024 7:59 AM EST [facility] K 5.3(H) 3.5 - 5.1 mmol/L 10/12/2024 7:59 AM EST [facility] Cl 104 98 - 109 mmol/L 10/12/2024 7:59 AM EST [facility] CO2 27 22 - 32 mmol/L 10/12/2024 7:59 AM EST [facility] BUN 24(H) 6 - 20 mg/dL 10/12/2024 7:59 AM EST [facility] Creatinine 1.15(H) 0.50 - 1.12 mg/dL 10/12/2024 7:59 AM EST [facility] Glucose 118(H) 60 - 99 mg/dL 10/12/2024 7:59 AM EST [facility] Calcium 8.6 8.4 - 10.4 mg/dL 10/12/2024 7:59 AM EST [facility] Anion Gap 13 >=0 10/12/2024 7:59 AM EST [facility] eGFR 80 >=60 mL/min/1. 73m2 10/12/2024 7:59 AM EST [facility] Comment:The estimated glomer ular filtration rate (eGFR) [...] peripheral vein / Unknown Venipuncture / Unknown 10/12/2024 6:20 AM EST 10/12/2024 6:31 AM EST [facility] - 10/12/2024 7:59 AM EST NUR1\S\115\S\B\S\0156\S\S\BED\S\0156 us Tatiana Cantu FRUIT CANNER LAB BLOOD ORDERABLES Final Result [facility] [address] [place] [address], * (ABNORMAL) Basic Metabolic Panel (10/11/2024 12:30 PM EST) NA 135(L) 136 - 145 mmol/L 10/11/2024 2:17 PM EST [facility] K 5.8(H) 3.5 - 5.1 mmol/L 10/11/2024 2:17 PM EST [facility] Cl 103 98 - 109 mmol/L 10/11/2024 2:17 PM EST [facility] CO2 25 22 - 32 mmol/L 10/11/2024 2:17 PM EST [facility] BUN 25(H) 6 - 20 mg/dL 10/11/2024 2:17 PM EST [facility] Creatinine 1.18(H) 0.50 - 1.12 mg/dL 10/11/2024 2:17 PM EST [facility] Glucose 110(H) 60 - 99 mg/dL 10/11/2024 2:17 PM EST [facility] Calcium 8.8 8.4 - 10.4 mg/dL 10/11/2024 2:17 PM EST [facility] Anion Gap 13 >=0 10/11/2024 2:17 PM EST [facility] eGFR 78 >=60 mL/min/1. 73m2 10/11/2024 2:17 PM EST [facility] Comment:The estimated glomer ular filtration rate (eGFR) [...] peripheral vein / Unknown Venipuncture / Unknown 10/11/2024 12:30 PM EST 10/11/2024 12:52 PM EST Narrative [facility] - 10/11/2024 2:17 PM EST NUR1\S\115\S\B\S\0156\S\S\BED\S\0156 us Tatiana Cantu FR[employer]NER LAB BLOOD ORDERABLES Final Result [facility] [address] [place] [address], * (ABNORMAL) CBC Auto Differential (10/11/2024 7:23 AM EST) WBC 13.7(H) 4.8 - 10.8 10*3/uL 10/11/2024 9:53 AM EST [facility] RBC 3.62(L) 4.70 - 6.10 10*6/uL 10/11/2024 9:53 AM EST [facility] Hemoglobin 10.3(L) 13.7 - 16.5 g/dL 10/11/2024 9:53 AM [facility] Hematocrit 31.8(L) 40.5 - 48.5 % 10/11/2024 9:53 AM EST [facility] MCV 87.8 80.0 - 94.0 fL 10/11/2024 9:53 AM [facility] MCH 28.5 26.0 - 34.0 pg 10/11/2024 9:53 AM [facility] MCHC 32.4 31.0 - 36.0 g/dL 10/11/2024 9:53 AM [facility] RDW 12.8 12.0 - 15.0 % 10/11/2024 9:53 AM [facility] RDW Standard Deviation 41.1 35.1 - 43.9 fL 10/11/2024 9:53 AM [facility] Platelets 695(H) 140 - 440 10*3/uL 10/11/2024 9:53 AM [facility] MPV 8.7(L) 9.4 - 12.4 fL 10/11/2024 9:53 AM [facility] Neutrophil % 65.0 50.0 - 75.0 % 10/11/2024 9:53 AM [facility] Immature Grans % 1.2(H) 0.0 - 0.9 % 10/11/2024 9:53 AM [facility] Lymphocyte % 23.6 20.0 - 44.0 % 10/11/2024 9:53 AM EST [facility] Monocyte % 4.8 0.0 - 14.0 % 10/11/2024 9:53 AM [facility] Eosinophil % 4.8 0.0 - 5.0 % 10/11/2024 9:53 AM EST [facility] Basophil % 0.6 0.0 - 2.0 % 10/11/2024 9:53 AM EST [facility] Neutrophil # 8.89(H) 1.80 - 7.70 10*3/uL 10/11/2024 9:53 AM EST [facility] Immature Grans # 0.16(H) 0.00 - 0.03 10*3/uL 10/11/2024 9:53 AM EST [facility] Lymphocyte # 3.20 1.00 - 4.75 10*3/uL 10/11/2024 9:53 AM EST [facility] Monocyte # 0.70 0.00 - 6.00 10*3/uL 10/11/2024 9:53 AM EST [facility] Eosinophil # 0.70 0.00 - 0.80 10*3/uL 10/11/2024 9:53 AM EST [facility] Basophil # 0.10 0.00 - 0.20 10*3/uL 10/11/2024 9:53 AM EST [facility] nRBC % 0.0 0 - 0 /100 WBCs 10/11/2024 9:53 AM EST [facility] nRBC # <0.01 0.00 - 0.13 10*3/uL 10/11/2024 9:53 AM EST [facility] Blood Structure of peripheral vein / Unknown Venipuncture / Unknown 10/11/2024 7:23 AM EST 10/11/2024 7:54 AM EST us Doctor Unknown LAB BLOOD ORDERABLES Final Resul t [facility] [address] [facility] [address] [place] [address], [place] [phone] * (ABNORMAL) Renal Function Panel (10/11/2024 7:23 AM EST) NA 140 136 - 145 mmol/L 10/11/2024 11:14 AM EST [facility] K 6.2(HH) 3.5 - 5.1 mmol/L 10/11/2024 11:14 AM [facility] Cl 105 98 - 109 mmol/L 10/11/2024 11:14 AM [facility] CO2 27 22 - 32 mmol/L 10/11/2024 11:14 AM [facility] Anion Gap 14 >=0 10/11/2024 11:14 AM [facility] Glucose 97 60 - 99 mg/dL 10/11/2024 11:14 AM [facility] BUN 24(H) 6 - 20 mg/dL 10/11/2024 11:14 AM [facility] Creatinine 1.17(H) 0.50 - 1.12 mg/dL 10/11/2024 11:14 AM [facility] Calcium 9.0 8.4 - 10.4 mg/dL 10/11/2024 11:14 AM [facility] Phosphorus 4.6(H) 2.5 - 4.5 mg/dL 10/11/2024 11:14 AM [facility] Albumin 3.3(L) 3.5 - 5.0 g/dL 10/11/2024 11:14 AM [facility] eGFR 79 >=60 mL/min/1. 73m2 10/11/2024 11:14 AM [facility] Comment:The estimated glomer ular filtration rate (eGFR) [...] peripheral vein / Unknown Venipuncture / Unknown 10/11/2024 7:23 AM EST 10/11/2024 7:54 AM [facility] - 10/11/2024 11:14 AM EST NUR1\S\115\S\B\S\0156\S\S\BED\S\0156 us Michelle Ling FR[employer]NER LAB BLOOD ORDERABLES Final Res ult [facility] [address] [place] [address], [place] [phone] * (ABNORMAL) Basic Metabolic Panel (10/07/2024 7:29 AM EST) NA 139 136 - 145 mmol/L 10/07/2024 10:50 AM EST [facility] K 4.8 3.5 - 5.1 mmol/L 10/07/2024 10:50 AM EST [facility] Cl 105 98 - 109 mmol/L 10/07/2024 10:50 AM EST [facility] CO2 20(L) 22 - 32 mmol/L 10/07/2024 10:50 AM EST [facility] BUN 25(H) 6 - 20 mg/dL 10/07/2024 10:50 AM EST [facility] Creatinine 1.23(H) 0.50 - 1.12 mg/dL 10/07/2024 10:50 AM EST [facility] Glucose 134(H) 60 - 99 mg/dL 10/07/2024 10:50 AM EST [facility] Calcium 8.1(L) 8.4 - 10.4 mg/dL 10/07/2024 10:50 AM EST [facility] Anion Gap 19 >=0 10/07/2024 10:50 AM EST [facility] eGFR 74 >=60 mL/min/1. 73m2 10/07/2024 10:50 AM EST [facility] Comment:The estimated glomer ular filtration rate (eGFR) is calculated using a new formula developed by the NKF-ASN task force to eliminate race-based correction factors. The new formula uses serum/plasma creatinine, age, and gender to determine eGFR. A value below 60mls/min might indicate kidney disease and will be flagged. For additional information, see Shu et al, Am J Kidney Dis. 2022 Feb;79(2):268- 288, A Unifying Approach for GFR estimation: Recommendations of the NKF-ASN Task Force on Reassessing the Inclusion of Race in Diagnosing Kidney Disease . Blood Structure of peripheral vein / Unknown Venipuncture / Unknown 10/07/2024 7:29 AM EST 10/07/2024 7:46 AM EST Narrative [facility] - 10/07/2024 10:50 AM EST NUR1\S\115\S\B\S\0156\S\S\BED\S\0156 us Doctor Unknown LAB BLOOD ORDERABLES Final Resul t Performing Organization Address City/State/[facility] Co de Phone Number [facility] [address] [facility] [address] [place] [address], * (ABNORMAL) CBC Auto Differential (10/07/2024 7:29 AM EST) WBC 17.6(H) 4.8 - 10.8 10*3/uL 10/07/2024 9:58 AM EST [facility] RBC 3.26(L) 4.70 - 6.10 10*6/uL 10/07/2024 9:58 AM EST [facility] Hemoglobin 9.4(L) 13.7 - 16.5 g/dL 10/07/2024 9:58 AM EST [facility] Hematocrit 28.4(L) 40.5 - 48.5 % 10/07/2024 9:58 AM EST [facility] MCV 87.1 80.0 - 94.0 fL 10/07/2024 9:58 AM EST [facility] MCH 28.8 26.0 - 34.0 pg 10/07/2024 9:58 AM EST [facility] MCHC 33.1 31.0 - 36.0 g/dL 10/07/2024 9:58 AM EST [facility] RDW 12.7 12.0 - 15.0 % 10/07/2024 9:58 AM EST [facility] RDW Standard Deviation 40.6 35.1 - 43.9 fL 10/07/2024 9:58 AM [facility] Platelets 690(H) 140 - 440 10*3/uL 10/07/2024 9:58 AM [facility] MPV 9.3(L) 9.4 - 12.4 fL 10/07/2024 9:58 AM [facility] Neutrophil % 80.6(H) 50.0 - 75.0 % 10/07/2024 9:58 AM [facility] Immature Grans % 0.9 0.0 - 0.9 % 10/07/2024 9:58 AM [facility] Lymphocyte % 11.4(L) 20.0 - 44.0 % 10/07/2024 9:58 AM [facility] Monocyte % 4.4 0.0 - 14.0 % 10/07/2024 9:58 AM [facility] Eosinophil % 2.4 0.0 - 5.0 % 10/07/2024 9:58 AM [facility] Basophil % 0.3 0.0 - 2.0 % 10/07/2024 9:58 AM [facility] Neutrophil # 14.15(H) 1.80 - 7.70 10*3/uL 10/07/2024 9:58 AM [facility] Immature Grans # 0.16(H) 0.00 - 0.03 10*3/uL 10/07/2024 9:58 AM [facility] Lymphocyte # 2.00 1.00 - 4.75 10*3/uL 10/07/2024 9:58 AM [facility] Monocyte # 0.80 0.00 - 6.00 10*3/uL 10/07/2024 9:58 AM [facility] Eosinophil # 0.40 0.00 - 0.80 10*3/uL 10/07/2024 9:58 AM [facility] Basophil # 0.10 0.00 - 0.20 10*3/uL 10/07/2024 9:58 AM EST [facility] nRBC % 0.0 0 - 0 /100 WBCs 10/07/2024 9:58 AM EST [facility] nRBC # <0.01 0.00 - 0.13 10*3/uL 10/07/2024 9:58 AM EST [facility] Blood Structure of peripheral vein / Unknown Venipuncture / Unknown 10/07/2024 7:29 AM EST 10/07/2024 7:46 AM EST Doctor Unknown LAB BLOOD ORDERABLES Final Resul t Performing Organization Address City/[facility]/ZIP Co de Phone Number [address] [address], [place] [phone] * Creatinine, Random Urine (10/06/2024 6:49 AM EST) Creatinine, Urine 66 mg/dL 10/06/2024 9:53 PM EST [facility] Urine Voided urine specimen / Unknown 10/06/2024 6:49 AM EST 10/06/2024 7:29 PM EST Narrative [facility] - 10/06/2024 9:53 PM EST NUR1\S\115\S\B\S\0156\S\S\BED\S\0156 Michelle Ling NP LAB URINE ORDERABLES Final Res ult Performing Organization Address City/[facility]/ZIP Co de Phone Number [address] [address], [place] [phone] * (ABNORMAL) Microscopic Urinalysis Only (10/06/2024 6:48 AM EST) RBC, Urine 5-10(A) None Seen, 0-2 /HPF 10/06/2024 9:54 PM EST [facility] WBC, Urine 5-10(A) None Seen, 0-2 /HPF 10/06/2024 9:54 PM EST [facility] Squamous Epithelial Cells, Urine 0-2 /HPF 10/06/2024 9:54 PM EST [facility] Uric Acid Crystals, Urine Moderate /HPF 10/06/2024 9:54 PM EST [facility] Bacteria, Urine Small(A) None Seen /HPF 10/06/2024 9:54 PM EST [facility] Yeast Budding, Urine Moderate(A) (none) /HPF 10/06/2024 9:54 PM EST [facility] Urine 10/06/2024 6:48 AM EST 10/06/2024 9:20 PM EST us Michelle Ling NP LAB URINE ORDERABLES Final Res ult Performing Organization Address City/[facility]/ZIP Co de Phone Number [facility] [address] [address], [place] [phone] * Ortiz Top, Urine (10/06/2024 6:48 AM EST) Extra Tube Hold for add-ons. 10/06/2024 8:05 PM EST [facility] Comment:Auto resulted. Urine 10/06/2024 6:48 AM EST 10/06/2024 7:29 PM EST us Michelle Ling NP LAB URINE ORDERABLES Final Res ult Performing Organization Address [facility]/ZIP Co de Phone Number [facility] [address] [address], [place] [phone] * (ABNORMAL) Urinalysis W/Reflex to Microscopic & Culture (10/06/2024 6:48 AM EST) Color, Urine Yellow Yellow 10/06/2024 9:20 PM EST [facility] Clarity, Urine Turbid(A) Clear 10/06/2024 9:20 PM EST [facility] Specific [place], Urine 1.020 1.005 - 1.030 10/06/2024 9:20 PM EST [facility] pH, Urine 5.5 5.0 - 8.0 10/06/2024 9:20 PM EST [facility] Protein, Urine 300(A) Negative mg/dL 10/06/2024 9:20 PM EST [facility] Glucose, Urine Negative Negative mg/dL 10/06/2024 9:20 PM EST [facility] Ketones, Urine Negative Negative mg/dL 10/06/2024 9:20 PM EST [facility] Bilirubin, Urine Negative Negative 10/06/2024 9:20 PM EST [facility] Blood, Urine Moderate(A) Negative 10/06/2024 9:20 PM EST [facility] Nitrite, Urine Negative Negative 10/06/2024 9:20 PM EST [facility] Urobilinogen, Urine 0.2 0.2 - 1.0 E.U./dL 10/06/2024 9:20 PM EST [facility] Leukocyte Esterase, Urine Trace(A) Negative 10/06/2024 9:20 PM EST [facility] Urine 10/06/2024 6:48 AM EST 10/06/2024 7:29 PM EST Narrative [facility] - 10/06/2024 9:20 PM EST Some urinalysis results will not meet the criteria for reflex urine culture although certain urine values may be abnormal. ??Additional testing can be ordered by the provider if clinically warranted. Michelle Ling NP LAB URINE ORDERABLES Final Res ult Performing Organization Address City/State/[facility] Co de Phone Number [facility] [address] [place] [address] [address] [place] [address], * Sodium, Random Urine - [place] only (10/06/2024 6:47 AM EST) Sodium, Urine 55 mmol/L 10/06/2024 9:42 PM EST [facility] Urine Voided urine specimen / Unknown 10/06/2024 6:47 AM EST 10/06/2024 7:29 PM EST Narrative [facility] - 10/06/2024 9:42 PM EST NUR1\S\115\S\B\S\0156\S\S\BED\S\0156 us Michelle Ling [employer] LAB URINE ORDERABLES Final Res ult Performing Organization Address [facility] de Phone Number [facility] [address] [address], [place] [phone] * Urea Nitrogen, Random Urine - [place] only (10/06/2024 6:47 AM EST) Urea Nitrogen, Urine 627 mg/dL 10/06/2024 9:53 PM EST [facility] Urine Voided urine specimen / Unknown 10/06/2024 6:47 AM EST 10/06/2024 7:29 PM EST Narrative [facility] - 10/06/2024 9:53 PM EST NUR1\S\115\S\B\S\0156\S\S\BED\S\0156 Michelle Ling FR[employer]NER LAB URINE ORDERABLES Final Res ult Performing Organization Address [facility] Co de Phone Number [facility] [address] [address], [place] [phone] * (ABNORMAL) CBC Auto Differential (10/06/2024 6:16 AM EST) WBC 18.5(H) 4.8 - 10.8 10*3/uL 10/06/2024 7:31 AM EST [facility] RBC 3.01(L) 4.70 - 6.10 10*6/uL 10/06/2024 7:31 AM EST [facility] Hemoglobin 8.9(L) 13.7 - 16.5 g/dL 10/06/2024 7:31 AM EST [facility] Hematocrit 26.4(L) 40.5 - 48.5 % 10/06/2024 7:31 AM EST [facility] MCV 87.7 80.0 - 94.0 fL 10/06/2024 7:31 AM EST [facility] MCH 29.6 26.0 - 34.0 pg 10/06/2024 7:31 AM [facility] MCHC 33.7 31.0 - 36.0 g/dL 10/06/2024 7:31 AM [facility] RDW 12.8 12.0 - 15.0 % 10/06/2024 7:31 AM EST [facility] RDW Standard Deviation 41.1 35.1 - 43.9 fL 10/06/2024 7:31 AM [facility] Platelets 596(H) 140 - 440 10*3/uL 10/06/2024 7:31 AM [facility] MPV 9.3(L) 9.4 - 12.4 fL 10/06/2024 7:31 AM [facility] Neutrophil % 77.9(H) 50.0 - 75.0 % 10/06/2024 7:31 AM [facility] Immature Grans % 1.1(H) 0.0 - 0.9 % 10/06/2024 7:31 AM [facility] Lymphocyte % 11.5(L) 20.0 - 44.0 % 10/06/2024 7:31 AM [facility] Monocyte % 7.6 0.0 - 14.0 % 10/06/2024 7:31 AM EST [facility] Eosinophil % 1.6 0.0 - 5.0 % 10/06/2024 7:31 AM [facility] Basophil % 0.3 0.0 - 2.0 % 10/06/2024 7:31 AM [facility] Neutrophil # 14.42(H) 1.80 - 7.70 10*3/uL 10/06/2024 7:31 AM [facility] Immature Grans # 0.21(H) 0.00 - 0.03 10*3/uL 10/06/2024 7:31 AM [facility] Lymphocyte # 2.10 1.00 - 4.75 10*3/uL 10/06/2024 7:31 AM EST [facility] Monocyte # 1.40 0.00 - 6.00 10*3/uL 10/06/2024 7:31 AM EST [facility] Eosinophil # 0.30 0.00 - 0.80 10*3/uL 10/06/2024 7:31 AM EST [facility] Basophil # 0.10 0.00 - 0.20 10*3/uL 10/06/2024 7:31 AM EST [facility] nRBC % 0.0 0 - 0 /100 WBCs 10/06/2024 7:31 AM EST [facility] nRBC # <0.01 0.00 - 0.13 10*3/uL 10/06/2024 7:31 AM EST [facility] Blood Structure of peripheral vein / Unknown Venipuncture / Unknown 10/06/2024 6:16 AM EST 10/06/2024 6:31 AM EST [facility] BLOOD ORDERABLES Final Result Performing Organization Address City/State/[facility] Co de Phone Number [facility] [address] [place] [phone], * Triglycerides (10/06/2024 6:16 AM EST) Triglycerides 119 mg/dL 10/06/2024 7:58 AM EST [facility] Comment: NORMAL: <150 mg/dL BORDERLINE HIGH: 150-199 mg/dL HIGH: 200-499 mg/dL VERY HIGH >499 mg/dL Blood Structure of peripheral vein / Unknown Venipuncture / Unknown 10/06/2024 6:16 AM EST 10/06/2024 6:30 AM EST Narrative [facility] - 10/06/2024 7:58 AM EST NUR1\S\115\S\B\S\0156\S\S\BED\S\0156 NUR1\S\115\S\B\S\0156\S\S\BED\S\0156 us Tatiana Cant[facility] BLOOD ORDERABLES Final Result [facility] [address] [facility] [address] [place] [address], [place] [phone] * (ABNORMAL) Comprehensive Metabolic Panel (10/06/2024 6:16 AM EST) NA 138 136 - 145 mmol/L 10/06/2024 7:58 AM EST [facility] K 5.2(H) 3.5 - 5.1 mmol/L 10/06/2024 7:58 AM EST [facility] Cl 103 98 - 109 mmol/L 10/06/2024 7:58 AM EST [facility] CO2 24 22 - 32 mmol/L 10/06/2024 7:58 AM EST [facility] Anion Gap 16 >=0 10/06/2024 7:58 AM EST [facility] Glucose 132(H) 60 - 99 mg/dL 10/06/2024 7:58 AM EST [facility] Creatinine 1.82(H) 0.50 - 1.12 mg/dL 10/06/2024 7:58 AM EST [facility] Calcium 8.0(L) 8.4 - 10.4 mg/dL 10/06/2024 7:58 AM EST [facility] Total Protein 5.9(L) 6.6 - 8.7 g/dL 10/06/2024 7:58 AM EST [facility] Albumin 3.0(L) 3.5 - 5.0 g/dL 10/06/2024 7:58 AM EST [facility] Bilirubin, Total 0.2 0.2 - 1.2 mg/dL 10/06/2024 7:58 AM EST [facility] Alkaline Phosphatase 409(H) 40 - 129 U/L 10/06/2024 7:58 AM EST [facility] AST 33 0 - 40 U/L 10/06/2024 7:58 AM EST [facility] ALT 34 <=41 U/L 10/06/2024 7:58 AM EST [facility] BUN 41(H) 6 - 20 mg/dL 10/06/2024 7:58 AM EST [facility] eGFR 46(L) >=60 mL/min/1. 73m2 10/06/2024 7:58 AM EST [facility] Comment:The estimated glomer ular filtration rate (eGFR) [...] in Diagnosing Kidney Disease . Globulin, Total 2.9 2.1 - 4.2 g/dL 10/06/2024 7:58 AM EST [facility] A/G Ratio 1.0(L) 1.5 - 3.0 10/06/2024 7:58 AM EST [facility] Blood Structure of peripheral vein / Unknown Venipuncture / Unknown 10/06/2024 6:16 AM EST 10/06/2024 6:30 AM EST [facility] - 10/06/2024 7:58 AM EST NUR1\S\115\S\B\S\0156\S\S\BED\S\0156 NUR1\S\115\S\B\S\0156\S\S\BED\S\0156 us Tatiana Cantu [employer] LAB BLOOD ORDERABLES Final Result [facility] [address] [facility] [address] [place] [address], * (ABNORMAL) Vitamin D, 25-Hydroxy, Total, Immunoassay (10/05/2024 1:28 PM EST) Pathologist [facility] Vitamin D 25-OH 6.04(L) 30.00 - 80.00 ng/mL 10/05/2024 2:31 PM EST [facility] Blood Structure of peripheral vein / Unknown 10/05/2024 1:28 PM EST 10/05/2024 2:30 PM EST Narrative [facility] - 10/05/2024 2:31 PM EST NUR1\S\115\S\B\S\0156\S\S\BED\S\0156 NUR1\S\115\S\B\S\0156\S\S\BED\S\0156 us Michelle Ling NP LAB BLOOD ORDERABLES Final Res ult Performing Organization Address [facility]/ZIP Co de Phone Number [facility] [address] [address], [place] [phone] * (ABNORMAL) Phosphorus (10/05/2024 1:28 PM EST) Pathologist [facility] Phosphorus 4.9(H) 2.5 - 4.5 mg/dL 10/05/2024 2:31 PM EST [facility] Blood Structure of peripheral vein / Unknown 10/05/2024 1:28 PM EST 10/05/2024 2:30 PM EST Michelle [facility] LAB BLOOD ORDERABLES Final Res ult Performing Organization Address [facility]/ZIP Co de Phone Number [facility] [address] [address], [place] [phone] * (ABNORMAL) Comprehensive Metabolic Panel (10/05/2024 6:45 AM EST) [facility] NA 137 136 - 145 mmol/L 10/05/2024 9:22 AM EST [facility] K 5.1 3.5 - 5.1 mmol/L 10/05/2024 9:22 AM EST [facility] Cl 102 98 - 109 mmol/L 10/05/2024 9:22 AM [facility] CO2 23 22 - 32 mmol/L 10/05/2024 9:22 AM [facility] Anion Gap 17 >=0 10/05/2024 9:22 AM [facility] Glucose 138(H) 60 - 99 mg/dL 10/05/2024 9:22 AM [facility] Creatinine 2.87(H) 0.50 - 1.12 mg/dL 10/05/2024 9:22 AM [facility] Calcium 7.6(L) 8.4 - 10.4 mg/dL 10/05/2024 9:22 AM [facility] Total Protein 6.0(L) 6.6 - 8.7 g/dL 10/05/2024 9:22 AM [facility] Albumin 3.0(L) 3.5 - 5.0 g/dL 10/05/2024 9:22 AM [facility] Bilirubin, Total 0.3 0.2 - 1.2 mg/dL 10/05/2024 9:22 AM [facility] Alkaline Phosphatase 387(H) 40 - 129 U/L 10/05/2024 9:22 AM [facility] AST 25 0 - 40 U/L 10/05/2024 9:22 AM [facility] ALT 25 <=41 U/L 10/05/2024 9:22 AM [facility] BUN 63(H) 6 - 20 mg/dL 10/05/2024 9:22 AM [facility] eGFR 27(L) >=60 mL/min/1. 73m2 10/05/2024 9:22 AM [facility] Comment:The estimated glomer ular filtration rate (eGFR) [...] in Diagnosing Kidney Disease . Globulin, Total 3.0 2.1 - 4.2 g/dL 10/05/2024 9:22 AM EST [facility] A/G Ratio 1.0(L) 1.5 - 3.0 10/05/2024 9:22 AM EST [facility] Blood Structure of peripheral vein / Unknown Venipuncture / Unknown 10/05/2024 6:45 AM EST 10/05/2024 6:54 AM EST [facility] - 10/05/2024 9:22 AM EST NUR1\S\115\S\B\S\0156\S\S\BED\S\0156 Alexa NEWELL LAB BLOOD ORDERABLES Final Result Performing Organization Address City/State/[facility] Co de Phone Number [facility] [address] [place] [address], * (ABNORMAL) CBC Auto Differential (10/05/2024 6:45 AM EST) WBC 18.0(H) 4.8 - 10.8 10*3/uL 10/05/2024 9:06 AM EST [facility] RBC 3.12(L) 4.70 - 6.10 10*6/uL 10/05/2024 9:06 AM EST [facility] Hemoglobin 9.0(L) 13.7 - 16.5 g/dL 10/05/2024 9:06 AM EST [facility] Hematocrit 27.6(L) 40.5 - 48.5 % 10/05/2024 9:06 AM EST [facility] MCV 88.5 80.0 - 94.0 fL 10/05/2024 9:06 AM EST [facility] MCH 28.8 26.0 - 34.0 pg 10/05/2024 9:06 AM [facility] MCHC 32.6 31.0 - 36.0 g/dL 10/05/2024 9:06 AM [facility] RDW 12.8 12.0 - 15.0 % 10/05/2024 9:06 AM [facility] RDW Standard Deviation 41.6 35.1 - 43.9 fL 10/05/2024 9:06 AM [facility] Platelets 592(H) 140 - 440 10*3/uL 10/05/2024 9:06 AM [facility] MPV 9.4 9.4 - 12.4 fL 10/05/2024 9:06 AM [facility] Neutrophil % 84.1(H) 50.0 - 75.0 % 10/05/2024 9:06 AM [facility] Immature Grans % 0.9 0.0 - 0.9 % 10/05/2024 9:06 AM [facility] Lymphocyte % 7.7(L) 20.0 - 44.0 % 10/05/2024 9:06 AM [facility] Monocyte % 5.7 0.0 - 14.0 % 10/05/2024 9:06 AM [facility] Eosinophil % 1.4 0.0 - 5.0 % 10/05/2024 9:06 AM [facility] Basophil % 0.2 0.0 - 2.0 % 10/05/2024 9:06 AM [facility] Neutrophil # 15.17(H) 1.80 - 7.70 10*3/uL 10/05/2024 9:06 AM [facility] Immature Grans # 0.17(H) 0.00 - 0.03 10*3/uL 10/05/2024 9:06 AM [facility] Lymphocyte # 1.40 1.00 - 4.75 10*3/uL 10/05/2024 9:06 AM [facility] Monocyte # 1.00 0.00 - 6.00 10*3/uL 10/05/2024 9:06 AM EST [facility] Eosinophil # 0.30 0.00 - 0.80 10*3/uL 10/05/2024 9:06 AM EST [facility] Basophil # <0.03 0.00 - 0.20 10*3/uL 10/05/2024 9:06 AM EST [facility] nRBC % 0.0 0 - 0 /100 WBCs 10/05/2024 9:06 AM EST [facility] nRBC # <0.01 0.00 - 0.13 10*3/uL 10/05/2024 9:06 AM EST [facility] Blood Structure of peripheral vein / Unknown Venipuncture / Unknown 10/05/2024 6:45 AM EST 10/05/2024 6:55 AM EST Alexa NEWELL LAB BLOOD ORDERABLES Final Result Performing Organization Address City/State/[facility] Co de Phone Number [facility] [address] [place] [address], [place] [phone] * (ABNORMAL) Microscopic Urinalysis Only (10/05/2024 5:00 AM EST) RBC, Urine 30-40(A) None Seen, 0-2 /HPF 10/06/2024 10:00 AM EST [facility] WBC, Urine 5-10(A) None Seen, 0-2 /HPF 10/06/2024 10:00 AM EST [facility] Squamous Epithelial Cells, Urine 3-5 /HPF 10/06/2024 10:00 AM EST [facility] Uric Acid Crystals, Urine Moderate /HPF 10/06/2024 10:00 AM EST [facility] Bacteria, Urine Trace(A) None Seen /HPF 10/06/2024 10:00 AM EST [facility] Yeast Budding, Urine Moderate(A) (none) /HPF 10/06/2024 10:00 AM EST [facility] Urine 10/05/2024 5:00 AM EST 10/06/2024 9:40 AM EST us Michelle Ling NP LAB URINE ORDERABLES Final Res ult [facility] [address] [address], [place] [phone] * (ABNORMAL) PTH, Intact (without Calcium) (10/05/2024 5:00 AM EST) Parathyroid Hormone, Intact 130.0(H) 14.5 - 87.1 pg/mL 10/05/2024 1:20 PM EST [facility] Comment: This test was performed using the chemiluminescent immunoassay (CLIA) intended for the quantitative determination of intact human parathyroid hormone method on the [employer] LIAISON. Values obtained from different assay methods cannot be used interchangeably. Assay results should be utilized in conjunction with other clinical and laboratory data Blood Structure of peripheral vein / Unknown 10/05/2024 5:00 AM EST 10/05/2024 12:52 PM EST Narrative [facility] - 10/05/2024 1:20 PM EST NUR1\S\115\S\B\S\0156\S\S\BED\S\0156 NUR1\S\115\S\B\S\0156\S\S\BED\S\0156 NUR1\S\115\S\B\S\0156\S\S\BED\S\0156 NUR1\S\115\S\B\S\0156\S\S\BED\S\0156 NUR1\S\115\S\B\S\0156\S\S\BED\S\0156 us Gretchen Bates MD LAB BLOOD ORDERABLES Final Resu lt [facility] [address] [address], [place] [phone] * Creatine Kinase (10/05/2024 5:00 AM EST) CK 146 39 - 308 U/L 10/05/2024 2:27 PM EST [facility] Blood Structure of peripheral vein / Unknown 10/05/2024 5:00 AM EST 10/05/2024 12:52 PM EST Tatiana Cantu [employer] LAB BLOOD ORDERABLES Final Result Performing Organization Address [facility] Co de Phone Number [facility] [address] [address], [place] [phone] * Triglycerides (10/05/2024 5:00 AM EST) Triglycerides 152 mg/dL 10/05/2024 2:27 PM EST [facility] Comment: NORMAL: <150 mg/dL BORDERLINE HIGH: 150-199 mg/dL HIGH: 200-499 mg/dL VERY HIGH >499 mg/dL Blood Structure of peripheral vein / Unknown 10/05/2024 5:00 AM EST 10/05/2024 12:52 PM EST Tatiana Cantu [employer] LAB BLOOD ORDERABLES Final Result Performing Organization Address [facility] de Phone Number [facility] [address] [place] [address], [place] [phone] * Creatinine, Random Urine (10/05/2024 5:00 AM EST) Creatinine, Urine 68 mg/dL 10/06/2024 10:03 AM EST [facility] Urine Voided urine specimen / Unknown 10/05/2024 5:00 AM EST 10/06/2024 6:48 AM EST Narrative [facility] - 10/06/2024 10:03 AM EST NUR1\S\115\S\B\S\0156\S\S\BED\S\0156 Michelle Ling [employer] LAB URINE ORDERABLES Final Res ult Performing Organization Address City/[facility]/ZIP Co de Phone Number [facility] [address] [address], [place] [phone] * Vancomycin, Trough (10/05/2024 5:00 AM EST) Vancomycin Trough 18.5 10.0 - 20.0 ug/mL 10/05/2024 2:27 PM EST [facility] Blood Structure of peripheral vein / Unknown 10/05/2024 5:00 AM EST 10/05/2024 12:52 PM EST Alexa NEWELL LAB BLOOD ORDERABLES Final Result Performing Organization Address [facility] Co de Phone Number [facility] [address] [address], [place] [phone] * Urea Nitrogen, Random Urine - [place] only (10/05/2024 5:00 AM EST) Urea Nitrogen, Urine 592 mg/dL 10/06/2024 10:01 AM EST [facility] Urine Voided urine specimen / Unknown 10/05/2024 5:00 AM EST 10/06/2024 6:48 AM EST Narrative [facility] - 10/06/2024 10:01 AM EST NUR1\S\115\S\B\S\0156\S\S\BED\S\0156 Michelle Ling NP LAB URINE ORDERABLES Final Res ult Performing Organization Address [facility]/ZIP Co de Phone Number [facility] [address] [address], [place] [phone] * Sodium, Random Urine - [place] only (10/05/2024 5:00 AM EST) Sodium, Urine 46 mmol/L 10/06/2024 9:51 AM EST [facility] Urine Voided urine specimen / Unknown 10/05/2024 5:00 AM EST 10/06/2024 6:48 AM EST Narrative [facility] - 10/06/2024 9:51 AM EST NUR1\S\115\S\B\S\0156\S\S\BED\S\0156 Michelle Sushil [employer] LAB URINE ORDERABLES Final Res ult Performing Organization Address [facility]/ZIP Co de Phone Number [facility] [address] [address], [place] [phone] * Ortiz Top, Urine (10/05/2024 5:00 AM EST) Extra Tube Hold for add-ons. 10/06/2024 7:05 AM EST [facility] Comment:Auto resulted. Urine 10/05/2024 5:00 AM EST 10/06/2024 6:48 AM EST [facility] LAB URINE ORDERABLES Final Res ult Performing Organization Address [facility] Co de Phone Number [facility] [address] [address], [place] [phone] * (ABNORMAL) Urinalysis W/Reflex to Microscopic & Culture (10/05/2024 5:00 AM EST) Color, Urine Yellow Yellow 10/06/2024 9:40 AM EST [facility] Clarity, Urine Clear Clear 10/06/2024 9:40 AM EST [facility] Specific [place], Urine 1.015 1.005 - 1.030 10/06/2024 9:40 AM EST [facility] pH, Urine 5.5 5.0 - 8.0 10/06/2024 9:40 AM EST [facility] Protein, Urine 300(A) Negative mg/dL 10/06/2024 9:40 AM EST [facility] Glucose, Urine Negative Negative mg/dL 10/06/2024 9:40 AM EST [facility] Ketones, Urine Negative Negative mg/dL 10/06/2024 9:40 AM EST [facility] Bilirubin, Urine Negative Negative 10/06/2024 9:40 AM EST [facility] Blood, Urine Large(A) Negative 10/06/2024 9:40 AM EST [facility] Nitrite, Urine Negative Negative 10/06/2024 9:40 AM EST [facility] Urobilinogen, Urine 0.2 0.2 - 1.0 E.U./dL 10/06/2024 9:40 AM EST [facility] Leukocyte Esterase, Urine Negative Negative 10/06/2024 9:40 AM EST [facility] Urine 10/05/2024 5:00 AM EST 10/06/2024 6:48 AM EST Narrative [facility] - 10/06/2024 9:40 AM EST Some urinalysis results will not meet the criteria for reflex urine culture although certain urine values may be abnormal. ??Additional testing can be ordered by the provider if clinically warranted. Michelle Ling NP LAB URINE ORDERABLES Final Res ult Performing Organization Address City/[facility]/ZIP Co de Phone Number [facility] [address] [address], [place] [phone] * Blood Culture (10/04/2024 1:15 PM EST) [facility] Blood Culture No growth after 5 days 10/09/2024 4:05 PM EST [facility] Blood Structure of peripheral vein / Unknown Venipuncture / Unknown 10/04/2024 1:15 PM EST 10/04/2024 1:24 PM EST Alexa NEWELL LAB MICROBIOLOGY - GENERAL ORDERABLES Final Result Performing Organization Address City/[facility]/ZIP Co de Phone Number [facility] [address] [address], [place] [phone] * Blood Culture (10/04/2024 1:10 PM EST) [facility] [address] [facility] Blood Culture No growth after 5 days 10/09/2024 4:05 PM EST [facility] Blood Structure of peripheral vein / Unknown Venipuncture / Unknown 10/04/2024 1:10 PM EST 10/04/2024 1:23 PM EST Alexa NEWELL LAB MICROBIOLOGY - GENERAL ORDERABLES Final Result [facility] [address] [place] [address] [address] [place] [address], [place] [phone] * (ABNORMAL) Comprehensive Metabolic Panel (10/04/2024 7:18 AM EST) [facility] [address] [facility] NA 134(L) 136 - 145 mmol/L 10/04/2024 10:57 AM EST [facility] K 5.3(H) 3.5 - 5.1 mmol/L 10/04/2024 10:57 AM EST [facility] Cl 101 98 - 109 mmol/L 10/04/2024 10:57 AM EST [facility] CO2 20(L) 22 - 32 mmol/L 10/04/2024 10:57 AM EST [facility] Anion Gap 18 >=0 10/04/2024 10:57 AM EST [facility] Glucose 160(H) 60 - 99 mg/dL 10/04/2024 10:57 AM EST [facility] Creatinine 4.30(H) 0.50 - 1.12 mg/dL 10/04/2024 10:57 AM EST [facility] Calcium 7.4(L) 8.4 - 10.4 mg/dL 10/04/2024 10:57 AM EST [facility] Total Protein 5.2(L) 6.6 - 8.7 g/dL 10/04/2024 10:57 AM EST [facility] Albumin 2.7(L) 3.5 - 5.0 g/dL 10/04/2024 10:57 AM [facility] Bilirubin, Total 0.2 0.2 - 1.2 mg/dL 10/04/2024 10:57 AM EST [facility] Alkaline Phosphatase 353(H) 40 - 129 U/L 10/04/2024 10:57 AM EST [facility] AST 23 0 - 40 U/L 10/04/2024 10:57 AM EST [facility] ALT 21 <=41 U/L 10/04/2024 10:57 AM EST [facility] BUN 73(H) 6 - 20 mg/dL 10/04/2024 10:57 AM EST [facility] eGFR 17(L) >=60 mL/min/1. 73m2 10/04/2024 10:57 AM EST [facility] Comment:The estimated glomer ular filtration rate (eGFR) [...] in Diagnosing Kidney Disease . Globulin, Total 2.5 2.1 - 4.2 g/dL 10/04/2024 10:57 AM EST [facility] A/G Ratio 1.1(L) 1.5 - 3.0 10/04/2024 10:57 AM EST [facility] Blood Structure of peripheral vein / Unknown Venipuncture / Unknown 10/04/2024 7:18 AM EST 10/04/2024 7:35 AM EST us Doctor Unknown LAB BLOOD ORDERABLES Final Resul t [facility] [address] [facility] [address] [place] [address], * (ABNORMAL) Vancomycin, Trough (10/04/2024 7:18 AM EST) Pathologist [facility] Vancomycin Trough 29.4(H) 10.0 - 20.0 ug/mL 10/04/2024 10:57 AM EST [facility] Blood Structure of peripheral vein / Unknown Venipuncture / Unknown 10/04/2024 7:18 AM EST 10/04/2024 7:35 AM EST Eliezer Juarez MD LAB BLOOD ORDERABLES Final Resul t [facility] [address] [place] [address] [address] [place] [address], * (ABNORMAL) CBC Auto Differential (10/04/2024 7:18 AM EST) Pathologist [facility] WBC 21.0(H) 4.8 - 10.8 10*3/uL 10/04/2024 10:21 AM EST [facility] RBC 2.90(L) 4.70 - 6.10 10*6/uL 10/04/2024 10:21 AM [facility] Hemoglobin 8.4(L) 13.7 - 16.5 g/dL 10/04/2024 10:21 AM EST [facility] Hematocrit 25.6(L) 40.5 - 48.5 % 10/04/2024 10:21 AM EST [facility] MCV 88.3 80.0 - 94.0 fL 10/04/2024 10:21 AM EST [facility] MCH 29.0 26.0 - 34.0 pg 10/04/2024 10:21 AM EST [facility] MCHC 32.8 31.0 - 36.0 g/dL 10/04/2024 10:21 AM EST [facility] RDW 13.0 12.0 - 15.0 % 10/04/2024 10:21 AM [facility] RDW Standard Deviation 42.4 35.1 - 43.9 fL 10/04/2024 10:21 AM [facility] Platelets 575(H) 140 - 440 10*3/uL 10/04/2024 10:21 AM [facility] MPV 9.3(L) 9.4 - 12.4 fL 10/04/2024 10:21 AM EST [facility] Neutrophil % 88.2(H) 50.0 - 75.0 % 10/04/2024 10:21 AM [facility] Immature Grans % 1.5(H) 0.0 - 0.9 % 10/04/2024 10:21 AM [facility] Lymphocyte % 7.0(L) 20.0 - 44.0 % 10/04/2024 10:21 AM [facility] Monocyte % 2.4 0.0 - 14.0 % 10/04/2024 10:21 AM [facility] Eosinophil % 0.7 0.0 - 5.0 % 10/04/2024 10:21 AM [facility] Basophil % 0.2 0.0 - 2.0 % 10/04/2024 10:21 AM [facility] Neutrophil # 18.48(H) 1.80 - 7.70 10*3/uL 10/04/2024 10:21 AM [facility] Immature Grans # 0.32(H) 0.00 - 0.03 10*3/uL 10/04/2024 10:21 AM [facility] Lymphocyte # 1.50 1.00 - 4.75 10*3/uL 10/04/2024 10:21 AM [facility] Monocyte # 0.50 0.00 - 6.00 10*3/uL 10/04/2024 10:21 AM [facility] Eosinophil # 0.10 0.00 - 0.80 10*3/uL 10/04/2024 10:21 AM [facility] Basophil # 0.10 0.00 - 0.20 10*3/uL 10/04/2024 10:21 AM [facility] nRBC % 0.0 0 - 0 /100 WBCs 10/04/2024 10:21 AM [facility] nRBC # <0.01 0.00 - 0.13 10*3/uL 10/04/2024 10:21 AM EST [facility] Blood Structure of peripheral vein / Unknown Venipuncture / Unknown 10/04/2024 7:18 AM EST 10/04/2024 7:33 AM EST Doctor Unknown LAB BLOOD ORDERABLES Final Resul t Performing Organization Address [facility] Co de Phone Number [facility] [address] [address], [place] [phone] * Aerobic Culture w/Gram Stain (10/03/2024 11:39 PM EST) Aerobic Culture No growth after 2 days [place] [facility] 10/06/2024 1:25 PM EST [facility] Gram Stain Result Rare White Blood Cells Seen 10/06/2024 1:25 PM EST [facility] Gram Stain Result No organisms seen 10/06/2024 1:25 PM EST [facility] Swab Structure of right lower leg / Unknown Non-Blood Collection / Unknown 10/03/2024 11:39 PM EST 10/04/2024 11:11 AM EST Doctor Unknown LAB MICROBIOLOGY - GENERAL ORDER FRACISCO Final Result Performing Organization Address [facility] Co de Phone Number [facility] [address] [place] [address], * (ABNORMAL) Vancomycin, Trough (10/03/2024 7:41 AM EST) Vancomycin Trough 34.8(HH) 10.0 - 20.0 ug/mL 10/03/2024 10:22 AM EST [facility] Blood Structure of peripheral vein / Unknown Venipuncture / Unknown 10/03/2024 7:41 AM EST 10/03/2024 7:41 AM EST us Eliezer Juarez MD LAB BLOOD ORDERABLES Final Resul t [facility] [address] [place] [address], * (ABNORMAL) Basic Metabolic Panel (10/03/2024 7:41 AM EST) NA 137 136 - 145 mmol/L 10/03/2024 10:15 AM EST [facility] K 5.1 3.5 - 5.1 mmol/L 10/03/2024 10:15 AM EST [facility] Cl 100 98 - 109 mmol/L 10/03/2024 10:15 AM EST [facility] CO2 23 22 - 32 mmol/L 10/03/2024 10:15 AM EST [facility] BUN 65(H) 6 - 20 mg/dL 10/03/2024 10:15 AM EST [facility] Creatinine 3.87(H) 0.50 - 1.12 mg/dL 10/03/2024 10:15 AM EST [facility] Comment:REVIEWED Glucose 135(H) 60 - 99 mg/dL 10/03/2024 10:15 AM EST [facility] Calcium 7.9(L) 8.4 - 10.4 mg/dL 10/03/2024 10:15 AM EST [facility] Anion Gap 19 >=0 10/03/2024 10:15 AM EST [facility] eGFR 19(L) >=60 mL/min/1. 73m2 10/03/2024 10:15 AM EST [facility] Comment:The estimated glomer ular filtration rate (eGFR) is calculated using a new formula developed by the NKF-ASN task force to eliminate race-based correction factors. The new formula uses serum/plasma creatinine, age, and gender to determine eGFR. A value below 60mls/min might indicate kidney disease and will be flagged. For additional information, see Shu steward al, Am J Kidney Dis. 2021;79(2):268- 288, A Unifying Approach for GFR estimation: Recommendations of the NKF-ASN Task Force on Reassessing the Inclusion of Race in Diagnosing Kidney Disease . Blood Structure of peripheral vein / Unknown Venipuncture / Unknown 10/03/2024 7:41 AM EST 10/03/2024 7:41 AM EST Eliezer Juarez MD LAB BLOOD ORDERABLES Final Resul t [facility] [address] [facility] [address] [place] [address], * (ABNORMAL) CBC Auto Differential (10/03/2024 5:00 AM EST) WBC 15.8(H) 4.8 - 10.8 10*3/uL 10/03/2024 10:10 AM EST [facility] RBC 3.24(L) 4.70 - 6.10 10*6/uL 10/03/2024 10:10 AM EST [facility] Hemoglobin 9.6(L) 13.7 - 16.5 g/dL 10/03/2024 10:10 AM EST [facility] Hematocrit 28.9(L) 40.5 - 48.5 % 10/03/2024 10:10 AM EST [facility] MCV 89.2 80.0 - 94.0 fL 10/03/2024 10:10 AM EST [facility] MCH 29.6 26.0 - 34.0 pg 10/03/2024 10:10 AM EST [facility] MCHC 33.2 31.0 - 36.0 g/dL 10/03/2024 10:10 AM EST [facility] RDW 13.1 12.0 - 15.0 % 10/03/2024 10:10 AM EST [facility] RDW Standard Deviation 42.6 35.1 - 43.9 fL 10/03/2024 10:10 AM [facility] Platelets 591(H) 140 - 440 10*3/uL 10/03/2024 10:10 AM [facility] MPV 9.0(L) 9.4 - 12.4 fL 10/03/2024 10:10 AM [facility] Neutrophil % 71.7 50.0 - 75.0 % 10/03/2024 10:10 AM [facility] Immature Grans % 2.2(H) 0.0 - 0.9 % 10/03/2024 10:10 AM [facility] Lymphocyte % 17.3(L) 20.0 - 44.0 % 10/03/2024 10:10 AM [facility] Monocyte % 5.9 0.0 - 14.0 % 10/03/2024 10:10 AM [facility] Eosinophil % 2.3 0.0 - 5.0 % 10/03/2024 10:10 AM [facility] Basophil % 0.6 0.0 - 2.0 % 10/03/2024 10:10 AM [facility] Neutrophil # 11.30(H) 1.80 - 7.70 10*3/uL 10/03/2024 10:10 AM [facility] Immature Grans # 0.34(H) 0.00 - 0.03 10*3/uL 10/03/2024 10:10 AM [facility] Lymphocyte # 2.70 1.00 - 4.75 10*3/uL 10/03/2024 10:10 AM [facility] Monocyte # 0.90 0.00 - 6.00 10*3/uL 10/03/2024 10:10 AM [facility] Eosinophil # 0.40 0.00 - 0.80 10*3/uL 10/03/2024 10:10 AM [facility] Basophil # 0.10 0.00 - 0.20 10*3/uL 10/03/2024 10:10 AM [facility] nRBC % 0.0 0 - 0 /100 WBCs 10/03/2024 10:10 AM [facility] nRBC # <0.01 0.00 - 0.13 10*3/uL 10/03/2024 10:10 AM [facility] Blood Structure of peripheral vein / Unknown Venipuncture / Unknown 10/03/2024 5:00 AM EST 10/03/2024 7:40 AM EST Eliezer Juarez MD LAB BLOOD ORDERABLES Final Resul t [facility] [address] [facility] [address] [place] [address], [place] [phone] * (ABNORMAL) CBC Auto Differential (10/02/2024 7:40 AM EST) WBC 15.7(H) 4.8 - 10.8 10*3/uL 10/02/2024 10:25 AM EST [facility] RBC 3.18(L) 4.70 - 6.10 10*6/uL 10/02/2024 10:25 AM EST [facility] Hemoglobin 9.4(L) 13.7 - 16.5 g/dL 10/02/2024 10:25 AM EST [facility] Hematocrit 28.2(L) 40.5 - 48.5 % 10/02/2024 10:25 AM EST [facility] MCV 88.7 80.0 - 94.0 fL 10/02/2024 10:25 AM EST [facility] MCH 29.6 26.0 - 34.0 pg 10/02/2024 10:25 AM EST [facility] MCHC 33.3 31.0 - 36.0 g/dL 10/02/2024 10:25 AM EST [facility] RDW 13.0 12.0 - 15.0 % 10/02/2024 10:25 AM EST [facility] RDW Standard Deviation 42.0 35.1 - 43.9 fL 10/02/2024 10:25 AM EST [facility] Platelets 559(H) 140 - 440 10*3/uL 10/02/2024 10:25 AM EST [facility] MPV 9.2(L) 9.4 - 12.4 fL 10/02/2024 10:25 AM EST [facility] Neutrophil % 70.4 50.0 - 75.0 % 10/02/2024 10:25 AM [facility] Immature Grans % 3.8(H) 0.0 - 0.9 % 10/02/2024 10:25 AM [facility] Lymphocyte % 16.5(L) 20.0 - 44.0 % 10/02/2024 10:25 AM [facility] Monocyte % 6.2 0.0 - 14.0 % 10/02/2024 10:25 AM [facility] Eosinophil % 2.5 0.0 - 5.0 % 10/02/2024 10:25 AM [facility] Basophil % 0.6 0.0 - 2.0 % 10/02/2024 10:25 AM [facility] Neutrophil # 11.02(H) 1.80 - 7.70 10*3/uL 10/02/2024 10:25 AM [facility] Immature Grans # 0.60(H) 0.00 - 0.03 10*3/uL 10/02/2024 10:25 AM [facility] Lymphocyte # 2.60 1.00 - 4.75 10*3/uL 10/02/2024 10:25 AM [facility] Monocyte # 1.00 0.00 - 6.00 10*3/uL 10/02/2024 10:25 AM [facility] Eosinophil # 0.40 0.00 - 0.80 10*3/uL 10/02/2024 10:25 AM [facility] Basophil # 0.10 0.00 - 0.20 10*3/uL 10/02/2024 10:25 AM [facility] nRBC % 0.0 0 - 0 /100 WBCs 10/02/2024 10:25 AM [facility] nRBC # <0.01 0.00 - 0.13 10*3/uL 10/02/2024 10:25 AM [facility] Blood Structure of peripheral vein / Unknown Venipuncture / Unknown 10/02/2024 7:40 AM EST 10/02/2024 8:33 AM EST us Doctor Unknown LAB BLOOD ORDERABLES Final Resul t Performing Organization Address City/[facility]/ZIP Co de Phone Number [facility] [address] [address], * (ABNORMAL) Albumin (10/02/2024 7:35 AM EST) Albumin 2.7(L) 3.5 - 5.0 g/dL 10/02/2024 10:34 AM EST [facility] Blood Structure of peripheral vein / Unknown Venipuncture / Unknown 10/02/2024 7:35 AM EST 10/02/2024 8:31 AM EST Narrative [facility] - 10/02/2024 10:34 AM EST NUR1\S\115\S\B\S\0156\S\S\BED\S\0156 NUR1\S\115\S\B\S\0156\S\S\BED\S\0156 NUR1\S\115\S\B\S\0156\S\S\BED\S\0156 us Doctor Unknown LAB BLOOD ORDERABLES Final Resul t Performing Organization Address City/[facility]/ZIP Co de Phone Number [facility] [address] [address], * (ABNORMAL) Prealbumin (10/02/2024 7:35 AM EST) Prealbumin 16(L) 20 - 40 mg/dL 10/02/2024 10:34 AM EST [facility] Blood Structure of peripheral vein / Unknown Venipuncture / Unknown 10/02/2024 7:35 AM EST 10/02/2024 8:31 AM EST Narrative [facility] - 10/02/2024 10:34 AM EST NUR1\S\115\S\B\S\0156\S\S\BED\S\0156 NUR1\S\115\S\B\S\0156\S\S\BED\S\0156 NUR1\S\115\S\B\S\0156\S\S\BED\S\0156 us Doctor Unknown LAB BLOOD ORDERABLES Final Resul t [facility] [address] [facility] [address] [place] [address], * (ABNORMAL) Basic Metabolic Panel (10/02/2024 7:35 AM EST) NA 135(L) 136 - 145 mmol/L 10/02/2024 10:34 AM EST [facility] K 5.2(H) 3.5 - 5.1 mmol/L 10/02/2024 10:34 AM EST [facility] Cl 99 98 - 109 mmol/L 10/02/2024 10:34 AM EST [facility] CO2 24 22 - 32 mmol/L 10/02/2024 10:34 AM EST [facility] BUN 50(H) 6 - 20 mg/dL 10/02/2024 10:34 AM EST [facility] Creatinine 2.57(H) 0.50 - 1.12 mg/dL 10/02/2024 10:34 AM EST [facility] Glucose 156(H) 60 - 99 mg/dL 10/02/2024 10:34 AM EST [facility] Calcium 8.0(L) 8.4 - 10.4 mg/dL 10/02/2024 10:34 AM EST [facility] Anion Gap 17 >=0 10/02/2024 10:34 AM EST [facility] eGFR 31(L) >=60 mL/min/1. 73m2 10/02/2024 10:34 AM EST [facility] Comment:The estimated glomer ular filtration rate (eGFR) [...] peripheral vein / Unknown Venipuncture / Unknown 10/02/2024 7:35 AM EST 10/02/2024 8:31 AM EST Narrative [facility] - 10/02/2024 10:34 AM EST NUR1\S\115\S\B\S\0156\S\S\BED\S\0156 NUR1\S\115\S\B\S\0156\S\S\BED\S\0156 NUR1\S\115\S\B\S\0156\S\S\BED\S\0156 us Doctor Unknown LAB BLOOD ORDERABLES Final Resul t [facility] [address] [facility] [address] [place] [address], documented in this encounter Visit Diagnoses Not on filedocumented in this encounter Care Teams Tests Superintendent Relationship Specialty Start Date End Date Geovanna Abbasi NP [address] [place] [phone] PCP - General 11/09/20 documented as of this encounter
--- OUTSIDE RECORDS SUMMARY | 2025-02-25 14:44 | XMS_ITS | Encounter Summary ---
Author Organization [facility] Address [address] [place] [address] Care Team Providers Care Pipe Fitter Name Role Phone AyleenGeovanna MALARIOLOGIST Primary Care Provider [phone] Reason for Visit * Reason Comments Follow-up Pt is here to follow -up from surgery on left leg that was done at [facility] on September 23, 2024. Encounter Details Date Type Department Care Team ([facility] st Contact Info) Description 02/22/2025 10:30 AM EDT Office Visit [address] [facility] [address] [place] [address] Juan David Winters PA [address] [place] [address] [address] [place] [address] Wound of left lower extremity, initial encounter (Primary Dx); Hospital discharge follow-up Social History Tobacco Use Types Packs/Day Years Used Date Smoking Tobacco: Former Cigarettes Smokeless Tobacco: Never Comments:QUIT DAY OF SURGERY Alcohol Use Standard Drinks/Week Comments Never 0 (1 standard drink = 0.6 oz pur e alcohol) [facility] Utilities Answer Date Recorded In the past 12 months has [employer], gas, oil, or water company threatened [...] Sign Reading Time Taken Comments Blood Pressure 143/85 02/22/2025 10:27 AM EDT Pulse 95 02/22/2025 10:27 AM EDT Temperature 36.4 ??C (97.6 ??F) 02/22/2025 10:27 AM E DT Respiratory Rate - - Oxygen Saturation 98% 02/22/2025 10:27 AM EDT Inhaled Oxygen Concentration - - Weight - - Height - - Body Mass Index - - documented in this encounter Progress Notes * REECE Grace - 02/22/2025 10:44 AM EDT Godfrey Vuong [id number] Patient ID: Miguel is a 45 y.o. male. HPI Pt is a 45 y.o male who was recently discharge from the hospital ago presented today for followup. Pt is a s/p left fem-BK pop bypass w/iGSV on 09/23/2024 followed by L medial calf I+D with negative pressure vac placement on 11/27/2024. Wound vac has been removed and he was sent home with dressing change 3 times a week. Pt states that he only have a few visit left with home care since his insurance is being either discontinued or will not pay for the help. HE states that his sister may be able to help him with the dressing change. His medications are up to date. No refills needed. He denies any new symptoms. Review of Systems Constitutional: Negative. Respiratory: Negative. Cardiovascular: Negative. Skin: Positive for wound. Objective Vitals: 02/22/25 1027 BP: (!) 143/85 BP Location: Right arm Patient Position: Sitting Pulse: 95 Temp: 36.4 ??C (97.6 ??F) TempSrc: Oral SpO2: 98% Physical Exam Constitutional: Appearance: Normal appearance. Cardiovascular: Rate and Rhythm: Normal rate. Pulmonary: Effort: Pulmonary effort is normal. Breath sounds: Normal breath sounds. Skin: Comments: Open wound to left lower leg latero posterior about 5x1 inch in size,, no active drainage, no signs of infection. Neurological: Mental Status: He is alert. Assessment & Plan No problem-specific Assessment & Plan notes found for this encounter. Hospital discharge follow up Left lower leg wound Wound is cleansed and dressed Follow up with home care for dressing change 3 times weekly as previously advised Follow up with PCP as planned at the end of next month No follow-ups on file. documented in this encounter Plan of Treatment Upcoming Encounters Date Type Department Care Team (Late st Contact Info) Description 02/28/2025 10:00 AM EDT Nutrition [facility] [address] [place] [address] [place] [phone] 03/24/2025 1:40 PM EDT Office Visit [facility] [address] [facility] [address] [place] [address] Geovanna Abbasi NP [address] [place] [address] 04/07/2025 8:00 AM EDT Office Visit [facility] [address] [place] [address] Foster Winder: Tatiana Phillip NP [address] [place] [address] 04/26/2025 10:40 AM EDT Follow-Up [facility] [address] [place] [address] Foster Winder: Kojo Tracey MD [address] [place] [address] 05/05/2025 2:30 PM EDT Office Visit [facility] [address] [place] [address] Foster Winder: Tatiana Phillip NP [address] [place] [address] 05/19/2025 1:30 PM EDT Office Visit [facility] [address] [facility] [address] [place] [address] Henrique Banegas, PharmD [address] [place] [address] 07/15/2025 1:00 PM EDT Appointment [facility] [address] [place] [address] 07/15/2025 1:45 PM EDT Appointment [facility] [address] [place] [address] 07/15/2025 3:00 PM EDT Follow-Up [facility] V[facility] Surgery [address] [place] [phone] Foster Winder: Mitul Starr NP [address] [place] [address] documented as of this encounter Visit Diagnoses Diagnosis Wound of left lower extremity, initial encounter- Primary Hospital discharge follow-up Other follow-up examination documented in this encounter Care Teams Pipe Fitter Relationship Specialty Start Date End Date Geovanna Abbasi NP [address] [place] [phone] PCP - General 11/09/20 documented as of this encounter
--- OUTSIDE RECORDS SUMMARY | 2025-02-25 14:44 | XMS_ITS | Encounter Summary ---
Author Organization [facility] Address [address] [place] [address] Care Team Providers Care Metal Buildings Assembler Name Role Phone AyleenGeovanna FLOWER SHOP MANAGER Primary Care Provider [phone] Encounter Details Date Type Department Care Team (Late st Contact Info) Description 02/24/2025 Documentation [facility] [address] [place], [place] [phone] Michelle Ling NP [address] [place] [address] Social History Tobacco Use Types Packs/Day Years Used Date Smoking Tobacco: Former Cigarettes Smokeless Tobacco: Never Comments:QUIT DAY OF SURGERY Alcohol Use Standard Drinks/Week Comments Never 0 (1 standard drink = 0.6 oz pur e alcohol) [facility] Utilities Answer Date Recorded In the [...] Progress Notes * Michelle Ling NP - 02/24/2025 11:08 AM EDT Pt's labs reviewed. Renal function likely around his baseline of CKD stage III. Blood sugar very elevated. I did call patient with [facility] home care [facility] #[phone]. Pt states he did not take any insulin or meds this morning bc he thought he had to fast for his blood draw. Pt instructed to go toED as his blood sugar is very elevated. Pt states he is currently waiting to be called in for his endocrinology appointment. Will defer blood glucose management, message sent to provider. documented in this encounter Plan of Treatment Upcoming Encounters Date Type Department Care Team (Late st Contact Info) Description 02/28/2025 10:00 AM EDT Nutrition [facility] [address] [place] [address] [place] [phone] 03/24/2025 1:40 PM EDT Office Visit [facility] [address] [facility] [address] [place] [address] Geovanna Abbasi NP [address] [place] [address] 04/07/2025 8:00 AM EDT Office Visit [facility] [address] [place] [address] Fact Checker: Tatiana Phillip NP [address] [place] [address] 04/26/2025 10:40 AM EDT Follow-Up [facility] [address] [place] [address] Fact Checker: Kojo Tracey MD [address] [place] [address] 05/05/2025 2:30 PM EDT Office Visit [facility] [address] [place] [address] Fact Checker: Tatiana Phillip NP [address] [place] [address] 05/19/2025 1:30 PM EDT Office Visit [facility] [address] [facility] [address] [place] [address] DiGeroHenrique lewis, PharmD [address] [place] [address] 07/15/2025 1:00 PM EDT Appointment [facility] [address] [place] [address] 07/15/2025 1:45 PM EDT Appointment [facility] [address] [place] [address] 07/15/2025 3:00 PM EDT Follow-Up [facility] Vascular Surgery [address] [place] [address] Fact Checker: Mitul Starr NP [address] [place] [address] documented as of this encounter Visit Diagnoses Not on filedocumented in this encounter Care Teams Metal Buildings Assembler Relationship Specialty Start Date End Date Geovanna Abbasi NP [address] [place] [address] PCP - General 11/09/20 documented as of this encounter
--- OUTSIDE RECORDS SUMMARY | 2025-02-25 14:44 | XMS_ITS | Encounter Summary ---
Author Organization [facility] Address [address] [place] [address] Care Team Providers Care Ict Programmer Name Role Phone Geovanna Abbasi NP Primary Care Provider [phone] Reason for Referral * Nutrition (Routine) - Pending Review Specialty Diagnoses / Procedures Referred By Mandi avila Referred To Contact Diabetes Services Diagnoses Type 2 diabetes mellitus with both eyes affected by severe nonproliferative retinopathy and macular edema, with long-term current use of insulin ([facility]) Rosa Jenkins MD [address] [place] [address] Phone: tel: fax: [facility] Diabetes Education [address] [place] [address] Phone: tel: fax: Referral ID Status Reason Start Date Expiration Date V isits Requested Visits Authorized [id number] Pending Review 02/24/2025 03/27/2026 6 6 * Consultation (Routine) - Pending Review Specialty Diagnoses / Procedures Referred By Mandi avila Referred To Contact Diagnoses Type 2 diabetes mellitus with both eyes affected by severe nonproliferative retinopathy and macular edema, with long-term current use of insulin (HCC) Rosa Jenkins MD [address] [place] [address] Phone: tel: fax: Referral ID Status Reason Start Date Expiration Date Visits Requested Visits Authorized [id number] Pending Review Specialty Services Required 02/24/2025 03/27/2026 6 6 * Consultation (Routine) - Pending Review Specialty Diagnoses / Procedures Referred By Mandi avila Referred To Contact Ophthalmology Diagnoses Type 2 diabetes mellitus with both eyes affected by severe nonproliferative retinopathy and macular edema, with long-term current use of insulin ([facility]) Rosa Jenkins MD [address] [place] [address] Phone: tel: fax: [place] [address] Phone: tel: fax: Referral ID Status Reason Start Date Expiration Date Visits Requested Visits Authorized [id number] Pending Review Specialty Services Required 02/24/2025 03/27/2026 6 6 Reason for Visit * Reason Comments Type 2 Diabetes * Consultation (Routine) - Pending Review Specialty Diagnoses / Procedures Referred By Mandi avila Referred To Contact Diabetes Services Diagnoses Acute lower extremity ischemia Camacho Lewis MD [address] [place] [address] Phone: tel: fax: [facility] [address] [place] [address] Phone: tel: fax: Referral ID Status Reason Start Date Expiration Date Visits Requested Visits Authorized [id number] Pending Review Specialty Services Required 10/01/2024 10/01/2025 6 6 Encounter Details Date Type Department Care Team (Late st Contact Info) Description 02/24/2025 11:30 AM EDT Office Visit [facility] Diabetes Clinic [address] [place] [address] Supervisor Research Shop: Catherine Cha MD [address] [place] [address] Type 2 diabetes mellitus with both eyes affected by severe nonproliferative retinopathy and macular edema, with long-term current use of insulin (HCC) (Primary Dx); Essential hypertension; Mixed hyperlipidemia; Class 3 obesity; Acute lower extremity ischemia Social History Tobacco Use Types Packs/Day Years Used Date Smoking Tobacco: Former Cigarettes Smokeless Tobacco: Never Comments:QUIT DAY OF SURGERY Alcohol Use Standard Drinks/Week Comments Never 0 (1 standard drink = 0.6 oz pur e alcohol) [facility] Utilities Answer Date Recorded In the past 12 months has e electric, gas, oil, or water [employer] threatened to shut off services in your [...] Sign Reading Time Taken Comments Blood Pressure 149/87 02/24/2025 11:07 AM EDT Pulse 92 02/24/2025 11:07 AM EDT Temperature - - Respiratory Rate - - Oxygen Saturation - - Inhaled Oxygen Concentration - - Weight 125 kg (275 lb 9.2 oz) 02/24/2025 11:07 A M EDT Height - - Body Mass Index 45.86 02/11/2025 2:41 PM EDT documented in this encounter Patient Instructions * Patient Instructions* Catherine Dinh MD - 02/24/2025 12:08 PM EDT If your Geo 3+ sensor falls off early call: Customer Care Team can be reached at [phone] (8AM - 8PM Eastern Time, excluding holidays). documented in this encounter Progress Notes * Rosa Jenkins MD - 02/24/2025 5:23 PM EDT I have reviewed the patient's medical history, the findings on physical exam, and the diagnosis andtreatment plan. Case was discussed with the resident/fellow at the time of the patient visit and I personally was integrally involved in the medical decision making for the patient's treatment, ongoing care and follow-up as documented in the resident/fellow's note. Patient reports that he has not been monitoring blood sugars at all for at least 3-4 days as his CGM sensor fell off and he does not like to do fingerstick testing because it is painful. Unclear how long sugars have been uncontrolled as he did not bring any BG data. He reports that he has been taking his insulin doses consistently despite not monitoring his blood sugar other than holding his dosethis morning as he was fasting for labs; if this is accurate, then it seems that insulin doses haveincreased significantly since his recent hospitalization, perhaps due to poor diet at home, though also need to consider the possibility of infection contributing to hyperglycemia. Tight glycemic control is imperative given his left lower leg wounds. Given the degree of hyperglycemia, which is complicated by CHELA, I feel that IV insulin and IV fluids will be needed, at least in the short term to break the glucose toxicity, and thus we have recommended ER evaluation for acute management as well as further evaluation to rule out potential underlying causes, such as infection, that might be exacer bating hyperglycemia. The importance of monitoring sugars with fingerstick testing if he does not have CGM sensors, and contacting us if sugars are consistently running high so that we can assist with adjustments before sugars reach a dangerously high level, was stressed. * Catherine Dinh MD - 02/24/2025 11:40 AM EDT Images from the original note were not included. [facility] NOTE Visit Location: [facility] Patient name: Miguel Foley Primary Care Provider: Geovanna Abbasi NP REASON FOR VISIT Type 2 Diabetes Assessment & Plan Diagnosis Plan 1. Type 2 diabetes mellitus with both eyes affected by severe nonproliferative retinopathy and macular edema, with long-term current use of insulin (HCC) Ambulatory referral to Ophthalmology - General Ambulatory referral to Diabetes Education Ambulatory Referral to Nutrition - Adult (Medical Nutrition Therapy) 2. Essential hypertension 3. Mixed hyperlipidemia 4. Class 3 obesity 5. Acute lower extremity ischemia Ambulatory referral to Endocrinology Miguel Foley is a 45 y.o. male with uncontrolled type 2 diabetes complicated by retinopathy,neuropathy, significant PVD, nephropathy with nephrotic range proteinuria with comorbidities of HTN, HLD, class 3 obesity. His most recent A1c was 12.5% (01/29/2025). Patient recently admitted 01/28/20-02/03/25 for sepsis in the setting of cellulitis along L fem-AK bypass. Patient presents today with serum glucose 600s this morning in the setting of fasting and not taking insulin. Labs also notable to for CHELA and pseudohyponatremia. Patient received lispro 20 units x1 in clinic and oral hydration, referred to ED for IVF, management of hyperglycemia, and infectious work-up. In clinic today, freestyle lite glucometer sent to specialty pharmacy; reviewed with patient importance of checking FSBG 4 times daily and calling clinic for adjustment to insulin for FSBG persistently >350 in the future. Reviewed with patient switching from Trulicity 1.5 mg weekly to Mounjaro 5mg weekly. Defer metformin at this time in the setting of CHELA. Online form filled out to request Geo 3+ CGM replacement as his last fell off early. Referred to diabetes education and MNT. Referred to ophthalmology. Patient Instructions If your Geo 3+ sensor falls off early call: Customer Care Team can be reached at [phone] (8AM - 8PM Eastern Time, excluding holidays). Return in about 1 month (around 03/27/2025) for diabetes. Patient seen and case discussed with Dr. Jenkins. Catherine Dinh MD-PhD Endocrinology Fellow DIABETES HISTORY, PHYSICAL EXAM, AND LAB DATA Miguel Floey is a 45 y.o. male is being assessed in the clinic today for follow-up evaluation of Type 2 diabetes, with long-term insulin use, retinopathy, neuropathy, significant PVD, nephropathy with nephrotic range proteinuria with comorbidities of HTN, HLD, class 3 obesity, in addition to: hypertension, hyperlipidemia, and obesity. Patient Consumer Marketer Patient Consumer Marketer Used: Yes Type of Patient Consumer Marketer Used: Video Patient Consumer Marketer Patient Consumer Marketer Name/Number: [id number] Interval History: - patient did not take insulin this morning - fasting serum 657 this morning, FSBG in clinic 571 - reports fasting 110, but goes up after meals - drinking regular soda - Geo 3+ sensor fell off and he has not been checking FSBG for 4 days - has been taking insulin without checking FSBG Current Diabetes Regimen: Glargine 38 nightly Lispro 10 units AC or 12 units for large meal Trulicity 1.5 weekly on Friday Glucose Monitoring: Libre3+ reader not available today Has not been using glucometer Fasting serum glucose 657 this AM Diabetes History Diagnosis: Type 2 diabetes >20 years ago Condition at time of diagnosis: routine lab testing C-peptide/Antibodies: No data to display Complications: Retinopathy: yes Nephropathy: yes Neuropathy: yes CVA, CAD, PAD: PVD with hx of CLTI s/p L SFA stent (occluded, 09/16/24, Dinh), L fem-AK pop bypass iGSV (09/23/24, Debbie), and L calf I&D (11/27/24, Judelson) Associated Comorbidities: HTN: yes HLD: yes Obesity: class 3 Hypoglycemia: no severe, infrequent Hyperglycemia admissions: none SMBG: home glucose testing is performed using Geo 3+ with reader, didn't bring today Previous medication trials: Jardiance (held for hyperglycemia), metformin (not yet resumed due to CHELA on CKD) Diabetes Family History: Type 2 diabetes in father and mother Social History: The patient lives with his sister. He is not working currently after his last surgery. He was working in a [employer] previously. The patient reports that he has quit smoking. His smoking use included cigarettes. He has never used smokeless tobacco. The patient reportsno history of alcohol use. Last visit with [facility]: none Medications: Current Medications (Taking) as of 02/24/2025 acetaminophen (TYLENOL) 325 mg tablet Take 650 mg by mouth every 6 hours as needed for pain. alcohol swabs (Alcohol Prep Pads) pads, medicated Use prior to checking blood sugar amLODIPine (NORVASC) 5 mg tablet Take 1 tablet (5 mg total) by mouth once a day. blood glucose diagnostic (FreeStyle Precision Ethan Strips) test strip Use to test 3 times daily. blood pressure test kit-medium kit For blood pressure monitoring 1-2 times weekly cholecalciferol (VITAMIN D3) 1,250 mcg (50,000 unit) capsule Starting on 02/28/2025. Take 1 capsule (50,000 Units total) by mouth once a week for 8 doses. furosemide (LASIX) 20 mg tablet Take 2 tablets (40 mg total) by mouth once a day. gabapentin (NEURONTIN) 300 mg capsule TAKE 1 CAPSULE(300 MG) BY MOUTH TWICE DAILY hydrOXYzine HCL (ATARAX) 25 mg tablet Take 1-2 pills by mouth at night for anxiety and insomnia. lisinopriL (PRINIVIL,ZESTRIL) 10 mg tablet Take 4 tablets (40 mg total) by mouth once a day. rosuvastatin (CRESTOR) 20 mg tablet Take 20 mg by mouth once a day. silver sulfadiazine (SILVADENE) 1% cream Apply topically to the affected area once a day. tamsulosin (FLOMAX) 0.4 mg capsule Take 1 capsule (0.4 mg total) by mouth once a day. Physical Exam: weight is 125 kg (275 lb 9.2 oz). His blood pressure is 149/87 (abnormal) and his pulse is 92. bodymass index is 45.86 kg/m??. General: alert, cooperative, ambulating with cane Oropharynx: moist mucous membranes Eyes: white sclera, EOMI Lungs: breathing comfortably on room air Extremities: dressing to LLE Neuro: appropriate to conversation, moving all extremities Labs: Hemoglobin A1c: Latest Ref Rng & Units 01/29/2025 6:56 AM 12/31/2024 10:21 AM 11/27/2024 11:46 AM HgbA1c Hemoglobin A1C <5.7 % of total Hgb 12.5 9.9 9.3 C-peptide and Antibodies: No data to display Microalbumin: Latest Ref Rng & Units 02/24/2025 10:07 AM 12/22/2024 1:17 PM 11/10/2024 11:54 AM Microalbumin/Creat Ratio Microalbumin/Creat Ratio <30.0 mcg/mgCr 3,403.8 4,181 2,788 Creatinine/eGFR: Latest Ref Rng & Units 02/24/2025 9:56 AM 02/03/2025 6:02 AM 02/02/2025 5:51 AM Creatinine Creatinine 0.60 - 1.30 mg/dL 1.54 1.12 1.24 EGFR >=60 mL/min/1.73m2 56 83 74 Lipids: Latest Ref Rng & Units 10/29/2024 2:27 PM 10/06/2024 6:16 AM 10/05/2024 5:00 AM Lipids Triglycerides 0 - 149 mg/dL 209 119 152 Cholesterol, HDL >39 mg/dL 44 The 10-year ASCVD risk score (Gaye DK, et al., 2019) is: 4.8% Values used to calculate the score: Age: 45 years Sex: Male Is Non- : No Diabetic: Yes Tobacco smoker: No Systolic Blood Pressure: 149 mmHg Is BP treated: Yes HDL Cholesterol: 44 mg/dL Total Cholesterol: 160 mg/dL LFTs: Latest Ref Rng & Units 02/24/2025 9:56 AM 01/27/2025 11:38 AM 12/31/2024 10:21 AM Liver Function Tests Total Protein 6.0 - 8.0 g/dL 7.0 6.1 Albumin 3.5 - 5.2 g/dL 3.6 3.1 3.5 3.2 Bilirubin, Total 0.2 - 1.2 mg/dL 0.3 Alkaline Phosphatase 35 - 129 U/L 146 AST 10 - 40 U/L 22 ALT 10 - 40 U/L 12 FIB-4 Calculation: 0.58 at 02/03/2025 6:03 AM Calculated from: SGOT/AST: 22 U/L at 01/27/2025 11:38 AM SGPT/ALT: 12 U/L at 01/27/2025 11:38 AM Platelets: 482 10*3/uL at 02/03/2025 6:03 AM Age: 44 years Thyroid: Latest Ref Rng & Units 10/29/2024 2:27 PM Thyroid TSH 0.450 - 4.500 uIU/mL 1.900 Vitamin B12: None * Minerva Parsons LPN - 02/24/2025 11:30 AM EDT Pt had a follow up visit today.Dr Jenkins reported that pt's BG is 700 and his creatine was off and need to go to ER for evaluation. Pt was given Admelog 20 units in the abdomen before going to ER. Called 911 at 12:57 pm, pt was picked up from clinic at 1:12 to ER. documented in this encounter Plan of Treatment Upcoming Encounters Date Type Department Care Team (Late st Contact Info) Description 02/28/2025 10:00 AM EDT Nutrition [facility] Nutrition Clinic [address] [place] [phone] [place] [phone] 03/24/2025 1:40 PM EDT Office Visit [facility] [address] [facility] [address] [place] [address] Geovanna Abbasi NP [address] [place] [address] 04/07/2025 8:00 AM EDT Office Visit [facility] Diabetes [facility] [address] [place] [phone] Supervisor Research Shop: Tatiana Phillip NP [address] [place] [address] 04/26/2025 10:40 AM EDT Follow-Up [facility] Renal [address] [place] [address] Supervisor Research Shop: Kojo Tracey MD [address] [place] [address] 05/05/2025 2:30 PM EDT Office Visit [facility] [address] [place] [phone] Supervisor Research Shop: Tatiana Phillip NP [address] [place] [address] 05/19/2025 1:30 PM EDT Office Visit [facility] [address] [facility] [address] [place] [address] DiGHenrique gusman, PharmD [address] [place] [address] 07/15/2025 1:00 PM EDT Appointment [facility] Vascular Lab [address] [place] [address] 07/15/2025 1:45 PM EDT Appointment [facility]ascular Lab [address] [place] [phone] 07/15/2025 3:00 PM EDT Follow-Up [facility] Building Vascular Surgery [address] [place] [address] Supervisor Research Shop: Mitul Starr NP [address] [place] [phone] Scheduled Referrals Name Type Priority Associated Diagnoses Orde r Schedule Ambulatory referral to Ophthalmology - General Outpatient Referral Routine Type 2 diabetes mellitus with both eyes affected by severe nonproliferative retinopathy and macular edema, with long-term current use of insulin (HCC) Expected: 02/24/2025, Expires: 03/27/2026 Ambulatory referral to Diabetes Education Outpatient Referral Routine Type 2 diabetes mellitus with both eyes affected by severe nonproliferative retinopathy and macular edema, with long-term current use of insulin (HCC) Expected: 02/24/2025, Expires: 02/24/2026 Ambulatory Referral to Nutrition - Adult (Medical Nutrition Therapy) Outpatient Referral Routine Type 2 diabetes mellitus with both eyes affected by severe nonproliferative retinopathy and macular edema, with long-term current use of insulin (HCC) Expected: 02/24/2025, Expires: 02/24/2026 documented as of this encounter Procedures * Due to [place] [employer] law, this organization might not be sharing negative HIV tests. Procedure Name Priority Date/Time Associated Diagnosis Comments POCT GLUCOSE Routine 02/24/2025 11:07 AM EDT POCT GLUCOSE Routine 02/24/2025 11:06 AM EDT documented in this encounter Results * Due to [place] [employer] law, this organization might not be sharing negative HIV tests. * (ABNORMAL) POCT Glucose, interfaced (02/24/2025 11:07 AM EDT) [facility] Signature Glucose, POCT 571() 70 - 99 mg/dL 02/24/2025 11:21 AM EDT [facility] Comment: The casino cashier manager has not determined the efficacy of this test in Critically ill patients. ??[facility] defines Critically ill patients for the [...] confirmed with lab-based glucose values. Blood 02/24/2025 11:0 7 AM EDT 02/24/2025 11:21 AM EDT us Catherine Dinh MD LAB POCT ORDERABLES - DEV ICE Final Result Performing Organization Address City/[facility]/ZIP Co de Phone Number [facility] [address] [place] [address], [place] * (ABNORMAL) POCT Glucose, interfaced (02/24/2025 11:06 AM EDT) [facility] Glucose, POCT >600(HH) 70 - 99 mg/dL 02/24/2025 11:21 AM EDT [facility] Comment: The casino cashier manager has not determined the efficacy of this test in Critically ill patients. ??[facility] defines Critically ill patients for the [...] confirmed with lab-based glucose values. Blood 02/24/2025 11:0 6 AM EDT 02/24/2025 11:21 AM EDT us Catherine Dinh MD LAB POCT ORDERABLES - DEV ICE Final Result [facility] P[facility] [address] [place] [address], documented in this encounter Visit Diagnoses Diagnosis Type 2 diabetes mellitus with both eyes affected by severe nonproliferative retinopathy and macular edema, with long-term current use of insulin ([facility])- Primary Essential hypertension Unspecified essential hypertension Mixed hyperlipidemia Class 3 obesity Acute lower extremity ischemia documented in this encounter Administered Medications Inactive Administered Medications - up to 3 most recent administrations Medication Order MAR Action Action Date Dose Rate Site insulin lispro (ADMELOG/HumaLOG - 100 units/mL) injection 20 Units 20 Units, subcutaneous, Once, On Tabitha 02/24/25 at 1315, 1 dose, Administer within 30 minutes of fingerstick blood glucose. Given 02/24/2025 1:14 PM EDT 20 Units Right Upper Abdomen documented in this encounter Care Teams Ict Programmer Relationship Specialty Start Date End Date Geovanna Abbasi NP [address] [place] [address] PCP - General 11/09/20 documented as of this encounter
--- OUTSIDE RECORDS SUMMARY | 2025-02-25 14:44 | XMS_ITS | Encounter Summary ---
Author Organization [facility] Address [address] [place] [address] Care Team Providers Care Soap Maker Name Role Phone Geovanna Abbasi [employer] Primary Care Provider [phone] Reason for Visit * Reason Onset Date Comments Prior Authorization 02/25/2025 tirzepatide (Mounjaro) 5 mg/0.5 mL pen injector Encounter Details Date Type Department Care Team (Late st Contact Info) Description 02/25/2025 Telephone [facility] [address] [place] [phone] Machine Tack Puller: Catherine Cha MD [address] [place] [phone] Prior Authorization (tirzepatide (Mounjaro) 5 mg/0.5 mL pen injector) Social History Tobacco Use Types Packs/Day Years Used Date Smoking Tobacco: Former Cigarettes Smokeless Tobacco: Never Comments:QUIT DAY OF SURGERY Alcohol Use Standard Drinks/Week Comments Never 0 (1 standard drink = 0.6 oz pur e alcohol) [facility] Utilities Answer Date Recorded In the past 12 months has [employer], gas, oil, or water company threatened to [...] encounter Miscellaneous Notes * Telephone Encounter - Catherine Dinh MD - 02/25/2025 1:59 PM EDT Diagnosis: DM2 with hyperglycemia * Telephone Encounter - Alley Brannon CPhT - 02/25/2025 10:28 AM EDT Patient is not eligible for Mounjaro through [employer] requires patient to try Ozempic prior to Mounjaro * Telephone Encounter - Catherine Dinh MD - 02/25/2025 10:08 AM EDT Patient's Geo fell off early and he does not have a glucometer; is it possible to call him with knife sharpener for either delivery or to have him cook pickled meat today? Thanks! documented in this encounter Plan of Treatment Upcoming Encounters Date Type Department Care Team (Late st Contact Info) Description 02/28/2025 10:00 AM EDT Nutrition [facility] Nutrition Clinic [address] [place] [address] [place] [phone] 03/24/2025 1:40 PM EDT Office Visit [facility] [address] [facility] [address] [place] [address] Geovanna Abbasi NP [address] [place] [address] 04/07/2025 8:00 AM EDT Office Visit [facility] [address] [place] [address] Machine Tack Puller: Tatiana Phillip NP [address] [place] [address] 04/26/2025 10:40 AM EDT Follow-Up [facility]al [address] [place] [address] Machine Tack Puller: Kojo Tracey MD [address] [place] [address] 05/05/2025 2:30 PM EDT Office Visit [facility] [address] [place] [address] Machine Tack Puller: Tatiana Phillip NP [address] [place] [address] 05/19/2025 1:30 PM EDT Office Visit [facility] [address] [facility] [address] [place] [address] Henrique Banegas, PharmD [address] [place] [address] 07/15/2025 1:00 PM EDT Appointment [facility] ACC Vascular Lab [address] [place] [address] 07/15/2025 1:45 PM EDT Appointment [facility] Vascular Lab [address] [place] [address] 07/15/2025 3:00 PM EDT Follow-Up [facility] Building Vascular Surgery [address] [place] [address] Machine Tack Puller: Mitul Starr NP [address] [place] [address] documented as of this encounter Visit Diagnoses Not on filedocumented in this encounter Care Teams Soap Maker Relationship Specialty Start Date End Date Geovanna Abbasi NP [address] [place] [address] PCP - General 11/09/20 documented as of this encounter
--- OUTSIDE RECORDS SUMMARY | 2025-02-25 14:44 | XMS_ITS | Encounter Summary ---
Author Organization [facility] Address [address] [place] [address] Care Team Providers Care Party Plan Salesperson Name Role Phone AyleenGeovanna MANAGER LIFE INSURANCE Primary Care Provider [phone] Encounter Details Date Type Department Care Team (Late st Contact Info) Description 02/24/2025 9:50 AM EDT Lab [facility] [place] Lab Draw Site [address] [place] [address] CKD (chronic kidney disease) stage 2, GFR 60-89 ml/min Social History Tobacco Use Types Packs/Day Years Used Date Smoking Tobacco: Former Cigarettes Smokeless Tobacco: Never Comments:QUIT DAY OF SURGERY Alcohol Use Standard Drinks/Week Comments Never 0 (1 standard drink = 0.6 oz pur e alcohol) [facility] Utilities Answer Date Recorded In the past [...] Info) Description 02/28/2025 10:00 AM EDT Nutrition [facility] Nutrition Clinic [address] [place] [address] [place] [address] 03/24/2025 1:40 PM EDT Office Visit [facility] [address] [facility] [address] [place] [address] Geovanna Abbasi NP [address] [place] [address] 04/07/2025 8:00 AM EDT Office Visit [facility] Building Diabetes Clinic [address] [place] [address] French Pastry Cook: Tatiana Phillip NP [address] [place] [address] 04/26/2025 10:40 AM EDT Follow-Up [facility] Renal [address] [place] [address] French Pastry Cook: Kojo Tracey MD [address] [place] [address] 05/05/2025 2:30 PM EDT Office Visit [facility] Diabetes Clinic [address] [place] [address] French Pastry Cook: Tatiana Phillip NP [address] [place] [address] 05/19/2025 1:30 PM EDT Office Visit [facility] 326 [facility] [address] [place] [address] DiGeroHenrique lewis, PharmD [address] [place] [address] 07/15/2025 1:00 PM EDT Appointment [facility] Vascular Lab [address] [place] [address] 07/15/2025 1:45 PM EDT Appointment [facility] Vascular Lab [address] [place] [address] 07/15/2025 3:00 PM EDT Follow-Up [facility] Vascular Surgery [address] [place] [address] French Pastry Cook: Mitul Starr NP [address] [place] [address] Pending Results Name Type Priority Associated Diagnoses Date /Time Cystatin C with Glomerular Filtration Rate, Estimated (eGFR) Lab Routine CKD (chronic kidney disease) stage 2, GFR 60-89 ml/min 02/24/2025 9:56 AM EDT documented as of this encounter Procedures * Due to [place] state law, this organization might not be sharing negative HIV tests. Procedure Name Priority Date/Time Associated Diagnosis Comments EXTRA TUBES Routine 02/24/2025 10:34 AM EDT [...] kidney disease) stage 2, GFR 60-89 ml/min documented in this encounter Results * Due to [place] state law, this organization might not be sharing negative HIV tests. * Yellow Top (02/24/2025 10:34 AM EDT) Extra Tube Hold for add-ons. 02/24/2025 3:05 PM EDT [facility] Comment:Auto resulted. Urine Urine specimen collection, clean catch / Unknown 02/24/2025 10:34 AM EDT 02/24/2025 10:34 AM EDT us Michelle Ling NP LAB BLOOD ORDERABLES Final Res ult [facility] [address] [place] [address], * Yellow Top (02/24/2025 10:34 AM EDT) Extra Tube Hold for add-ons. 02/24/2025 3:05 PM EDT [facility] Comment:Auto resulted. Urine Urine specimen collection, clean catch / Unknown 02/24/2025 10:34 AM EDT 02/24/2025 10:34 AM EDT Michelle Lnig MANAGER LIFE INSURANCE LAB BLOOD ORDERABLES Final Res ult Performing Organization Address [facility] Co de Phone Number [facility] [address] [place] [address], [place] * (ABNORMAL) Protein, Random Urine with Creatinine (02/24/2025 10:07 AM EDT) Pathologist [facility] Protein, Urine 266 mg/dL 02/24/2025 11:29 AM EDT [facility] Creatinine, Urine 52 22 - 328 mg/dL 02/24/2025 11:29 AM EDT [facility] Protein/Creat inine, Urine Ratio 5,115(H) <200 mg/gmCr 02/24/2025 11:29 AM EDT [facility] Urine Voided urine specimen / Unknown Non-Blood Collection / Unknown 02/24/2025 10:07 AM EDT 02/24/2025 10:18 AM EDT Michelle Ling NP LAB URINE ORDERABLES Final Res ult Performing Organization Address [facility] Co de Phone Number [facility] [address] [place] [address], [place] * (ABNORMAL) Microalbumin/Creatinine Urine Ratio, Random (02/24/2025 10:07 AM EDT) Pathologist [facility] Microalbumin, Urine 177.0 mg/dL 02/24/2025 11:29 AM EDT [facility] Creatinine, Urine 52 22 - 328 mg/dL 02/24/2025 11:29 AM EDT [facility] Microalb/Creat Ratio, Random Urine 3,403.8(H ) <30.0 mcg/mgCr 02/24/2025 11:29 AM EDT [facility] Comment: Microalbumin Reference Range: Normal ? <30 mcg/mg Creatinine Microalbuminuria ? 30-300 mcg/mg Creatinine Clinical Albuminuria >300 mcg/mg Creatinine Reference: ADA Guideline. Diabetes Care. 2004;27 (suppl 1) Urine Voided urine specimen / Unknown Non-Blood Collection / Unknown 02/24/2025 10:07 AM EDT 02/24/2025 10:18 AM EDT us Michelle Ling MANAGER LIFE INSURANCE LAB URINE ORDERABLES Final Res ult [facility] [address] [place] [address], * (ABNORMAL) Renal Function Panel (02/24/2025 9:56 AM EDT) NA 128(L) 135 - 145 mmol/L 02/24/2025 10:51 AM EDT [facility] K 4.9 3.5 - 5.3 mmol/L 02/24/2025 10:51 AM EDT [facility] Cl 92(L) 98 - 107 mmol/L 02/24/2025 10:51 AM EDT [facility] CO2 23 22 - 32 mmol/L 02/24/2025 10:51 AM EDT [facility] Anion Gap 13 5 - 15 02/24/2025 10:51 AM EDT [facility] Glucose 657(HH) 65 - 99 mg/dL 02/24/2025 10:51 AM EDT [facility] BUN 33(H) 7 - 23 mg/dL 02/24/2025 10:51 AM EDT [facility] Creatinine 1.54(H) 0.60 - 1.30 mg/dL 02/24/2025 10:51 AM EDT [facility] Calcium 9.1 8.6 - 10.5 mg/dL 02/24/2025 10:51 AM EDT [facility] Phosphorus 3.7 2.5 - 4.5 mg/dL 02/24/2025 10:51 AM EDT [facility] Albumin 3.6 3.5 - 5.2 g/dL 02/24/2025 10:51 AM EDT [facility] eGFR 56(L) >=60 mL/min/1 .73m2 02/24/2025 10:51 AM EDT [facility] Comment:The estimated glomer ular [...] 02/24/2025 10:14 AM EDT us Michelle Ling MANAGER LIFE INSURANCE LAB BLOOD ORDERABLES Final Res ult [facility] [address] [place] [address], * (ABNORMAL) Vitamin D 25 hydroxy (02/24/2025 9:56 AM EDT) Calcidiol+ercalc idiol 17(L) 30 - 100 ng/mL 02/24/2025 8:44 PM EDT [facility] Comment: Vitamin D Status ? 25-OH Vitamin D: Deficiency: ?<20 ng/mL Insufficiency: ? 20 - 29 ng/mL Optimal: ? > or = 30 ng/mL For 25-OH Vitamin D testing on patients on D2-supplementation and patients for whom quantitation of D2 and D3 fractions is required, the QuestAssureD(TM) 25-OH VIT D, (D2,D3), LC/MS/MS is recommended: order code 68319 (patients >2yrs). See Note 1 Note 1 For additional information, please refer to http://education.Food and Beverage/faq/KCC112 (This link is being provided for informational/ educational purposes only.) Blood Structure of peripheral vein / Unknown Venipuncture / Unknown 02/24/2025 9:56 AM EDT 02/24/2025 10:10 AM EDT Narrative [facility] - 02/24/2025 8:44 PM EDT [facility] Received Date: us Michelle Ling NP LAB BLOOD ORDERABLES Final Res ult [facility] [address] [facility] 3rd Floor, [place] [address], [place] [phone] [email or web address] [address] [facility] 3rd Floor, [place] [address], [place] [phone] documented in this encounter Visit Diagnoses Diagnosis CKD (chronic kidney disease) stage 2, GFR 60-89 ml/min Chronic kidney disease, Stage II (mild) documented in this encounter Care Teams Party Plan Salesperson Relationship Specialty Start Date End Date Geovanna Abbasi NP [address] [place] [address] PCP - General 11/09/20 documented as of this encounter
--- OUTSIDE RECORDS SUMMARY | 2025-02-25 14:44 | XMS_ITS | Encounter Summary ---
Author Organization [facility] Address [address] [place] [address] Care Team Providers Care Aircraft Systems Technician Name Role Phone AyleenGeovanna LIBERAL ARTS DEAN Primary Care Provider [phone] Reason for Visit * Reason Comments Left Without Being Seen Results Encounter Details Date Type Department Care Team (Late st Contact Info) Description 02/25/2025 Telephone [facility] Emergency Department [address] [place] [address] Rosa Gillespie RN Left Without Being Seen; Results Social History Tobacco Use Types Packs/Day Years Used Date Smoking Tobacco: Former Cigarettes Smokeless Tobacco: Never Comments:QUIT DAY OF SURGERY Alcohol Use Standard Drinks/Week Comments Never 0 (1 standard drink = 0.6 oz pur e alcohol) [facility] Utilities Answer Date Recorded In the [...] encounter Miscellaneous Notes * Telephone Encounter - Rosa Gillespie RN - 02/25/2025 10:58 AM EDT ----- Message from Brent Buckley NP sent at 02/25/2025 9:47 AM EDT ----- Regarding: RE: LWBS Results Per endocrine's note he was sent over for infectious workup as cause of his elevated blood sugars but I do not see any CBC. He should return to complete his workup and document if he refuses. ----- Message ----- From: Rosa Gillespie RN Sent: 02/25/2025 8:53 AM EDT To: Brent Buckley NP Subject: LWBS Results LWBS results for review/ Results were Routed in Epic to Pts PCP LIBERAL ARTS DEAN Ayleen / and I also forwarded to the Endocrinology Dr that sent him over Dr Dinh for follow up with the Pt / anything more to do ? Thanks Rosa WORLEY/NITESH ----- Message ----- From: Rosa Gillespie RN Sent: 02/25/2025 8:11 AM EDT To: Rosa Gillespie RN documented in this encounter Plan of Treatment Upcoming Encounters Date Type Department Care Team (Late st Contact Info) Description 02/28/2025 10:00 AM EDT Nutrition [facility] Nutrition Clinic [address] [place] [address] Raysa Mendez, RD [address] [place] [address] 03/24/2025 1:40 PM EDT Office Visit [address] [facility] [address] [place] [address] Geovanna Abbasi NP [address] [place] [address] 04/07/2025 8:00 AM EDT Office Visit [facility] Diabetes Clinic [address] [place] [address] Ball Assembler: Tatiana Phillip NP [address] [place] [address] 04/26/2025 10:40 AM EDT Follow-Up [facility] Renal [address] [place] [address] Ball Assembler: Kojo Tracey MD [address] [place] [address] 05/05/2025 2:30 PM EDT Office Visit [facility] Diabetes Clinic [address] [place] [address] Ball Assembler: Tatiana Phillip NP [address] [place] [address] 05/19/2025 1:30 PM EDT Office Visit [place] [address] [facility] [address] [place] [address] DiGeroHenrique lewis, PharmD [address] [place] [address] 07/15/2025 1:00 PM EDT Appointment [facility] ACC Vascular Lab [address] [place] [address] 07/15/2025 1:45 PM EDT Appointment [facility] ACC Vascular Lab [address] [place] [address] 07/15/2025 3:00 PM EDT Follow-Up [facility] ACC Building Vascular Surgery [address] [place] [address] Ball Assembler: Mitul Starr NP [address] [place] [address] documented as of this encounter Visit Diagnoses Not on filedocumented in this encounter Care Teams Aircraft Systems Technician Relationship Specialty Start Date End Date Geovanna Abbasi NP [address] [place] [address] PCP - General 11/09/20 documented as of this encounter
--- OUTSIDE RECORDS SUMMARY | 2025-02-25 14:44 | XMS_ITS | Encounter Summary ---
Author Organization [facility] Address [address] [place] [address] Care Team Providers Care Grounds Maintenance Supervisor Name Role Phone AyleenGeovanna REFUSE AND RECYCLING WORKER Primary Care Provider [phone] Encounter Details Date Type Department Care Team (Late st Contact Info) Description 02/24/2025 Telephone [facility] Diabetes Clinic [address] [place] [address] Merchant Mariner: Miriam Mathews CPhT Social History Tobacco Use Types Packs/Day Years Used Date Smoking Tobacco: Former Cigarettes Smokeless Tobacco: Never Comments:QUIT DAY OF SURGERY Alcohol Use Standard Drinks/Week Comments Never 0 (1 standard drink = 0.6 oz pur e alcohol) [facility] Utilities Answer Date Recorded In the [...] encounter Miscellaneous Notes * Telephone Encounter - Alley Brannon CPhT - 02/25/2025 12:53 PM EDT I can do PA for Basaglar but will need reasoning why patient can no longer take Lantus. I do not see anything in chart as to any adverse reactions and I dont see that Lantus is on backorder either. * Telephone Encounter - Alley Brannon CPhT - 02/25/2025 9:20 AM EDT Just wanted to double check, is this supposed to be for Basaglar KwikPen or Lantus Solostar? * Telephone Encounter - Miriam Borjas CPhT - 02/24/2025 5:09 PM EDT Please assist with the following Prior Authorization: Medication Name & Strength: Basaglar KwikPen U-100 Insulin 100 unit/ml Directions: Inject 38 Under the skin every night Quantity & Days' Supply: 30ml for 78 Days Diagnosis: T2D ICD.10: E11.3413, Z79.4 Physician: Catherine Dinh Investigation has been conducted, test claim has been run and PA is required. Card has been flipped to In Progress-PA Requested. ? Additional Information: Received a Med On Hold- New prescription 02/24. Primary Ins requires PA for Basaglar. documented in this encounter Plan of Treatment Upcoming Encounters Date Type Department Care Team (Late st Contact Info) Description 02/28/2025 10:00 AM EDT Nutrition [facility] Nutrition Clinic [address] [place] [address] [place] [address] 03/24/2025 1:40 PM EDT Office Visit [facility] 326 [facility] [address] [place] [address] Geovanna Abbasi NP [address] [place] [address] 04/07/2025 8:00 AM EDT Office Visit [facility] Diabetes Clinic [address] [place] [address] Merchant Mariner: Tatiana Phillip NP [address] [place] [address] 04/26/2025 10:40 AM EDT Follow-Up [facility] Renal [address] [place] [address] Merchant Mariner: Kojo Tracey MD [address] [place] [address] 05/05/2025 2:30 PM EDT Office Visit [facility] Diabetes Clinic [address] [place] [address] Merchant Mariner: Tatiana Phillip NP [address] [place] [address] 05/19/2025 1:30 PM EDT Office Visit [facility] [address] [facility]INE [address] [place] [address] Henrique Banegas, PharmD [address] [place] [address] 07/15/2025 1:00 PM EDT Appointment [facility] ACC Vascular Lab [address] [place] [address] 07/15/2025 1:45 PM EDT Appointment [facility] ACC Vascular Lab [address] [place] [address] 07/15/2025 3:00 PM EDT Follow-Up [facility] ACC Building Vascular Surgery [address] [place] [address] Merchant Mariner: Mitul Starr NP [address] [place] [address] documented as of this encounter Visit Diagnoses Not on filedocumented in this encounter Care Teams Grounds Maintenance Supervisor Relationship Specialty Start Date End Date Geovanna Abbasi NP [address] [place] [address] PCP - General 11/09/20 documented as of this encounter
[2025-02-25 14:45] LABS: VBG Base Excess 6.3 mmol/L; VBG HCO3 33 mmol/L (22-26); VBG pCO2 60 mmHg; VBG pH 7.35 (7.32-7.43); VBG pO2 35 mmHg
[2025-02-25 14:46] LABS: Venous Blood Gas Refer to POC result
[2025-02-25 15:02] LABS: Lactic Acid 1.7 mmol/L (0.5-2.0)
[2025-02-25] MEDS: Silver Sulfadiazine 1 % Cream 20 GM TUBE 1 APPL TOPICAL (15:05)
[2025-02-25 15:07] LABS: Alanine Aminotransferase 21 U/L (0-40); Albumin Level 3.6 g/dL (3.5-5.0); Alkaline Phosphatase 133 U/L (39-117); Anion Gap 13 (12-20); Aspartate Amino Transferase 26 U/L (5-37); Bilirubin Total 0.3 mg/dL (0.0-1.0); Blood Urea Nitrogen 37 mg/dL (9-16); Calcium 9.4 mg/dL (8.4-10.2); Carbon Dioxide 29 mmol/L (22-29); Chloride 98 mmol/L (96-108); Creatinine Clr Calc Pharmacy 82.7; Estimated Glomerular Filt Rate 55; Lipase 41 U/L (8-78); Magnesium 2.4 mg/dL (1.6-2.6); Potassium 4.8 mmol/L (3.3-5.1); Sodium 135 mmol/L (135-145); Total Protein 7.7 g/dL (6.5-8.0)
[2025-02-25 15:08] LABS: Glucose Random 423 mg/dL (60-115)
[2025-02-25 15:13] LABS: Beta-Hydroxybutyrate 0.18 mmol/L (0.02-0.27)
[2025-02-25] MEDS: Lactated Ringers 1,000 ML 999 ML IV (15:15)
[2025-02-25 17:27] LABS: Glucose, Whole Blood 321 mg/dL (60-115)
--- NOTE | 2025-02-25 17:45 | PC.NURSE ---
silvidine, abd pad and kerlex dressing reapplied.
[2025-02-25] MEDS: 0.9 % Sodium Chloride 1,000 ML 999 ML IV (17:50)
[2025-02-25] MEDS: Insulin Lispro 100 UNIT/ML 3 ML VIAL 10 UNIT SUBCUT (17:54)
[2025-02-25 18:19] VITALS: BP 149/77; PULSE 87; RESP 16; TEMP 36.8; O2SAT 98
[2025-02-25 18:39] LABS: Appearance Urine Clear; Color Urine Yellow; Glucose Urine UA >=1000 mg/dL (Negative); Leukocyte Esterase Urine Negative (Negative); Nitrite Urine Negative (Negative); PH 6.5 (5.0-9.0); Specific Gravity - Urine 1.015 (1.005-1.025); UMIC TRIGGER UACC YES; Urine Blood Trace (Negative); Urine Ketones Negative (Negative); Urine Protein 300 (3+) mg/dL (Neg-Trace)
[2025-02-25 18:44] LABS: Bacteria Urine None Seen (None Seen); Hyaline Casts Urine 0-2 /LPF (0-2); RBC Urine 0-2 /HPF (0-2); Squamous Epithelial Cell Urine 0-2 /HPF (0-2); WBC Urine 0-5 /HPF (0-5)
[2025-02-25 19:44] LABS: Glucose, Whole Blood 351 mg/dL (60-115)
== END 2025-02-25 20:00 | disposition home or self-care (01) ==
PROVIDERS: Nurse Practitioner Family; Emergency Provider Emergency Medicine
DX: E11.65 Type 2 diabetes mellitus with hyperglycemia (principal); Z98.890 Other specified postprocedural states
CPT/HCPCS: 36415; 80053; 81001; 82010; 82803; 82947; 83605; 83690; 83735; 85025; 87040; 96360; 96361; 99284; J7120

== ENCOUNTER 2025-06-03 11:13 | Outpatient (AMB) | payer MEDICAID, SELFPAY ==
[2025-06-03 11:16] VITALS: BP 138/80; PULSE 72; BMI 47.9
--- NOTE | 2025-06-03 11:16 | A.OFFVIS_ITS ---
Vital Signs 06/03/25 11:16 Height 5 ft 5 in Weight 288 lb 2.307 oz BMI 47.9 BP 138/80 Blood Pressure Location Rt brachial Position Sitting Pulse 72 Pulse Source Palpation Intake Visit Reasons: Uncontrolled T2DM w/hyperglycemia Intake Note: Patient present today for Type 2 Diabetes Mellitus with hyperglycemia. Last Diabetic eye exam: Patient's last appt was in April 2025 Last Podiatry Visit: Doesn't have one. Random Glucose: 526 mg/dl @ 11:35am, 478 mg/dl @12:58 pm, 382 mg/dl @2:00 pm HgA1C: 12.6% Return Agent Required: Yes Return Agent Language: Diamond Sorter Services: Return Agent Present Return Agent Name: Yolanda [id number] Information Interpreted: non-clinical & clinical Accompanied by: Self / Same As Patient Allergies No Known Allergies Allergy (Verified 06/03/25 11:22) Medication List - Last Reconciled 06/03/25 by Ellen Leon PA-C amlodipine 5 mg PO DAILY apixaban (Eliquis) 5 mg PO BID blood pressure test kit-medium As directed blood sugar diagnostic (FreeStyle Lite Strips) As directed blood-glucose meter (FreeStyle Lite Meter kit) As directed blood-glucose sensor (FreeStyle Geo 3 Plus Sensor device) As directed clotrimazole-betamethasone 1-0.05 % appl topical BID furosemide 20 mg PO BID gabapentin mg PO hydrochlorothiazide 25 mg PO DAILY hydroxyzine HCl 25 - 50 mg PO BEDTIME insulin glargine (Lantus U-100 Insulin) 10 units subcut QPM insulin lispro 10 units subcut TID lancets (FreeStyle Lancets) As directed lidocaine 5% patches topical DAILY lisinopril 30 mg PO DAILY rosuvastatin 20 mg PO BEDTIME HPI HPI Uncontrolled T2DM w/hyperglycemia: Details: Patient is a 45-year-old male presenting today for an initial visit regarding diabetes. He states that he has had issues with compliance due to his PCP working at [facility]. He states that they recently relocated here from the [facility] and he has not yet established with a PCP. Endo: A1c is 12.6. He was dx with t2dm 15 years ago. His most recent ER visits he did have significant hyperglycemia. His blood sugar today in the office is 526. He is currently on Lantus 40 units daily, lispro 10-12 units 3 times a day, Ozempic 1 mg weekly He is currently asymptomatic with his elevated blood sugar. Denies any vision changes, headache, nausea, vomiting, chest pain, shortness a breath, confusion, fatigue etc.. He denies even having increased thirst. -He states he has not used insulin in 2 days. He has been out of ozempic for 3 weeks. He states that his blood sugars are always elevated at home 200-400 despite being on insulin. He tells me he is usually compliant however, has struggled getting medication refills. In the past he was previously taking Trulicity n/v, metformin caused GI upset at higher dose CGM- states he has used sensors in the past but has not had a sensor in a few weeks. His sister gives him hers. He has not had dm education He has a fam hx of t2dm. formerly [facility], [facility] CV: Blood pressure today in the office is. He is currently on lisinopril 30 mg daily, amlodipine 5 mg daily , hydrochlorothiazide 25 mg and furosemide 20 mg twice a day. Cholesterol is managed with rosuvastatin 20 mg. [facility] Medical History (Updated 06/03/25 @ 11:53 by Ellen Leon PA-C) Peripheral vascular disease Hyperlipidemia Diabetic neuropathy Hypertension Diabetes mellitus type 2 in obese Surgical History (Updated 06/03/25 @ 11:30 by CICI Briones) History of appendectomy History of surgery on lower extremity Family History (Updated 06/03/25 @ 11:33 by CICI Briones) Mother Hepatic cirrhosis Diabetes Father Cancer of esophagus Hypertension Diabetes Social History (Updated 06/03/25 @ 11:34 by CICI Briones) Alcohol intake: current Alcohol intake frequency: does not drink Tobacco use type: Cigarette Cigarettes Per Day: 8 Physical Exam Vital Signs: Last Vital Signs Pulse 72 06/03/25 11:16 BP 138/80 06/03/25 11:16 BMI result Body Mass Index 47.9 Const Orientation/consciousness: patient oriented x3 HEENT Ears: hearing grossly normal bilaterally Neck Thyroid: Thyroid normal Lymphatic: no lymphadenopathy noted Resp Auscultation: clear to auscultation bilaterally Cardio Rate: regular rate Rhythm: regular rhythm Heart sounds: S1 normal heart sound present and S2 normal heart sound present GI Inspection: Yes normal to inspection Palpation (GI): Soft to palpation and Other GI palpation findings present (nontender, no cva tenderness) Auscultation: normoactive bowel sounds Rectal Exam - Male: Yes deferred Skin General skin exam: no rashes or lesions noted Neuro General: patient oriented x3, gait normal, moves all extremities, no focal motor deficits and CN's II-XI intact bilaterally Office Meds Humalog U-100 Insulin 100 unit/mL subcutaneous solution Performing Provider: Ellen Leon PA-C [place] [facility] [place] [facility] Administered by: Leah Sainz RN on 06/03/25 12:21 Dose Route Admin Location Dispensed Lot Number Expiration Date [facility] Administrative Intern 20 unit subcut LR abdomen + LL abdomen 0.2 mL [id number] 10/07/25 [id number] -7510-01 [employer] Total Dispensed Waste 0.2 mL 0 % Comments: Pt came in for office visit. Was verbally informed by provider Ellen Leon that pt has an elevated blood sugar and tested negative for ketones. Patient given four cups of water and provider Ellen Leon verbally ordered to give 10 units of insulin lispro. Patient is agreeable to plan. Pt advised to stay one hour to recheck his glucose levels. Insulin lispro was drawn up in insulin syringe and verified dosage visually with provider Ellen Leon. Patient tolerated injection well. Cassidy MCCLENDON was alerted that insulin was given at 12:00 and to recheck in one hour per protocol. Blood sugar was rechecked and still remains elevated. Ellen Leon verbally ordered to give another 10 units of insulin lispro. Pt was agreeable and will stay another hour for the recheck per protocol. Insulin lispro was drawn up in insulin syringe and verified dosage visually with Ellen Leon. Alerted Cassidy MCCLENDON that second dose of insulin lispro was given at 13:02 and to recheck in one hour. Results AMB Hemoglobin A1c AMB Hemoglobin A1c 12.6 % Last Edit by CICI Briones on 06/03/25 11:58 UR Ketone Dip UR Ketone Dip Negative Last Edit by CICI Briones on 06/03/25 11:59 Results Reviewed Results Reviewed: Laboratory Last Values Glucose (Clinic) 382 mg/dL (60-115) H* 06/03/25 14:00 Hgb A1c (Clinic) 12.6 % (4.0-6.0) H 06/03/25 11:56 Ur Ketones (Stick) Negative 06/03/25 11:56 Assessment & Plan Assessment & Plan (1) Uncontrolled type 2 diabetes mellitus with hyperglycemia, with long-term current use of insulin: Code(s): E11.65 - Type 2 diabetes mellitus with hyperglycemia; Z79.4 - assisted (current) use of insulin Category: Medical Plan: Patient has spent 2-1/2 hours here today in the office treating his hyperglycemia. He was given a total of 20 units of Humalog today in the office. After the 1st 10 units his blood sugar reduced to 478. After the 2nd round of Humalog with 10 units his blood sugar did reduce to 382. He will go home and start his insulin regimen. No ketones in the urine today 75 minutes was spent within those 2 hours reviewing the pathophysiology of diabetes, the differences between type 1 and type 2 diabetes and complications associated with diabetes. We reviewed complications such as DKA, [place], CVA, kidney disease, blindness, amputation, increased risk of infections etc.. Discussed that these are not all of the complications but some of them. will restart ozempic at 0.5 mg weekly will switch from lantus (ineffective per pt) to toujeo and increase to 50 units daily increase lispro to 15 mg tid Backup testing supplies ordered as he has not been checking blood sugars and do es not know if he has any testing supplies at home. He was provided a sensor today in the office and does report having a [employer] 3 reader at home that he prefers to use. He does not want me to Pair to his phone. Ketone strips order to use if needed for hyperglycemia. We reviewed signs and symptoms of hypoglycemia that would require emergent medical treatment. Glucose tabs ordered to use as needed for hypoglycemia. We reviewed signs and symptoms of hypoglycemia that would require emergent medical treatment. Referral for diabetic Education Short term follow up in a couple of weeks to be reassessed. Sooner if needed (2) Hypertension: Code(s): I10 - Essential (primary) hypertension Category: Medical Plan: Continue current regimen (3) Hyperlipidemia: Code(s): E78.5 - Hyperlipidemia, unspecified Category: Medical Plan: Continue current regimen Plan Patient does not have a local PCP. I have put in a message to our nurse navigator to see if we can get him established. 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 AMB Hemoglobin A1c Today E11.65 - Type 2 diabetes mellitus with hyperglycemia, Z13.9 - Encounter for screening, unspecified, Z79.4 - assisted (current) use of insulin Referrals 2 Nurse Navigator Referral E11.65 - Type 2 diabetes mellitus with hyperglycemia, Z75.3 - Unavailability and inaccessibility of health-care facilities, Z79.4 - assisted (current) use of insulin Diabetes Education Referral E11.65 - Type 2 diabetes mellitus with hyperglycemia, 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 Medications: New insulin glargine U-300 conc (Toujeo Max U-300 SoloStar) 50 units (0.1667 mL) subcut DAILY 30 days 6 mL 3RF semaglutide (Ozempic) 0.5 mg (0.736 mL) subcut QWEEK 3 mL 3RF blood sugar diagnostic (Accu-Chek Guide test strips) use once daily As directed to monitor blood sugars 100 ea 3RF E11.21 - Type 2 diabetes mellitus with diabetic nephropathy blood-glucose sensor (FreeStyle Geo 3 Plus Sensor device) Use daily As directed to monitor glucose 2 ea 5RF E08.29 - Diabetes mellitus due to underlying condition with other diabetic kidney complication, R80.9 - Proteinuria, unspecified, Z79.4 - assisted (current) use of insulin insulin glargine U-300 conc (Toujeo Max U-300 SoloStar) 50 units (0.1667 mL) subcut DAILY 6 mL 3RF 30 days insulin lispro with breakfast, lunch and dinner 15 units (0.15 mL) subcut TID 10 mL 4RF lancets (Accu-Chek Softclix Lancets) use once daily As directed to monitor blood sugars 100 ea 2RF E11.65 - Type 2 diabetes mellitus with hyperglycemia, 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 blood ketone glucose monitor As directed as needed for hyperglycemia 1 ea 2RF blood-glucose sensor (FreeStyle Geo 3 Plus Sensor device) Use daily As directed to monitor glucose 2 ea 5RF E08.29 - Diabetes mellitus due to underlying condition with other diabetic kidney complication, R80.9 - Proteinuria, unspecified, Z79.4 - assisted (current) use of insulin blood sugar diagnostic (Accu-Chek Guide test strips) use daily As directed to monitor blood sugars 100 ea 3RF E11.21 - Type 2 diabetes mellitus with diabetic nephropathy blood-glucose meter (Accu-Chek Guide Glucose Meter) Use daily As directed to monitor blood sugars 1 ea 0RF lancets (Accu-Chek Softclix Lancets) use once daily As directed to monitor blood sugars 100 ea 2RF E11.65 - Type 2 diabetes mellitus with hyperglycemia, 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 blood-glucose meter (Accu-Chek Guide Glucose Meter) Use once daily As directed to monitor blood sugars 1 ea 0RF E11.65 - Type 2 diabetes mellitus with hyperglycemia, 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
--- OUTSIDE RECORDS SUMMARY | 2025-06-03 11:19 | XMS_ITS | Clinical Summary ---
Author Organization [employer] Address [address] [facility] [address] [place] [address] Care Team Providers Care Career Development Manager Name Role Phone Unavailable Primary Care Provider Unavailabl e Encounters Date Type Department Care Team Description 05/17/2025 Population Health Risk Score [facility] Care [facility] (C3) Department [address] [facility] [address] [place] [id number] Provider, Population Health Generic 05/03/2025 Telephone [facility] [address] [place], [place] [id number] Venkata Cerna MD from Last 3 Months Social History Tobacco Use Types Packs/Day Years Used Date Smoking Tobacco: Never Assessed Sex and Gender Information Value Date Recorded Sex Assigned at Not on file Legal Sex Male 11:28 AM EDT Gender Identity Not on file Sexual Orientation Not on file Plan of Treatment Health Maintenance Due Date Last Done Comments CT Colonography 1980 Colonoscopy 1980 Colorectal Cancer Screening 1980 Depression Screening 1980 FIT DNA/Cologuard 1980 FIT 1980 FOBT 1980 HIV Screening 1980 Lipid Panel 1980 SDOH Screening 1980 Sigmoidoscopy 1980 Disability Screening 1980 Alcohol/Substance Use Screening 1992 Tobacco Screening 1992 Family Planning (PISQ) 02/14/1995 HPV Vaccines (1 - Male 3-dose series) 02/14/1995 Hepatitis C Screening 02/14/1998 Hepatitis B Vaccines (1 of 3 - 19+ 3-dose series) 02/14/1999 COVID-19 Vaccine (3 - season) 2024 03/28/2021, 02/28/2021 Influenza Vaccine (#1) 2025 , 10/06/2023, 08/27/2022, Additional history exists Zoster Vaccines (1 of 2) 02/14/2030 DTaP/Tdap/Td Vaccines (2 - Td or Tdap) 08/31/2030 08/31/2020, 04/20/2020 RSV Patients and Patients Aged 60 years or older (1 - 1-dose 75+ series) 02/14/2055 Pneumococcal Vaccine: Pediatrics (0 to 5 Years) and At-Risk Patients (6 to 49) Years Aged Out 10/06/2023 No longer eligible based on patient's age to complete this topic HIB Vaccines Aged Out No longer eligi ble based on patient's age to complete this topic Hepatitis A Vaccines Aged Out No long er eligible based on patient's age to complete this topic IPV Vaccines Aged Out No longer eligi ble based on patient's age to complete this topic Meningococcal B Vaccine Aged Out No l onger eligible based on patient's age to complete this topic Meningococcal Vaccine Aged Out No siobhan jose antonio eligible based on patient's age to complete this topic RSV under 20 months Aged Out No longe r eligible based on patient's age to complete this topic Rotavirus Vaccines Aged Out No longer eligible based on patient's age to complete this topic
--- OUTSIDE RECORDS SUMMARY | 2025-06-03 11:19 | XMS_ITS | Encounter Summary ---
Author Organization [facility] Address [address] [place] [address] Care Team Providers Care Fireworks Assembler Name Role Phone Geovanna Abbasi PRESS TOOL MAKER Primary Care Provider [phone] Encounter Details Date Type Department Care Team (Late st Contact Info) Description 01/03/2023 Orders Only [place] [address] [facility] [address] [place] [address] Geovanna Abbasi NP [address] [place] [address] Social History Tobacco Use Types Packs/Day Years [...] Care Team (Late st Contact Info) Description 06/16/2025 1:30 PM EDT Office Visit [facility] [address] [place] [address] Henrique Banegas, PharmD [address] [place] [address] 06/20/2025 3:40 PM EDT Follow-Up [facility] [address] [place] [address] Track Oiler: Kojo Tracey MD [address] [place] [address] 09/01/2025 11:00 AM EST Office Visit [facility] [address] [place] [address] Track Oiler: Tatiana Phillip NP [address] [place] [address] 10/28/2025 1:00 PM EST Appointment [facility] [address] [place] [phone] 10/28/2025 1:45 PM EST Appointment [facility] [address] [place] [phone] 10/28/2025 3:00 PM EST Follow-Up [facility] [address] [place] [address] Track Oiler: Mitul Starr NP [address] [place] [address] 04/27/2026 2:00 PM EDT Follow-Up [facility] [address] [facility] [address] [place] [address] Cristi Lyons, OD [address] [place] [address] documented as of this encounter Visit Diagnoses Not on filedocumented in this encounter Additional Health Concerns Infection Onset Date Last Indicated Resolved Time R/O Respiratory Virus Infection 09/23/2024 09/23/2024 3:28 AM EST R/O Influenza 09/23/2024 09/23/2024 09/23/2024 3:2 8 AM EST COVID-19 - Suspected infection 09/23/2024 09/23/2024 09/23/2024 3:28 AM EST documented as of this encounter Care Teams Fireworks Assembler Relationship Specialty Start Date End Date Geovanna Abbasi NP [address] [place] [id number] PCP - General 11/09/20 documented as of this encounter
[2025-06-03 11:47] LABS: Glucose, Whole Blood 526 mg/dL (60-115)
[2025-06-03 13:00] LABS: Glucose, Whole Blood 478 mg/dL (60-115)
[2025-06-03 14:04] LABS: Glucose, Whole Blood 382 mg/dL (60-115)
== END 2025-06-03 14:06 | disposition home or self-care (01) ==
LOC: HO.ENCR 11:14
PROVIDERS: Visit Provider Physician Assistant
DX: E11.65 Type 2 diabetes mellitus with hyperglycemia (principal); Z79.4 Long term (current) use of insulin; I10 Essential (primary) hypertension; E78.5 Hyperlipidemia, unspecified; Z13.9 Encounter for screening, unspecified

== ENCOUNTER → 2025-06-03 11:13 | Outpatient (BNVA) | payer MEDICAID, SELFPAY | PROVIDERS: Visit Provider Physician Assistant | DX: E11.65 Type 2 diabetes mellitus with hyperglycemia (principal); E11.29 Type 2 diabetes mellitus with other diabetic kidney complication; E11.21 Type 2 diabetes mellitus with diabetic nephropathy; I10 Essential (primary) hypertension; E78.5 Hyperlipidemia, unspecified; Z79.4 Long term (current) use of insulin; Z79.899 Other long term (current) drug therapy | CPT/HCPCS: 81002; 82947; 83036; 96372; 99212; J1815 ==

== ENCOUNTER 2025-09-06 14:44 | Outpatient (AMB) | payer MEDICAID, SELFPAY ==
--- NOTE | 2025-09-06 15:40 | A.OFFVIS_ITS ---
Intake Intake Visit Reasons: Type 2 diabetes mellitus with hyperglycemia Head Still Operator Required: Yes Head Still Operator Language: Contracts Advisor Name: [facility] Accompanied by: Self / Same As Patient Allergies No Known Allergies Allergy (Verified 06/03/25 11:22) HPI Comprehensive Diabetes Asmnt Most Recent Diabetes Results: Creatinine, (0.5-1.4) 1.39 mg/dL 02/25/25 BUN, (9-16) 37 mg/dL H 02/25/25 Sodium, (135-145) 135 mmol/L 02/25/25 Potassium, (3.3-5.1) 4.8 mmol/L 02/25/25 Chloride, (96-108) 98 mmol/L 02/25/25 Carbon Dioxide, (22-29) 29 mmol/L 02/25/25 Calcium, (8.4-10.2) 9.4 mg/dL 02/25/25 AST, (5-37) 26 U/L 02/25/25 ALT, (0-40) 21 U/L 02/25/25 Total Protein, (6.5-8.0) 7.7 g/dL 02/25/25 Albumin, (3.5-5.0) 3.6 g/dL 02/25/25 [facility] Medical History (Updated 06/03/25 @ 11:53 by Ellen Leon PA-C) Peripheral vascular disease Hyperlipidemia Diabetic neuropathy Hypertension Diabetes mellitus type 2 in obese Surgical History (Updated 06/03/25 @ 11:30 by CICI Briones) History of appendectomy History of surgery on lower extremity Family History (Updated 06/03/25 @ 11:33 by CICI Briones) Mother Hepatic cirrhosis Diabetes Father Cancer of esophagus Hypertension Diabetes Social History (Updated 06/03/25 @ 11:34 by CICI Briones) Alcohol intake: current Alcohol intake frequency: does not drink Tobacco use type: Cigarette Cigarettes Per Day: 8 Assessment & Plan Assessment & Plan (1) Uncontrolled type 2 diabetes mellitus with hyperglycemia, with long-term current use of insulin: Code(s): E11.65 - Type 2 diabetes mellitus with hyperglycemia; 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 The patient met all learning objectives and was able to verbalize understanding and provide teach back of education topics discussed . The patient was provided with the opportunity to ask questions and all questions were answered. Patient Assessment Assess patient education level/literacy/barriers, patient's last A1c on 06/03/2025 12.6% At today's visit patient stated he had not restarted Ozempic 0. 5 mg, stated he thinks he has at home Patient also stated he has not been taking Toujeo 50 units daily And frequently misses doses of Humalog 15 units prior to meal Reports he is compliant with all oral medications At today's visit we created a reminder sign for patient to take injectable tamela betes medications, patient agreed to hang it in his kitchen. Patient is also due for next visit with endocrine PA. Recommended to patient he make appointment with Endocrine PA, patient will also be due for A1c at that visit Patient did not bring glucometer to today's visit What is Diabetes? Pathophysiology How the body produces and uses insulin Identify type of DM Risk factors Signs of Diabetes Brief overview of Diabetes Management Monitoring blood sugar Following a meal plan Regular exercise Maintaining a healthy weight Taking medication as needed Members of the care team (PCP, RN, MA, RD, CDE, caponizer) Blood glucose monitoring When/how often to test Target blood sugar ranges Patient has active prescription for Geo 3+ sensors, but has not picked them up from the pharmacy Called pharmacy to confirm that patient can picker and sorter load and unload on 09/07/2025 Patient agreed to plan Introduction to Nutrition Importance of healthy diet in managing DM Diet is personalized to individual preference Review patient?s regular diet/food preferences Who prepares meals/does food shopping/ Dining out?/ Barriers? How diet effects glucose Eating 3 balanced meals a day with small, healthy snacks between meals Review food groups Carbohydrates: What is a carbohydrate/Which food/food groups are considered carbohydrates Effect of carbohydrates on blood glucose Portion sizes Reading food labels Basic carb counting (if applicable per nursing assessment) Plate method Meal planning Recommendations: Follow plate method, consistent carbs and read nutritional labels. Smart Goal: Patient will hang sign with medication reminder in kitchen Educational Materials: The patient was provided with the following written educational materials: Planning Healthy Meals Handout Patient Response to instructions: Comprehension of Instructions: Fair Readiness to make changes: Contemplation How confident they feel about making changes: Positive Portions of this note were created using voice recognition software, please excuse any words or phrases that may have been misinterpreted. Patient Instructions: Incluir actividad diaria regular. ADA recomienda 30 minutos de ejercicio 5 d?as a la semana. P?rdida de peso, hable con el PCP o el cardi?logo antes de comenzar un nuevo plan. Mida el nivel de az?car en la rozina seg?n las indicaciones; Ayuno y comida m?s milad de 2hpp. Observe las tendencias en los resultados. Utilice los resultados y eval?e c?mo los alimentos, la actividad f?charlene y los medicamentos afectan los resultados de az?car en la rozina. Lleve el gluc?metro o CGM a la pr?xima visita. Conocer los medicamentos para la diabetes, moss acci?n, los efectos secundarios, la eficacia, la toxicidad, la dosis prescrita, el momento y la frecuencia de administraci?n apropiados, el efecto de las dosis olvidadas y retrasadas y las instrucciones de almacenamiento, viaje y seguridad. T?cnicas de resoluci?n de problemas para el seguimiento de episodios de hipo/hiperglucemia y tratamientos. Reducir los comportamientos de reducci?n de riesgos, dejar de fumar, ex?menes regulares de ojos, pies y dentales. Coding Level of Care Code Est Pt Level 1 (34901) Diagnoses Uncontrolled type 2 diabetes mellitus with hyperglycemia, with long-term current use of insulin E11.65; Z79.4
--- OUTSIDE RECORDS SUMMARY | 2025-09-06 16:30 | XMS_ITS | Encounter Summary ---
Author Organization [facility] Address [address] [place] [address] Care Team Providers Care Ferris Wheel Attendant Name Role Phone Geovanna Abbasi JEWELLERY DESIGNER Primary Care Provider [phone] Encounter Details Date Type Department Care Team (Late st Contact Info) Description 03/10/2024 Telephone [facility] Home Health Scheduling Department [address] [place] [address] Caty Hall CCC-ASSISTANT BUYER Social History Tobacco Use Types Packs/Day Years [...] Gender Identity Not on file Sexual Orientation Don't know 06/16/2025 1: 11 PM EDT documented as of this encounter Miscellaneous Notes * Telephone Encounter - Kirsten Linn - 03/10/2024 3:18 PM EDT Kirsten spoke with patient confirmed no services, he is going t o work on Friday, will follow up with He stated he is doing much better. Will follow up with us if he needs to documented in this encounter Plan of Treatment Upcoming Encounters Date Type Department Care Team (Late st Contact Info) Description 09/28/2025 9:20 AM EST Follow-Up [facility] Nephrology [facility] [address] [place] [address] Aerial Gunner: Michelle Quezada NP [address] [place] [address] 10/05/2025 10:00 AM EST Telehealth [facility] [address] [facility] [address] [place] [address] Henrique Banegas, PharmD [address] [place] [address] 10/28/2025 1:00 PM EST Appointment [facility] ACC Vascular Lab [address] [place] [id number] 10/28/2025 1:45 PM EST Appointment [facility] Vascular Lab [address] [place] [address] 11/04/2025 9:00 AM EST Follow-Up [facility] ACC Building Vascular Surgery [address] [place] [address] Aerial Gunner: Mitul Starr NP [address] [place] [address] 11/08/2025 11:20 AM EST Office Visit [facility] [address] [facility] [address] [place] [address] Adolfo Barber MD [address] [place] [address] [phone] (Work) 04/27/2026 2:00 PM EDT Follow-Up [facility] [address] OPTOMETRY [address] [place] [address] Cristi Lyons, OD [address] [place] [address] documented as of this encounter Visit Diagnoses Not on filedocumented in this encounter Additional Health Concerns Infection Onset Date Last Indicated Resolved Time R/O Respiratory Virus Infection 09/23/2024 09/23/2024 3:28 AM EST R/O Influenza 09/23/2024 09/23/2024 09/23/2024 3:2 8 AM EST COVID-19 - Suspected infection 09/23/2024 09/23/2024 09/23/2024 3:28 AM EST documented as of this encounter Care Teams Ferris Wheel Attendant Relationship Specialty Start Date End Date Geovanna Abbasi NP [address] [place] [address] PCP - General 11/09/20 documented as of this encounter
--- OUTSIDE RECORDS SUMMARY | 2025-09-06 16:30 | XMS_ITS | Encounter Summary ---
Author Organization [facility] Address [address] [place] [address] Care Team Providers Care Vehicle Fare Collector Name Role Phone Geovanna Abbasi MUSIC PRODUCER Primary Care Provider [phone] Reason for Visit * Reason Onset Date Comments [facility] Other 07/01/2025 Encounter Details Date Type Department Care Team (Late st Contact Info) Description 07/01/2025 Telephone [facility] [address] [facility] FAMILY [facility] [address] [place] [address] Bell Oro, NITESH [address] [place] [address] [facility] Other Social History Tobacco Use Types Packs/Day Years Used Date Smoking Tobacco: Former Cigarettes Smokeless Tobacco: Never Comments:QUIT DAY OF SURGERY Alcohol Use Standard Drinks/Week Comments Never 0 (1 standard drink = 0.6 oz pur e alcohol) [facility] Utilities Answer Date Recorded In the past [...] encounter Miscellaneous Notes * Telephone Encounter - Bell Oro RN - 09/06/2025 1:50 PM EST Pt NS appt for med refill and contract, please advise * Telephone Encounter - Katt Smith MA - 07/04/2025 10:16 AM EDT Verified name and before starting call. Spoke to patient, appointment scheduled for 09/02 at 2pm * Telephone Encounter - Bell Oro RN - 07/01/2025 3:55 PM EDT Per office policy, please schedule appt for Control Sub Agreement for Gabapentin per office policy documented in this encounter Plan of Treatment Upcoming Encounters Date Type Department Care Team (Late st Contact Info) Description 09/28/2025 9:20 AM EST Follow-Up [facility] Nephrology Clinic [address] [place] [address] Gas Cutter: Michelle Quezada NP [address] [place] [address] 10/05/2025 10:00 AM EST Telehealth [facility] 165 [facility] 165 [place] [address] Henrique Banegas, PharmD [address] [place] [address] 10/28/2025 1:00 PM EST Appointment [facility] ACC Vascular Lab [address] [place] [address] 10/28/2025 1:45 PM EST Appointment [facility] Vascular Lab [address] [place] [address] 11/04/2025 9:00 AM EST Follow-Up [facility] Building Vascular Surgery [address] [place] [address] Gas Cutter: Mitul Starr NP [address] [place] [address] 11/08/2025 11:20 AM EST Office Visit [facility] [address] [address] Adolfo Barber MD [address] [place] [address] [phone] (Work) 04/27/2026 2:00 PM EDT Follow-Up [facility] [address] OPTOMETRY [address] [place] [address] Cristi Lyons OD [address] [place] [address] documented as of this encounter Visit Diagnoses Not on filedocumented in this encounter Care Teams Vehicle Fare Collector Relationship Specialty Start Date End Date Geovanna Abbasi NP [address] [place] [address] PCP - General 11/09/20 documented as of this encounter
--- OUTSIDE RECORDS SUMMARY | 2025-09-06 16:30 | XMS_ITS | Clinical Summary ---
Author Organization [facility] Address [address] [place] [id number] Phone Care Team Providers Care Stitch Bonding Machine Operator Name Role Phone BreeGeovanna kirkland KHURRAM Primary Care Provider [phone] Allergies No known active allergies Medications LANTUS SOLOSTAR U-100 INSULIN 100 unit/mL (3 mL) InPn injection pen Inject 38 Units under the skin daily. 4 Active gabapentin (NEURONTIN) 300 MG capsule Take 300 mg by mouth 2 (two) times a day. 4 Active collagenase (SANTYL) ointmentIndicati ons:Atherosclero sis of [place] artery of left lower extremity with ulceration of heel,Diabetic ulcer of left heel associated with diabetes mellitus due to underlying condition, limited to breakdown of skin [The details of the medication are not available because there are pending changes by a home health clinician.] 30 g 4 Active Additional Information Patient not taking.Reason: Therapy complete, Reported on 02/10/2025 insulin lispro (ADMELOG, HUMALOG) 100 unit/mL injection vial Inject 8 Units under the skin 3 (three) times a day before meals. plus sliding scale 200-249 = 3 units 250-299 = 5 units 300-349 = 7 units 350-400 = 8 units >400 call 4 Active acetaminophen (TYLENOL) 325 mg tablet Take 975 mg by mouth every 6 (six) hours as needed for pain (specific location in comments). 4 Active amLODIPine (NORVASC) 5 MG tablet Take 5 mg by mouth daily. 4 Active aspirin 81 MG EC tablet Take 81 mg by mouth daily. 4 Active docusate (COLACE) 100 mg tablet Take 100 mg by mouth 2 (two) times a day as needed for mild constipation. 4 Active furosemide (LASIX) 20 MG tablet Take 20 mg by mouth daily. 4 Active rosuvastatin (CRESTOR) 20 MG tablet Take 20 mg by mouth daily. 4 Active senna (SENNA LAXATIVE) 8.6 mg tablet Take 2 tablets by mouth as needed for constipation. 4 Active hydrOXYzine (ATARAX) 25 MG tablet Take 25 mg by mouth daily. take 1-2 tablet by mouth at night for anxiety and insomnia. 5 Active dulaglutide (TRULICITY) 0.75 mg/0.5 mL subcutaneous injection Inject 0.75 mg under the skin once a week. on friday 5 Active lisinopril (PRINIVIL,ZESTRI L) 30 MG tablet Take 40 mg by mouth daily. 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 due to underlying condition, limited to breakdown of skin 08/31/2024 Atherosclerosis of [place] of left lower extremity with ulceration of heel 08/31/2024 Diabetic neuropathy 08/27/2024 Essential hypertension 08/27/2024 Hyperlipidemia 08/27/2024 Severe obesity 08/27/2024 Diabetic foot infection 08/27/2024 Abnormal glucose 08/27/2024 Acute deep vein thrombosis (DVT) of lower extrem ity 08/27/2024 Overview (08/27/2024): Seen ed 08/03 Diabetic ulcer of toe associ ated with type 2 diabetes mellitus 03/08/2024 Hypochloremia 03/08/2024 Hyponatremia 03/08/2024 Tobacco dependence due to cigarettes 02/06/2024 Severe obesity (BMI >= 40) 09/03/2023 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, with long-term current use of insulin 08/27/2022 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 05/22/2022 Acquired absence of other organs 01/17/2021 Family history of diabetes mellitus 01/17/2021 Family history of heart disease 01/17/2021 Claudication of both lower extremities Uncontrolled type 2 diabetes mellitus with hyper glycemia 01/11/2021 Family History Medical History Relation Comments Diabetes Father Hyperlipidemia Father Hypertension Father Stroke Father Diabetes Mother Cancer Unspecified Esophageal cancer Unspecified Relation Status Comments Father Mother Unspecified Social History Tobacco Use Types Packs/Day Years Used Date Smoking Tobacco: Every Day Cigarettes 1 26 Started: 08/31/1999 Smokeless Tobacco: Never Alcohol Use Standard Drinks/Week Comments Not Currently 0 (1 standard drink = 0.6 oz pur e alcohol) Home Health Assessment: Transportation Answer Date Recorded Lack of Transportation (Medical) No 04/08/2025 Lack of Transportation (Non-Medical) No 04/08/2025 Patient Unable or Declines to Respond No 04/08/2025 Education Answer Date Recorded Are you interested in more education? Not on jonnathan e 08/26/2024 Are you concerned about learning? Not on file 08/26/2024 No 08/26/2024 No 08/26/2024 Digital Access Answer Date Recorded No 08/26/2024 No 08/26/2024 Reliable internet access at home? Not on file 08/26/2024 Device with a working camera? Not on file Sex and Gender Information Value Date Recorded Sex Assigned at Not on file Legal Sex Male 8:10 PM EDT Gender Identity Not on file Sexual Orientation Not on file Last Filed Vital Signs Vital Sign Reading Time Taken Comments Blood Pressure 139/82 04/08/2025 10:57 AM EDT Pulse 79 04/06/2025 12:28 PM EDT Temperature 36.6 C (97.8 F) 04/08/2025 10:57 AM EDT Respiratory Rate 18 04/08/2025 10:57 AM EDT Oxygen Saturation 97% 04/08/2025 10:57 AM EDT Inhaled Oxygen Concentration - - Weight 111.7 kg (246 lb 5 oz) 12/01/2024 3:24 PM EST Height 157.5 cm (5' 2 ) 12/01/2024 3:24 PM EST Body Mass Index 45.05 12/01/2024 3:24 PM EST Plan of Treatment Health Maintenance Due Date Last Done Comments Adult Td,Tdap Booster 1980 DEPRESSION SCREENING 1992 HIV ONE-TIME SCREENING (18-65 YEARS) 02/14/1998 PNEUMOCOCCAL VACCINES (0-49 years) (1 of 2 - PCV) 02/14/1999 DIABETIC EYE EXAM 08/27/2024 COLOGUARD 02/14/2025 COLONOSCOPY 02/14/2025 COLORECTAL CANCER SCREENING 02/14/2025 FIT TEST 02/14/2025 FOBT 02/14/2025 SIGMOIDOSCOPY 02/14/2025 VIRTUAL COLONOSCOPY 02/14/2025 HEMOGLOBIN A1C 04/30/2025 01/29/2025, 0402/2025, 12/31/2024, Additional history exists INFLUENZA VACCINE (#1) 2025 COVID-19 VACCINE ( season) 2025 CREATININE LEVEL 08/31/2025 08/31/2024 POTASSIUM LEVEL 08/31/2025 08/31/2024 SMOKING Hx and SMOKELESS TOBACCO SCREENING 09/20/2025 09/20/2024 BLOOD PRESSURE 10/08/2025 04/08/2025 HEPATITIS C SCREENING Completed 09/22/2024 HEPATITIS A VACCINES Aged Out No long er eligible based on patient's age to complete this topic HIB VACCINES Aged Out No longer eligi ble based on patient's age to complete this topic IPV VACCINES Aged Out No longer eligi ble based on patient's age to complete this topic MENINGOCOCCAL VACCINES (ACWY) Aged Out No longer eligible based on patient's age to complete this topic MENINGOCOCCAL VACCINES (B) Aged Out N o longer eligible based on patient's age to complete this topic Medical Devices Not on file Insurance [facility] C3 ACO C3 ACO C3 ACO C3 ACO C3 ACO C3 ACO C3 ACO Care Teams Stitch Bonding Machine Operator Relationship Specialty Start Date End Date Geovanna Abbasi NP [address] [place] [phone] PCP - General 08/31/24 Additional Source Comments The information contained in this document represents components of the legal health record. It is not the complete legal health record.[facility]
--- OUTSIDE RECORDS SUMMARY | 2025-09-06 16:30 | XMS_ITS | Encounter Summary ---
Author Organization [facility] Address [address] [place] [address] Care Team Providers Care Audit Practice Intern Name Role Phone Geovanna Abbasi FIRE EXTINGUISHER SPRINKLER INSPECTOR Primary Care Provider [phone] Encounter Details Date Type Department Care Team (Late st Contact Info) Description 10/01/2024 Lab Requisition [facility] [address] [place] [address] Unknown, Doctor Unknown Unknown, [place] Social History Tobacco Use Types Packs/Day Years [...] PM EDT documented as of this encounter Plan of Treatment Upcoming Encounters Date Type Department Care Team (Late st Contact Info) Description 09/28/2025 9:20 AM EST Follow-Up [facility] [address] [place] [address] Exhibit Display Representative: Michelle Quezada, KHURRAM [address] [place] [address] 10/05/2025 10:00 AM EST Telehealth [facility] [address] [facility] [address] [place] [address] Henrique Banegas, PharmD [address] [place] [address] 10/28/2025 1:00 PM EST Appointment [facility] Vascular [facility] [address] [place] [address] 10/28/2025 1:45 PM EST Appointment [facility] [address] [place] [address] 11/04/2025 9:00 AM EST Follow-Up [facility] ACC Building Vascular Surgery [address] [place] [address] Exhibit Display Representative: Mitul Starr NP [address] [place] [address] 11/08/2025 11:20 AM EST Office Visit [facility] [address] [address] Adolfo Barber MD [address] [place] [address] [phone] (Work) 04/27/2026 2:00 PM EDT Follow-Up [facility] [address] [facility] [address] [place] [address] Cristi Lyons, OD [address] [place] [address] documented as of this encounter Procedures * Due to [place] state law, [...] in this encounter Results * Due to [place] state law, this organization might not be sharing negative HIV tests. * (ABNORMAL) Basic Metabolic Panel (10/13/2024 6:05 AM EST) NA 138 136 - 145 mmol/L 10/13/2024 9:15 AM EST [facility] K 5.7(H) 3.5 - 5.1 mmol/L 10/13/2024 9:15 AM EST [facility] Cl 104 98 - 109 mmol/L 10/13/2024 9:15 AM EST [facility] CO2 25 22 - 32 mmol/L 10/13/2024 9:15 AM EST [facility] BUN 28(H) 6 - 20 mg/dL 10/13/2024 9:15 AM EST [facility] Creatinine 1.24(H) 0.50 - 1.12 mg/dL 10/13/2024 9:15 AM EST [facility] Glucose 139(H) 60 - 99 mg/dL 10/13/2024 9:15 AM EST [facility] Calcium 8.7 8.4 - 10.4 mg/dL 10/13/2024 9:15 AM EST [facility] Anion Gap 15 >=0 10/13/2024 9:15 AM EST [facility] eGFR 74 >=60 mL/min/1. 73m2 10/13/2024 9:15 AM EST [facility] Comment:The estimated glomer ular filtration [...] AM EST 10/13/2024 6:49 AM EST Narrative [facility] - 10/13/2024 9:15 AM EST NUR1\S\115\S\B\S\0156\S\S\BED\S\0156 us Tatiana Cantu FIRE EXTINGUISHER SPRINKLER INSPECTOR LAB BLOOD ORDERABLES Final Result [facility] [address] [place] [address], * (ABNORMAL) Basic Metabolic Panel (10/12/2024 6:20 AM EST) NA 139 136 - 145 mmol/L 10/12/2024 7:59 AM EST [facility] K 5.3(H) 3.5 - 5.1 mmol/L 10/12/2024 7:59 AM EST [facility] Cl 104 98 - 109 mmol/L 10/12/2024 7:59 AM EST [facility] CO2 27 22 - 32 mmol/L 10/12/2024 7:59 AM EST [facility] BUN 24(H) 6 - 20 mg/dL 10/12/2024 7:59 AM EST [facility] Creatinine 1.15(H) 0.50 - 1.12 mg/dL 10/12/2024 7:59 AM EST [facility] Glucose 118(H) 60 - 99 mg/dL 10/12/2024 7:59 AM EST [facility] Calcium 8.6 8.4 - 10.4 mg/dL 10/12/2024 7:59 AM EST [facility] Anion Gap 13 >=0 10/12/2024 7:59 AM EST [facility] eGFR 80 >=60 mL/min/1. 73m2 10/12/2024 7:59 AM EST [facility] Comment:The estimated glomer ular filtration [...] 6:20 AM EST 10/12/2024 6:31 AM EST Narrative [facility] - 10/12/2024 7:59 AM EST NUR1\S\115\S\B\S\0156\S\S\BED\S\0156 Tatiana DudleyTom Cantu FIRE EXTINGUISHER SPRINKLER INSPECTOR LAB BLOOD ORDERABLES Final Result [facility] [address] [place] [address], * (ABNORMAL) Basic Metabolic Panel (10/11/2024 12:30 PM EST) NA 135(L) 136 - 145 mmol/L 10/11/2024 2:17 PM EST [facility] K 5.8(H) 3.5 - 5.1 mmol/L 10/11/2024 2:17 PM EST [facility] Cl 103 98 - 109 mmol/L 10/11/2024 2:17 PM EST [facility] CO2 25 22 - 32 mmol/L 10/11/2024 2:17 PM EST [facility] BUN 25(H) 6 - 20 mg/dL 10/11/2024 2:17 PM EST [facility] Creatinine 1.18(H) 0.50 - 1.12 mg/dL 10/11/2024 2:17 PM EST [facility] Glucose 110(H) 60 - 99 mg/dL 10/11/2024 2:17 PM EST [facility] Calcium 8.8 8.4 - 10.4 mg/dL 10/11/2024 2:17 PM EST [facility] Anion Gap 13 >=0 10/11/2024 2:17 PM EST [facility] eGFR 78 >=60 mL/min/1. 73m2 10/11/2024 2:17 PM EST [facility] Comment:The estimated glomer ular filtration [...] PM EST 10/11/2024 12:52 PM EST Narrative [facility] - 10/11/2024 2:17 PM EST NUR1\S\115\S\B\S\0156\S\S\BED\S\0156 Tatiana Cantu FIRE EXTINGUISHER SPRINKLER INSPECTOR LAB BLOOD ORDERABLES Final Result [facility] [address] [place] [phone], * (ABNORMAL) CBC Auto Differential (10/11/2024 7:23 AM EST) WBC 13.7(H) 4.8 - 10.8 10*3/uL 10/11/2024 9:53 AM EST [facility] RBC 3.62(L) 4.70 - 6.10 10*6/uL 10/11/2024 9:53 AM EST [facility] Hemoglobin 10.3(L) 13.7 - 16.5 g/dL 10/11/2024 9:53 AM EST [facility] Hematocrit 31.8(L) 40.5 - 48.5 % 10/11/2024 9:53 AM EST [facility] MCV 87.8 80.0 - 94.0 fL 10/11/2024 9:53 AM EST [facility] MCH 28.5 26.0 - 34.0 pg 10/11/2024 9:53 AM EST [facility] MCHC 32.4 31.0 - 36.0 g/dL 10/11/2024 9:53 AM EST [facility] RDW 12.8 12.0 - 15.0 % 10/11/2024 9:53 AM EST [facility] RDW Standard Deviation 41.1 35.1 - 43.9 fL 10/11/2024 9:53 AM EST [facility] Platelets 695(H) 140 - 440 10*3/uL 10/11/2024 9:53 AM EST [facility] MPV 8.7(L) 9.4 - 12.4 fL 10/11/2024 9:53 AM [facility] Neutrophil % 65.0 50.0 - 75.0 % 10/11/2024 9:53 AM [facility] Immature Grans % 1.2(H) 0.0 - 0.9 % 10/11/2024 9:53 AM [facility] Lymphocyte % 23.6 20.0 - 44.0 % 10/11/2024 9:53 AM [facility] Monocyte % 4.8 0.0 - 14.0 % 10/11/2024 9:53 AM [facility] Eosinophil % 4.8 0.0 - 5.0 % 10/11/2024 9:53 AM EST [facility] Basophil % 0.6 0.0 - 2.0 % 10/11/2024 9:53 AM [facility] Neutrophil # 8.89(H) 1.80 - 7.70 10*3/uL 10/11/2024 9:53 AM EST [facility] Immature Grans # 0.16(H) 0.00 - 0.03 10*3/uL 10/11/2024 9:53 AM EST [facility] Lymphocyte # 3.20 1.00 - 4.75 10*3/uL 10/11/2024 9:53 AM [facility] Monocyte # 0.70 0.00 - 6.00 10*3/uL 10/11/2024 9:53 AM EST [facility] Eosinophil # 0.70 0.00 - 0.80 10*3/uL 10/11/2024 9:53 AM EST [facility] Basophil # 0.10 0.00 - 0.20 10*3/uL 10/11/2024 9:53 AM EST [facility] nRBC % 0.0 0 - 0 /100 WBCs 10/11/2024 9:53 AM EST [facility] nRBC # <0.01 0.00 - 0.13 10*3/uL 10/11/2024 9:53 AM EST [facility] Blood Structure of peripheral vein / Unknown Venipuncture / Unknown 10/11/2024 7:23 AM EST 10/11/2024 7:54 AM EST us Doctor Unknown LAB BLOOD ORDERABLES Final Resul t Performing Organization Address City/State/[facility] Co de Phone Number [facility] [address] [facility] [address] [place] [address], * (ABNORMAL) Renal Function Panel (10/11/2024 7:23 AM EST) NA 140 136 - 145 mmol/L 10/11/2024 11:14 AM EST [facility] K 6.2(HH) 3.5 - 5.1 mmol/L 10/11/2024 11:14 AM EST [facility] Cl 105 98 - 109 mmol/L 10/11/2024 11:14 AM EST [facility] CO2 27 22 - 32 mmol/L 10/11/2024 11:14 AM EST [facility] Anion Gap 14 >=0 10/11/2024 11:14 AM EST [facility] Glucose 97 60 - 99 mg/dL 10/11/2024 11:14 AM EST [facility] BUN 24(H) 6 - 20 mg/dL 10/11/2024 11:14 AM EST [facility] Creatinine 1.17(H) 0.50 - 1.12 mg/dL 10/11/2024 11:14 AM EST [facility] Calcium 9.0 8.4 - 10.4 mg/dL 10/11/2024 11:14 AM EST [facility] Phosphorus 4.6(H) 2.5 - 4.5 mg/dL 10/11/2024 11:14 AM EST [facility] Albumin 3.3(L) 3.5 - 5.0 g/dL 10/11/2024 11:14 AM EST [facility] eGFR 79 >=60 mL/min/1. 73m2 10/11/2024 11:14 AM EST [facility] Comment:The estimated glomer ular filtration [...] 7:23 AM EST 10/11/2024 7:54 AM EST Narrative [facility] - 10/11/2024 11:14 AM EST NUR1\S\115\S\B\S\0156\S\S\BED\S\0156 Michelle Ling FIRE EXTINGUISHER SPRINKLER INSPECTOR LAB BLOOD ORDERABLES Final Res ult [facility] [address] [facility] [address] [place] [address], * (ABNORMAL) Basic Metabolic Panel (10/07/2024 7:29 AM EST) NA 139 136 - 145 mmol/L 10/07/2024 10:50 AM EST [facility] K 4.8 3.5 - 5.1 mmol/L 10/07/2024 10:50 AM EST [facility] Cl 105 98 - 109 mmol/L 10/07/2024 10:50 AM EST [facility] CO2 20(L) 22 - 32 mmol/L 10/07/2024 10:50 AM EST [facility] BUN 25(H) 6 - 20 mg/dL 10/07/2024 10:50 AM EST [facility] Creatinine 1.23(H) 0.50 - 1.12 mg/dL 10/07/2024 10:50 AM EST [facility] Glucose 134(H) 60 - 99 mg/dL 10/07/2024 10:50 AM EST [facility] Calcium 8.1(L) 8.4 - 10.4 mg/dL 10/07/2024 10:50 AM EST [facility] Anion Gap 19 >=0 10/07/2024 10:50 AM EST [facility] eGFR 74 >=60 mL/min/1. 73m2 10/07/2024 10:50 AM EST [facility] Comment:The estimated glomer ular filtration [...] AM EST 10/07/2024 7:46 AM EST Narrative [facility] - 10/07/2024 10:50 AM EST NUR1\S\115\S\B\S\0156\S\S\BED\S\0156 us Doctor Unknown LAB BLOOD ORDERABLES Final Resul t [facility] [address] [place] [address], [place] [phone] * (ABNORMAL) CBC Auto Differential (10/07/2024 7:29 AM EST) [facility] WBC 17.6(H) 4.8 - 10.8 10*3/uL 10/07/2024 9:58 AM EST [facility] RBC 3.26(L) 4.70 - 6.10 10*6/uL 10/07/2024 9:58 AM EST [facility] Hemoglobin 9.4(L) 13.7 - 16.5 g/dL 10/07/2024 9:58 AM EST [facility] Hematocrit 28.4(L) 40.5 - 48.5 % 10/07/2024 9:58 AM EST [facility] MCV 87.1 80.0 - 94.0 fL 10/07/2024 9:58 AM EST [facility] MCH 28.8 26.0 - 34.0 pg 10/07/2024 9:58 AM EST [facility] MCHC 33.1 31.0 - 36.0 g/dL 10/07/2024 9:58 AM [facility] RDW 12.7 12.0 - 15.0 % 10/07/2024 9:58 AM [facility] RDW Standard Deviation 40.6 35.1 - 43.9 fL 10/07/2024 9:58 AM EST [facility] Platelets 690(H) 140 - 440 10*3/uL 10/07/2024 9:58 AM EST [facility] MPV 9.3(L) 9.4 - 12.4 fL 10/07/2024 9:58 AM EST [facility] Neutrophil % 80.6(H) 50.0 - 75.0 % 10/07/2024 9:58 AM EST [facility] Immature Grans % 0.9 0.0 - 0.9 % 10/07/2024 9:58 AM EST [facility] Lymphocyte % 11.4(L) 20.0 - 44.0 % 10/07/2024 9:58 AM EST [facility] Monocyte % 4.4 0.0 - 14.0 % 10/07/2024 9:58 AM EST [facility] Eosinophil % 2.4 0.0 - 5.0 % 10/07/2024 9:58 AM EST [facility] Basophil % 0.3 0.0 - 2.0 % 10/07/2024 9:58 AM EST [facility] Neutrophil # 14.15(H) 1.80 - 7.70 10*3/uL 10/07/2024 9:58 AM EST [facility] Immature Grans # 0.16(H) 0.00 - 0.03 10*3/uL 10/07/2024 9:58 AM EST [facility] Lymphocyte # 2.00 1.00 - 4.75 10*3/uL 10/07/2024 9:58 AM EST [facility] Monocyte # 0.80 0.00 - 6.00 10*3/uL 10/07/2024 9:58 AM EST [facility] Eosinophil # 0.40 0.00 - 0.80 10*3/uL 10/07/2024 9:58 AM EST [facility] Basophil # 0.10 0.00 - 0.20 10*3/uL 10/07/2024 9:58 AM EST [facility] nRBC % 0.0 0 - 0 /100 WBCs 10/07/2024 9:58 AM EST [facility] nRBC # <0.01 0.00 - 0.13 10*3/uL 10/07/2024 9:58 AM EST [facility] Blood Structure of peripheral vein / Unknown Venipuncture / Unknown 10/07/2024 7:29 AM EST 10/07/2024 7:46 AM EST us Doctor Unknown LAB BLOOD ORDERABLES Final Resul t [facility] [address] [place] [id number], * Creatinine, Random Urine (10/06/2024 6:49 AM EST) Creatinine, Urine 66 mg/dL 10/06/2024 9:53 PM EST [facility] Urine Voided urine specimen / Unknown 10/06/2024 6:49 AM EST 10/06/2024 7:29 PM EST Narrative [facility] - 10/06/2024 9:53 PM EST NUR1\S\115\S\B\S\0156\S\S\BED\S\0156 Michelle Ling NP LAB URINE ORDERABLES Final Res ult Performing Organization Address City/[facility]/ZIP Co de Phone Number [facility] [address] [place] [address] [address] [place] [address], [place] [phone] * (ABNORMAL) Microscopic Urinalysis Only (10/06/2024 6:48 AM EST) RBC, Urine 5-10(A) None Seen, 0-2 /HPF 10/06/2024 9:54 PM EST [facility] WBC, Urine 5-10(A) None Seen, 0-2 /HPF 10/06/2024 9:54 PM EST [facility] Squamous Epithelial Cells, Urine 0-2 /HPF 10/06/2024 9:54 PM EST [facility] Uric Acid Crystals, Urine Moderate /HPF 10/06/2024 9:54 PM EST [facility] Bacteria, Urine Small(A) None Seen /HPF 10/06/2024 9:54 PM EST [facility] Yeast Budding, Urine Moderate(A) (none) /HPF 10/06/2024 9:54 PM EST [facility] Urine 10/06/2024 6:48 AM EST 10/06/2024 9:20 PM EST us Michelle Ling NP LAB URINE ORDERABLES Final Res ult [facility] [address] [address], [place] [phone] * Ortiz Top, Urine (10/06/2024 6:48 AM EST) Extra Tube Hold for add-ons. 10/06/2024 8:05 PM EST [facility] Comment:Auto resulted. Urine 10/06/2024 6:48 AM EST 10/06/2024 7:29 PM EST Michelle Ling FIRE EXTINGUISHER SPRINKLER INSPECTOR LAB URINE ORDERABLES Final Res ult [facility] [address] [address], [place] [phone] * (ABNORMAL) Urinalysis W/Reflex to Microscopic & Culture (10/06/2024 6:48 AM EST) Pathologist [facility] [place] Color, Urine Yellow Yellow 10/06/2024 9:20 PM EST [facility] Clarity, Urine Turbid(A) Clear 10/06/2024 9:20 PM EST [facility] Specific [place], Urine 1.020 1.005 - 1.030 10/06/2024 9:20 PM EST [facility] pH, Urine 5.5 5.0 - 8.0 10/06/2024 9:20 PM EST [facility] Protein, Urine 300(A) Negative mg/dL 10/06/2024 9:20 PM EST [facility] Glucose, Urine Negative Negative mg/dL 10/06/2024 9:20 PM EST [facility] Ketones, Urine Negative Negative mg/dL 10/06/2024 9:20 PM EST [facility] Bilirubin, Urine Negative Negative 10/06/2024 9:20 PM EST [facility] Blood, Urine Moderate(A) Negative 10/06/2024 9:20 PM EST [facility] Nitrite, Urine Negative Negative 10/06/2024 9:20 PM EST [facility] Urobilinogen, Urine 0.2 0.2 - 1.0 E.U./dL 10/06/2024 9:20 PM EST [facility] Leukocyte Esterase, Urine Trace(A) Negative 10/06/2024 9:20 PM EST [facility] Urine 10/06/2024 6:48 AM EST 10/06/2024 7:29 PM EST Narrative [facility] - 10/06/2024 9:20 PM EST Some urinalysis results will not meet the criteria for reflex urine culture although certain urine values may be abnormal. Additional testing can be ordered by the provider if clinically warranted. Michelle Ling NP LAB URINE ORDERABLES Final Res ult Performing Organization Address [facility]/ZIP Co de Phone Number [facility] [address] [place] [address], [place] [phone] * Sodium, Random Urine - [place] only (10/06/2024 6:47 AM EST) Sodium, Urine 55 mmol/L 10/06/2024 9:42 PM EST [facility] Urine Voided urine specimen / Unknown 10/06/2024 6:47 AM EST 10/06/2024 7:29 PM EST Narrative [facility] - 10/06/2024 9:42 PM EST NUR1\S\115\S\B\S\0156\S\S\BED\S\0156 Michelle Ling FIRE EXTINGUISHER SPRINKLER INSPECTOR LAB URINE ORDERABLES Final Res ult Performing Organization Address City/[facility]/ZIP Co de Phone Number [facility] [address] [address], [place] [phone] * Urea Nitrogen, Random Urine - [place] only (10/06/2024 6:47 AM EST) Urea Nitrogen, Urine 627 mg/dL 10/06/2024 9:53 PM EST [facility] Urine Voided urine specimen / Unknown 10/06/2024 6:47 AM EST 10/06/2024 7:29 PM EST Narrative [facility] - 10/06/2024 9:53 PM EST NUR1\S\115\S\B\S\0156\S\S\BED\S\0156 Michelle Ling NP LAB URINE ORDERABLES Final Res ult [facility] [address] [place] [address] [address] [place] [address], * (ABNORMAL) CBC Auto Differential (10/06/2024 6:16 AM EST) WBC 18.5(H) 4.8 - 10.8 10*3/uL 10/06/2024 7:31 AM EST [facility] RBC 3.01(L) 4.70 - 6.10 10*6/uL 10/06/2024 7:31 AM EST [facility] Hemoglobin 8.9(L) 13.7 - 16.5 g/dL 10/06/2024 7:31 AM EST [facility] Hematocrit 26.4(L) 40.5 - 48.5 % 10/06/2024 7:31 AM EST [facility] MCV 87.7 80.0 - 94.0 fL 10/06/2024 7:31 AM EST [facility] MCH 29.6 26.0 - 34.0 pg 10/06/2024 7:31 AM EST [facility] MCHC 33.7 31.0 - 36.0 g/dL 10/06/2024 7:31 AM EST [facility] RDW 12.8 12.0 - 15.0 % 10/06/2024 7:31 AM EST [facility] RDW Standard Deviation 41.1 35.1 - 43.9 fL 10/06/2024 7:31 AM EST [facility] Platelets 596(H) 140 - 440 10*3/uL 10/06/2024 7:31 AM EST [facility] MPV 9.3(L) 9.4 - 12.4 fL 10/06/2024 7:31 AM EST [facility] Neutrophil % 77.9(H) 50.0 - 75.0 % 10/06/2024 7:31 AM [facility] Immature Grans % 1.1(H) 0.0 - 0.9 % 10/06/2024 7:31 AM EST [facility] Lymphocyte % 11.5(L) 20.0 - 44.0 % 10/06/2024 7:31 AM [facility] Monocyte % 7.6 0.0 - 14.0 % 10/06/2024 7:31 AM EST [facility] Eosinophil % 1.6 0.0 - 5.0 % 10/06/2024 7:31 AM [facility] Basophil % 0.3 0.0 - 2.0 % 10/06/2024 7:31 AM [facility] Neutrophil # 14.42(H) 1.80 - 7.70 10*3/uL 10/06/2024 7:31 AM [facility] Immature Grans # 0.21(H) 0.00 - 0.03 10*3/uL 10/06/2024 7:31 AM [facility] Lymphocyte # 2.10 1.00 - 4.75 10*3/uL 10/06/2024 7:31 AM [facility] Monocyte # 1.40 0.00 - 6.00 10*3/uL 10/06/2024 7:31 AM [facility] Eosinophil # 0.30 0.00 - 0.80 10*3/uL 10/06/2024 7:31 AM [facility] Basophil # 0.10 0.00 - 0.20 10*3/uL 10/06/2024 7:31 AM [facility] nRBC % 0.0 0 - 0 /100 WBCs 10/06/2024 7:31 AM [facility] nRBC # <0.01 0.00 - 0.13 10*3/uL 10/06/2024 7:31 AM EST [facility] Blood Structure of peripheral vein / Unknown Venipuncture / Unknown 10/06/2024 6:16 AM EST 10/06/2024 6:31 AM EST Tatiana Cantu FIRE EXTINGUISHER SPRINKLER INSPECTOR LAB BLOOD ORDERABLES Final Result Performing Organization Address [facility] Co de Phone Number [facility] [address] [address], [place] [phone] * Triglycerides (10/06/2024 6:16 AM EST) Triglycerides 119 mg/dL 10/06/2024 7:58 AM EST [facility] Comment: NORMAL: <150 mg/dL BORDERLINE HIGH: 150-199 mg/dL HIGH: 200-499 mg/dL VERY HIGH >499 mg/dL Blood Structure of peripheral vein / Unknown Venipuncture / Unknown 10/06/2024 6:16 AM EST 10/06/2024 6:30 AM EST Narrative [facility] - 10/06/2024 7:58 AM EST NUR1\S\115\S\B\S\0156\S\S\BED\S\0156 NUR1\S\115\S\B\S\0156\S\S\BED\S\0156 Tatiana Cantu FIRE EXTINGUISHER SPRINKLER INSPECTOR LAB BLOOD ORDERABLES Final Result Performing Organization Address City/[facility]/ZIP Co de Phone Number [facility] [address] [address], [place] [phone] * (ABNORMAL) Comprehensive Metabolic Panel (10/06/2024 6:16 AM EST) NA 138 136 - 145 mmol/L 10/06/2024 7:58 AM EST [facility] K 5.2(H) 3.5 - 5.1 mmol/L 10/06/2024 7:58 AM EST [facility] Cl 103 98 - 109 mmol/L 10/06/2024 7:58 AM [facility] CO2 24 22 - 32 mmol/L 10/06/2024 7:58 AM [facility] Anion Gap 16 >=0 10/06/2024 7:58 AM [facility] Glucose 132(H) 60 - 99 mg/dL 10/06/2024 7:58 AM [facility] Creatinine 1.82(H) 0.50 - 1.12 mg/dL 10/06/2024 7:58 AM [facility] Calcium 8.0(L) 8.4 - 10.4 mg/dL 10/06/2024 7:58 AM [facility] Total Protein 5.9(L) 6.6 - 8.7 g/dL 10/06/2024 7:58 AM [facility] Albumin 3.0(L) 3.5 - 5.0 g/dL 10/06/2024 7:58 AM [facility] Bilirubin, Total 0.2 0.2 - 1.2 mg/dL 10/06/2024 7:58 AM [facility] Alkaline Phosphatase 409(H) 40 - 129 U/L 10/06/2024 7:58 AM [facility] AST 33 0 - 40 U/L 10/06/2024 7:58 AM [facility] ALT 34 <=41 U/L 10/06/2024 7:58 AM [facility] BUN 41(H) 6 - 20 mg/dL 10/06/2024 7:58 AM [facility] eGFR 46(L) >=60 mL/min/1. 73m2 10/06/2024 7:58 AM [facility] Comment:The estimated glomer ular filtration [...] - 4.2 g/dL 10/06/2024 7:58 AM EST [facility] A/G Ratio 1.0(L) 1.5 - 3.0 10/06/2024 7:58 AM EST [facility] Blood Structure of peripheral vein / Unknown Venipuncture / Unknown 10/06/2024 6:16 AM EST 10/06/2024 6:30 AM EST Narrative [facility] - 10/06/2024 7:58 AM EST NUR1\S\115\S\B\S\0156\S\S\BED\S\0156 NUR1\S\115\S\B\S\0156\S\S\BED\S\0156 Tatiana Cantu NP LAB BLOOD ORDERABLES Final Result [facility] [address] [place] [address] [address] [place] [address], [place] [phone] * (ABNORMAL) Vitamin D, 25-Hydroxy, Total, Immunoassay (10/05/2024 1:28 PM EST) Vitamin D 25-OH 6.04(L) 30.00 - 80.00 ng/mL 10/05/2024 2:31 PM EST [facility] Blood Structure of peripheral vein / Unknown 10/05/2024 1:28 PM EST 10/05/2024 2:30 PM EST Narrative [facility] - 10/05/2024 2:31 PM EST NUR1\S\115\S\B\S\0156\S\S\BED\S\0156 NUR1\S\115\S\B\S\0156\S\S\BED\S\0156 Michelle Sushil FIRE EXTINGUISHER SPRINKLER INSPECTOR LAB BLOOD ORDERABLES Final Res ult Performing Organization Address [facility]/ZIP Co de Phone Number [facility] [address] [address], [place] [phone] * (ABNORMAL) Phosphorus (10/05/2024 1:28 PM EST) Phosphorus 4.9(H) 2.5 - 4.5 mg/dL 10/05/2024 2:31 PM EST [facility] Blood Structure of peripheral vein / Unknown 10/05/2024 1:28 PM EST 10/05/2024 2:30 PM EST Michelle Ling FIRE EXTINGUISHER [employer]INKL[employer] INSPECTOR LAB BLOOD ORDERABLES Final Res ult Performing Organization Address [facility]/ZIP Co de Phone Number [facility] [address] [address], [place] [phone] * (ABNORMAL) Comprehensive Metabolic Panel (10/05/2024 6:45 AM EST) NA 137 136 - 145 mmol/L 10/05/2024 9:22 AM EST [facility] K 5.1 3.5 - 5.1 mmol/L 10/05/2024 9:22 AM EST [facility] Cl 102 98 - 109 mmol/L 10/05/2024 9:22 AM EST [facility] CO2 23 22 - 32 mmol/L 10/05/2024 9:22 AM EST [facility] Anion Gap 17 >=0 10/05/2024 9:22 AM EST [facility] Glucose 138(H) 60 - 99 mg/dL 10/05/2024 9:22 AM EST [facility] Creatinine 2.87(H) 0.50 - 1.12 mg/dL 10/05/2024 9:22 AM EST [facility] Calcium 7.6(L) 8.4 - 10.4 mg/dL 10/05/2024 9:22 AM EST [facility] Total Protein 6.0(L) 6.6 - 8.7 g/dL 10/05/2024 9:22 AM [facility] Albumin 3.0(L) 3.5 - 5.0 g/dL 10/05/2024 9:22 AM [facility] Bilirubin, Total 0.3 0.2 - 1.2 mg/dL 10/05/2024 9:22 AM [facility] Alkaline Phosphatase 387(H) 40 - 129 U/L 10/05/2024 9:22 AM [facility] AST 25 0 - 40 U/L 10/05/2024 9:22 AM [facility] ALT 25 <=41 U/L 10/05/2024 9:22 AM [facility] BUN 63(H) 6 - 20 mg/dL 10/05/2024 9:22 AM [facility] eGFR 27(L) >=60 mL/min/1. 73m2 10/05/2024 9:22 AM [facility] Comment:The estimated glomer ular filtration [...] 2.1 - 4.2 g/dL 10/05/2024 9:22 AM [facility] A/G Ratio 1.0(L) 1.5 - 3.0 10/05/2024 9:22 AM [facility] Blood Structure of peripheral vein / Unknown Venipuncture / Unknown 10/05/2024 6:45 AM EST 10/05/2024 6:54 AM [facility] - 10/05/2024 9:22 AM EST NUR1\S\115\S\B\S\0156\S\S\BED\S\0156 us Alexa NEWELL LAB BLOOD ORDERABLES Final Result [facility] [address] [place] [address], [place] [phone] * (ABNORMAL) CBC Auto Differential (10/05/2024 6:45 AM EST) WBC 18.0(H) 4.8 - 10.8 10*3/uL 10/05/2024 9:06 AM EST [facility] RBC 3.12(L) 4.70 - 6.10 10*6/uL 10/05/2024 9:06 AM EST [facility] Hemoglobin 9.0(L) 13.7 - 16.5 g/dL 10/05/2024 9:06 AM EST [facility] Hematocrit 27.6(L) 40.5 - 48.5 % 10/05/2024 9:06 AM EST [facility] MCV 88.5 80.0 - 94.0 fL 10/05/2024 9:06 AM EST [facility] MCH 28.8 26.0 - 34.0 pg 10/05/2024 9:06 AM EST [facility] MCHC 32.6 31.0 - 36.0 g/dL 10/05/2024 9:06 AM EST [facility] RDW 12.8 12.0 - 15.0 % 10/05/2024 9:06 AM EST [facility] RDW Standard Deviation 41.6 35.1 - 43.9 fL 10/05/2024 9:06 AM EST [facility] Platelets 592(H) 140 - 440 10*3/uL 10/05/2024 9:06 AM EST [facility] MPV 9.4 9.4 - 12.4 fL 10/05/2024 9:06 AM EST [facility] Neutrophil % 84.1(H) 50.0 - 75.0 % 10/05/2024 9:06 AM [facility] Immature Grans % 0.9 0.0 - 0.9 % 10/05/2024 9:06 AM [facility] Lymphocyte % 7.7(L) 20.0 - 44.0 % 10/05/2024 9:06 AM [facility] Monocyte % 5.7 0.0 - 14.0 % 10/05/2024 9:06 AM [facility] Eosinophil % 1.4 0.0 - 5.0 % 10/05/2024 9:06 AM [facility] Basophil % 0.2 0.0 - 2.0 % 10/05/2024 9:06 AM [facility] Neutrophil # 15.17(H) 1.80 - 7.70 10*3/uL 10/05/2024 9:06 AM [facility] Immature Grans # 0.17(H) 0.00 - 0.03 10*3/uL 10/05/2024 9:06 AM [facility] Lymphocyte # 1.40 1.00 - 4.75 10*3/uL 10/05/2024 9:06 AM [facility] Monocyte # 1.00 0.00 - 6.00 10*3/uL 10/05/2024 9:06 AM [facility] Eosinophil # 0.30 0.00 - 0.80 10*3/uL 10/05/2024 9:06 AM [facility] Basophil # <0.03 0.00 - 0.20 10*3/uL 10/05/2024 9:06 AM [facility] nRBC % 0.0 0 - 0 /100 WBCs 10/05/2024 9:06 AM [facility] nRBC # <0.01 0.00 - 0.13 10*3/uL 10/05/2024 9:06 AM [facility] Blood Structure of peripheral vein / Unknown Venipuncture / Unknown 10/05/2024 6:45 AM EST 10/05/2024 6:55 AM EST Alexa NEWELL LAB BLOOD ORDERABLES Final Result Performing Organization Address [facility] de Phone Number [facility] [address] [address], [place] [phone] * (ABNORMAL) Microscopic Urinalysis Only (10/05/2024 5:00 AM EST) RBC, Urine 30-40(A) None Seen, 0-2 /HPF 10/06/2024 10:00 AM EST [facility] WBC, Urine 5-10(A) None Seen, 0-2 /HPF 10/06/2024 10:00 AM EST [facility] Squamous Epithelial Cells, Urine 3-5 /HPF 10/06/2024 10:00 AM EST [facility] Uric Acid Crystals, Urine Moderate /HPF 10/06/2024 10:00 AM EST [facility] Bacteria, Urine Trace(A) None Seen /HPF 10/06/2024 10:00 AM EST [facility] Yeast Budding, Urine Moderate(A) (none) /HPF 10/06/2024 10:00 AM EST [facility] Urine 10/05/2024 5:00 AM EST 10/06/2024 9:40 AM EST Michelle Ling NP LAB URINE ORDERABLES Final Res ult Performing Organization Address [facility] Co de Phone Number [facility] [address] [address], [place] [phone] * (ABNORMAL) PTH, Intact (without Calcium) (10/05/2024 5:00 AM EST) Parathyroid Hormone, Intact 130.0(H) 14.5 - 87.1 pg/mL 10/05/2024 1:20 PM EST [facility] Comment: This test was performed using the chemiluminescent immunoassay (CLIA) intended for the quantitative determination of intact human parathyroid hormone method on the DIASORIN LIAISON. Values obtained from different assay methods cannot be used interchangeably. Assay results should be utilized in conjunction with other clinical and laboratory data Blood Structure of peripheral vein / Unknown 10/05/2024 5:00 AM EST 10/05/2024 12:52 PM EST Narrative [facility] - 10/05/2024 1:20 PM EST NUR1\S\115\S\B\S\0156\S\S\BED\S\0156 NUR1\S\115\S\B\S\0156\S\S\BED\S\0156 NUR1\S\115\S\B\S\0156\S\S\BED\S\0156 NUR1\S\115\S\B\S\0156\S\S\BED\S\0156 NUR1\S\115\S\B\S\0156\S\S\BED\S\0156 Gretchen Bates MD LAB BLOOD ORDERABLES Final Resu lt [facility] [address] [address], [place] [phone] * Creatine Kinase (10/05/2024 5:00 AM EST) CK 146 39 - 308 U/L 10/05/2024 2:27 PM EST [facility] Blood Structure of peripheral vein / Unknown 10/05/2024 5:00 AM EST 10/05/2024 12:52 PM EST Tatiana Cantu NP LAB BLOOD ORDERABLES Final Result Performing Organization Address City/[facility]/ZIP Co de Phone Number [facility] [address] [address], [place] [phone] * Triglycerides (10/05/2024 5:00 AM EST) Triglycerides 152 mg/dL 10/05/2024 2:27 PM EST [facility] Comment: NORMAL: <150 mg/dL BORDERLINE HIGH: 150-199 mg/dL HIGH: 200-499 mg/dL VERY HIGH >499 mg/dL Blood Structure of peripheral vein / Unknown 10/05/2024 5:00 AM EST 10/05/2024 12:52 PM EST Tatiana Cantu [employer] LAB BLOOD ORDERABLES Final Result Performing Organization Address [facility]/ZIP Co de Phone Number [facility] [address] [place] [address], [place] [phone] * Creatinine, Random Urine (10/05/2024 5:00 AM EST) Creatinine, Urine 68 mg/dL 10/06/2024 10:03 AM EST [facility] Urine Voided urine specimen / Unknown 10/05/2024 5:00 AM EST 10/06/2024 6:48 AM EST Narrative [facility] - 10/06/2024 10:03 AM EST NUR1\S\115\S\B\S\0156\S\S\BED\S\0156 Michelle Ling [employer]PECT[employer] LAB URINE ORDERABLES Final Res ult Performing Organization Address [facility] Co de Phone Number [facility] [address] [place] [address], [place] [phone] * Vancomycin, Trough (10/05/2024 5:00 AM EST) Vancomycin Trough 18.5 10.0 - 20.0 ug/mL 10/05/2024 2:27 PM EST [facility] Blood Structure of peripheral vein / Unknown 10/05/2024 5:00 AM EST 10/05/2024 12:52 PM EST Alexa Sandy PA LAB BLOOD ORDERABLES Final Result Performing Organization Address City/[facility]/ZIP Co de Phone Number [facility] [address] [address], [place] [phone] * Urea Nitrogen, Random Urine - [place] only (10/05/2024 5:00 AM EST) Urea Nitrogen, Urine 592 mg/dL 10/06/2024 10:01 AM EST [facility] Urine Voided urine specimen / Unknown 10/05/2024 5:00 AM EST 10/06/2024 6:48 AM EST Narrative [facility] - 10/06/2024 10:01 AM EST NUR1\S\115\S\B\S\0156\S\S\BED\S\0156 us Michelle Ling NP LAB URINE ORDERABLES Final Res ult Performing Organization Address City/[facility]/ZIP Co de Phone Number [facility] [address] [place] [address], [place] [phone] * Sodium, Random Urine - [place] only (10/05/2024 5:00 AM EST) Sodium, Urine 46 mmol/L 10/06/2024 9:51 AM EST [facility] Urine Voided urine specimen / Unknown 10/05/2024 5:00 AM EST 10/06/2024 6:48 AM EST Narrative [facility] - 10/06/2024 9:51 AM EST NUR1\S\115\S\B\S\0156\S\S\BED\S\0156 us Michelle Ling [employer] LAB URINE ORDERABLES Final Res ult [facility] [address] [address], [place] [phone] * Ortiz Top, Urine (10/05/2024 5:00 AM EST) Extra Tube Hold for add-ons. 10/06/2024 7:05 AM EST [facility] Comment:Auto resulted. Urine 10/05/2024 5:00 AM EST 10/06/2024 6:48 AM EST us Michelle Ling NP LAB URINE ORDERABLES Final Res ult [facility] [address] [address] [place] [address], [place] [phone] * (ABNORMAL) Urinalysis W/Reflex to Microscopic & Culture (10/05/2024 5:00 AM EST) Color, Urine Yellow Yellow 10/06/2024 9:40 AM EST [facility] Clarity, Urine Clear Clear 10/06/2024 9:40 AM EST [facility] Specific [place], Urine 1.015 1.005 - 1.030 10/06/2024 9:40 AM EST [facility] pH, Urine 5.5 5.0 - 8.0 10/06/2024 9:40 AM EST [facility] Protein, Urine 300(A) Negative mg/dL 10/06/2024 9:40 AM EST [facility] Glucose, Urine Negative Negative mg/dL 10/06/2024 9:40 AM EST [facility] Ketones, Urine Negative Negative mg/dL 10/06/2024 9:40 AM EST [facility] Bilirubin, Urine Negative Negative 10/06/2024 9:40 AM EST [facility] Blood, Urine Large(A) Negative 10/06/2024 9:40 AM EST [facility] Nitrite, Urine Negative Negative 10/06/2024 9:40 AM EST [facility] Urobilinogen, Urine 0.2 0.2 - 1.0 E.U./dL 10/06/2024 9:40 AM EST [facility] Leukocyte Esterase, Urine Negative Negative 10/06/2024 9:40 AM EST [facility] Urine 10/05/2024 5:00 AM EST 10/06/2024 6:48 AM EST Narrative [facility] - 10/06/2024 9:40 AM EST Some urinalysis results will not meet the criteria for reflex urine culture although certain urine values may be abnormal. Additional testing can be ordered by the provider if clinically warranted. Michelle Ling NP LAB URINE ORDERABLES Final Res ult Performing Organization Address [facility]/ZIP Co de Phone Number [facility] [address] [place] [address], [place] [phone] * Blood Culture (10/04/2024 1:15 PM EST) Blood Culture No growth after 5 days 10/09/2024 4:05 PM EST [facility] Blood Structure of peripheral vein / Unknown Venipuncture / Unknown 10/04/2024 1:15 PM EST 10/04/2024 1:24 PM EST Alexa NEWELL LAB MICROBIOLOGY - GENERAL ORDERABLES Final Result Performing Organization Address [facility] Co de Phone Number [facility] [address] [place] [address], [place] [phone] * Blood Culture (10/04/2024 1:10 PM EST) Blood Culture No growth after 5 days 10/09/2024 4:05 PM EST [facility] Blood Structure of peripheral vein / Unknown Venipuncture / Unknown 10/04/2024 1:10 PM EST 10/04/2024 1:23 PM EST us Alexa NEWELL LAB MICROBIOLOGY - GENERAL ORDERABLES Final Result Performing Organization Address [facility]/ZIP Co de Phone Number [facility] [address] [place] [address], [place] [phone] * (ABNORMAL) Comprehensive Metabolic Panel (10/04/2024 7:18 AM EST) NA 134(L) 136 - 145 mmol/L 10/04/2024 10:57 AM [facility] K 5.3(H) 3.5 - 5.1 mmol/L 10/04/2024 10:57 AM [facility] Cl 101 98 - 109 mmol/L 10/04/2024 10:57 AM [facility] CO2 20(L) 22 - 32 mmol/L 10/04/2024 10:57 AM [facility] Anion Gap 18 >=0 10/04/2024 10:57 AM [facility] Glucose 160(H) 60 - 99 mg/dL 10/04/2024 10:57 AM [facility] Creatinine 4.30(H) 0.50 - 1.12 mg/dL 10/04/2024 10:57 AM [facility] Calcium 7.4(L) 8.4 - 10.4 mg/dL 10/04/2024 10:57 AM [facility] Total Protein 5.2(L) 6.6 - 8.7 g/dL 10/04/2024 10:57 AM [facility] Albumin 2.7(L) 3.5 - 5.0 g/dL 10/04/2024 10:57 AM [facility] Bilirubin, Total 0.2 0.2 - 1.2 mg/dL 10/04/2024 10:57 AM [facility] Alkaline Phosphatase 353(H) 40 - 129 U/L 10/04/2024 10:57 AM [facility] AST 23 0 - 40 U/L 10/04/2024 10:57 AM [facility] ALT 21 <=41 U/L 10/04/2024 10:57 AM [facility] BUN 73(H) 6 - 20 mg/dL 10/04/2024 10:57 AM [facility] eGFR 17(L) >=60 mL/min/1. 73m2 10/04/2024 10:57 AM [facility] Comment:The estimated glomer ular filtration [...] - 4.2 g/dL 10/04/2024 10:57 AM EST [facility] A/G Ratio 1.1(L) 1.5 - 3.0 10/04/2024 10:57 AM EST [facility] Blood Structure of peripheral vein / Unknown Venipuncture / Unknown 10/04/2024 7:18 AM EST 10/04/2024 7:35 AM EST Doctor Unknown LAB BLOOD ORDERABLES Final Resul t Performing Organization Address City/[facility] Co de Phone Number [facility] [address] [place] [address], * (ABNORMAL) Vancomycin, Trough (10/04/2024 7:18 AM EST) Vancomycin Trough 29.4(H) 10.0 - 20.0 ug/mL 10/04/2024 10:57 AM EST [facility] Blood Structure of peripheral vein / Unknown Venipuncture / Unknown 10/04/2024 7:18 AM EST 10/04/2024 7:35 AM EST Eliezer Juarez MD LAB BLOOD ORDERABLES Final Resul t Performing Organization Address City/[facility] Co de Phone Number [facility] [address] [place] [address], [place] [phone] * (ABNORMAL) CBC Auto Differential (10/04/2024 7:18 AM EST) WBC 21.0(H) 4.8 - 10.8 10*3/uL 10/04/2024 10:21 AM [facility] RBC 2.90(L) 4.70 - 6.10 10*6/uL 10/04/2024 10:21 AM [facility] Hemoglobin 8.4(L) 13.7 - 16.5 g/dL 10/04/2024 10:21 AM [facility] Hematocrit 25.6(L) 40.5 - 48.5 % 10/04/2024 10:21 AM [facility] MCV 88.3 80.0 - 94.0 fL 10/04/2024 10:21 AM [facility] MCH 29.0 26.0 - 34.0 pg 10/04/2024 10:21 AM [facility] MCHC 32.8 31.0 - 36.0 g/dL 10/04/2024 10:21 AM [facility] RDW 13.0 12.0 - 15.0 % 10/04/2024 10:21 AM [facility] RDW Standard Deviation 42.4 35.1 - 43.9 fL 10/04/2024 10:21 AM [facility] Platelets 575(H) 140 - 440 10*3/uL 10/04/2024 10:21 AM [facility] MPV 9.3(L) 9.4 - 12.4 fL 10/04/2024 10:21 AM [facility] Neutrophil % 88.2(H) 50.0 - 75.0 % 10/04/2024 10:21 AM [facility] Immature Grans % 1.5(H) 0.0 - 0.9 % 10/04/2024 10:21 AM [facility] Lymphocyte % 7.0(L) 20.0 - 44.0 % 10/04/2024 10:21 AM [facility] Monocyte % 2.4 0.0 - 14.0 % 10/04/2024 10:21 AM [facility] Eosinophil % 0.7 0.0 - 5.0 % 10/04/2024 10:21 AM EST [facility] Basophil % 0.2 0.0 - 2.0 % 10/04/2024 10:21 AM EST [facility] Neutrophil # 18.48(H) 1.80 - 7.70 10*3/uL 10/04/2024 10:21 AM EST [facility] Immature Grans # 0.32(H) 0.00 - 0.03 10*3/uL 10/04/2024 10:21 AM EST [facility] Lymphocyte # 1.50 1.00 - 4.75 10*3/uL 10/04/2024 10:21 AM EST [facility] Monocyte # 0.50 0.00 - 6.00 10*3/uL 10/04/2024 10:21 AM EST [facility] Eosinophil # 0.10 0.00 - 0.80 10*3/uL 10/04/2024 10:21 AM EST [facility] Basophil # 0.10 0.00 - 0.20 10*3/uL 10/04/2024 10:21 AM EST [facility] nRBC % 0.0 0 - 0 /100 WBCs 10/04/2024 10:21 AM EST [facility] nRBC # <0.01 0.00 - 0.13 10*3/uL 10/04/2024 10:21 AM EST [facility] Blood Structure of peripheral vein / Unknown Venipuncture / Unknown 10/04/2024 7:18 AM EST 10/04/2024 7:33 AM EST us Doctor Unknown LAB BLOOD ORDERABLES Final Resul t [facility] [address] [place] [address] [address] [place] [address], * Aerobic Culture w/Gram Stain (10/03/2024 11:39 PM EST) Aerobic Culture No growth after 2 days [place] [facility] 10/06/2024 1:25 PM EST [facility] Gram Stain Result Rare White Blood Cells Seen 10/06/2024 1:25 PM EST [facility] Gram Stain Result No organisms seen 10/06/2024 1:25 PM EST [facility] Swab Structure of right lower leg / Unknown Non-Blood Collection / Unknown 10/03/2024 11:39 PM EST 10/04/2024 11:11 AM EST Doctor Unknown LAB MICROBIOLOGY - GENERAL ORDER FRACISCO Final Result Performing Organization Address [facility]/ZIP Co de Phone Number [facility] [address] [address], * (ABNORMAL) Vancomycin, Trough (10/03/2024 7:41 AM EST) Vancomycin Trough 34.8(HH) 10.0 - 20.0 ug/mL 10/03/2024 10:22 AM EST [facility] Blood Structure of peripheral vein / Unknown Venipuncture / Unknown 10/03/2024 7:41 AM EST 10/03/2024 7:41 AM EST Eliezer Juarez MD LAB BLOOD ORDERABLES Final Resul t Performing Organization Address [facility] Co de Phone Number [facility] [address] [address], [place] [phone] * (ABNORMAL) Basic Metabolic Panel (10/03/2024 7:41 AM EST) NA 137 136 - 145 mmol/L 10/03/2024 10:15 AM EST [facility] K 5.1 3.5 - 5.1 mmol/L 10/03/2024 10:15 AM EST [facility] Cl 100 98 - 109 mmol/L 10/03/2024 10:15 AM EST [facility] CO2 23 22 - 32 mmol/L 10/03/2024 10:15 AM EST [facility] BUN 65(H) 6 - 20 mg/dL 10/03/2024 10:15 AM EST [facility] Creatinine 3.87(H) 0.50 - 1.12 mg/dL 10/03/2024 10:15 AM EST [facility] Comment:REVIEWED Glucose 135(H) 60 - 99 mg/dL 10/03/2024 10:15 AM EST [facility] Calcium 7.9(L) 8.4 - 10.4 mg/dL 10/03/2024 10:15 AM EST [facility] Anion Gap 19 >=0 10/03/2024 10:15 AM EST [facility] eGFR 19(L) >=60 mL/min/1. 73m2 10/03/2024 10:15 AM EST [facility] Comment:The estimated glomer ular filtration [...] MD LAB BLOOD ORDERABLES Final Resul t [facility] [address] [place] [address], * (ABNORMAL) CBC Auto Differential (10/03/2024 5:00 AM EST) WBC 15.8(H) 4.8 - 10.8 10*3/uL 10/03/2024 10:10 AM EST [facility] RBC 3.24(L) 4.70 - 6.10 10*6/uL 10/03/2024 10:10 AM [facility] Hemoglobin 9.6(L) 13.7 - 16.5 g/dL 10/03/2024 10:10 AM [facility] Hematocrit 28.9(L) 40.5 - 48.5 % 10/03/2024 10:10 AM [facility] MCV 89.2 80.0 - 94.0 fL 10/03/2024 10:10 AM [facility] MCH 29.6 26.0 - 34.0 pg 10/03/2024 10:10 AM [facility] MCHC 33.2 31.0 - 36.0 g/dL 10/03/2024 10:10 AM [facility] RDW 13.1 12.0 - 15.0 % 10/03/2024 10:10 AM [facility] RDW Standard Deviation 42.6 35.1 - 43.9 fL 10/03/2024 10:10 AM [facility] Platelets 591(H) 140 - 440 10*3/uL 10/03/2024 10:10 AM [facility] MPV 9.0(L) 9.4 - 12.4 fL 10/03/2024 10:10 AM [facility] Neutrophil % 71.7 50.0 - 75.0 % 10/03/2024 10:10 AM [facility] Immature Grans % 2.2(H) 0.0 - 0.9 % 10/03/2024 10:10 AM [facility] Lymphocyte % 17.3(L) 20.0 - 44.0 % 10/03/2024 10:10 AM [facility] Monocyte % 5.9 0.0 - 14.0 % 10/03/2024 10:10 AM [facility] Eosinophil % 2.3 0.0 - 5.0 % 10/03/2024 10:10 AM [facility] Basophil % 0.6 0.0 - 2.0 % 10/03/2024 10:10 AM EST [facility] Neutrophil # 11.30(H) 1.80 - 7.70 10*3/uL 10/03/2024 10:10 AM EST [facility] Immature Grans # 0.34(H) 0.00 - 0.03 10*3/uL 10/03/2024 10:10 AM EST [facility] Lymphocyte # 2.70 1.00 - 4.75 10*3/uL 10/03/2024 10:10 AM EST [facility] Monocyte # 0.90 0.00 - 6.00 10*3/uL 10/03/2024 10:10 AM EST [facility] Eosinophil # 0.40 0.00 - 0.80 10*3/uL 10/03/2024 10:10 AM EST [facility] Basophil # 0.10 0.00 - 0.20 10*3/uL 10/03/2024 10:10 AM EST [facility] nRBC % 0.0 0 - 0 /100 WBCs 10/03/2024 10:10 AM EST [facility] nRBC # <0.01 0.00 - 0.13 10*3/uL 10/03/2024 10:10 AM EST [facility] Blood Structure of peripheral vein / Unknown Venipuncture / Unknown 10/03/2024 5:00 AM EST 10/03/2024 7:40 AM EST Eliezer Juarez MD LAB BLOOD ORDERABLES Final Resul t [facility] [address] [place] [address], * (ABNORMAL) CBC Auto Differential (10/02/2024 7:40 AM EST) WBC 15.7(H) 4.8 - 10.8 10*3/uL 10/02/2024 10:25 AM EST [facility] RBC 3.18(L) 4.70 - 6.10 10*6/uL 10/02/2024 10:25 AM [facility] Hemoglobin 9.4(L) 13.7 - 16.5 g/dL 10/02/2024 10:25 AM [facility] Hematocrit 28.2(L) 40.5 - 48.5 % 10/02/2024 10:25 AM [facility] MCV 88.7 80.0 - 94.0 fL 10/02/2024 10:25 AM [facility] MCH 29.6 26.0 - 34.0 pg 10/02/2024 10:25 AM [facility] MCHC 33.3 31.0 - 36.0 g/dL 10/02/2024 10:25 AM [facility] RDW 13.0 12.0 - 15.0 % 10/02/2024 10:25 AM [facility] RDW Standard Deviation 42.0 35.1 - 43.9 fL 10/02/2024 10:25 AM [facility] Platelets 559(H) 140 - 440 10*3/uL 10/02/2024 10:25 AM [facility] MPV 9.2(L) 9.4 - 12.4 fL 10/02/2024 10:25 AM [facility] Neutrophil % 70.4 50.0 - 75.0 % 10/02/2024 10:25 AM [facility] Immature Grans % 3.8(H) 0.0 - 0.9 % 10/02/2024 10:25 AM [facility] Lymphocyte % 16.5(L) 20.0 - 44.0 % 10/02/2024 10:25 AM [facility] Monocyte % 6.2 0.0 - 14.0 % 10/02/2024 10:25 AM [facility] Eosinophil % 2.5 0.0 - 5.0 % 10/02/2024 10:25 AM [facility] Basophil % 0.6 0.0 - 2.0 % 10/02/2024 10:25 AM EST [facility] Neutrophil # 11.02(H) 1.80 - 7.70 10*3/uL 10/02/2024 10:25 AM EST [facility] Immature Grans # 0.60(H) 0.00 - 0.03 10*3/uL 10/02/2024 10:25 AM EST [facility] Lymphocyte # 2.60 1.00 - 4.75 10*3/uL 10/02/2024 10:25 AM EST [facility] Monocyte # 1.00 0.00 - 6.00 10*3/uL 10/02/2024 10:25 AM EST [facility] Eosinophil # 0.40 0.00 - 0.80 10*3/uL 10/02/2024 10:25 AM EST [facility] Basophil # 0.10 0.00 - 0.20 10*3/uL 10/02/2024 10:25 AM EST [facility] nRBC % 0.0 0 - 0 /100 WBCs 10/02/2024 10:25 AM EST [facility] nRBC # <0.01 0.00 - 0.13 10*3/uL 10/02/2024 10:25 AM EST [facility] Blood Structure of peripheral vein / Unknown Venipuncture / Unknown 10/02/2024 7:40 AM EST 10/02/2024 8:33 AM EST us Doctor Unknown LAB BLOOD ORDERABLES Final Resul t [facility] [address] [place] [address] [address] [place] [place] [address], * (ABNORMAL) Albumin (10/02/2024 7:35 AM EST) Albumin 2.7(L) 3.5 - 5.0 g/dL 10/02/2024 10:34 AM EST [facility] Blood Structure of peripheral vein / Unknown Venipuncture / Unknown 10/02/2024 7:35 AM EST 10/02/2024 8:31 AM EST Narrative [facility] - 10/02/2024 10:34 AM EST NUR1\S\115\S\B\S\0156\S\S\BED\S\0156 NUR1\S\115\S\B\S\0156\S\S\BED\S\0156 NUR1\S\115\S\B\S\0156\S\S\BED\S\0156 us Doctor Unknown LAB BLOOD ORDERABLES Final Resul t Performing Organization Address City/[facility] Co de Phone Number [facility] [address] [address], * (ABNORMAL) Prealbumin (10/02/2024 7:35 AM EST) Prealbumin 16(L) 20 - 40 mg/dL 10/02/2024 10:34 AM EST [facility] Blood Structure of peripheral vein / Unknown Venipuncture / Unknown 10/02/2024 7:35 AM EST 10/02/2024 8:31 AM EST Narrative [facility] - 10/02/2024 10:34 AM EST NUR1\S\115\S\B\S\0156\S\S\BED\S\0156 NUR1\S\115\S\B\S\0156\S\S\BED\S\0156 NUR1\S\115\S\B\S\0156\S\S\BED\S\0156 us Doctor Unknown LAB BLOOD ORDERABLES Final Resul t Performing Organization Address [facility]/ZIP Co de Phone Number [facility] [address] [address], [place] [phone] * (ABNORMAL) Basic Metabolic Panel (10/02/2024 7:35 AM EST) NA 135(L) 136 - 145 mmol/L 10/02/2024 10:34 AM EST [facility] K 5.2(H) 3.5 - 5.1 mmol/L 10/02/2024 10:34 AM EST [facility] Cl 99 98 - 109 mmol/L 10/02/2024 10:34 AM [facility] CO2 24 22 - 32 mmol/L 10/02/2024 10:34 AM [facility] BUN 50(H) 6 - 20 mg/dL 10/02/2024 10:34 AM [facility] Creatinine 2.57(H) 0.50 - 1.12 mg/dL 10/02/2024 10:34 AM [facility] Glucose 156(H) 60 - 99 mg/dL 10/02/2024 10:34 AM [facility] Calcium 8.0(L) 8.4 - 10.4 mg/dL 10/02/2024 10:34 AM [facility] Anion Gap 17 >=0 10/02/2024 10:34 AM [facility] eGFR 31(L) >=60 mL/min/1. 73m2 10/02/2024 10:34 AM [facility] Comment:The estimated glomer ular filtration [...] 7:35 AM EST 10/02/2024 8:31 AM EST [facility] - 10/02/2024 10:34 AM EST NUR1\S\115\S\B\S\0156\S\S\BED\S\0156 NUR1\S\115\S\B\S\0156\S\S\BED\S\0156 NUR1\S\115\S\B\S\0156\S\S\BED\S\0156 us Doctor Unknown LAB BLOOD ORDERABLES Final Resul t [facility] [address] [facility] [address] [place] [address], documented in this encounter Visit Diagnoses Not on filedocumented in this encounter Care Teams Audit Practice Intern Relationship Specialty Start Date End Date Geovanna Abbasi NP [address] [place] [id number] PCP - General 11/09/20 documented as of this encounter
--- OUTSIDE RECORDS SUMMARY | 2025-09-06 16:30 | XMS_ITS | Clinical Summary ---
Author Organization [employer] Address [address] [address] [place] [address] Care Team Providers Care Race And Sports Book Writer Name Role Phone Unavailable Primary Care Provider Unavailabl e Encounters Date Type Department Care Team Description 07/22/2025 Telephone [facility] [address] [place] [address] Venkata Cerna MD 06/16/2025 Telephone [facility] [address] [place] [address] Lisa Cummins, GurpreetD from Last 3 Months Social History Tobacco [...] 3-dose series) 02/14/1999 COVID-19 Vaccine (3 - 2024- season) 2025 03/28/2021, 02/28/2021 Influenza Vaccine (#1) 2025 , [...] on patient's age to complete this topic Insurance [facility] C3
--- OUTSIDE RECORDS SUMMARY | 2025-09-06 16:30 | XMS_ITS | Clinical Summary ---
Author Organization [facility] Address [address] [place] [address] Care Team Providers Care Resource Technician Name Role Phone Geovanna Abbasi [employer] Primary Care Provider [phone] Allergies No known active allergies Medications blood pressure test kit-medium kit For blood pressure monitoring 1-2 times weekly 1 each 11/10/19 25 Active tamsulosin (FLOMAX) 0.4 mg capsule Take 1 capsule (0.4 mg total) by mouth once a day. 30 capsule 11 11/26/19 25 Active insulin lispro 100 unit/mL insulin pen Inject 10 Units under the skin 3 times a day with meals. Adjust as instructed, MDD 60. 15 mL 11 5 12:09 AM EDT 02/25/20 25 Active blood-glucose sensor (FreeStyle Geo 3 Plus Sensor) device Change sensor every 15 days. 2 each 3 5 12:09 AM EDT 02/25/20 25 Active FreeStyle Lite Meter meter Use to test blood sugars as directed.E11.9 (T2) 1 each 02/26/20 25 Active Toujeo Max U-300 SoloStar 300 unit/mL (3 mL) insulin pen Inject 50 Units under the skin once a day. 06/15/20 25 Active alcohol swabs (Alcohol Pads) pads, medicatedIndications :Type 2 diabetes mellitus with both eyes affected by severe nonproliferative retinopathy and macular edema, with long-term current use of insulin Use up to 8 times daily with meter checks 200 each 06/17/20 Active aspirin 81 mg EC tablet Take 1 tablet (81 mg total) by mouth once a day. 90 tablet 1 06/17/20 Active Freestyle lancets 28 gaugeIndications:Typ e 2 diabetes mellitus with both eyes affected by severe nonproliferative retinopathy and macular edema, with long-term current use of insulin Use to test 4 times daily.E11.9(T2 ) 200 each 06/17/20 Active Freestyle Lite test stripsIndications:Ty pe 2 diabetes mellitus with both eyes affected by severe nonproliferative retinopathy and macular edema, with long-term current use of insulin Use to test 4 times daily.E11.9(T2 ) 200 strip 06/17/20 Active pen needle (BD Ultra-Fine Lizbeth) 4 mm x 32 gIndications:Type 2 diabetes mellitus with both eyes affected by severe nonproliferative retinopathy and macular edema, with long-term current use of insulin Use 4 times daily with insulin 200 each 06/17/20 25 Active rosuvastatin (CRESTOR) 20 mg tabletIndications:Mi xed hyperlipidemia Take 1 tablet (20 mg total) by mouth once a day. 90 tablet 1 06/17/20 25 Active hydrOXYzine HCL (ATARAX) 25 mg tablet Take 1-2 pills by mouth at night for anxiety and insomnia. 90 tablet 1 06/17/20 25 Active gabapentin (NEURONTIN) 300 mg capsule Take 1 capsule (300 mg total) by mouth 2 (two) times a day. 60 capsule 2 06/17/20 25 Active furosemide (LASIX) 20 mg tablet Take 2 tablets (40 mg total) by mouth once a day. 180 tablet 3 06/21/20 25 026 Active amLODIPine (NORVASC) 10 mg tablet Take 1 tablet (10 mg total) by mouth once a day. 90 tablet 3 06/21/20 25 026 Active lisinopriL (PRINIVIL,ZESTRIL) 40 mg tablet Take 1 tablet (40 mg total) by mouth once a day. 90 tablet 3 08/26/ 026 Active semaglutide (Ozempic) 1 mg/dose (4 mg/3 mL) pen injectorIndications: Type 2 diabetes mellitus with both eyes affected by severe nonproliferative retinopathy and macular edema, with long-term current use of insulin,CKD stage G3a/A3, GFR 45-59 and albumin creatinine ratio >300 mg/g (HCC),Uncontrolled type 2 diabetes mellitus with hyperglycemia Inject 0.75 mL (1 mg total) under the skin every 7 days. 3 mL 3 07/06/20 Active cholecalciferol (VITAMIN D3) 2,000 unit tablet Take 1 tablet (2,000 Units total) by mouth once a day. 90 tablet 3 07/06/20 Active Active Problems Problem Noted Date Diagnosed Date Hyperopia of both eyes with astigmatism and pres byopia 04/28/2025 Assessment & Plan (04/28/2025 4:45 PM EDT): Prescription given for glasses pt educated on options Moderate nonproliferative di abetic retinopathy of both eyes with macular edema associated with type 2 diabetes mellitus 04/28/2025 Assessment & Plan (04/28/2025 4:46 PM EDT): Moderate NPDR both eyes with macula edema left eye confirmed on oct -- pt ed on need for better blood sugar control will place referral to retina pt requests arabella's office Leg wound, left, initial encounter 02/21/2025 Aftercare [...] dinner - hold if not eating LISBET Belle consistent diet HOLDING home Trulicity Permanently discontinue [...] very intersted in therapy. Provided list from [employer] from therapist in [place] as pt is living there with his [...] left lower extremity 09/23/2024 Assessment & Plan (04/27/2025 1:31 PM EDT): Status post left femoral to below the knee popliteal bypass with ipsilateral GSV in August 2024 followed by left medial calf I&D with VAC placement in November 2024. His left calf wound is now healed. Continue aspirin/statin. He completed a course of Eliquis for a right femoral DVT. Left lower extremity duplex study 01/25/2025 was negative for DVT. Today's vascular lab studies show a patent bypass. ABIs noncompressible on the right, 1.1 on the left with toe pressures greater than 100 bilaterally. He has a palpable DP pulse bilaterally. His symptoms do not appear to be vascular in nature. A component of neuropathy may be contributing. I suggested a course of physical therapy to assist in improving his overall strength and range of motion. He will return in 6 months for repeat vascular lab studies to assess his left lower extremity bypass and a visit with Joel Linn NP. Assessment & Plan (02/02/2025 11:04 AM EDT): [...] left leg with ulceration 09/23/2024 Atherosclerosis of la posta ar teries of right leg with ulceration [...] retinopathy, diabetic nephropathy, increased risk of stroke, IN and even . Pt expressed understanding PLAN- [...] he has endocrine appt next week @ [facility], goal for endocrine to manage uncontrolled [...] retinopathy, diabetic nephropathy, increased risk of stroke, IN and even . Pt expressed understanding .Pt [...] of infection Pt requesting endocrine referral @ [facility]. Referral placed Follow up 4 weeks [...] retinopathy, diabetic nephropathy, increased risk of stroke, IN and even . Pt expressed understanding .Pt [...] retinopathy, diabetic nephropathy, increased risk of stroke, IN and even . Pt expressed understanding FSBS: [...] retinopathy, diabetic nephropathy, increased risk of stroke, IN and even . Pt expressed understanding FSBS: [...] retinopathy, diabetic nephropathy, increased risk of stroke, IN and even . Pt expressed understanding FSBS: [...] retinopathy, diabetic nephropathy, increased risk of stroke, IN and even . Pt expressed understanding Meds: [...] retinopathy, diabetic nephropathy, increased risk of stroke, IN and even . Pt expressed understanding Meds:Continue [...] appts. Pt will bring paperwork to front desk team member. All questions answered to pt satisfaction. He is in agreement with POC Assessment & Plan (09/03/2023 9:49 AM EST): Uncontrolled. A1C 12.0% today 09/02/23. Long discussion about uncontrolled T2DM, Reviewed importance to control T2DM and risk of uncontrolled T2DM including diabetic neuropathy, diabetic retinopathy, diabetic nephropathy, increased risk of stroke, IN and even . Pt expressed understanding Meds: Metformin 1000mg BID, Jardiance 25mg daily and Trulicity to 3mg weekly. Restart Lantus 10 units nightly, pt is able to teach steps to administer and declines nursing visit to reeducate Lantus. Glucometer: ordered freestyle geo 2 for improved glycemic control and education. [...] retinopathy, diabetic nephropathy, increased risk of stroke, IN and even . Pt expressed understanding Meds: [...] retinopathy, diabetic nephropathy, increased risk of stroke, IN and even . Pt expressed understanding Meds: [...] retinopathy, diabetic nephropathy, increased risk of stroke, IN and even . Pt expressed understanding He [...] retinopathy, diabetic nephropathy, increased risk of stroke, IN and even . Pt expressed understanding He declines to start nighttime insulin. Pt prefers to resume Jardiance and increase Trulicity. Meds: Metformin 1000mg BID, restart Jardiance 25mg daily and increase Trulicity to 3mg weekly Confirmed with pharmacy all medications are there for pickle maker. Reviewed lifestyle modifications, nutrition recommendations at length. [...] of 39.0 to 39.9 in adult 08/28/2022 3 Acquired absence of other organs 01/17/2021 10/15/2024 Claudication of both lower extremities 01/11/2021 10/15/2024 Encounters Date Type Department Care Team Description 08/29/2025 Orders Only [facility] [address] [facility] [address] [place], [place] [address] [place], NITESH Colon cancer screening (Primary Dx) 08/25/2025 Telephone [facility] [address] [facility] [address] [place], [place] [address] [place], NITESH Colonoscopy 08/08/2025 Orders Only [facility] [address] [facility] [address] [place] [address] Provider, MD Michelle 07/08/2025 Telephone [facility] [address] [facility] [address] [place] [address] Henrique Banegas, PharmD 07/06/2025 Orders Only [facility] [address] [place] [address] Lube Technician: Kojo Nagel MD 07/06/2025 Telephone [facility] [address] [place] [address] Lube Technician: Kojo Nagel MD 07/01/2025 Telephone [facility] [address] [facility] [address] [place] [address] [place] RN [facility] Other 06/23/2025 Telephone [facility] [address] [facility] [address] [place] [address] Henrique Banegas, PharmD 06/21/2025 Telephone [facility] [address] [address] Shital Rausch CPhT Prior Authorization 06/21/2025 Telephone [facility] [address] [place] [address] Lube Technician: Marianne Perea, Alexa Holden NP 06/21/2025 Refill [facility] [address] [place] [address] Lube Technician: Kojo Nagel MD 06/21/2025 Telephone [facility] 175 [facility] 175 [place] [address] DiGeronisharon Henrique, PharmD 06/21/2025 Telephone [facility] [address] [place] [address] Lube Technician: Kojo Nagel MD 06/20/2025 3:40 PM EDT Follow-Up [facility] [address] [place] [address] Lube Technician: Kojo Tracey MD Uncontrolled type 2 diabetes mellitus with hyperglycemia (HCC) (Primary Dx); CKD stage G3a/A3, GFR 45-59 and albumin creatinine ratio >300 mg/g (HCC); Essential hypertension 06/17/2025 Telephone [facility] [address] [place] [address] Lube Technician: Michelle Quezada NP 06/17/2025 Telephone [facility] [address] [place] [address] Lube Technician: Catherine Cha MD 06/16/2025 1:30 PM EDT Office Visit [facility] [address] [facility] [address] [place] [address] Henrique Banegas PharmD Type 2 diabetes mellitus with both eyes affected by severe nonproliferative retinopathy and macular edema, with long-term current use of insulin (HCC) (Primary Dx); Mixed hyperlipidemia; Anxiety from Last 3 Months Immunizations Immunization Administration Dates Next Due Covid-19 Monovalent Vaccine, Moderna, mRNA, PF 03/28/2021,02/28/2021 INFLUENZA, SPLIT VIRUS, TRIVALENT, PF 10/29/2024 Influenza, Injectable, Quadr ivalent, Preservative Free 10/06/2023,08/27/2022,09/25/2021 PPD Test 08/29/2022 Pneumococcal conjugate PCV20 ,polysaccharide [id number] conjugate, adjuvant, PF (Prevnar 20) 10/06/2023 Tetanus Toxoid, Reduced Diph theria Toxoid, and Acellular Pertussis Vaccine, Adsorbed 08/31/2020 Tetanus and Diphtheria Toxoi ds, Adsorbed, Preservative Free (2 Lf of Tetanus Toxoid and 2 Lf of Diphtheria Toxoid) 04/20/2020 Family History Medical History Relation Name Comments Esophageal cancer Father Liver cancer Mother Pancreatic cancer Other 1 moms cousin Blindness Neg Hx Breast cancer Neg Hx Colon cancer Neg Hx Glaucoma Neg Hx Macular degeneration Neg Hx Retinal detachment Neg Hx Relation Name Status Comments Father Mother Other 1 moms cousin Other 2 Alive Social History Tobacco Use Types Packs/Day Years Used Date Smoking Tobacco: Former Cigarettes Smokeless Tobacco: Never Tobacco Cessation:Counseling Given: Not Answered Comments:QUIT DAY OF SURGERY Alcohol Use Standard Drinks/Week Comments Never 0 (1 standard drink = 0.6 oz pur e alcohol) [facility] Utilities Answer Date Recorded In the past 12 months has th e electric, gas, oil, or water company threatened to shut off services in your home? No 11/26/2024 Hunger Vital Sign Answer Date Recorded Within the past 12 months, y ou worried that your food would run out before you got the money to buy more. Never true 11/26/19 Within the past 12 months, t he [...] Don't know 06/16/2025 1: 11 PM EDT Last Filed Vital Signs Vital Sign Reading Time Taken Comments Blood Pressure 136/82 06/20/2025 3:52 PM EDT Pulse 88 06/20/2025 3:19 PM EDT Temperature 36.8 C (98.2 F) 02/24/2025 7:45 PM EDT Respiratory Rate 16 04/27/2025 12:26 PM EDT Oxygen Saturation 96% 06/20/2025 3:19 PM EDT Inhaled Oxygen Concentration - - Weight 127 kg (280 lb) 06/20/2025 3:19 PM EDT Height 165.1 cm (5' 5 ) 06/20/2025 3:19 PM EDT Body Mass Index 46.59 06/20/2025 3:19 PM EDT Plan of Treatment Upcoming Encounters Date Type Department Care Team (Late st Contact Info) Description 09/28/2025 9:20 AM EST Follow-Up [facility] [address] [place] [address] Lube Technician: Michelle Quezada, KHURRAM [address] [place] [address] 10/05/2025 10:00 AM EST Telehealth [facility] [address] [facility] [address] [place] [address] Henrique Banegas, PharmD [address] [place] [address] 10/28/2025 1:00 PM EST Appointment [facility] [address] [place] [address] 10/28/2025 1:45 PM EST Appointment [facility] [address] [place] [address] 11/04/2025 9:00 AM EST Follow-Up [facility] [address] [place] [address] Lube Technician: Mitul Starr NP [address] [place] [address] 11/08/2025 11:20 AM EST Office Visit [facility] [address] [address] Adolfo Barber MD [address] [place] [address] [phone] (Work) 04/27/2026 2:00 PM EDT Follow-Up [facility] [address] OPTOMETRY [address] [place] [address] Cristi Lyons OD [address] [place] [address] Health Maintenance Due Date Last Done Comments Cologuard 1980 Colon Cancer Screening 1980 Colonoscopy 1980 FOBT / Fit Test 1980 Sigmoidoscopy 1980 Hemoglobin A1C 04/30/2025 01/29/2025, 03/0 04/2025, 11/27/2024, Additional history exists COVID-19 Vaccine (3 - 2024-2 6 season) 2025 03/28/2021, 02/28/2021 Influenza Vaccine (#1) 2025 , 10/06/2023, 08/27/2022, Additional history exists Basic Metabolic Panel 08/27/2025 02/24/2025 , 02/24/2025, 02/03/2025, Additional history exists Depression Screening and Follow-Up 01/07/2026 01/07/2025 Foot Exam 02/24/2026 02/24/2025 Urine Microalbumin 06/20/2026 06/20/2025, 0 02/24/2025, 12/22/2024, Additional history exists Ophthalmology Exam 08/02/2026 08/02/2025, 0 04/28/2025, 04/28/2025, Additional history exists DTaP,Tdap,and Td Vaccines (2 - Td or Tdap) 08/31/2030 08/31/2020, 04/20/2020 Pneumococcal Vaccine: Pediat poppy (0-5 Years) and At-Risk Patients (6-50 Years) Completed 10/06/2023 Hepatitis C Screening Completed 09/22/2024 HIV Screening Completed 10/29/2024 Alcohol/Substance Use Screening Completed Oral Health Screening Completed 11/09/2024 Abdominal Aortic Aneurysm (A AA) Screening Completed 01/27/2025, 11/26/2024, 09/22/2024, Additional history exists CKD: Referral to Nephrology Completed 06/20/2025 Hepatitis B Vaccines Discontinued Varicella Vaccines Discontinued Procedures * Due to [place] state law, this organization might not be sharing negative HIV tests. Procedure Name Priority Date/Time Associated Diagnosis Comments HM EYE EXAM - GENERAL Routine 08/02/2025 9:12 AM EDT PROTEIN, RANDOM URINE WITH CREATININE Routine 06/20/2025 4:03 PM EDT CKD stage G3a/A3, GFR 45-59 and albumin creatinine ratio >300 mg/g (HCC) MICROALBUMIN, RANDOM URINE WITH CREATININE Routine 06/20/2025 4:03 PM EDT CKD stage G3a/A3, GFR 45-59 and albumin creatinine ratio >300 mg/g (HCC) RENAL FUNCTION PANEL Routine 02/24/2025 9:56 AM EDT CKD (chronic kidney disease) stage 2, GFR 60-89 ml/min HEMOGLOBIN A1C Routine 01/29/2025 6:[address] ABDOMEN PELVIS W CONTRAST STAT 01/27/2025 12:24 PM EDT HIV AB/P24 AG WITH REFLEX - LCP - 322252 Routine 10/29/2024 2:27 PM EST Encounter for screening for HIV HEPATITIS C ANTIBODY W/REFLEX TO HCV RNA, QUANTITATIVE PCR STAT 09/22/2024 5:47 PM EST from Last 3 Months or Most Recently Relevant to Health Maintenance Results * Due to [place] state law, this organization might not be sharing negative HIV tests. * Eye Exam, General (08/02/2025 9:12 AM EDT) us Unknown Provider MD HEALTH MAINTENANCE Final Res ult * (ABNORMAL) Microalbumin, Random Urine with Creatinine (06/20/2025 4:03 PM EDT) Creatinine, Random Urine 97 20 - 320 mg/dL 06/22/2025 9:36 PM EDT [facility] Microalbumin 349.3 mg/dL 06/22/2025 9:36 PM EDT [facility] Comment: Verified by repeat analysis. Reference Range Not established Microalbumin/Crea tinine Ratio, Random Urine 3,601(H) <30 mg/g creat 06/22/2025 9:36 PM EDT [facility] Comment: The ADA defines abnormalities in albumin excretion as follows: Albuminuria Category Result (mg/g creatinine) Normal to Mildly increased <30 Moderately increased 30-299 Severely increased > OR = 300 The ADA recommends that at least two of three specimens collected within a 3-6 month period be abnormal before considering a patient to be within a diagnostic category. Urine Voided urine specimen / Unknown 06/20/2025 4:03 PM EDT 06/21/2025 12:57 AM EDT Kojo Tony MD LAB URINE ORDERABLES Final Re sult [facility] [address], [place] [address], [place] [phone] [facility] [address] [place] [address] * (ABNORMAL) Protein, Random Urine with Creatinine (06/20/2025 4:03 PM EDT) Creatinine, Random Urine 96 20 - 320 mg/dL 06/22/2025 9:36 PM EDT [facility] Protein/Creat inine Ratio, Random Urine 6,979(H) 25 - 148 mg/g creat 06/22/2025 9:36 PM EDT [facility] Protein/Creat inine Ratio, mg/mg 6.979(H) 0.025 - 0.148 mg/mg creat 06/22/2025 9:36 PM EDT [facility] Protein, Total, Random Ur 670(H) 5 - 25 mg/dL 06/22/2025 9:36 PM EDT [facility] Comment: Verified by repeat analysis. Urine Voided urine specimen / Unknown 06/20/2025 4:03 PM EDT 06/21/2025 12:58 AM EDT Kojo Tony MD LAB URINE ORDERABLES Final Re sult [facility] [address], [place] [address], [place] [phone] [facility] [address] [address] * (ABNORMAL) Renal Function Panel (02/24/2025 9:56 AM EDT) NA 128(L) 135 - 145 mmol/L 02/24/2025 10:51 AM EDT [facility] K 4.9 3.5 - 5.3 mmol/L 02/24/2025 10:51 AM EDT [facility] Cl 92(L) 98 - 107 mmol/L 02/24/2025 10:51 AM EDT [facility] CO2 23 22 - 32 mmol/L 02/24/2025 10:51 AM EDT [facility] Anion Gap 13 5 - 15 02/24/2025 10:51 AM EDT [facility] Glucose 657(HH) 65 - 99 mg/dL 02/24/2025 10:51 AM EDT [facility] BUN 33(H) 7 - 23 mg/dL 02/24/2025 10:51 AM EDT [facility] Creatinine 1.54(H) 0.60 - 1.30 mg/dL 02/24/2025 10:51 AM EDT [facility] Calcium 9.1 8.6 - 10.5 mg/dL 02/24/2025 10:51 AM EDT [facility] Phosphorus 3.7 2.5 - 4.5 mg/dL 02/24/2025 10:51 AM EDT [facility] Albumin 3.6 3.5 - 5.2 g/dL 02/24/2025 10:51 AM EDT [facility] eGFR 56(L) >=60 mL/min/1 .73m2 02/24/2025 10:51 AM EDT [facility] Comment:The estimated glomer ular [...] NP LAB BLOOD ORDERABLES Final Res ult [facility] [address] [place] [id number], * (ABNORMAL) Hemoglobin A1c (01/29/2025 6:56 AM EDT) Hemoglobin A1C 12.5(H) <5.7 % of total Hgb 01/29/2025 3:05 PM EDT [facility] Comment: For someone without known diabetes, a [...] A1c for diagnosis of diabetes for children. eAG (MG/DL) 312 mg/dL 01/29/2025 3:05 PM EDT [facility] eAG (MMOL/L) 17.3 mmol/L 01/29/2025 3:05 PM EDT [facility] Blood Structure of peripheral vein / Unknown Venipuncture / Unknown 01/29/2025 6:56 AM EDT 01/29/2025 7:07 AM EDT Narrative [facility] - 01/29/2025 3:05 PM EDT [facility] Received Date: Sherlyn Chavez MD LAB BLOOD ORDERABLES Final Result [facility] [address] [facility] 3rd Floor, [place] [address], [place] [phone] [facility] [address] [place] [address], [place] [phone] * CT Abdomen Pelvis with Contrast (01/27/2025 12:24 PM EDT) Anatomical Region Laterality Modality Body Computed Tomogra phy 01/27/2025 12:5 6 PM EDT Impressions 01/27/2025 1:21 PM EDT 1. Nonspecific left lower extremity subcutaneous edema extending to the upper thigh. No subcutaneous emphysema or fluid collection. The majority of the perineum is imaged and appears unremarkable, small portions of the right aspect of the perineum are outside of the field of view. 2. Postsurgical changes status post left common femoral to left popliteal artery bypass graft which is suboptimally due to phase of contrast enhancement on this nonangiogram exam. IRobert, have reviewed the examination and concur with the findings as reported or so edited. Trainee: Luis Tejada If this radiology report contains a blank impression section, it is an incomplete radiology report. Please contact the interpreting radiologist or applicable radiology division as soon as possible to obtain the completed interpretation. Workstation ID: [id number] Narrative 01/27/2025 1:21 PM EDT EXAMINATION: CT [...] hernia containing loop of nondilated small bowel. Normal [...] No acute osseous abnormality. Resulting Agency Comment [id number] Procedure Note Robert Gallegos MD - 01/27/2025 [...] possible to obtain thecompleted interpretation. Workstation ID: [id number] us Bertha Quintana MD IMG CT PROCEDURES Final Res ult * HIV Ab/p24 Ag with Reflex (10/29/2024 2:27 PM EST) HIV Scr 4th Gen Non Reactive Non Reactive [id number] Comment: HIV-1/HIV-2 antibodies and HIV-1 p24 antigen were NOT detected. There is no laboratory evidence of HIV infection. HIV Negative Blood Structure of peripheral vein / Unknown 10/29/2024 2:27 PM EST 10/29/2024 Narrative [facility] - 10/30/2024 5:05 AM EST Performed at: - [address] [id number] Personal Injury Law Specialist: Marilu Banks MD, Phone: [phone] us Juliet Bell [employer] AMB [facility] ORDERABLES Final [facility] * Hepatitis C Antibody w/Reflex to HCV RNA, Quantitative PCR (09/22/2024 5:47 PM EST) Hepatitis C Antibody Interpretation Nonreactive Nonreactive 09/23/2024 10:48 AM EST [facility] [employer] [facility] Blood Structure of peripheral vein / Unknown Venipuncture / Unknown 09/22/2024 5:47 PM EST 09/22/2024 5:51 PM EST us Alexa Rodriguez MD LAB BLOOD ORDERABLES Rain l Result [facility] [employer] [facility] [address] [place] [id number], from Last 3 Months or Most Recently Relevant to Health Maintenance Insurance [facility] Advance Directives Documents on File Type Date Recorded 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
--- OUTSIDE RECORDS SUMMARY | 2025-09-06 16:30 | XMS_ITS | Encounter Summary ---
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 Procedures ECG 12 lead J Carlos Tao MD MPH [address] [place] [address] Phone: tel: fax: Referral ID Status Reason Start Date Expiration Date Visits Re quested Visits Authorized [id number] Closed 09/06/2024 03/08/2026 1 1 Encounter Details Date Type Department Care Team (Late st Contact Info) Description 09/06/2024 Orders Only [facility] Lab [address] [place], [place] [phone] J Carlos Tao MD MPH [address] [place] [phone] Pre-operative cardiovascular examination (Primary Dx); Atherosclerosis of standing rock artery of left lower extremity with ulceration [...] Info) Description 09/28/2025 9:20 AM EST Follow-Up [facility] [address] [place] [address] Scrape Gatherer: Michelle Quezada, ACID PAINTER [address] [place] [address] 10/05/2025 10:00 AM EST Telehealth [address] Medicine [address] [place] [address] Henrique Banegas, PharmD [address] [place] [address] 10/28/2025 1:00 PM EST Appointment [facility] Vascular Lab [address] [place] [address] 10/28/2025 1:45 PM EST Appointment [facility] [address] [place] [address] 11/04/2025 9:00 AM EST Follow-Up [facility] ACC Building Vascular Surgery [address] [place] [address] Scrape Gatherer: Mitul Starr NP [address] [place] [address] 11/08/2025 11:20 AM EST Office Visit [facility] [address] [facility] [address] [place] [address] Adolfo Barber MD [address] [place] [address] [phone] (Work) 04/27/2026 2:00 PM EDT Follow-Up [facility] 326 [facility] OPTOMETRY [address] [place] [address] Cristi Lyons OD [address] [place] [address] documented as of this encounter Results * Due to [place] state law, this organization might not be sharing negative HIV tests. * ECG 12 lead (09/08/2024 5:04 PM EST) Ventricular Rate EKG 73 BPM MUSE EKG Atrial Rate 73 BPM MUSE EKG SD Interval 164 ms MUSE EKG QRS Interval 88 ms MUSE EKG QT Interval 396 ms MUSE EKG QTC Interval 436 ms MUSE EKG P [place] 64 degrees MUSE EKG R [place] 41 degrees MUSE EKG T Wave [place] 20 degrees MUSE EKG 09/08/2024 5:04 PM EST 09/08/2024 4:45 PM EST Impressions MUSE EKG - 09/08/2024 4:45 PM EST Normal sinus rhythm Normal ECG When compared with ECG of 12-DEC-2021 15:17, No significant change was found Confirmed by Thong Rosario ([id number]) on 09/08/2024 4:45:51 PM J Carlos Tao MD MPH ECG ORDERABLES Final R esult MUSE EKG * Protime-INR (09/08/2024 4:01 PM EST) PT 10.2 9.7 - 11.9 Seconds 09/08/2024 5:03 PM EST [facility] INR 1.0 0.9 - 1.1 09/08/2024 5:03 PM EST [facility] Comment:The optimal therapeu tic INR range for patients treated with Vitamin K antagonists (VKAS, e.g., Warfarin) is 2.0 to 3.5. Discuss the desired range with your doctor/care team. Blood Structure of peripheral vein / Unknown Venipuncture / Unknown 09/08/2024 4:01 PM EST 09/08/2024 4:01 PM EST J Carlos Tao MD MPH LAB BLOOD ORDERABLES Fi nal Result [facility] [address] [place] [address], * (ABNORMAL) CBC (09/08/2024 4:01 PM EST) [...] MPH LAB BLOOD ORDERABLES Fi nal Result [facility] [address] [place] [address], * (ABNORMAL) Basic Metabolic Panel (09/08/2024 4:01 [...] - 99 mg/dL 09/08/2024 5:15 PM EST [facility] Calcium 8.9 8.6 - 10.5 mg/dL 09/08/2024 5:15 PM EST [facility] Anion Gap 8 5 - 15 09/08/2024 5:15 PM EST [facility] eGFR 79 >=60 mL/min/1 .73m2 09/08/2024 5:15 PM EST [facility] Comment:The estimated glomer [...] MPH LAB BLOOD ORDERABLES Fi nal Result [facility] [address] [place] [address], documented in this encounter Visit Diagnoses Diagnosis Pre-operative cardiovascular examination- Primary 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
--- OUTSIDE RECORDS SUMMARY | 2025-09-06 16:30 | XMS_ITS | Encounter Summary ---
Author Organization [facility] Address [address] [place] [address] Care Team Providers Care Electronics Instructor Name Role Phone Geovanna Abbasi TANK INSULATOR RUBBER Primary Care Provider [phone] Encounter Details Date Type Department Care Team (Late st Contact Info) Description 01/03/2023 Orders Only [facility] [address] [place], [place] [phone] Geovanna Abbasi NP [address] [place], [place] [phone] Social History Tobacco Use Types Packs/Day Years [...] Info) Description 09/28/2025 9:20 AM EST Follow-Up [facility] [address] [place] [address] Pharmaceutical Specialty Representative: Michelle Quezada, KHURRAM [address] [place] [address] 10/05/2025 10:00 AM EST Telehealth [facility] 165 [facility] [address] [place] [address] Henrique Banegas, PharmD [address] [place] [address] 10/28/2025 1:00 PM EST Appointment [facility] Vascular Lab [address] [place] [address] 10/28/2025 1:45 PM EST Appointment [facility] Lab [address] [place] [address] 11/04/2025 9:00 AM EST Follow-Up [facility] Building Vascular Surgery [address] [place] [address] Pharmaceutical Specialty Representative: Mitul Starr NP [address] [place] [address] 11/08/2025 11:20 AM EST Office Visit [facility] [address] [address] Adolfo Barber MD [address] [place] [address] [phone] (Work) 04/27/2026 2:00 PM EDT Follow-Up [facility] [address] [facility] [address] [place] [address] Cristi Lyons, OD [address] [place] [address] documented as of this encounter Visit Diagnoses Not on filedocumented in this encounter Additional Health Concerns Infection Onset Date Last Indicated Resolved Time R/O Respiratory Virus Infection 09/23/2024 09/23/2024 3:28 AM EST R/O Influenza 09/23/2024 09/23/2024 09/23/2024 3:2 8 AM EST COVID-19 - Suspected infection 09/23/2024 09/23/2024 09/23/2024 3:28 AM EST documented as of this encounter Care Teams Electronics Instructor Relationship Specialty Start Date End Date Geovanna Abbasi NP [address] [place] [address] PCP - General 11/09/20 documented as of this encounter
== END 2025-09-06 15:43 | disposition home or self-care (01) ==
LOC: HO.ENCR 14:45
PROVIDERS: Visit Provider Registered Nurse Diabetes Educator
DX: E11.65 Type 2 diabetes mellitus with hyperglycemia (principal); Z79.4 Long term (current) use of insulin

== ENCOUNTER → 2025-09-06 14:44 | Outpatient (BNVA) | payer MEDICAID, SELFPAY | PROVIDERS: Visit Provider Registered Nurse Diabetes Educator | DX: E11.65 Type 2 diabetes mellitus with hyperglycemia (principal); E11.40 Type 2 diabetes mellitus with diabetic neuropathy, unspecified; Z79.4 Long term (current) use of insulin | CPT/HCPCS: 99211 ==